=== PATIENT | female | born 1970 | race Caucasian/White ===

== ENCOUNTER → 2021-06-03 08:42 | Outpatient (CLI) | payer BC, SELFPAY ==
--- NOTE | ~2021-06-03 | CT_ITS ---
EXAMINATION: CT abdomen pelvis w con DATE: 06/03/2021 09:16 INDICATION: Generalized abdominal pain. TECHNIQUE: Computed tomography (CT) of the abdomen and pelvis was performed with 100 mL Omnipaque 350 intravenous contrast. Automated exposure control and iterative reconstruction technique were employe d. The dose-length product was 965.60 mGy-cm. COMPARISON: CT abdomen and pelvis 10/28/2007 FINDINGS: The visualized portions of the lung bases demonstrate mild atelectasis. No pleural effusion . The heart size is normal. No pericardial effusion. There are changes of gastric bypass procedure. T here is a 5 mm cyst in the liver. There are changes of cholecystectomy. The spleen and pancreas are n ormal. The adrenal glands and kidneys are normal. There is an intrauterine device in expected positio n. There are fibroids in uterus measuring up to 3.5 cm. There are no dilated loops of bowel. The appe ndix is not visualized. There are no pathologically enlarged lymph nodes. There is no free intraperit herrera fluid. There is mild thoracolumbar spondylosis. IMPRESSION: 1. Uterine fibroids. Reviewed, dictated and finalized at location A. IMPRESSION: 1. Uterine fibroids.
== END ==
PROVIDERS: PCP Nurse Practitioner Family
DX: R10.9 Unspecified abdominal pain (principal); D25.9 Leiomyoma of uterus, unspecified
CPT/HCPCS: 74177; Q9967

== ENCOUNTER 2022-12-24 17:25 | Emergency (ER) | payer BC, SELFPAY ==
[2022-12-24 17:28] VITALS: BP 142/90; PULSE 102; RESP 18; TEMP 37.3; O2SAT 100
--- NOTE | 2022-12-24 17:57 | ED.EYEPROB ---
HPI - Eye Problem General Chief complaint: Eye Problems Stated complaint: COVID positive - feels a pulling in her R eye Time Seen by Provider: 12/24/22 17:34 Source: patient Mode of arrival: ambulatory Limitations: no limitations History of Present Illness HPI Narrative: This is a 52-year-old female who is COVID-positive and presents the ED for chief complaint of right eye pulling. She is concerned for stroke. Denies facial drooping or speech difficulties. Denies any other neurologic symptoms. She states that the eye pulling just feels like there is something pulling behind the eyelid. States she spoke to her family member's home health nurse who recommended that she come to the ER. Denies any vision changes, pain with eye movements. Having viral URI symptoms and otherwise asymptomatic. Related Data Allergies Allergy/AdvReac Type Severity Reaction Status Date / Time sertraline Allergy Intermediate RASH Verified 12/24/22 17:26 Penicillins Allergy Mild HIVES Verified 12/24/22 17:26 phentermine AdvReac Unknown BECAME Verified 12/24/22 17:26 VERY JITTERY Review of Systems Review of Systems: CONSTITUTIONAL: Denies fever, chills, or sweats. EYES: Denies visual changes, redness, or discharge. ENT: Denies rhinorrhea, congestion, sore throat, or otalgia. CARDIOVASCULAR: Denies chest pain, palpitations, or edema. RESPIRATORY: Denies cough or dyspnea. GASTROINTESTINAL: Denies abdominal pain, nausea, vomiting, or diarrhea. GENITOURINARY: Denies dysuria or hematuria. SKIN: Denies rash or itching. MUSCULOSKELETAL: Denies back pain, joint pain, or myalgia. NEUROLOGIC: Denies headache, numbness, dizziness, or weakness. PSYCHIATRIC: Denies anxiety or depression. Course Course Emergency Course: GENERAL: Well-appearing, well-nourished, and in no acute distress. HEAD: Normocephalic, atraumatic. EYES: PERRLA and EOMI. visual lee intact. Visual acuity 20/20 bilaterally. ENT: Nares clear, no rhinorrhea or epistaxis. Mucous membranes moist. Oropharynx without tonsillar hypertrophy exudate or other lesions. NECK: Supple. No adenopathy or masses. CHEST: No respiratory distress. Clear to auscultation. No wheezes rales or rhonchi HEART: Regular rate and rhythm. No murmur heard. Normal peripheral pulses. ABDOMEN: Soft, nontender, nondistended, normal active bowel sounds. EXTREMITIES: Normal range of motion. No edema. SKIN: Warm, dry, no rash. NEURO: Alert and oriented x3. No focal deficits. Currently nerves II through XII intact. PSYCH: Normal mood and affect. Vital Signs Vital signs: Vital Signs Temperature 99.1 F 12/24/22 17:28 Pulse Rate 102 H 12/24/22 17:28 Respiratory Rate 18 12/24/22 17:28 Blood Pressure 142/90 H 12/24/22 17:28 Pulse Oximetry 100 12/24/22 17:28 Oxygen Delivery Room Air 12/24/22 17:28 Temperature 99.1 F 12/24/22 17:28 Pulse Rate 102 H 12/24/22 17:28 Respiratory Rate 18 12/24/22 17:28 Blood Pressure 142/90 H 12/24/22 17:28 Pulse Oximetry 100 12/24/22 17:28 Oxygen Delivery Room Air 12/24/22 17:28 MDM - Eye Problem MDM Narrative Medical decision making narrative: This is a 52-year-old female who presents the ED with who is COVID-positive and has concerns for stroke. She states she has pulling behind the right eyelid. Denies any neurologic symptoms. Vitals are stable. Exam is grossly benign. Neurologic status fully intact. Encouraged her that she does not have any stroke signs. We discussed that she should follow-up with her eye doctor in case this right eye pulling continues. Supportive measures for COVID discussed. Patient is understanding and agreeable with the plan for discharge and follow-up Discharge Plan Discharge Clinical Impression: Eye discomfort Patient Disposition: Home, Self-Care Condition: Stable Instructions: Antibiotic Form Additional Instructions: Your neurologic exam is fully normal today. Rest assured that there
== END 2022-12-24 18:08 | disposition home or self-care (01) ==
PROVIDERS: Emergency Provider Physician Assistant; PCP Nurse Practitioner Family
DX: U07.1 COVID-19 (principal); H57.89 Other specified disorders of eye and adnexa
CPT/HCPCS: 99282

== ENCOUNTER 2023-06-10 13:44 | Outpatient (CLI) | payer BC, SELFPAY ==
--- NOTE | 2023-06-10 13:58 | ECG_ITS ---
Measurements Intervals [place] Rate: 72 P: -24 CO: 141 QRS: 9 QRSD: 98 T: 3 QT: 364 QTc: 399 Interpretive Statements SINUS RHYTHM LOW QRS VOLTAGE IN PRECORDIAL LEADS [QRS DEFLECTION < 1.0 mV IN CHEST LEADS] PATTERN CONSISTENT WITH PULMONARY DISEASE BORDERLINE ECG NO PREVIOUS ECG AVAILABLE FOR COMPARISON Electronically Signed On 06-10-2023 18:35:59 CDT by Edil Khan M.D.
[2023-06-10 14:30] LABS: Alanine Aminotransferase 16 U/L (6-35); Albumin Level 4.3 g/dL (3.5-5.1); Alkaline Phosphatase 56 U/L (38-126); Anion Gap 5 mmol/L (8-16); Aspartate Amino Transferase 21 U/L (14-36); Bilirubin,Total 0.4 mg/dL (0.2-1.3); Blood Urea Nitrogen 11 mg/dL (7-17); Calcium 8.9 mg/dL (8.4-10.2); Carbon Dioxide 32 mmol/L (22-30); Chloride 100 mmol/L (98-107); Estimated Glomerular Filt Rate > 60; Glucose 86 mg/dL (65-110); Potassium 4.1 mmol/L (3.4-5.0); Sodium 137 mmol/L (137-145)
== END 2023-06-10 13:45 | disposition home or self-care (01) ==
LOC: ANHSURGERY 13:49
PROVIDERS: PCP Nurse Practitioner Family; Visit Provider Obstetrics & Gynecology
DX: Z01.818 Encounter for other preprocedural examination (principal); N92.0 Excessive and frequent menstruation with regular cycle; I10 Essential (primary) hypertension; E11.9 Type 2 diabetes mellitus without complications
CPT/HCPCS: 36415; 80053; 86850; 86900; 86901; 93005

== ENCOUNTER 2023-06-17 01:00 | Day surgery (SDC) | payer BC, SELFPAY ==
[2023-06-02 13:10] VITALS: BMI 37.2
--- NOTE | 2023-06-02 13:16 | PC.NURSE ---
Report to the Outpatient Waiting Room, entrance under the green pavilion located off [facility], at time 8:00 on date 06/17/23. Planned Procedure Time: 10:00. Time changes happen often and if your time is changed the preop area will call you the afternoon before. - You and your visitor will be asked to self-screen and do not enter if you have any COVID symptoms. - A mask is optional within the hospital at this time. Patients may have clear liquids (water, carbonated beverages, clear teas, apple juice) until 3 hours prior to surgery (7:00) with a maximum of 20 ounces. - No food from midnight until time of surgery Take the following medications with a SIP of water the morning of surgery: BUSPIRONE, DULOXETINE, LEVOTHYROXINE, LYRICA DO NOT STOP ANY OF YOUR OTHER PRESCRIPTION MEDICATIONS PRIOR TO SURGERY ?EXCEPT THE FOLLOWING Medications to discontinue per physician: N/A Date to take last dose: N/A Please no make-up, nail danish, hairspray, perfume, deodorant, or body powder the day of surgery. No jewelry (including any body piercings) or valuables the day of surgery, leave them at home. Please take a shower or bath the night before, or the morning of, surgery with an antibacterial soap. Wear comfortable, loose fitting clothing. - Jewelry must be removed prior to entering the operating room. Rings and piercings that are not removed may be cut off. - The hospital will not accept responsibility for valuables. - Please leave all valuables, including medications, at home the day of surgery. If you are going home after surgery, a licensed [employer] hazmat company driver must drive you home. - NO public transportation without another adult if you receive anesthesia. - We recommend that an adult stay with you for 24 hours following discharge. - We also recommend that you do not drive, make important decision, drink alcoholic beverages, or take any drugs that were not prescribed by your health care provider for at least 24 hours after your discharge time. Follow any additional instructions given to you from your surgeon. If you or anyone in your household have experienced Covid symptoms in the past week, please notify your surgeon or the nurse liaison at the phone number below for possible testing. Telephone instructions given to PT - SULTANA EVERETT and asked if any additional questions and then verbalized understanding. Patient advised to call surgeon office or pre surgery nurse liaison [phone] if any additional questions.
[2023-06-17] VITALS (11 sets, daily range): BP systolic 109–145; BP diastolic 54–87; PULSE 79–103; RESP 14–18; TEMP 36.4–36.9; O2SAT 97–100
[2023-06-17] MEDS: LACTATED RINGERS 1,000 ML 30 ML IV CONT ×2 (08:40→11:24)
[2023-06-17] MEDS: ACETAMINOPHEN 500 MG TABLET 1000 MG PO (08:41)
[2023-06-17] MEDS: SCOPOLAMINE 1.5 MG PATCH TRANSDERM (08:43)
[2023-06-17] MEDS: KETOROLAC 15 MG/ML VIAL (*BKC) IV PUSH (08:43)
--- NOTE | 2023-06-17 08:57 | P.PNAN_ITS ---
Anes - Initial Pre Proc Eval Procedure: Operation Date: 06/17/23 10:00 Proposed Procedures p Robotic Assisted Hysterectomy with Bilateral Salpingo Oophorectomy - Jean Pierre Donald MD Date/Time: 06/17/23 08:57 Surgeon: Jean Pierre Donald MD Pre Op Diagnosis: menorrhagia Patient Data Age: 53 Gender: F Height: 1.6 m Weight: 95.3 kg Last Vital Signs Temp 98.3 F 06/17/23 08:47 Pulse 79 06/17/23 08:47 Resp 16 06/17/23 08:47 BP 110/85 06/17/23 08:47 Pulse Ox 100 06/17/23 08:47 O2 Del Method Room Air 06/17/23 08:47 Allergies Allergy/AdvReac Type Severity Reaction Status Date / Time sertraline Allergy Intermediate RASH Verified 06/17/23 07:58 Penicillins Allergy Mild HIVES Verified 06/17/23 07:58 phentermine AdvReac Unknown BECAME Verified 06/17/23 07:58 VERY JITTERY Home Medications Medication Instructions Recorded Confirmed Type buspirone 5 mg tablet 10 mg PO TID 06/02/23 06/17/23 History duloxetine 30 mg capsule,delayed 30 mg PO DAILY 06/02/23 06/17/23 History release duloxetine 60 mg capsule,delayed 60 mg PO DAILY 06/02/23 06/17/23 History release estradiol 2 mg tablet 2 mg PO DAILY 06/02/23 06/17/23 History levocetirizine 5 mg tablet (Xyzal) 5 mg PO HS 06/02/23 06/17/23 History levothyroxine 50 mcg tablet 50 mcg PO DAILY 06/02/23 06/17/23 History (Synthroid) lisinopril 20 1 tablet PO DAILY 06/02/23 06/17/23 History mg-hydrochlorothiazide 12.5 mg tablet metformin 500 mg tablet,extended 500 mg PO HS 06/02/23 06/17/23 History release 24 hr pregabalin 100 mg capsule 100 mg PO BID 06/02/23 06/17/23 History progesterone micronized 200 mg 200 mg PO DAILY 06/02/23 06/17/23 History capsule ropinirole 1 mg tablet 1 mg PO HS 06/02/23 06/17/23 History Patient hx anesthesia problems: post op nausea/vomiting Family hx anesthesia problems: none Results Review: All pre-operative results and documents have been reviewed as part of the pre- operative evaluation. [facility] Social History Social History Smoking status: Never smoker Alcohol intake: never Substance use: never Substance use type: does not use Living arrangements: alone Spiritual care concerns: No Anes - Eval Final PreProcedure Day of Procedure 06/17/23 08:57 Patient weight: obese Heart: regular rate and rhythm Lungs: clear to auscultation Airway: Mallampati scale class II Neurological: alert and oriented Last oral intake: >/= 8 hours ASA classification: III Emergent: no Anesthetic plan: proceed Anesthesia type and monitoring: general ETT and standard monitoring Results Review: All pre-operative results and documents have been reviewed as part of the pre- operative evaluation. Informed Consent: The patient's anesthetic plan and its attendant risks and benefits were discussed with the patient/family/POA. Questions were solicited and answers provided to the satisfaction of the patient/family/POA.
--- NOTE | 2023-06-17 09:10 | WPDHPUPDATE1 ---
History and Physical Update Update Date/Time: 06/17/23 09:10 History and Physical has been reviewed, including an updated exam of the patient. There are NO changes in the patient's condition. Risks, benefits, and alternatives have been discussed and questions answered. Patient agrees to proceed with procedure.
[2023-06-17] MEDS: ceFAZolin 2 GM/D5W 50 ML 2 GM/50 ML BAG IVPB (09:24)
--- NOTE | 2023-06-17 11:33 | W.PM.PROC2 ---
Procedure Note - Detailed Date of Procedure 06/17/23 Pre-op Diagnosis menorrhagia Post-op Diagnosis Same Procedure Performed Robot assisted Total hysterectomy with bilateral salpingectomy. Surgeon Jean Pierre Donald MD Anesthesia General Indications heavy vaginal bleeding, pelvic pain Findings enlarged fibroid uterus uterus, normal appearing fallopian tubes and ovaries. Description of Procedure This patient was taken to the operating room. She was prepped and draped in the dorsal lithotomy position after induction of general anesthesia. The uterine manipulator and Robbie cup were placed. This was done with a speculum and tenaculum. The speculum was placed. The cervix was grasped with a tenaculum. The stay sutures were placed at 3 and 9:00 a.m.. The stay sutures of 0 Vicryl were tied to the appropriately Size scope after it was slipped around the cervix.. The tip of the EMERITA manipulator was placed in the intrauterine cavity. The cup was slid into place around the cervix and into the fornices. It was locked into place. The sutures were then wrapped around the handle and tied under tension. A 8 mm skin incision was made in the left upper quadrant the abdomen. a 5 mm Visiport trocar was inserted into abdominal cavity and pneumoperitoneum was achieved. A 8 mm supraumbilical incision was made and a 8 mm trocar was inserted into the intrauterine cavity under direct visualization of the scope. an 8 mm incision was made in the right upper quadrant of the abdomen and an 8 mm robotic trocar was placed the inter uterine cavity under direct visualization the scope. An 11 mm trocar was inserted in the right upper quadrant of the abdomen rectal is a cystoscope after an incision was made there as well. The robot was docked. Electronic Orientation of the robot was performed. Bilateral ureteral lysis was performed. This was done from the pelvic brim down to the uterine artery. This was done with careful dissection using sharp and blunt dissection.Bilateral salpingo-oophorectomy was performed. The bilateral infundibulopelvic ligaments were cauterized thoroughly and transected after visualization of the ureter passing over the pelvic brim. In stepwise fashion around the ovary the mesosalpinx was cauterized transected. The Fallopian tube tissue/ mesosalpinx was cauterized transected a stepwise fashion medially to the cornua of the uterus. the tube was transected at the cornua and cauterized thoroughly. The bilateral tubes and ovaries were taken out through the large air lock port. Then In a stepwise fashion along the lateral aspects of the uterus the round ligament and broad ligaments were cauterized transected down to the level of the uterine arteries. A bladder flap was created in the bladder was moved distally to the end of the cervix and over the Robbie cup. The bilateral uterine arteries were cauterized and transected. Colpotomy was then performed. In a circumferential fashion the vagina was transected using unipolar cautery. The incision was made down on the Robbie cup. The uterus and cervix were taken out through the vagina. A pneumo occluder was placed in the vagina. The vaginal cuff was closed with a 0 V lock suture in a running fashion. The pelvis was irrigated with copious amounts antibiotic irrigation. The ureters were again examined and found to be intact and flowing freely under the uterine arteries into the bladder. The bladder was intact. It was examined directly. The vagina was irrigated with Betadine solution after removal of the Pneumo occluder. the trocars were removed after the robot was undocked. The skin was closed with subacute or Dermabond. The patient was taken to recovery room. She was stable condition. Sponge lap and needle counts were correct x2. Estimated Blood Loss -25.0 Urine Output -200.0 Drains Yes Packing No Pathology Yes Complications No immediate complications Condition Stable Disposition Floor
[2023-06-17 11:36] LABS: Glucose Point of Care 132 mg/dl (65-105)
[2023-06-17] MEDS: fentaNYL CITRATE INJ (*CRX) 100 MCG/2 ML VIAL 25 MCG IV PUSH ×4 (11:47→12:30)
[2023-06-17] MEDS: DEXTROSE 5%/0.45% SOD CHL 1,000 ML 125 ML IV CONT (13:35)
[2023-06-17] MEDS: busPIRone HCL 5 MG TABLET 10 MG PO ×2 (13:35→16:20)
--- NOTE | 2023-06-17 13:39 | ADMGEN ---
1255-This patient, Brielle Walker, was admitted to OB 2nd Floor Room 289-00. Patient/family oriented to hospital policies and general routines including ID bracelet, bed and alarms, visiting hours, pain management, procedures, bathroom and other care routines, personal items, smoking policy, room service/diet, and visiting hours. Information on how to activate the Rapid Response Team has been discussed. Patient/Family are encouraged to report perceived risks to care and to ask questions if they do not understand what they are told or what they should do.
--- NOTE | 2023-06-17 14:11 | PC.NURSE ---
Per patient, she does not take Ibuprofen due to having a gastric bypass. This medication was discontinued.
[2023-06-17] MEDS: KETOROLAC 30 MG/ML VIAL (*BKC) IV PUSH (14:38)
[2023-06-17] MEDS: PREGABALIN (*CRX) 50 MG CAPSULE 100 MG PO (16:20)
[2023-06-17] MEDS: HYDROcodone/acetaminophen (*CRX) 10-325 MG TABLET 1 TAB PO (16:39)
[2023-06-17] MEDS: metFORMIN HCL XR 500 MG TAB.SR.24H PO (21:37)
[2023-06-17] MEDS: HYDROcodone/acetaminophen (*CRX) 5-325 MG TABLET 1 TAB PO (21:37)
[2023-06-17] MEDS: rOPINIRole HCL 1 MG TABLET PO (21:37)
[2023-06-18 00:30] VITALS: BP 109/74; PULSE 83; RESP 14; TEMP 37; O2SAT 98
[2023-06-18 05:00] VITALS: BP 104/63; PULSE 78; RESP 14; TEMP 37; O2SAT 96
[2023-06-18 07:55] VITALS: BP 126/76; PULSE 88; RESP 18; TEMP 36.4; O2SAT 96
--- NOTE | 2023-06-18 08:00 | PM.GYNPNOP ---
DIRECTOR OF LAND ACQUISITION - A/P Postoperative Procedures: Procedures Operation Date: 06/17/23 10:00 Actual Procedure Side Surgeon p Robotic Assisted Hysterectomy with Bilateral Salpingo Oophorectomy Jean Pierre Donald MD Postoperative day: 1 Postoperative status: doing well Postoperative plan: see orders Time Spent With Patient Time: Total time spent is greater than 50% in coordination of care (as documented) at patient's floor/unit and/or counseling patient: Time with patient: less than 15 minutes DIRECTOR OF LAND ACQUISITION- PN:Subj Post-Op Subjective Date/time seen: 06/18/23 08:00 Subjective: patient reports feeling better, patient has no complaints and pain is well controlled Exam Const: General: healthy appearing, comfortable and no acute distress Resp: Auscultation: clear to auscultation bilaterally, no rales, no rhonchi and no wheezes Cardio: Rate: regular rate Heart sounds: no click, no murmurs and no rubs GI: Inspection: non-distended Auscultation: normal bowel sounds Extrem: General: normal to inspection, no pedal edema and no calf tenderness DIRECTOR OF LAND ACQUISITION - PN: Obj Data Vital Signs Vital Signs: Vital Signs - 24 hr 06/17/23 08:47 06/17/23 11:24 06/17/23 11:35 Temperature 98.3 F 97.6 F Pulse Rate 79 88 94 Respiratory Rate 16 18 18 Blood Pressure 110/85 113/54 L 109/59 L Pulse Oximetry 100 100 100 Oxygen Delivery Room Air Simple Face Mask Simple Face Mask Oxygen Flow Rate 8 8 06/17/23 11:45 06/17/23 12:00 06/17/23 12:15 Temperature Pulse Rate 95 95 96 Respiratory Rate 18 18 18 Blood Pressure 111/60 112/69 118/69 Pulse Oximetry 100 100 100 Oxygen Delivery Nasal Cannula Nasal Cannula Nasal Cannula Oxygen Flow Rate 2 2 2 06/17/23 12:30 06/17/23 12:40 06/17/23 13:00 Temperature 97.6 F Pulse Rate 94 94 103 H Respiratory Rate 16 14 16 Blood Pressure 110/66 113/71 145/87 H Pulse Oximetry 100 100 100 Oxygen Delivery Nasal Cannula Nasal Cannula Oxygen Flow Rate 2 2 06/17/23 16:31 06/17/23 19:25 06/18/23 00:30 Temperature 98.2 F 98.4 F 98.6 F Pulse Rate 98 96 83 Respiratory Rate 18 16 14 Blood Pressure 123/75 127/71 109/74 Pulse Oximetry 99 97 98 Oxygen Delivery Oxygen Flow Rate 06/18/23 05:00 Temperature 98.6 F Pulse Rate 78 Respiratory Rate 14 Blood Pressure 104/63 Pulse Oximetry 96 Oxygen Delivery Oxygen Flow Rate Intake/Output Intake/Output: Intake & Output 06/15/23 06/16/23 06/17/23 06/18/23 23:59 23:59 23:59 23:59 Intake Total 2250 200 Output Total 1460 1100 Balance 790 -900 Meds/Results Medications: Active Medications Generic Name Dose Route Start Last Admin Trade Name Freq PRN Reason Stop Dose Admin Hydrocodone Bitart/Acetaminophen 1 tab 06/17/23 12:45 06/17/23 21:37 Hydrocodone/Acetaminophen (*Crx) 5-325 Mg Tablet PO 1 tab Q3H PRN Administration Pain Rated 5 or Less Hydrocodone Bitart/Acetaminophen 1 tab 06/17/23 12:45 06/17/23 16:39 Hydrocodone/Acetaminophen (*Crx) 10-325 Mg Tablet PO 1 tab Q3H PRN Administration Pain Rated 6 or Greater Buspirone HCl 10 mg 06/17/23 13:00 06/17/23 16:20 Buspirone Hcl 5 Mg Tablet PO 10 mg TID TORSTEN Administration Duloxetine HCl 30 mg 06/18/23 09:00 Duloxetine Hcl 30 Mg Capsule. PO DAILY TORSTEN Duloxetine HCl 60 mg 06/18/23 09:00 Duloxetine Hcl 60 Mg Capsule.Dr PO DAILY TORSTEN Estradiol 2 mg 06/18/23 09:00 Estradiol 1 Mg Tablet PO QAM [facility] Hydrochlorothiazide 12.5 mg 06/18/23 09:00 Hydrochlorothiazide 12.5 Mg Capsule PO QAM [facility] Dextrose/Sodium Chloride 1,000 mls @ 125 mls/hr 06/17/23 12:45 06/18/23 04:19 Dextrose 5% Sodium Chloride 0.45% IV CONT Not Given .Q8H TORSTEN Ketorolac Tromethamine 30 mg 06/17/23 12:45 06/17/23 14:38 Ketorolac 30 Mg/Ml Vial (*Bkc) IV PUSH 06/22/23 12:44 30 mg Q6H PRN Administration Pain Rated 4-6 Levothyroxine Sodium 50 mcg 06/18/23 06:30 Levothyroxine Sodium 50 Mcg Tablet PO DAILY@0630
[2023-06-18] MEDS: busPIRone HCL 5 MG TABLET 10 MG PO (09:06)
[2023-06-18] MEDS: LEVOTHYROXINE SODIUM 50 MCG TABLET PO (09:06)
[2023-06-18] MEDS: estradioL 1 MG TABLET 2 MG PO (09:07)
[2023-06-18] MEDS: DULoxetine HCL 60 MG CAPSULE.DR PO (09:07)
[2023-06-18] MEDS: hydroCHLOROthiazide 12.5 MG CAPSULE PO (09:08)
[2023-06-18] MEDS: lisinopriL 20 MG TABLET PO (09:08)
[2023-06-18] MEDS: PREGABALIN (*CRX) 50 MG CAPSULE 100 MG PO (09:08)
[2023-06-18] MEDS: HYDROcodone/acetaminophen (*CRX) 5-325 MG TABLET 1 TAB PO (09:09)
[2023-06-18] MEDS: DULoxetine HCL 30 MG CAPSULE.DR PO (09:09)
--- NOTE | 2023-06-18 09:13 | WPDANESPN ---
Anes - Prog Note Post-Op Date/Time: 06/18/23 09:13 Cardiovascular status: normal Respiratory status: normal Airway patency: baseline Mental status: baseline Post-Op hydration status: normal Vital Signs: Last Vital Signs Temp 97.6 F 06/18/23 07:55 Pulse 88 06/18/23 07:55 Resp 18 06/18/23 07:55 BP 126/76 06/18/23 07:55 Pulse Ox 96 06/18/23 07:55 O2 Del Method Nasal Cannula 06/17/23 12:40 O2 Flow Rate 2 06/17/23 12:40 Pain Score (VAS): 4 I/O: Intake & Output 06/17/23 06/18/23 06/18/23 23:59 07:59 15:59 Intake Total 1600 200 Output Total 1400 1425 Balance 200 -1225 06/17/23 11:34 POC Capillary Glucose 132 H Post-procedural complaints: none Patient Feedback: Patient satisfied with anesthetic care.
== END 2023-06-18 11:18 | disposition home or self-care (01) ==
LOC: ANHSURGERY 07:47 → ANHOB2 12:46
PROVIDERS: PCP Nurse Practitioner Family; Visit Provider Obstetrics & Gynecology
PROC: (CPT 58573; principal; 2023-06-17 10:00)
DX: N92.0 Excessive and frequent menstruation with regular cycle (principal); D25.0 Submucous leiomyoma of uterus; D25.1 Intramural leiomyoma of uterus; D25.2 Subserosal leiomyoma of uterus; N83.202 Unspecified ovarian cyst, left side; R10.2 Pelvic and perineal pain; Z79.84 Long term (current) use of oral hypoglycemic drugs; E66.9 Obesity, unspecified; Z68.37 Body mass index [BMI] 37.0-37.9, adult
CPT/HCPCS: 58573; S2900; 36415; 80053; 82948; 86850; 86900; 86901; 88307; 93005; 99199; A9270; J0690; J1100; J1170; J1885; J2250; J2405; J2704; J3010; J7030; J7120

== ENCOUNTER 2023-07-08 08:27 | Day surgery (SDC) | payer BC, SELFPAY ==
[2023-07-08] VITALS (25 sets, daily range): BP systolic 119–143; BP diastolic 66–91; PULSE 83–102; RESP 12–19; TEMP 36.4–36.7; O2SAT 96–100
--- NOTE | ~2023-07-08 | CT_ITS ---
EXAMINATION: CT abdomen pelvis w con DATE: 07/08/2023 10:46 INDICATION: Heavy vaginal bleeding. Recent hysterectomy. TECHNIQUE: Computed tomography (CT) of the abdomen and pelvis was performed with 100 mL Omnipaque 350 intravenous contrast. Automated exposure control and iterative reconstruction technique were employe d. The dose-length product was 1185.24 mGy-cm. COMPARISON: CT abdomen and pelvis 06/03/2021 FINDINGS: The visualized portions of the lung bases demonstrate mild atelectasis. No pleural effusion . The heart size is normal. There is a small pericardial effusion. There is a 5 mm cyst in the liver. There are changes of cholecystectomy. There are changes of gastric bypass procedure. There is a smal l sliding hiatal hernia. The spleen, pancreas, adrenal glands, and kidneys are normal. There is thick ening of the vaginal cuff with surrounding fat stranding. The appendix is not visualized. There are n o dilated loops of bowel. There are no pathologically enlarged lymph nodes. There is no free intraper itoneal fluid. There is mild thoracic and lumbar spondylosis. IMPRESSION: 1. Thickening of the vaginal cuff with surrounding fat stranding, consistent with surgical change and small hematoma. 2. Small pericardial effusion. Reviewed, dictated and finalized at location A. [employer] IMPRESSION: 1. Thickening of the vaginal cuff with surrounding fat stranding, consistent wi th surgical change and small hematoma. 2. Small pericardial effusion.
--- NOTE | 2023-07-08 09:04 | PC.NURSE ---
ERP placed vaginal packing
[2023-07-08] MEDS: SODIUM CHLORIDE 0.9% IV 1,000 ML 999 ML IV CONT (09:18)
[2023-07-08 09:32] LABS: Basophils Percent Auto 0.4 % (0.2-1.2); Eosinophils Absolute Auto 0.1 K/mm3 (0-0.3); Eosinophils Percent Auto 1.4 % (0-4.4); Hematocrit 37.8 % (37.0-47.0); Hemoglobin 11.8 g/dL (12.0-15.0); Immature Granulocyte Absolute 0.05 K/mm3 (0.00-0.031); Immature Granulocyte Percent A 0.6 % (0-0.5); Lymphocytes Absolute Auto 1.84 K/mm3 (0.9-3.2); Lymphocytes Percent Auto 23.8 % (18.3-44.2); Mean Corpuscular HGB Conc 31.2 g/dl (32-36); Mean Corpuscular Hemoglobin 27.5 pg (26-34); Mean Corpuscular Volume 88.1 fl (80-100); Mean Platelet Volume 11.1 fl (7.4-10.4); Monocytes Absolute Auto 0.3 K/mm3 (0.1-0.6); Monocytes Percent Auto 3.8 % (2.6-8.5); Neutrophils Absolute Auto 5.4 K/mm3 (1.3-6.7); Platelet Count Result 313 k/mm3 (150-375); Red Blood Count 4.29 M/mm3 (4.2-5.4); Red Cell Distribution Width 13.8 % (11.5-14.5); White Blood Count 7.7 K/mm3 (4.5-10.0)
--- NOTE | 2023-07-08 09:42 | ED.GENADULT ---
HPI - General Adult General Chief complaint: Vaginal Bleeding Stated complaint: hemorrhage Time Seen by Provider: 07/08/23 08:34 History of Present Illness HPI narrative: Patient is a 53-year-old female who presents ER with vaginal bleeding. She had a hysterectomy on 06/17/2023. She underwent speculum exam yesterday due to concern for a vaginal infection. She woke up this morning use restroom and came back to her bed. She then felt her pants becoming warm. She did notice that she was just constantly bleeding bright red blood. She came in by ambulance. Patient is on no anti-platelet or blood thinning medications. Denies any additional trauma to the vaginal area. Related Data Home Medications Medication Instructions Recorded Confirmed buspirone 5 mg tablet 10 mg PO TID 06/02/23 06/17/23 duloxetine 30 mg capsule,delayed 30 mg PO DAILY 06/02/23 06/17/23 release duloxetine 60 mg capsule,delayed 60 mg PO DAILY 06/02/23 06/17/23 release estradiol 2 mg tablet 2 mg PO DAILY 06/02/23 06/17/23 levocetirizine 5 mg tablet (Xyzal) 5 mg PO HS 06/02/23 06/17/23 levothyroxine 50 mcg tablet 50 mcg PO DAILY 06/02/23 06/17/23 (Synthroid) lisinopril 20 1 tablet PO DAILY 06/02/23 06/17/23 mg-hydrochlorothiazide 12.5 mg tablet metformin 500 mg tablet,extended 500 mg PO HS 06/02/23 06/17/23 release 24 hr pregabalin 100 mg capsule 100 mg PO BID 06/02/23 06/17/23 progesterone micronized 200 mg 200 mg PO DAILY 06/02/23 06/17/23 capsule ropinirole 1 mg tablet 1 mg PO HS 06/02/23 06/17/23 Allergies Allergy/AdvReac Type Severity Reaction Status Date / Time sertraline Allergy Intermediate RASH Verified 06/17/23 07:58 Penicillins Allergy Mild HIVES Verified 06/17/23 07:58 phentermine AdvReac Unknown BECAME Verified 06/17/23 07:58 VERY JITTERY Review of Systems Review of Systems: All systems reviewed & are unremarkable except as noted in HPI and below Constitutional: Constitutional: Reports no additional constitutional complaints ENT: Reports system reviewed and no additional complaints, except as documented Cardiovascular: Cardiovascular: Reports no additional cardiovascular complaints Respiratory: Respiratory: Reports no additional respiratory complaints Gastrointestinal: Gastrointestinal: Reports no additional gastrointestinal complaints Genitourinary: Genitourinary: Reports abnormal vaginal bleeding, Denies dysuria, Denies pelvic pain and Denies flank pain PMFSH Past Medical History Medical History (Updated 07/08/23 @ 13:04 by Elijah Nina MD) Diabetes Hypothyroidism Surgical History Surgical History (Updated 07/08/23 @ 13:04 by Elijah Nina MD) History of hysterectomy Social History Social History Smoking status: Never smoker Alcohol intake: never Substance use: never Substance use type: does not use Living arrangements: alone Spiritual care concerns: No Exam Narrative: GENERAL: Well-appearing, obese, and in no acute distress. HEAD: Normocephalic, atraumatic. ENT: Mucous membranes moist. CHEST: Clear to auscultation. No respiratory distress. HEART: Regular rate and rhythm. Normal peripheral pulses. ABDOMEN: Soft, nontender, nondistended, normal active bowel sounds. : Normal external genitalia. Large clot the size of a palm physically extracted from the vagina. Moderate amount of blood soaked up with 2 4x4s. Unable to fully visualize the site of bleeding or vaginal cough but after the blood was sewed up there is no additional bleeding. EXTREMITIES: Normal range of motion. No edema. SKIN: Warm, dry, no rash. NEURO: Alert and oriented x3. PSYCH: Normal mood and affect. Course Course Emergency Course: Patient resting comfortably. Discussed case with Dr. Donald. He has been to the patient's bedside will take her to the OR for evaluation. Patient comfortable with this plan. She has been NPO in the ER. Vital Signs Vital signs: Vital Signs
[2023-07-08 09:45] LABS: Alanine Aminotransferase 19 U/L (6-35); Albumin Level 4.1 g/dL (3.5-5.1); Alkaline Phosphatase 68 U/L (38-126); Anion Gap 11 mmol/L (8-16); Aspartate Amino Transferase 23 U/L (14-36); Bilirubin,Total 0.4 mg/dL (0.2-1.3); Blood Urea Nitrogen 11 mg/dL (7-17); Calcium 8.7 mg/dL (8.4-10.2); Carbon Dioxide 28 mmol/L (22-30); Chloride 103 mmol/L (98-107); Estimated CRCL calculation 123 ml/min; Estimated Glomerular Filt Rate > 60; Glucose 110 mg/dL (65-110); Sodium 142 mmol/L (137-145)
[2023-07-08 09:46] LABS: Prothrombin Time 13.4 Seconds (11.1-14.7)
[2023-07-08 09:47] LABS: Partial Thromboplastin Time 27.1 SECONDS (22.3-36.8)
[2023-07-08 09:54] LABS: Anisocytosis 1+ (NORMAL); Ovalocytes 1+ (NORMAL); Platelet Estimate Adequate (Adequate); Schistocytes None Seen (NORMAL)
--- NOTE | 2023-07-08 13:35 | PC.NURSE ---
Efrain with OB called for report on pt. States the nurse Delphine will be arriving at 1400 and pt will be going to room 287.
[2023-07-08] MEDS: ACETAMINOPHEN 500 MG TABLET 1000 MG PO (15:22)
[2023-07-08] MEDS: DEXTROSE 5%/LACTATED RINGERS 1,000 ML 100 ML IV CONT (16:13)
[2023-07-08] MEDS: DULoxetine HCL 30 MG CAPSULE.DR PO (16:14)
[2023-07-08] MEDS: DULoxetine HCL 60 MG CAPSULE.DR PO (16:14)
[2023-07-08] MEDS: busPIRone HCL 5 MG TABLET PO ×2 (16:15→20:50)
[2023-07-08] MEDS: metFORMIN HCL XR 500 MG TAB.SR.24H PO (16:15)
[2023-07-08] MEDS: PREGABALIN (*CRX) 50 MG CAPSULE 100 MG PO (16:16)
[2023-07-08] MEDS: LEVOTHYROXINE SODIUM 50 MCG TABLET PO (16:16)
[2023-07-08] MEDS: rOPINIRole HCL 1 MG TABLET PO (20:50)
--- NOTE | 2023-07-08 23:00 | PC.NURSE ---
I went in to check on the patient, she was sleeping but was easily awaken when I walked into the room. Pt denies pain at this time, she states bleeding is minimal. Discussed that she can have clear liquids till 0400 then she will be NPO till the surgery which is scheduled for 07/09 at 1330. Pt verbalized understanding and will call out if she needs anything.
[2023-07-09] VITALS (8 sets, daily range): BP systolic 115–133; BP diastolic 64–84; PULSE 71–92; RESP 14–18; TEMP 36.3–36.9; O2SAT 95–100
--- NOTE | 2023-07-09 02:30 | PC.NURSE ---
Pt called out because IV fluids were beeping, IV fluids changed, jello given and water refilled. Pt denies pain at this time
[2023-07-09] MEDS: DEXTROSE 5%/LACTATED RINGERS 1,000 ML 100 ML IV CONT (02:35)
--- NOTE | 2023-07-09 03:58 | PC.NURSE ---
water pitcher taken away from pt. per Dr. Donald, pt to be NPO till surgery today. Pt denies pain at this time.
--- NOTE | 2023-07-09 08:23 | PM.IMHP ---
H&P: HPI History of Present Illness Date/Time: 07/09/23 08:23 Chief Complaint: vaginal bleeding Narrative: 53-year-old female who is 1 week postop from a laparoscopic hysterectomy/robotic hysterectomy. She had an episode of large dark red vaginal bleeding. She was seen in the emergency department and evaluated CT scan showed hematoma in the pelvis. She denies any nausea, vomiting, fever, chills. She denies any chest pain shortness of breath. she denies pelvic pain or GI symptoms. Review of Systems Review of Systems: All systems reviewed & are unremarkable except as noted in HPI and below Constitutional: Constitutional: Denies chills, Denies fatigue, Denies fever(s) and Denies weakness Eyes: Eyes: Denies blurry vision, Denies change in vision, Denies loss of peripheral vision, Denies loss of vision, Denies other visual disturbances and Denies eye pain ENT: Denies vertigo, Denies dizziness, Denies hearing loss, Denies mouth pain, Denies nasal obstruction, Denies neck mass and Denies neck pain Cardiovascular: Cardiovascular: Denies chest pain, Denies diaphoresis, Denies syncope, Denies leg edema and Denies dyspnea Respiratory: Respiratory: Denies chest congestion, Denies cough, Denies hemoptysis, Denies dyspnea and Denies wheezing Gastrointestinal: Gastrointestinal: Denies abdominal pain, Denies constipation, Denies diarrhea, Denies nausea and Denies vomiting Genitourinary: Genitourinary: Denies hematuria, Denies change in libido, Denies nocturia, Denies genital lesions, Denies flank pain and Denies urinary urgency Musculoskeletal: Musculoskeletal: Denies abnormal gait, Denies back pain, Denies myalgias, Denies arthralgias, Denies joint swelling, Denies muscle weakness and Denies neck pain Integumentary/Breasts: Skin/Breast: Denies swelling, Denies breast pain, Denies breast mass, Denies dry skin, Denies nipple discharge, Denies unusual bruising and Denies jaundice Neurologic: Denies Neuro-related abnormal movements, Denies Abnormal speech present, Denies abnormal gait, Denies behavioral changes, Denies confusion, Denies vertigo, Denies dizziness, Denies syncope, Denies loss of vision, Denies memory loss, Denies convulsions and Denies weakness Psychiatric: Psychiatric: Denies abnormal sleep pattern, Denies behavioral changes, Denies change in libido, Denies confusion, Denies depression, Denies anhedonia and Denies memory loss Endocrine: Endocrine: Reports no additional endocrine complaints, Denies change in libido and Denies fatigue Hematologic/Lymphatic: Hematologic/Lymphatic: Reports no additional hematologic/lymphatic complaints Allergic/Immunologic: Allergic/Immunologic: Reports no additional allergic/immunologic complaints and Denies wheezing PMFSH Past Medical History Medical History (Updated 07/08/23 @ 13:04 by Elijah Nina MD) Diabetes Hypothyroidism Surgical History Surgical History (Updated 07/08/23 @ 13:04 by Elijah Nina MD) History of hysterectomy Social History Social History Smoking status: Never smoker Alcohol intake: never Substance use: never Substance use type: does not use Lack of Transportation: No Lack of Food: Never True Current Housing: I Have Housing Concerned About Future Housing: No Difficulty Paying Gas/Electric Bills: No Difficulty Paying for Meds: No Currently Unemployed: No Education: Associate Degree Difficulty w/ Childcare or Family Care: No Living arrangements: alone Spiritual care concerns: No Meds Home Medications and Allergies Home Medications Medication Instructions Recorded Confirmed Type buspirone 5 mg tablet 10 mg PO TID 06/02/23 06/17/23 History duloxetine 30 mg capsule,delayed 30 mg PO DAILY 06/02/23 06/17/23 History release duloxetine 60 mg capsule,delayed 60 mg PO DAILY 06/02/23 06/17/23 History release estradiol 2 mg tablet 2 mg PO DAILY 06/02/23 06/17/23 History levocetirizine 5 mg tablet (Xyzal) 5 mg
--- NOTE | 2023-07-09 08:26 | WPDHPUPDATE1 ---
History and Physical Update Update Date/Time: 07/09/23 08:26 History and Physical has been reviewed, including an updated exam of the patient. There are NO changes in the patient's condition. Risks, benefits, and alternatives have been discussed and questions answered. Patient agrees to proceed with procedure.
[2023-07-09] MEDS: DULoxetine HCL 30 MG CAPSULE.DR PO (09:30)
[2023-07-09] MEDS: LEVOTHYROXINE SODIUM 50 MCG TABLET PO (09:30)
[2023-07-09] MEDS: busPIRone HCL 5 MG TABLET PO (09:30)
[2023-07-09] MEDS: DULoxetine HCL 60 MG CAPSULE.DR PO (09:30)
[2023-07-09] MEDS: PREGABALIN (*CRX) 50 MG CAPSULE 100 MG PO (09:30)
[2023-07-09] MEDS: LACTATED RINGERS 1,000 ML 30 ML IV CONT ×2 (09:41→14:47)
[2023-07-09] MEDS: ACETAMINOPHEN 500 MG TABLET 1000 MG PO (10:05)
--- NOTE | 2023-07-09 12:08 | PC.NURSE ---
Left unit via OR stretcher accompanied by OR staff. A&Ox3. VS WNL
--- NOTE | 2023-07-09 12:34 | WPDANESEPPF ---
Anes - Initial Pre Proc Eval Procedure: Operation Date: 07/09/23 13:30 Proposed Procedures p Diagnostic Laparoscopy - Jean Pierre Donald MD Date/Time: 07/09/23 12:34 Surgeon: Jean Pierre Donald MD Pre Op Diagnosis: hemorrhage Patient Data Age: 53 Gender: F Height: 1.63 m Weight: 96.7 kg Last Vital Signs Temp 36.7 C 07/09/23 07:45 Pulse 77 07/09/23 07:45 Resp 18 07/09/23 07:45 BP 120/68 07/09/23 07:45 Pulse Ox 100 07/09/23 07:45 Allergies Allergy/AdvReac Type Severity Reaction Status Date / Time sertraline Allergy Intermediate RASH Verified 06/17/23 07:58 Penicillins Allergy Mild HIVES Verified 06/17/23 07:58 phentermine AdvReac Unknown BECAME Verified 06/17/23 07:58 VERY JITTERY Home Medications Medication Instructions Recorded Confirmed Type buspirone 5 mg tablet 10 mg PO TID 06/02/23 06/17/23 History duloxetine 30 mg capsule,delayed 30 mg PO DAILY 06/02/23 06/17/23 History release duloxetine 60 mg capsule,delayed 60 mg PO DAILY 06/02/23 06/17/23 History release estradiol 2 mg tablet 2 mg PO DAILY 06/02/23 06/17/23 History levocetirizine 5 mg tablet (Xyzal) 5 mg PO HS 06/02/23 06/17/23 History levothyroxine 50 mcg tablet 50 mcg PO DAILY 06/02/23 06/17/23 History (Synthroid) lisinopril 20 1 tablet PO DAILY 06/02/23 06/17/23 History mg-hydrochlorothiazide 12.5 mg tablet metformin 500 mg tablet,extended 500 mg PO HS 06/02/23 06/17/23 History release 24 hr pregabalin 100 mg capsule 100 mg PO BID 06/02/23 06/17/23 History progesterone micronized 200 mg 200 mg PO DAILY 06/02/23 06/17/23 History capsule ropinirole 1 mg tablet 1 mg PO HS 06/02/23 06/17/23 History oxycodone-acetaminophen 5 mg-325 1 tablet PO Q4H PRN pain #25 tabs 06/18/23 Rx mg tablet Patient hx anesthesia problems: none Family hx anesthesia problems: none Results Review: All pre-operative results and documents have been reviewed as part of the pre-operative evaluation. PMFSH Past Medical History Medical History Diabetes Hypothyroidism Surgical History Surgical History History of hysterectomy Social History Social History Smoking status: Never smoker Alcohol intake: never Substance use: never Substance use type: does not use Lack of Transportation: No Lack of Food: Never True Current Housing: I Have Housing Concerned About Future Housing: No Difficulty Paying Gas/Electric Bills: No Difficulty Paying for Meds: No Currently Unemployed: No Education: Associate Degree Difficulty w/ Childcare or Family Care: No Living arrangements: alone Spiritual care concerns: No Anes - Eval Final PreProcedure Day of Procedure 07/09/23 12:34 Patient weight: obese Heart: regular rate and rhythm Lungs: clear to auscultation Airway: Mallampati scale class II Neurological: alert and oriented Last oral intake: >/= 8 hours ASA classification: III Emergent: no Anesthetic plan: proceed Anesthesia type and monitoring: general ETT and standard monitoring Results Review: All pre-operative results and documents have been reviewed as part of the pre-operative evaluation. Informed Consent: The patient's anesthetic plan and its attendant risks and benefits were discussed with the patient/family/POA. Questions were solicited and answers provided to the satisfaction of the patient/family/POA.
--- NOTE | 2023-07-09 14:43 | W.PM.PROC2 ---
Procedure Note - Detailed Date of Procedure 07/09/23 Pre-op Diagnosis Postoperative bleeding, pelvic hematoma Post-op Diagnosis Same Procedure Performed Diagnostic laparoscopy, adhesiolysis, lysis of adhesions, revision of vaginal incision Surgeon Jean Pierre Donald MD Anesthesia General Indications postoperative bleeding, pelvic hematoma Findings adhesions between the pericolic fat and the vaginal cuff, very small hematoma at the vaginal cuff, Description of Procedure The patient was taken to the operating room. She was prepped and draped in the dorsal lithotomy position after induction general anesthesia. A 5 mm incision was made with a scalpel on the abdominal skin in the left upper quadrant of the abdomen. A 5 mm trocar was inserted into the intra-abdominal cavity under direct visualization the scope. In the same fashion a 5 mm left lower quadrant trocar was inserted and a 5 mm infraumbilical trocar was inserted. 15 minutes of adhesiolysis was performed between the pericolic fat and the vaginal cuff pre. The pelvis was irrigated. The pneumoperitoneum was reduced. The trocars were removed. Skin was closed with subcuticular 4 micro. The patient's incisions were covered with Dermabond. Vaginally the vaginal cuff was bolstered with 2 interrupted sutures at the right margin of the vaginal incision. 0 Vicryl She was taken recovery room in stable condition. Sponge lap and needle counts were correct x2. Estimated Blood Loss 0 Pathology None sent Complications No immediate complications Condition Stable Disposition Same day
[2023-07-09 14:44] LABS: Glucose Point of Care 99 mg/dl (65-105)
== END 2023-07-09 18:05 | disposition home or self-care (01) ==
LOC: ANHED 13:14 → ANHSURGERY 13:16 → ANHOB2 15:07
PROVIDERS: Emergency Provider Emergency Medicine; PCP Nurse Practitioner Family; Visit Provider Obstetrics & Gynecology
PROC: (CPT 49320; principal; 2023-07-09 13:30)
DX: N99.820 Postprocedural hemorrhage of a genitourinary system organ or structure following a genitourinary system procedure (principal); I31.39 Other pericardial effusion (noninflammatory); Y83.8 Other surgical procedures as the cause of abnormal reaction of the patient, or of later complication, without mention of misadventure at the time of the procedure; N93.9 Abnormal uterine and vaginal bleeding, unspecified; E11.9 Type 2 diabetes mellitus without complications; E03.9 Hypothyroidism, unspecified; E66.9 Obesity, unspecified; Z68.36 Body mass index [BMI] 36.0-36.9, adult; Z79.84 Long term (current) use of oral hypoglycemic drugs; Z79.891 Long term (current) use of opiate analgesic
CPT/HCPCS: 58660; 58999; 36415; 74177; 80053; 82948; 85025; 85610; 85730; 86850; 86900; 86901; 96360; 96361; 99199; 99285; A9270; J2250; J3010; J7030; J7120; J7121; Q9967

== ENCOUNTER 2023-09-22 11:35 | Outpatient (CLI) | payer BC, SELFPAY ==
[2023-09-22 11:58] LABS: Basophils Absolute Auto 0.1 K/mm3 (0.0-0.1); Basophils Percent Auto 0.8 % (0.2-1.2); Eosinophils Absolute Auto 0.2 K/mm3 (0-0.3); Eosinophils Percent Auto 2.3 % (0-4.4); Hematocrit 36.1 % (37.0-47.0); Hemoglobin 11.1 g/dL (12.0-15.0); Immature Granulocyte Absolute 0.02 K/mm3 (0.00-0.031); Immature Granulocyte Percent A 0.3 % (0-0.5); Lymphocytes Absolute Auto 2.64 K/mm3 (0.9-3.2); Lymphocytes Percent Auto 35.1 % (18.3-44.2); Mean Corpuscular HGB Conc 30.7 g/dl (32-36); Mean Corpuscular Hemoglobin 25.5 pg (26-34); Mean Corpuscular Volume 82.8 fl (80-100); Mean Platelet Volume 11.5 fl (7.4-10.4); Monocytes Absolute Auto 0.4 K/mm3 (0.1-0.6); Monocytes Percent Auto 4.6 % (2.6-8.5); Neutrophils Absolute Auto 4.3 K/mm3 (1.3-6.7); Neutrophils Percent Auto 56.9 % (45.5-73.1); Platelet Count Result 302 k/mm3 (150-375); Red Blood Count 4.36 M/mm3 (4.2-5.4); Red Cell Distribution Width 14.8 % (11.5-14.5); White Blood Count 7.5 K/mm3 (4.5-10.0)
[2023-09-22 12:06] LABS: Anisocytosis 1+ (NORMAL); Platelet Estimate Adequate (Adequate); Schistocytes None Seen (NORMAL)
[2023-09-22 16:51] LABS: Alanine Aminotransferase 25 U/L (6-35); Albumin Level 4.2 g/dL (3.5-5.1); Alkaline Phosphatase 73 U/L (38-126); Anion Gap 9 mmol/L (8-16); Aspartate Amino Transferase 34 U/L (14-36); Bilirubin,Total 0.5 mg/dL (0.2-1.3); Blood Urea Nitrogen 13 mg/dL (7-17); Calcium 9.6 mg/dL (8.4-10.2); Carbon Dioxide 25 mmol/L (22-30); Chloride 103 mmol/L (98-107); Estimated Glomerular Filt Rate > 60; Glucose 86 mg/dL (65-110); Lactate Dehydrogenase 209 U/L (120-246); Potassium 3.8 mmol/L (3.4-5.0); Sodium 137 mmol/L (137-145)
[2023-09-22 16:52] LABS: Iron 64 ug/dL (37-170)
[2023-09-22 17:28] LABS: Ferritin 6.03 ng/mL (11.1-264)
[2023-09-22 17:56] LABS: Folic Acid 19.6 ng/mL (2.76->20)
[2023-09-22 18:08] LABS: Percent Iron Saturation 12 % (20-50)
[2023-09-25 11:29] LABS: Methylmalonic Acid 88 nmol/L (87-318)
[2023-09-28 11:07] LABS: Soluble Transferrin Receptor 1.82 mg/L (0.76-1.76)
== END 2023-09-22 11:36 | disposition home or self-care (01) ==
LOC: ANHLAB 11:39
PROVIDERS: Nurse Practitioner Family; PCP Nurse Practitioner Adult Health; Visit Provider Internal Medicine Hematology & Oncology
DX: D50.8 Other iron deficiency anemias (principal)
CPT/HCPCS: 36415; 80053; 82607; 82728; 82746; 83540; 83550; 83615; 83921; 84238; 85025

== ENCOUNTER 2023-12-07 14:42 | Outpatient (CLI) | payer BC, SELFPAY ==
[2023-12-07 20:26] LABS: Alanine Aminotransferase 24 U/L (6-35); Albumin Level 4.6 g/dL (3.5-5.1); Alkaline Phosphatase 74 U/L (38-126); Anion Gap 6 mmol/L (4-12); Aspartate Amino Transferase 47 U/L (14-36); Bilirubin,Total 0.6 mg/dL (0.2-1.3); Blood Urea Nitrogen 12 mg/dL (7-17); Calcium 9.6 mg/dL (8.4-10.2); Carbon Dioxide 28 mmol/L (22-30); Chloride 100 mmol/L (98-107); Estimated Glomerular Filt Rate > 60; Glucose 99 mg/dL (65-110); Potassium 3.7 mmol/L (3.4-5.0); Sodium 134 mmol/L (137-145)
[2023-12-07 20:31] LABS: Appearance Urine Clear (Clear); Bilirubin Urine Negative (Negative); Blood Urine Negative (Negative); Color Urine Yellow (Yellow); Glucose Urine UA Negative (Negative); Ketones Urine 1+ mg/dL (Negative); Leukocyte Esterase Ur Negative LEU/UL (Negative); Nitrate Urine Negative (Negative); Protein Urine Negative (Negative); Specific Grav Ur 1.019 (1.001-1.035); Urobilinogen Urine 0.2 mg/dL (<2.0); pH Urine 5.5 (5.0-9.0)
[2023-12-07 20:41] LABS: Add Urine Microscopic? NO
[2023-12-07 20:56] LABS: Thyroid Stimulating Hormone 0.515 uIU/mL (0.465-4.680)
== END 2023-12-07 14:43 | disposition home or self-care (01) ==
LOC: ANHBWCLAB 14:44
PROVIDERS: PCP Nurse Practitioner Adult Health; Visit Provider Nurse Practitioner Adult Health
DX: E07.9 Disorder of thyroid, unspecified (principal); R39.9 Unspecified symptoms and signs involving the genitourinary system; I10 Essential (primary) hypertension
CPT/HCPCS: 36415; 80053; 81003; 83036; 84443; 87086

== ENCOUNTER 2024-03-05 16:00 | Emergency (ER) | payer BC, SELFPAY ==
[2024-03-05] VITALS (9 sets, daily range): BP systolic 108–116; BP diastolic 68–75; PULSE 72–84; RESP 16–20; TEMP 36.3; O2SAT 95–98
--- NOTE | ~2024-03-05 | CT_ITS ---
CT of the Abdomen and Pelvis: Indication: Abdominal pain Technique: 2.5 mm axial scans were obtained through the abdomen and pelvis following intravenous adm inistration of 100 cc of Omnipaque 350. Dose reduction technique was used on this scan by utilizing a utomated exposure control and iterative reconstruction technique. The dose-length product (DLP) was 1 262.94 mGy-cm. COMPARISON: 07/08/2023 Findings: Scans through the lung bases are unremarkable. The liver, spleen, pancreas, adrenals and kidneys are within normal limits. Cholecystectomy clips are present. No evidence of aortic aneurysm. No lymphadenopathy. Evidence of prior bariatric surgery. No bowel obstruction or bowel wall thickening. Images through the pelvis were performed. Urinary bladder unremarkable. No pelvic mass seen. No ascit es. Impression: No acute abnormality. Postoperative changes, as above. Reviewed, dictated and finalized at [facility]. Impression: No acute abnormality. Postoperative changes, as above.
[2024-03-05 16:42] LABS: Basophils Percent Auto 0.4 % (0.2-1.2); Eosinophils Absolute Auto 0.1 K/mm3 (0-0.3); Eosinophils Percent Auto 1.5 % (0-4.4); Hematocrit 35.2 % (37.0-47.0); Hemoglobin 11.6 g/dL (12.0-15.0); Immature Granulocyte Absolute 0.03 K/mm3 (0.00-0.031); Immature Granulocyte Percent A 0.4 % (0-0.5); Lymphocytes Absolute Auto 2.36 K/mm3 (0.9-3.2); Lymphocytes Percent Auto 29.1 % (18.3-44.2); Mean Corpuscular Hemoglobin 29.9 pg (26-34); Mean Corpuscular Volume 90.7 fl (80-100); Monocytes Absolute Auto 0.6 K/mm3 (0.1-0.6); Monocytes Percent Auto 6.9 % (2.6-8.5); Neutrophils Percent Auto 61.7 % (45.5-73.1); Platelet Count Result 252 k/mm3 (150-375); Red Blood Count 3.88 M/mm3 (4.2-5.4); Red Cell Distribution Width 13.5 % (11.5-14.5); White Blood Count 8.1 K/mm3 (4.5-10.0)
[2024-03-05 16:43] LABS: Appearance Urine Clear (Clear); Bilirubin Urine Negative (Negative); Blood Urine Negative (Negative); Color Urine Yellow (Yellow); Glucose Urine UA Negative (Negative); Ketones Urine Negative (Negative); Leukocyte Esterase Ur Negative LEU/UL (Negative); Nitrate Urine Negative (Negative); Protein Urine Negative (Negative); Specific Grav Ur 1.013 (1.001-1.035); Urobilinogen Urine 0.2 mg/dL (<2.0)
[2024-03-05 16:52] LABS: Alanine Aminotransferase 21 U/L (6-35); Alkaline Phosphatase 54 U/L (38-126); Anion Gap 8 mmol/L (4-12); Aspartate Amino Transferase 24 U/L (14-36); Bilirubin,Total 0.3 mg/dL (0.2-1.3); Blood Urea Nitrogen 11 mg/dL (7-17); Calcium 9.1 mg/dL (8.4-10.2); Carbon Dioxide 29 mmol/L (22-30); Chloride 99 mmol/L (98-107); Estimated CRCL calculation 117 ml/min; Estimated Glomerular Filt Rate > 60; Glucose 84 mg/dL (65-110); Lipase 104 U/L (23-300); Potassium 3.6 mmol/L (3.4-5.0); Sodium 136 mmol/L (137-145)
[2024-03-05 17:01] LABS: Add Urine Microscopic? NO
--- NOTE | 2024-03-05 17:30 | ED.ABDPAIN ---
HPI - Abdominal Pain General Chief Complaint: Abdominal Pain Stated Complaint: abd pain Time Seen by Provider: 03/05/24 16:39 History of Present Illness HPI narrative: 53-year-old female presents to the emergency department for left lower quadrant abdominal pain for 5-6 months. Patient states the pain is intermittent and she describes it as a dull ache. She denies aggravating or alleviating factors. She does state that Tylenol does provide some improvement. She states the pain is in her left groin region and wraps around to her posterior hip at times. She is concerned she may be a kidney stone. She denies dysuria or hematuria. Denies prior history of kidney stones. Denies fever and vomiting. Reports chronic diarrhea secondary to prior gastric surgeries. Reports history of cholecystectomy, gastric bypass and gastric sleeve, total hysterectomy. Related Data Home Medications Medication Instructions Recorded Confirmed duloxetine 30 mg capsule,delayed 30 mg PO DAILY 06/02/23 12/31/23 release duloxetine 60 mg capsule,delayed 60 mg PO DAILY 06/02/23 12/31/23 release estradiol 2 mg tablet 2 mg PO DAILY 06/02/23 12/31/23 lisinopril 20 1 tablet PO DAILY 06/02/23 12/31/23 mg-hydrochlorothiazide 12.5 mg tablet levocetirizine 5 mg tablet (Xyzal) 5 mg PO DAILY 09/07/23 12/31/23 levothyroxine 50 mcg tablet 50 mcg PO DAILY 09/07/23 12/31/23 (Synthroid) Allergies Allergy/AdvReac Type Severity Reaction Status Date / Time sertraline Allergy Intermediate RASH Verified 03/05/24 16:01 Penicillins Allergy Mild HIVES Verified 03/05/24 16:01 phentermine AdvReac Unknown BECAME Verified 03/05/24 16:01 VERY JITTERY Review of Systems Review of Systems: CONSTITUTIONAL: Denies fever, chills, or sweats. EYES: Denies visual changes, redness, or discharge. ENT: Denies rhinorrhea, congestion, sore throat, or otalgia. CARDIOVASCULAR: Denies chest pain, palpitations, or edema. RESPIRATORY: Denies cough or dyspnea. GASTROINTESTINAL: see HPI GENITOURINARY: Denies dysuria or hematuria. SKIN: Denies rash or itching. MUSCULOSKELETAL: Denies back pain, joint pain, or myalgia. NEUROLOGIC: Denies headache, numbness, or weakness. PSYCHIATRIC: Denies anxiety or depression. [facility] Past Medical History Medical History Allergies Anemia, unspecified Anxiety Asthma Diabetes Disorder of thyroid HTN (hypertension) Hypothyroidism Surgical History Surgical History History of hysterectomy Family History Family History Mother Depression Asthma Diabetes mellitus Hypertension Disorder of thyroid Sibling Asthma Grandparent Depression Disorder of thyroid Grandparent Depression Cerebrovascular accident Social History Social History Smoking status: Never smoker Alcohol intake: never Substance use: never Substance use type: does not use Lack of Transportation: No Lack of Food: Never True Current Housing: I Have Housing Concerned About Future Housing: No Difficulty Paying Gas/Electric Bills: No Difficulty Paying for Meds: No Currently Unemployed: No Education: Associate Degree Difficulty w/ Childcare or Family Care: No Living arrangements: alone Spiritual care concerns: No Exam Narrative: GENERAL: Well-appearing, well-nourished, and in no acute distress. Resting comfortably in exam bed. Pleasant and conversational. HEAD: Normocephalic, atraumatic. EYES: PERRLA and EOMI. ENT: Nares clear, no rhinorrhea or epistaxis. Mucous membranes moist. NECK: Supple. CHEST: Clear to auscultation. No respiratory distress. HEART: Regular rate and rhythm. No murmur heard. Normal peripheral pulses. ABDOMEN: normoactive bowel sounds. Abdomen soft with minimal ten
[2024-03-05 18:00] LABS: Lactic Acid Reflex 1.2 mmol/L (0.7-2.0)
== END 2024-03-05 19:29 | disposition home or self-care (01) ==
PROVIDERS: Family Medicine; Emergency Provider Physician Assistant; PCP Nurse Practitioner Adult Health
DX: R10.32 Left lower quadrant pain (principal); E11.9 Type 2 diabetes mellitus without complications; I10 Essential (primary) hypertension; E03.9 Hypothyroidism, unspecified
CPT/HCPCS: 36415; 74177; 80053; 81003; 83605; 83690; 85025; 99284; Q9967

== ENCOUNTER 2024-04-14 12:37 | Outpatient (CLI) | payer BC, SELFPAY ==
[2024-04-14 13:01] LABS: Basophils Percent Auto 0.5 % (0.2-1.2); Eosinophils Absolute Auto 0.1 K/mm3 (0-0.3); Eosinophils Percent Auto 1.3 % (0-4.4); Hemoglobin 11.6 g/dL (12.0-15.0); Immature Granulocyte Absolute 0.02 K/mm3 (0.00-0.031); Immature Granulocyte Percent A 0.3 % (0-0.5); Lymphocytes Absolute Auto 2.48 K/mm3 (0.9-3.2); Lymphocytes Percent Auto 32.1 % (18.3-44.2); Mean Corpuscular HGB Conc 32.2 g/dl (32-36); Mean Corpuscular Hemoglobin 29.4 pg (26-34); Mean Corpuscular Volume 91.4 fl (80-100); Mean Platelet Volume 11.3 fl (7.4-10.4); Monocytes Absolute Auto 0.6 K/mm3 (0.1-0.6); Monocytes Percent Auto 7.9 % (2.6-8.5); Neutrophils Absolute Auto 4.5 K/mm3 (1.3-6.7); Neutrophils Percent Auto 57.9 % (45.5-73.1); Platelet Count Result 239 k/mm3 (150-375); Red Blood Count 3.94 M/mm3 (4.2-5.4); Red Cell Distribution Width 12.5 % (11.5-14.5); White Blood Count 7.7 K/mm3 (4.5-10.0)
[2024-04-14 16:32] LABS: Iron 69 ug/dL (37-170)
[2024-04-14 16:34] LABS: Anion Gap 7 mmol/L (4-12); Blood Urea Nitrogen 13 mg/dL (7-17); Calcium 8.9 mg/dL (8.4-10.2); Carbon Dioxide 28 mmol/L (22-30); Chloride 100 mmol/L (98-107); Estimated Glomerular Filt Rate > 60; Glucose 70 mg/dL (65-110); Sodium 135 mmol/L (137-145)
[2024-04-14 16:43] LABS: Percent Iron Saturation 20 % (20-50)
[2024-04-14 17:39] LABS: Folic Acid 11.8 ng/mL (2.76->20)
== END 2024-04-14 12:38 | disposition home or self-care (01) ==
LOC: ANHLAB 12:40
PROVIDERS: Nurse Practitioner Family; PCP Nurse Practitioner Adult Health; Visit Provider Internal Medicine Hematology & Oncology
DX: D50.8 Other iron deficiency anemias (principal)
CPT/HCPCS: 36415; 80048; 82607; 82728; 82746; 83540; 83550; 85025

== ENCOUNTER 2024-08-25 12:48 | Outpatient (CLI) | payer BC, SELFPAY ==
[2024-08-25 13:01] LABS: Basophils Percent Auto 0.4 % (0.2-1.2); Eosinophils Absolute Auto 0.1 K/mm3 (0-0.3); Eosinophils Percent Auto 1.3 % (0-4.4); Hematocrit 39.1 % (37.0-47.0); Immature Granulocyte Absolute 0.02 K/mm3 (0.00-0.031); Immature Granulocyte Percent A 0.3 % (0-0.5); Lymphocytes Absolute Auto 2.58 K/mm3 (0.9-3.2); Lymphocytes Percent Auto 33.9 % (18.3-44.2); Mean Corpuscular HGB Conc 33.2 g/dl (32-36); Mean Corpuscular Hemoglobin 29.4 pg (26-34); Mean Corpuscular Volume 88.5 fl (80-100); Mean Platelet Volume 10.8 fl (7.4-10.4); Monocytes Absolute Auto 0.5 K/mm3 (0.1-0.6); Monocytes Percent Auto 6.8 % (2.6-8.5); Neutrophils Absolute Auto 4.4 K/mm3 (1.3-6.7); Neutrophils Percent Auto 57.3 % (45.5-73.1); Platelet Count Result 261 k/mm3 (150-375); Red Blood Count 4.42 M/mm3 (4.2-5.4); Red Cell Distribution Width 12.5 % (11.5-14.5); White Blood Count 7.6 K/mm3 (4.5-10.0)
[2024-08-25 16:20] LABS: Iron 82 ug/dL (37-170)
[2024-08-25 16:23] LABS: Anion Gap 4 mmol/L (4-12); Blood Urea Nitrogen 9 mg/dL (7-17); Calcium 9.2 mg/dL (8.4-10.2); Carbon Dioxide 32 mmol/L (22-30); Chloride 101 mmol/L (98-107); Estimated Glomerular Filt Rate > 60; Glucose 78 mg/dL (65-110); Potassium 3.1 mmol/L (3.4-5.0); Sodium 137 mmol/L (137-145)
[2024-08-25 16:34] LABS: Percent Iron Saturation 23 % (20-50); TOTAL IRON BINDING CAPACITY 349 ug/dL (261-462)
== END 2024-08-25 12:49 | disposition home or self-care (01) ==
LOC: ANHLAB 12:50
PROVIDERS: PCP Nurse Practitioner Adult Health; Visit Provider Internal Medicine Hematology & Oncology
DX: D50.8 Other iron deficiency anemias (principal); E53.8 Deficiency of other specified B group vitamins
CPT/HCPCS: 36415; 80048; 82607; 82728; 83540; 83550; 85025

== ENCOUNTER 2024-09-30 13:54 | Outpatient (CLI) | payer BC, SELFPAY ==
--- NOTE | ~2024-09-30 | MM_ITS ---
EXAMINATION: MM screening selene BI w lydia HISTORY: Screening TECHNIQUE: Craniocaudal and mediolateral oblique 3-D tomosynthesis images were obtained and synthetic 2-D images were generated. CAD analysis was submitted and interpreted. COMPARISON: No prior mammogram is available for comparison at this institution. BREAST PARENCHYMAL COMPOSITION: Not dense: There are scattered areas of fibroglandular density. FINDINGS: There is no evidence of suspicious mass, calcification, or architectural distortion to sugg est malignancy in either breast. There has been no suspicious interval change. IMPRESSION: 1. No mammographic evidence of malignancy. 2. Recommend routine screening mammography in one year. BI-RADS Category 1: Negative Reviewed, dictated and finalized at location B. 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
--- NOTE | ~2024-09-30 | DEXA_ITS ---
Bone Density Report Name: SULTANA EVERETT Age: 54 Sex: Female Ethnicity: White Date of : 1970 Indication: hyperparathyroidism; asthma or emphysema; hysterectomy; Referring Provider: Nadia, Ami Amaral Study: Bone densitometry was performed. Exam Date: September 30, 2024 Accession number: [id number] Bone Density: Region BMD T-score Z-score Classification AP Spine(L1-L4) 1.120 0.7 1.7 Normal Femoral Neck (Left) 0.899 0.4 1.5 Normal Total Hip (Left) 1.007 0.5 1.2 Normal Femoral Neck (Right) 0.900 0.5 1.5 Normal Total Hip (Right) 0.989 0.4 1.0 Normal Femoral Neck Mean 0.899 0.5 1.5 Normal Total Hip Mean 0.998 0.5 1.1 Normal World Health Organization criteria for BMD impression classify patients as: Normal (T-score at or above -1.0), Osteopenia (T-score between -1.0 and -2.5), or Osteoporosis (T-score at or below -2.5). Clinical Information Provided by Patient: Has used the following medications: kaley Has the following medical conditions: Asthma or Emphysema, Hyperparathyroidism, Hysterectomy Patient maximum height was 64 Menopause Age: 53 No regular weight bearing exercise Does not regularly consume dairy products Drinks caffeinated beverages Onset of menses at age 13 Number of children 2 Impression: The patient has normal bone mass. Discussion: BONE DENSITY IS ABOVE THE MINIMUM DESIRABLE LEVEL AT ALL SKELETAL SITES TESTED. This patient?s bone mineral density is above the minimum desirable level (T-score -1.0 or better) at all sites measured. The patient should follow a healthful lifestyle (good nutrition with adequate calcium and vitamin D, and appropriate weight-bearing exercise). Follow-Up: Consider repeating this study in 5 years or sooner if there is some new clinical indication. Reported by: MING on 09/30/2024 2:46:00 PM. Reviewed, dictated and finalized at location A.
--- OUTSIDE RECORDS SUMMARY | 2024-09-30 13:57 | XMS_ITS | CONTINUITY OF CARE DOCUMENT ---
Author Name freda barba Address Unknown Organization [facility] Address [address] [place] [address] Phone [phone] Care Team Providers Care Presentation Manager Name Role Phone Henok VARNER, Olu Unavailable [phone] PORTIA ROSADO MD Unavailable INSURANCE PROVIDERS Payer name Policy type / Coverage type [place] red democrat ID [facility] [id number] Other [id number]
--- OUTSIDE RECORDS SUMMARY | 2024-09-30 13:57 | XMS_ITS | Clinical Summary ---
Author Organization [facility] Address [address] [place] [id number] Care Team Providers Care Direct Support Specialist Name Role Phone Martha Raygoza [facility] Primary Care Provider + Allergies Active Allergy Reactions Criticality Noted Date Comments Rabeprazole Other (see comment) Low 09/22/2020 jittery Penicillins Hives Medium 09/22/2020 Sertraline Rash Low 09/22/2020 Medications DULoxetine 60 MG capsule Take 1 capsule (60 mg total) by mouth daily. Active busPIRone 5 MG tablet Take 1 tablet (5 mg total) by mouth daily. Active omeprazole 40 MG capsule Take 40 mg by mouth daily. Active lisinopril-hydr oCHLOROthiazide (ZESTORETIC) 20-12.5 MG tablet Take 1 tablet by mouth daily. 30 tablet 10/24/2022 Active DULoxetine (CYMBALTA) 30 MG capsule Take 1 capsule (30 mg total) by mouth daily. Active metFORMIN ER (GLUCOPHAGE-XR) 500 MG 24 hr tablet Take 1 tablet (500 mg total) by mouth daily with breakfast. Active rOPINIRole (REQUIP) 1 MG tablet Take 1 tablet (1 mg total) by mouth nightly at bedtime. Active pregabalin (LYRICA) 75 MG capsule Take 1 capsule (75 mg total) by mouth 2 (two) times daily. Active vitamin B-12 (CYANOCOBALAMIN ) 1000 MCG tablet Take 1 tablet (1,000 mcg total) by mouth every 7 days. Active levothyroxine (SYNTHROID) 50 MCG tablet Take 1 tablet (50 mcg total) by mouth every morning. Active Social History Tobacco Use Types Packs/Day Years Used Date Smoking Tobacco: Never Smokeless Tobacco: Never Tobacco Cessation:Counseling Given: Not Answered Alcohol Use Standard Drinks/Week Comments Not Currently 0 (1 standard drink = 0.6 oz pur e alcohol) Comments No Sex and Gender Information Value Date Recorded Sex Assigned at Not on file Legal Sex Female 9:40 PM [employer] Gender Identity Not on file Sexual Orientation Not on file Last Filed Vital Signs Vital Sign Reading Time Taken Comments Blood Pressure 123/68 07/18/2023 6:15 PM [employer] Pulse 92 07/18/2023 5:02 PM [employer] Temperature 35.9 C (96.7 F) 07/18/2023 5:02 PM [employer] Respiratory Rate 18 07/18/2023 5:02 PM [employer] Oxygen Saturation 99% 07/18/2023 5:02 PM [employer] Inhaled Oxygen Concentration - - Weight 98.2 kg (216 lb 9.6 oz) 07/18/2023 5:02 P M [employer] Height 160 cm (5' 3 ) 07/18/2023 5:02 PM [employer] Body Mass Index 38.37 07/18/2023 5:02 PM [employer] Plan of Treatment Health Maintenance Due Date Last Done Comments Colorectal Cancer Screening Colonoscopy (10 Years) 1970 Annual Physical 1973 Hepatitis C 1988 Hepatitis B Vaccines (1 of 3 - 19+ 3-dose series) 1989 Cervical Cancer Screening Pap with HPV Testing (Age 30 to 64) Every 5 Years 2000 Mammogram Screening 2010 Zoster Vaccines (1 of 2) 2020 11/07/2021 COVID-19 Vaccine ( season) 2024 10/28/2021, 11/09/2020 Influenza Adult (#1) 2024 05/12/2023, 05/21/2021, 07/07/2020, Additional history exists Cervical Cancer Screening Pap Smear (Age 30 to 64) Every 3 Years 01/07/2026 01/07/2023, 03/12/2021 Cervical Cancer Screening with HPV 01/07/2026 DTaP, Tdap and Td Vaccines (4 - Td or Tdap) 10/26/2032 10/26/2022, 02/28/2016, 08/24/2005 Pneumococcal Vaccine: Pediatrics (0 to 5 Years) and At-Risk Patients (6 to 64 Years) Aged Out 10/26/2022 No longer eligible based on patient's age to complete this topic Meningococcal B Vaccine Aged Out No l onger eligible based on patient's age to complete this topic Meningococcal Vaccine Aged Out No shantal lc eligible based on patient's age to complete this topic RSV Immunizations Under 20 Months Aged Out No longer eligible based on patient's age to complete this topic Insurance Care Teams Direct Support Specialist Relationship Specialty Start Date End Date Martha Raygoza, [employer]- [address] [place] [phone] PCP - General NURSE PRACTITIONER 09/22/20
--- OUTSIDE RECORDS SUMMARY | 2024-09-30 13:57 | XMS_ITS | Data Portability ---
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 Explained about different options for this. Pt declined to see Psych/counsellor at this time. Pt will be seeing a counsellor through her work in few weeks. Meds as directed. Advised pt to talk with close friend/family member on a regular basis. Educated about alarming symptoms to monitor at home and call us back Or get checked in ED. Pt verbalized understanding it. F/u in 1-2 months. [email or web address] Not available 08/12/2023 12:46:29 09/10/2023 09/10/2023 This note is dictated and transcribed by [employer] Flu[employer] Direct Software. Weight Trainer variances may occur. Despite proofreading, typographical errors may occur. Occasional wrong-word or '[id number]' substitutions may have occurred due to the inherent limitations of voice recording. Read the chart carefully and recognize, using context, where substitutions have occurred. Not available 09/10/2023 14:51:46 Plan of Treatment Reminders Order Date Submit Date Provider Last Modified By Organization Details Last Modified Time Details Appointments None recorded. Lab None recorded. Referral endocrinolo gy referral - Dr. Olmstead leaving practice. DM, obese, hyperparath yroidism, hypothyroid ism, hx bariatric surgery 2022 023 [email or web address] [facility] End[facility] , [address], [facility], [place], [address], 3 11:02:50 Procedures None recorded. Surgeries None recorded. Imaging XR, lumbar spine 2022 023 [email or web address] Not available 3 11:09:38 XR, foot, 3 or more view - podiatry read 2023 024 [email or web address] [facility] ([facility]), [address] [place], [address], 4 08:14:28 US, foot 2023 024 [email or web address] [facility] ([facility]), [address] [place], [address], 4 08:14:52 Medication Orders Lyrica 100 mg capsule [email or web address] [facility], [address] [place] [address], [address], 3 12:36:25 metformin ER 500 mg tablet,exte nded release 24 hr 2022 023 [facility] [address], [address] [place] [address], [address], 3 12:01:14 Synthroid 50 mcg tablet 2022 023 [facility], [facility] [place], [address], 3 12:02:09 prazosin 1 mg capsule 2022 023 [facility], [facility] [place], [address], 3 12:38:37 buspirone 15 mg tablet 2022 023 [facility], [address] [place], [address], 3 12:38:39 duloxetine 60 mg capsule,del ayed release 2022 023 [facility], [address] [place], [address], 3 12:47:27 duloxetine 30 mg capsule,del ayed release 2022 023 [facility], [address] [place], [address], 3 12:47:29 Patient TargetsNo targets recorded. Patient Instructions Encounter Date Encounter Id Patient Instructions Last Modified By Organization Details Last Modified Time 05/26/2023 [id number] 3-4 mo fu dm, thyroid, lipid, weight, depression/anxiet y, RLS, leg pain [email or web address] Not available 05/28/2023 10:25:01 09/10/2023 [id number] plantar fasciiti s education Not available 09/10/2023 14:51:24 plantar fasciitis: exercises Not available 09/10/2023 14:51:24 Reason for Referral Endocrinology Referral for H yperparathyroidism Dr. Olmstead leaving practice. DM, obese, hyperparathyroidism, hypothyroidism, hx bariatric surgery Referring Physician: Martha Escobedo, Family Medicine, Encounter Date: 05/26/2023 Results Created Date Observation Date Name Description Value Unit Range Abnormal Flag Note LastModifiedBy Organization Detail LastModifiedTime 04/14/2004/14/2023 HEMOG LOBIN A1C HA1C 5.2 % 4.0-6. 0 Diabe renate Scree quinten Crite jeanie: <5.7% Consi stent with absen ce of diabe renate 5.7-6 .4% Consi stent with incre ased risk for diabe renate (pred iabet es) >OR=6 .5% Consi stent with diabe renate REFER ENCE: Diabe renate Care 2016, 39([facility] ppl.1 ):s13 -s22 Not Available [facility] ([facility]) [address] [facility] [place], [address], 04/14/2023 12:34:08 04/14/20 23 04/14/2023 COMPR EHENS TRISTIAN METAB OLIC PANEL sodium 139 mmol/ L 137-14 5 Not Available [facility] (Lab) [address] [place], [address], 04/14/2023 12:47:06 04/14/20 23 04/14/2023 COMPR EHENS TRISTIAN METAB OLIC PANEL potassium 3.0 mmol/ L 3.5-5. 1 low Not Available [facility] (Lab) [address] [place] [place], [address], 04/14/2023 12:47:06 04/14/20 23 04/14/2023 COMPR EHENS TRISTIAN METAB OLIC PANEL chloride 102 mmol/ L 98-107 Not Available [facility] (Lab) [address] [place], [address], 04/14/2023 12:47:06 04/14/20 23 04/14/2023 COMPR EHENS TRISTIAN METAB OLIC PANEL carbon dioxide 30 mmol/ L 22-30 Not Available [facility] (Lab) [address] [place], [address], 04/14/2023 12:47:06 04/14/20 23 04/14/2023 COMPR EHENS TRISTIAN METAB OLIC PANEL anion gap 10.0 mmol/ L 14-22 low Not Available [facility] (Lab) [address] [place], [address], 04/14/2023 12:47:06 04/14/20 23 04/14/2023 COMPR EHENS TRISTIAN METAB OLIC PANEL glucose 86 mg/dL 70-99 Not Available [facility] (Lab) [address] [place], [address], 04/14/2023 12:47:06 04/14/20 23 04/14/2023 COMPR EHENS TRISTIAN METAB OLIC PANEL BUN 8 mg/dL 8-19 Not Available [facility] (Lab) [address] [place], [address], 04/14/2023 12:47:06 04/14/20 23 04/14/2023 COMPR EHENS TRISTIAN METAB OLIC PANEL creatinine 0.46 mg/dL 0.66-1 .25 low Not Available [facility] (Lab) [address] [place], [address], 04/14/2023 12:47:06 04/14/20 23 04/14/2023 COMPR EHENS TRISTIAN METAB OLIC PANEL GFR >60 Refer ence Range : [place] GFR Healt hy Adult : >60 mL/mi n/1.7 3 m2 Chron ic Kidne y Disea se: 15-60 mL/mi n/1.7 3 m2 Kidne y Failu re: <15/m L/min /1.73 m2 www.n iddk. nih.g ov The MDRD study equat ion has not been valid ated in child amberly <18 years of age; pregn ant women ; the elder ly >85 years of age; or in some racia l or ethni c subgr oups, such as Carey nics. Outsi de the valid ated josefina eters , estim ated GFR is less accur ate, requi ring clini jose judgm ent on a case- by-ca se basis . Clini jose inter preta tion for other races and ages must be made by the clini carline. The MDRD study equat ion has not been valid ated for the evalu ation of serum creat inine relat ed to nutri leonela l statu s or medic ation usage . For perso ns <18 years of age, a pedia tric GFR calcu lator is avail able on the F websi te: https ://rafael w.mariella latham.o bradley/pr homeroess ional s/kdo qi/gf r_cal culat or Not Available [facility] (Lab) [address] [place], [address], 04/14/2023 12:47:06 04/14/20 23 04/14/2023 COMPR EHENS TRISTIAN METAB OLIC PANEL alkaline phosphatase 61 U/L 38-126 Not Available [facility] (Lab) [address] [place], [address], 04/14/2023 12:47:06 04/14/20 23 04/14/2023 COMPR EHENS TRISTIAN METAB OLIC PANEL alanine aminotransfe rase 19 U/L 0-35 Not Available [facility] (Lab) [address] [place], [address], 04/14/2023 12:47:06 04/14/20 23 04/14/2023 COMPR EHENS TRISTIAN METAB OLIC PANEL aspartate aminotransfe rase 25 U/L 15-37 Not Available [facility] (Lab) [address] [place], [address], 04/14/2023 12:47:06 04/14/20 23 04/14/2023 COMPR EHENS TRISTIAN METAB OLIC PANEL bilirubin, total 0.30 mg/dL 0.20-1 .30 Not Available [facility] (Lab) [address] [place], [address], 04/14/2023 12:47:06 04/14/20 23 04/14/2023 COMPR EHENS TRISTIAN METAB OLIC PANEL calcium 8.3 mg/dL 8.4-10 .2 low Not Available [facility] (Lab) [address] [place], [address], 04/14/2023 12:47:06 04/14/20 23 04/14/2023 COMPR EHENS TRISTIAN METAB OLIC PANEL total protein 6.5 g/dL 6.3-8. 2 Not Available [facility] (Lab) [address] [place], [address], 04/14/2023 12:47:06 04/14/20 23 04/14/2023 COMPR EHENS TRISTIAN METAB OLIC PANEL albumin 3.7 g/dL 3.4-5. 0 Not Available [facility] (Lab) [address] [place], [address], 04/14/2023 12:47:06 04/14/20 23 04/14/2023 COMPR EHENS TRISTIAN METAB OLIC PANEL globulin 2.8 g/dL 2.6-4. 2 Not Available [facility] (Lab) [address] [place], [address], 04/14/2023 12:47:06 04/14/20 23 04/14/2023 COMPR EHENS TRISTIAN METAB OLIC PANEL A/G ratio 1.3 ratio 1.0-2. 0 Not Available [facility] (Lab) [address] [place], [address], 04/14/2023 12:47:06 04/14/20 23 04/14/2023 LIPID PANEL cholesterol 182 mg/dL 140-19 9 NIH DONNELL NSUS RECOM MENDA TION FOR SESAR STERO L: ADULT CHILD LOW RISK: <200 <170 BORDE RLINE : <200- 239 ----- HIGH RISK: >240 >200 Not Available [facility] (Lab) [address] [place], [address], 04/14/2023 12:47:11 04/14/20 23 04/14/2023 LIPID PANEL triglyceride s 187 mg/dL 0-150 high NIH DONNELL NSUS REPOR T RECOM MENDA TION FOR TRIGL YCERI LETY: ADULT CHILD LOW RISK: <150 ----- BODER LINE: 150-1 99 ----- HIGH RISK: >200 ----- Not Available [facility] (Lab) [address] [place], [address], 04/14/2023 12:47:11 04/14/20 23 04/14/2023 LIPID PANEL HDL cholesterol 48 mg/dL 40- Not Available [facility] (Lab) [address] [place], [address], 04/14/2023 12:47:11 04/14/20 23 04/14/2023 LIPID PANEL LDL cholesterol, calculated 97 mg/dL 0-130 NIH DONNELL NSUS REPOR T RECOM MENDA TIONS FOR LDL: ADULT CHILD LOW RISK <130 <110 (OPTI MAL LDL) <100 ----- BORDE RLINE : 130-1 59 ----- HIGH RISK: >160 >130 A TRIGL YCERI DE RESUL T >400 INVAL IDATE S THE CALCU LATIO N FOR LDL FRACT IONAT ION - THE LDL RESUL T WILL NOT BE REPOR KANG. Not Available [facility] (Lab) [address] [place], [address], 04/14/2023 12:47:11 04/14/20 23 04/14/2023 T4 FREE free T4 1.07 NG/dL 0.78-2 .19 Not Available [facility] (Lab) [address] [place], [address], 04/14/2023 12:57:15 04/14/20 23 04/14/2023 TSH thyroid-stim ulating hormone 0.756 uIU/m L 0.465- 4.680 Not Available [facility] (Lab) [address] [place], [address], 04/14/2023 13:07:07 04/14/20 23 04/14/2023 T3 FREE free T3 3.6 pg/mL 2.77-5 .27 Not Available [facility] (Lab) [address] [place], [address], 04/14/2023 13:23:29 04/14/20 23 04/15/2023 INSUL IN insulin 15.9 uIU/m L 2.6-24 .9 Perfo rmed at: - [facility] [address] [facility], [place] [id number] Lab Direc tor: Maxime sequeira PhD, Phone : [phone] Not Available [facility] (Lab) [address] [place], [address], 04/15/2023 10:13:03 04/14/20 23 04/15/2023 VITAM IN B12 (CHRISTIANNE JOSUE ) vb12 454 pg/mL 239-93 1 Not Available [facility] (Lab) [address] [place], [address], 04/15/2023 20:48:06 04/14/20 23 04/15/2023 FOLAT E, SERUM /PLAS MA folate 6.63 NG/mL 2.76-2 0.0 Not Available [facility] (Lab) [address] [place], [address], 04/15/2023 20:48:07 09/10/19 24 09/10/2023 IRON/ TIBC PANEL total iron binding capacity 467 mcg/d L 265-47 5 Not Available [facility] (Lab) [address] [place], [address], 09/10/2023 23:15:28 09/10/19 24 09/10/2023 IRON/ TIBC PANEL % transferrin saturation 10 % 20-55 low Not Available [facility] (Lab) [address] [place], [address], 09/10/2023 23:15:28 09/10/19 24 09/10/2023 IRON/ TIBC PANEL unsaturated iron bind capacity 418 mcg/d L 126-38 2 high Not Available [facility] (Lab) [address] [place], [address], 09/10/2023 23:15:28 09/10/19 24 09/10/2023 IRON/ TIBC PANEL iron 49 mcg/d L 42-175 Not Available [facility] (Lab) [address] [place], [address], 09/10/2023 23:15:28 09/10/19 24 09/10/2023 TSH thyroid-stim ulating hormone 0.559 uIU/m L 0.465- 4.680 Not Available [facility] (Lab) [address] [place], [address], 09/10/2023 19:38:58 09/10/19 24 09/10/2023 SIMONA TIN ferritin 5 NG/mL 11.1-2 64 low Not Available [facility] (Lab) [address] [place], [address], 09/10/2023 19:39:18 09/10/19 24 09/10/2023 VITAM IN B12 (CHRISTIANNE JOSUE ) vb12 477 pg/mL 239-93 1 Not Available [facility] (Lab) [address] [place], [address], 09/10/2023 20:13:27 09/10/19 24 09/10/2023 FOLAT E, SERUM /PLAS MA folate 10.6 NG/mL 2.76-2 0.0 Not Available [facility] (Lab) [address] [place], [address], 09/10/2023 20:13:29 09/10/19 24 09/10/2023 LIPID PANEL cholesterol 155 mg/dL 140-19 9 NIH DONNELL NSUS RECOM MENDA TION FOR SESAR STERO L: ADULT CHILD LOW RISK: <200 <170 BORDE RLINE : <200- 239 ----- HIGH RISK: >240 >200 Not Available [facility] (Lab) [address] [place], [address], 09/10/2023 22:59:02 09/10/19 24 09/10/2023 LIPID PANEL triglyceride s 173 mg/dL 0-150 high NIH DONNELL NSUS REPOR T RECOM MENDA TION FOR TRIGL YCERI LETY: ADULT CHILD LOW RISK: <150 ----- BODER LINE: 150-1 99 ----- HIGH RISK: >200 ----- Not Available [facility] (Lab) [address] [place], [address], 09/10/2023 22:59:02 09/10/19 24 09/10/2023 LIPID PANEL HDL cholesterol 72 mg/dL 40- Not Available [facility] (Lab) [address] [place], [address], 09/10/2023 22:59:02 09/10/19 24 09/10/2023 LIPID PANEL LDL cholesterol, calculated 48 mg/dL 0-130 NIH DONNELL NSUS REPOR T RECOM MENDA TIONS FOR LDL: ADULT CHILD LOW RISK <130 <110 (OPTI MAL LDL) <100 ----- BORDE RLINE : 130-1 59 ----- HIGH RISK: >160 >130 A TRIGL YCERI DE RESUL T >400 INVAL IDATE S THE CALCU LATIO N FOR LDL FRACT IONAT ION - THE LDL RESUL T WILL NOT BE REPOR KANG. Not Available [facility] (Lab) [address] [place], [address], 09/10/2023 22:59:02 09/10/19 24 09/10/2023 COMPR EHENS TRISTIAN METAB OLIC PANEL sodium 135 mmol/ L 137-14 5 low Not Available [facility] (Lab) [address] [place], [address], 09/10/2023 22:59:14 09/10/19 24 09/10/2023 COMPR EHENS TRISTIAN METAB OLIC PANEL potassium 4.0 mmol/ L 3.5-5. 1 Not Available [facility] (Lab) [address] [place], [address], 09/10/2023 22:59:14 09/10/19 24 09/10/2023 COMPR EHENS TRISTIAN METAB OLIC PANEL chloride 98 mmol/ L 98-107 Not Available [facility] (Lab) [address] [place], [address], 09/10/2023 22:59:14 09/10/19 24 09/10/2023 COMPR EHENS TRISTIAN METAB OLIC PANEL carbon dioxide 27 mmol/ L 22-30 Not Available [facility] (Lab) [address] [place], [address], 09/10/2023 22:59:14 09/10/19 24 09/10/2023 COMPR EHENS TRISTIAN METAB OLIC PANEL anion gap 14.0 mmol/ L 14-22 Not Available [facility] (Lab) [address] [place], [address], 09/10/2023 22:59:14 09/10/19 24 09/10/2023 COMPR EHENS TRISTIAN METAB OLIC PANEL glucose 110 mg/dL 70-99 high Not Available [facility] (Lab) [address] [place], [address], 09/10/2023 22:59:14 09/10/19 24 09/10/2023 COMPR EHENS TRISTIAN METAB OLIC PANEL BUN 14 mg/dL 8-19 Not Available [facility] (Lab) [address] [place], [address], 09/10/2023 22:59:14 09/10/19 24 09/10/2023 COMPR EHENS TRISTIAN METAB OLIC PANEL creatinine 0.52 mg/dL 0.66-1 .25 low Not Available [facility] (Lab) [address] [place], [address], 09/10/2023 22:59:14 09/10/19 24 09/10/2023 COMPR EHENS TRISTIAN METAB OLIC PANEL GFR >60 Refer ence Range : [place] GFR Healt hy Adult : >60 mL/mi n/1.7 3 m2 Chron ic Kidne y Disea se: 15-60 mL/mi n/1.7 3 m2 Kidne y Failu re: <15/m L/min /1.73 m2 www.n iddk. nih.g ov The MDRD study equat ion has not been valid ated in child amberly <18 years of age; pregn ant women ; the elder ly >85 years of age; or in some racia l or ethni c subgr oups, such as Hispa nics. Outsi de the valid ated josefina eters , estim ated GFR is less accur ate, requi ring clini jose judgm ent on a case- by-ca se basis . Clini jose inter preta tion for other races and ages must be made by the clini carline. The MDRD study equat ion has not been valid ated for the evalu ation of serum creat inine relat ed to nutri leonela l statu s or medic ation usage . For perso ns <18 years of age, a pedia tric GFR calcu lator is avail able on the [facility] websi te: https ://rafael chavarria.mariella latham.o rg/pr ofess ional s/kdo qi/gf r_cal culat or Not Available [facility] (Lab) [address] [place], [address], 09/10/2023 22:59:14 09/10/19 24 09/10/2023 COMPR EHENS TRISTIAN METAB OLIC PANEL alkaline phosphatase 68 U/L 38-126 Not Available [facility] (Lab) [address] [place], [address], 09/10/2023 22:59:14 09/10/19 24 09/10/2023 COMPR EHENS TRISTIAN METAB OLIC PANEL alanine aminotransfe rase 13 U/L 0-35 Not Available [facility] (Lab) [address] [place], [address], 09/10/2023 22:59:14 09/10/19 24 09/10/2023 COMPR EHENS TRISTIAN METAB OLIC PANEL aspartate aminotransfe rase 21 U/L 15-37 Not Available [facility] (Lab) [address] [place], [address], 09/10/2023 22:59:14 09/10/19 24 09/10/2023 COMPR EHENS TRISTIAN METAB OLIC PANEL bilirubin, total 0.10 mg/dL 0.20-1 .30 low Not Available [facility] (Lab) [address] [place], [address], 09/10/2023 22:59:14 09/10/19 24 09/10/2023 COMPR EHENS TRISTIAN METAB OLIC PANEL calcium 9.4 mg/dL 8.4-10 .2 Not Available [facility] (Lab) [address] [place], [address], 09/10/2023 22:59:14 09/10/19 24 09/10/2023 COMPR EHENS TRISTIAN METAB OLIC PANEL total protein 6.7 g/dL 6.3-8. 2 Not Available [facility] (Lab) [address] [place], [address], 09/10/2023 22:59:14 09/10/19 24 09/10/2023 COMPR EHENS TRISTIAN METAB OLIC PANEL albumin 3.9 g/dL 3.4-5. 0 Not Available [facility] (Lab) [address] [place], [address], 09/10/2023 22:59:14 09/10/19 24 09/10/2023 COMPR EHENS TRISTIAN METAB OLIC PANEL globulin 2.8 g/dL 2.6-4. 2 Not Available [facility] (Lab) [address] [place], [address], 09/10/2023 22:59:14 09/10/19 24 09/10/2023 COMPR EHENS TRISTIAN METAB OLIC PANEL A/G ratio 1.4 ratio 1.0-2. 0 Not Available [facility] (Lab) [address] [place], [address], 09/10/2023 22:59:14 09/10/19 24 09/10/2023 MAGNE SIUM magnesium 1.8 mg/dL 1.6-2. 3 Not Available [facility] (Lab) [address] [place], [address], 09/10/2023 22:59:17 06/09/20 XR, lumbo sacra l spine , 4 or more view [facility] [address] [facility] [place] [address] Patien t Name: BRIELLE CHILD Access ion #: [id number] Sex: F : 1969 5 Dictat ed By: Bernardo Wilkes Attend ing Physic cuba: GATO ESCOBEDO Orderi Physic cuba: GATO ESCOBEDO Exam Date: 2022 12:58 PM Exam Name: XR L SPINE 4V+ Admitt ing Diagno sis(es ): INDICA TION: Trauma . TECHNI QUE: 5 views of the lumbar spine were obtain ed. COMPAR MARIANELA: None. FINDIN GS: . There are no fractu res or sublux ations . Verteb ral body height s and disc spaces are well mainta ined. Parave rtebra l soft tissue s are unrema rkable . IMPRES MEGHAN: 1. Of the visual ized spine, there is no eviden ce for fractu re or sublux ation. Electr onical ly Signed by: Bernardo Wilkes at 2022 15:15: 04 PM Page [email or web address] [facility] (Imaging) [address] [place], [address], 08/12/2023 12:41:45 06/29/20 23 06/29/2023 MAMMO , scree quinten, digit al, bilat eral No observ ation record ed. [email or web address] [facility] [address] [place], [address], 08/12/2023 12:41:45 07/08/20 23 07/08/2023 CT, abdom en + pelvi s, w/ contr ast No observ ation record ed. [email or web address] [facility] [address], [place], [address], 08/12/2023 12:41:45 09/10/19 24 05/19/2023 XR, ankle , 3 or more view No observ ation record ed. [email or web address] Not Available 2023 14:56:49 Result Notes None recorded. Problems Name Problem SNOMED Code Status Onset Date Resolution Date Notes Provider Name and Address Organization Details Recorded Time Chronic neck pain 3542879350172 Active 2021 Not Available [facility] 3 18:26:27 Constipati on 10528496 Active Not Available [facility] 3 18:26:27 Pain of left shoulder joint 3184036448508 9109 Active 2021 Not Available [facility] 3 18:26:27 Pain in throat 160901417 Active Not Available [facility] 3 18:26:27 Ferritin level below reference range 273496558 Active 2016 Not Available [facility] 3 18:26:27 Orbital cellulitis 489339822 Active 2018 Not Available [facility] 3 18:26:27 Asthma 933297889 Active Not Available [facility] 3 18:26:27 Abdominal pain 86187619 Active Not Available [facility] 3 18:26:27 Mixed anxiety and depressive disorder 508198528 Active 2020 Not Available [facility] 3 18:26:27 Mucopurule nt conjunctiv itis 080263421 Active 2018 Not Available [facility] 3 18:26:27 Weight decreased 322201271 Active Not Available [facility] 3 18:26:27 Perimenopa usal disorder 253285755 Active 2021 Not Available [facility] 3 18:26:27 Tenderness of head and neck region 996807353 Active Not Available [facility] 3 18:26:27 Lesion of brain 912718756 Active Not Available [facility] 3 18:26:27 Lymphadeno ruma 06304289 Active 2018 Not Available [facility] 3 18:26:27 Bronchitis 50270687 Active 2021 Not Available [facility] 3 18:26:27 Vitamin D deficiency 93071159 Active Not Available [facility] 3 18:26:27 Abscess of thigh 9574764 Active Not Available [facility] 3 18:26:27 Depressive disorder 79767457 Active Not Available [facility] 3 18:26:27 Primary hyperparat hyroidism 85069884 Active 2020 Not Available [facility] 3 18:26:27 Seasonal allergic rhinitis 488738231 Active 2017 Not Available [facility] 3 18:26:27 Sinusitis 38453577 Active Not Available [facility] 3 18:26:27 Hypertensi ve disorder 49860709 Active Not Available [facility] 3 18:26:27 Fever 634808658 Active Not Available [facility] 3 18:26:27 Cervical spondylosi s 393265649 Active 2021 Not Available [facility] 3 18:26:27 Herpes simplex type 2 infection 839278837 Active 2021 Not Available [facility] 3 18:26:27 Hypothyroi dism 58504179 Active 2021 Not Available [facility] 3 18:26:27 Acute viral disease 879555350 Active Not Available [facility] 3 18:26:27 Obese 208187514 Active 2016 Not Available [facility] 3 18:26:27 Obesity 037972632 Active Not Available [facility] 3 18:26:27 Nausea 283183074 Active Not Available [facility] 3 18:26:27 Cough 69374986 Active Not Available [facility] 3 18:26:27 Essential hypertensi on 60039555 Active Not Available [facility] 3 18:26:27 History of bariatric surgical procedure 841787319 Active 2016 Not Available [facility] 3 18:26:27 Hyperparat hyroidism 48727933 Active 2021 Not Available [facility] 3 18:26:28 Rhinitis 94572708 Active Not Available [facility] 3 18:26:28 Cholelithi asis without obstructio n 65603075 Active Not Available [facility] 3 18:26:28 Candidiasi s of vagina 04913803 Active Not Available [facility] 3 18:26:28 Hyperglyce lizeth 46083313 Active Not Available [facility] 3 18:26:28 Neck pain 15735141 Active 2021 Not Available [facility] 3 18:26:28 COVID-19 465336539 Active 2021 Not Available [facility] 3 18:26:28 Fatigue 44897440 Active Not Available [facility] 3 18:26:28 Conjunctiv itis 7086332 Active 2018 Not Available [facility] 3 18:26:28 Restless legs 00683008 Active 2022 Not Available [facility] 3 18:26:27 Prediabete s 444096233 Active 2022 Not Available [facility] 3 18:26:28 Vitamin B12 deficiency (non anemic) 68681716 Active 2022 Not Available [facility] 3 18:26:28 Vaginal vault infection 655615514 Active 2022 Not Available [facility] 3 18:26:27 Well controlled type 2 diabetes mellitus 697480646 Active 2022 Not Available [facility] 3 18:26:27 Pain in bilateral legs [id number] 9108 Active 2022 Not Available [facility] 3 18:26:27 Posttrauma tic stress disorder 36083070 Active 2022 Gary Larsen MD [address] [place] [address], [facility] [address], [place], [address] , [facility] 3 12:34:38 Anxiety disorder 220190297 Active 2022 Gary Larsen MD [address], [place] [address], [place], [address] , [facility] 3 12:35:52 History of total hysterecto my 383984693 Active 2022 Gary Larsen MD [address], [place], [place], [address] , [facility] 3 12:47:57 Anemia 830651629 Active 2023 Tanya matta, [facility] 4 14:33:25 Arthritis 5844941 Active 2023 Tanya matta, [facility] 4 14:33:35 Disorder of parathyroi d gland 94298417 Active 2023 Tanya matta, [facility] 4 14:34:42 Disorder of thyroid gland 63253541 Active 2023 Tanya matta, [facility] 4 14:35:02 Sleep disorder 72905612 Active 2023 Tanya matta, [facility] 4 14:35:12 Bunion 114138480 Active 2023 Baljit Michaels DPM [address], [address], [place], [address] , [facility] 4 14:48:42 Bilateral plantar fasciitis [id number] 9108 Active 2023 Baljit Michaels DPM [address], [address], [place], [address] , [facility] 4 14:48:48 Pain in both feet [id number] 9102 Active 2023 Baljit Michaels DPM [address], [place], [place], [address] , [facility] 4 14:49:42 Bunion 185664312 Active 2023 Baljit Michaels DPM [address], [address], [place], [address] , [facility] 4 14:49:58 Pain in right foot 3631176033735 07 Active 2023 Baljit Michaels DPM [address], [address], [place], [address] , [facility] 4 16:27:22 Problem Notes None recorded. Procedures Surgical History Date Name Laterality Status Provider Name and Address Organization Details Recorded Time 09/10/19 24 Plantar Fascia Injection Right Foot completed Baljit Michaels DPM [address], [address], [place], [address], [employer] [facility] 09/10/2023 14:52:31 06/29/20 23 Most Recent Mammogram completed Martha Escobedo NP [address], [address], [place], [address], [employer] [facility] 06/30/2023 18:37:23 01/06/20 23 Date of Last Pap Smear completed Gary Larsen MD [address], [address], [place], [address], [employer] [facility] 08/12/2023 12:41:08 08/24/19 23 Hysterectomy completed Martha Escobedo NP [address], [address], [place], [address], [facility] [facility] 07/09/2023 07:46:11 04/11/20 22 Date of Last Mammogram completed Gary Larsen MD [address], [address], [place], [address], [facility] [employer] [facility] 08/12/2023 12:41:08 08/15/20 21 Most Recent Bone Density completed Not Available [facility] 10/22/2022 02:39:58 10/30/19 21 Gastric bypass for obesity completed Not Available [facility] 10/22/2022 02:40:06 10/11/19 19 Endoscopy completed Not Available [facility] 10/22/2022 02:40:06 04/08/20 18 Date of Last Colonoscopy completed Not Available [facility] 10/22/2022 02:39:58 01/09/20 15 Colonoscopy completed Not Available [facility] 10/22/2022 02:40:06 08/31/19 15 laparoscopic sleeve gastrectomy completed Not Available [facility] 10/22/2022 02:40:06 06/28/20 13 Cholecystectomy completed Not Available [facility] 10/22/2022 02:40:06 Hernia Repair completed Not Available [facility] 10/22/2022 02:40:06 Orthopedic surgery ss completed Not Available [facility] 10/22/2022 02:40:06 [employer] Procedure completed Not Available [facility] 10/22/2022 02:40:06 [employer] Procedure completed Not Available [facility] 10/22/2022 02:40:06 procedure on gallbladder completed Not Available [facility] 10/22/2022 02:40:06 Imaging Results Imaging Date Name Status LastModified by Organiz ation Details LastModified Time 06/09/2023 XR, lumbosacral spine, 4 or more view completed [facility] (Imaging) [address] [place], [address], 08/12/2023 12:41:45 06/29/2023 MAMMO, screening, digital, bilateral completed [id number] [facility] [address] [place], [address], 08/12/2023 12:41:45 07/08/2023 CT, abdomen + pelvis, w/ contrast completed [email or web address] [place] [address], [address], 08/12/2023 12:41:45 05/19/2023 XR, ankle, 3 or more view completed Information not available 09/10/2023 14:56:49 Procedure Notes None recorded. Medical Equipment None Reported. Allergies Allergen ID Allergen Name Allergen Category Reaction Reaction Severity Criticality Documentation Date Start Date Code Code System Note Provider Name and Address Organization Details Recorded Time 49 Zoloft medicatio n rash Not available Not available 10/22/2022 46411 RxNorm Not Available [facility] 3 03:06:00 4987 Product containin g penicilli n and antibioti c (product) medicatio n hives Not available Not available 10/22/2022 65823 05 SNOMED Not Available [facility] 3 03:06:00 4988 clarithro mycin medicatio n rash Not available Not available 10/22/2022 93007 RxNorm Z-Pac k Not Available [facility] 3 03:06:00 4989 Adipex-P medicatio n other Not available Not available 10/22/20222020 332 RxNorm tremo rs, anxie ty, nervo usnes s Not Available [facility] 3 03:06:01 Medications Name Sig Start Date Stop Date Status Note LastModified by Organization Details LastModified Time celecoxib 200 mg capsule TAKE 1 CAPSULE BY MOUTH TWICE DAILY 11/13 completed Not Available Not Available Not Available cyclobenza cherri 10 mg tablet Take 1 tablet every 12 hours by oral route as needed for 15 days. active Not Available Not Available No t Available furosemide 40 mg tablet TAKE ONE TABLET BY MOUTH EVERY DAY 11/23 completed Not Available Not Available Not Available buspirone 5 mg tablet TAKE 1 TABLET BY MOUTH DAILY 11/13 completed Not Available Not Available Not Available nystatin 100,000 unit/mL oral suspension Take 5 mL 4 times a day by oral route for 5 days. active Not Available Not Available No t Available BD Luer-Philip Syringe 3 mL 25 x 1 08/25 completed Not Available Not Available Not Available prednisone 10 mg tablet 05/26 completed Not Available Not Available Not Available venlafaxin e ER 75 mg capsule,ex tended release 24 hr active Not Available Not Available Not Available doxycyclin e hyclate 100 mg capsule Take 1 capsule twice a day by oral route for 10 days. active Not Available Not Available No t Available ropinirole 1 mg tablet TAKE 1 TABLET BY MOUTH ONCE DAILY AT BEDTIME active Not Available Not Available No t Available clindamyci n HCl 300 mg capsule TAKE 1 CAPSULE BY MOUTH THREE TIMES DAILY FOR 10 DAYS 04/22 completed Not Available Not Available Not Available citalopram 40 mg tablet TAKE ONE TABLET BY MOUTH EVERY DAY active Not Available Not Available No t Available polyethyle ne glycol 3350 17 gram oral powder packet MIX 17 GRAMS IN ANY 4 TO 8 OUNCES OF BEVERAGE AND DRINK DAILY 05/21 completed Not Available Not Available Not Available Stool Softener 100 mg capsule TAKE 1 CAPSULE BY MOUTH TWICE DAILY 05/21 completed Not Available Not Available Not Available clarithrom ycin 250 mg tablet Take 1 tablet every 12 hours by oral route with meals for 10 days. 03/12 completed Not Available Not Available Not Available lisinopril 20 mg-hydroch lorothiazi de 12.5 mg tablet TAKE 1 TABLET BY MOUTH ONCE DAILY active Not Available Not Available No t Available azithromyc in 250 mg tablet TAKE 2 TABLETS BY MOUTH ON DAY 1 AND THEN TAKE 1 TABLET BY MOUTH ONCE A DAY ON DAY 2 THROUGH DAY 5 11/13 completed Not Available Not Available Not Available CombiPatch 0.05 mg-0.14 mg/24 hr transderma l APLLY 1 PATCH TRANSDERM ALLY TWICE WEEKLY DIRECTED FOR 30 DAYS 09/10 completed Not Available Not Available Not Available ibuprofen 800 mg tablet active Not Available Not Available Not Available fluconazol e 150 mg tablet TAKE 1 TABLET BY MOUTH NOW, THEN REPEAT IN 72 HOURS IF SYMPTOMS PERSIST. active Not Available Not Available No t Available benzonatat e 200 mg capsule TAKE 1 CAPSULE BY MOUTH EVERY 8 HOURS NEEDED FOR 5 DAYS 04/22 completed Not Available Not Available Not Available valacyclov ir 1 gram tablet TAKE 1 TABLET BY MOUTH 4 TIMES DAILY FOR 7 DAYS 11/27 completed Not Available Not Available Not Available clarithrom ycin 500 mg tablet active Not Available Not Available No t Available hydrocodon e 5 mg-acetami nophen 325 mg tablet TAKE 1 TABLET BY MOUTH EVERY 4 TO 6 HOURS NEEDED 09/10 completed Not Available Not Available Not Available prazosin 1 mg capsule TAKE 1 CAPSULE BY MOUTH TWICE DAILY DIRECTED active Not Available Not Available No t Available metronidaz ole 0.75 % (37.5 mg/5 gram) vaginal gel INSERT 1 APPLICATO RFUL VAGINALLY ONCE DAILY active Not Available Not Available No t Available prednisone 20 mg tablet TAKE 1 TABLET BY MOUTH TWICE DAILY FOR 2 DAYS THEN 1 ONCE DAILY FOR 2 DAYS THEN 1 2 (ONE HALF) ONCE DAILY FOR 2 DAYS 11/13 completed Not Available Not Available Not Available dexamethas one 6 mg tablet Take 1 tablet every day by oral route after meals for 7 days. active Not Available Not Available No t Available permethrin 5 % topical cream 05/26 completed Not Available Not Available Not Available clindamyci n HCl 150 mg capsule 05/26 completed Not Available Not Available Not Available metronidaz ole 500 mg tablet TAKE 1 TABLET BY MOUTH EVERY 12 HOURS WITH MEALS FOR 7 DAYS active Not Available Not Available No t Available phentermin e 37.5 mg tablet TK 1 T PO QD FOR 5 DAYS THEN 2 DAYS OFF DIRECTED active Not Available Not Available No t Available ciprofloxa mary kate 500 mg tablet TAKE 1 TABLET BY MOUTH EVERY 12 HOURS 08/12 completed Not Available Not Available Not Available sulfametho xazole 800 mg-trimeth oprim 160 mg tablet TK 1 T PO Q 12 H X 5 DAYS 11/13 completed Not Available Not Available Not Available omeprazole 40 mg capsule,de layed release TAKE 1 CAPSULE BY MOUTH ONCE DAILY 05/21 completed Not Available Not Available Not Available doxycyclin e monohydrat e 100 mg tablet Take 1 tablet twice a day by oral route. active Not Available Not Available No t Available tramadol 50 mg tablet active Not Available Not Available Not Available acetaminop hen 500 mg tablet Take 2 tablets every 12 hours by oral route. 06/02 completed Not Available Not Available Not Available triamcinol one acetonide 0.1 % topical cream APPLY A THIN LAYER TO THE AFFECTED AREA(S) BY TOPICAL ROUTE 2 TIMES PER DAY active Not Available Not Available No t Available acyclovir 800 mg tablet TAKE ONE TABLET BY MOUTH 4 TIMES DAILY FOR 7 DAYS THEN TAKE 1 TABLET TWICE DAILY FOR 7 DAYS. 05/21 completed Not Available Not Available Not Available nystatin-t riamcinolo ne 100,000 unit/gram- 0.1 % topical ointment APPLY TO THE AFFECTED AREAS TOPICALLY TWO TIMES DAILY FOR 5 DAYS active Not Available Not Available No t Available venlafaxin e 100 mg tablet Take 1 tablet every day by oral route for 30 days. active Not Available Not Available No t Available oxycodone- acetaminop hen 5 mg-325 mg tablet TAKE 1 TABLET BY MOUTH EVERY 4 HOURS NEEDED FOR PAIN 09/10 completed Not Available Not Available Not Available Tessalon Perles 100 mg capsule Take 1 capsule every 4-6 hours by oral route as directed for 15 days. 11/23 completed Not Available Not Available Not Available prednisolo ne acetate 1 % eye drops,susp ension INSTILL 1 DROP INTO EACH EYE 4 TIMES DAILY 11/13 completed Not Available Not Available Not Available oxycodone- acetaminop hen 10 mg-325 mg tablet 06/02 completed Not Available Not Available Not Available Synthroid 25 mcg tablet Take 1 tablet every day by oral route in the morning for 90 days. 05/15 completed Not Available Not Available Not Available OneTouch Ultra Test strips Take 1 strip twice a day by miscell. route before meals for 90 days. active Not Available Not Available No t Available Kenalog 10 mg/mL suspension for injection In office injection administe red by the provider 11/27 completed [facility][NOTE 3]: [id number] Not Available Not Available Not Available meclizine 25 mg tablet Take 1 tablet 3 times a day by oral route as needed for 10 days. 11/25 completed Not Available Not Available Not Available sulfacetam yaniv sodium 10 % eye drops INSTILL 1 DROP INTO AFFECTED EYE(S) BY OPHTHALMI C ROUTE EVERY 2-3 HOURS DURING THE DAY AND LESS FREQUENTL Y AT NIGHT 11/13 completed Not Available Not Available Not Available levothyrox ine 50 mcg tablet Take 1 tablet by mouth once daily active Not Available Not Available No t Available cephalexin 500 mg capsule TAKE 1 CAPSULE BY MOUTH 4 TIMES DAILY FOR 10 DAYS 04/22 completed Not Available Not Available Not Available pantoprazo le 40 mg tablet,del ayed release TAKE 1 TABLET BY MOUTH ONCE DAILY IN THE MORNING 05/21 completed Not Available Not Available Not Available cyanocobal patel (vit B-12) 1,000 mcg/mL injection solution INJECT 1 ML SUBCUTANE OUSLY ONCE A WEEK active Not Available Not Available No t Available oseltamivi r 75 mg capsule TAKE 1 CAPSULE BY MOUTH EVERY 12 HOURS 11/27 completed Not Available Not Available Not Available neomycin-p olymyxin-d exameth 3.5 mg/mL-10,0 00 unit/mL-0. 1% eye drops INSTILL ONE DROP INTO BOTH EYES FOUR TIMES DAILY AFTER WARM COMPRESS 11/13 completed Not Available Not Available Not Available buspirone 10 mg tablet TAKE 1 TABLET BY MOUTH THREE TIMES DAILY 09/10 completed Not Available Not Available Not Available lisinopril 10 mg tablet TAKE ONE TABLET BY MOUTH ONCE DAILY 03/06 completed Not Available Not Available Not Available fluorometh olone 0.1 % eye drops,susp ension 06/02 completed Not Available Not Available Not Available progestero ne micronized 200 mg capsule TAKE 1 CAPSULE BY MOUTH ONCE DAILY FOR 12 DAYS active Not Available Not Available No t Available hydrochlor othiazide 12.5 mg capsule TAKE ONE CAPSULE BY MOUTH ONCE DAILY active Not Available Not Available No t Available Prevalite 4 gram powder for susp in a packet DISSOLVE TWO PACKETS INTO BEVERAGE AND DRINK TWICE DAILY 11/13 completed Not Available Not Available Not Available gabapentin 300 mg capsule TAKE 1 CAPSULE BY MOUTH TWICE DAILY FOR 2 WEEKS 11/13 completed Not Available Not Available Not Available estradiol 2 mg tablet TAKE 1 TABLET BY MOUTH ONCE DAILY WITH MEALS active Not Available Not Available No t Available montelukas t 10 mg tablet TAKE 1 TABLET BY MOUTH AT BEDTIME 11/13 completed Not Available Not Available Not Available hydrocodon e 5 mg-acetami nophen 500 mg tablet 05/26 completed Not Available Not Available Not Available diclofenac sodium 50 mg tablet,del ayed release Take 1 tablet every 12 hours by oral route as needed for 15 days. active Take with food. Not Available Not Available Not Available zolpidem 5 mg tablet 05/26 completed Not Available Not Available Not Available polyethyle ne glycol 3350 17 gram/dose oral powder 11/13 completed Not Available Not Available Not Available estradiol 0.01% (0.1 mg/gram) vaginal cream INSERT 1 GRAM VAGINALLY AT BEDTIME FOR 14 DAYS, AFTER 2 WEEKS INSERT 1 GRAM AT BEDTIME 2-3 TIMES PER WEEK MAINTENAN CE DOSE active Not Available Not Available No t Available levofloxac in 750 mg tablet Take 1 tablet every day by oral route after meals for 7 days. active Not Available Not Available No t Available methylpred nisolone 4 mg tablets in a dose pack TAKE BY MOUTH DIRECTED ON LABEL 04/22 completed Not Available Not Available Not Available albuterol sulfate HFA 90 mcg/actuat ion aerosol inhaler INHALE 1 TO 2 PUFFS BY MOUTH EVERY 4 TO 6 HOURS NEEDED FOR WHEEZING active Not Available Not Available No t Available Vitamin D2 1,250 mcg (50,000 unit) capsule TAKE 1 CAPSULE ONCE WEEKLY 05/21 completed Not Available Not Available Not Available ondansetro n 4 mg disintegra ting tablet DISSOLVE 1 TABLET IN MOUTH THREE TIMES DAILY NEEDED FOR NAUSEA 09/10 completed Not Available Not Available Not Available fluticason e propionate 50 mcg/actuat ion nasal spray,susp ension active Not Available Not Available Not Available metformin ER 500 mg tablet,ext ended release 24 hr TAKE 1 TABLET BY MOUTH ONCE DAILY WITH SUPPER active Not Available Not Available No t Available colestipol 1 gram tablet TAKE 2 TABLETS BY MOUTH TWICE DAILY active Not Available Not Available No t Available doxycyclin e hyclate 100 mg tablet TAKE 1 TABLET BY MOUTH TWICE DAILY FOR 10 DAYS (STOP CLINDAMYC IN DUE TO STOMACH UPSET) 04/22 completed Not Available Not Available Not Available naproxen 500 mg tablet 05/26 completed Not Available Not Available Not Available Bactroban Nasal 2 % ointment 1/2 tube in each nostril bid for 5 days 01/26 completed Not Available Not Available Not Available buspirone 15 mg tablet TAKE 1 TABLET BY MOUTH EVERY 8 HOURS DIRECTED active Not Available Not Available No t Available tobramycin 0.3 %-dexameth asone 0.1 % eye drops,susp ension 06/02 completed Not Available Not Available Not Available oxycodone 5 mg tablet TAKE 1 TABLET BY MOUTH EVERY 4 HOURS NEEDED FOR PAIN 11/13 completed Not Available Not Available Not Available neomycin 3.5 mg/g-polym yxin B 10,000 unit/g-dex ameth 0.1 % eye oint APPLY OINTMENT TO BOTH EYES AT BEDTIME active Not Available Not Available No t Available enoxaparin 40 mg/0.4 mL subcutaneo us syringe 11/13 completed Not Available Not Available Not Available Restasis 0.05 % eye drops in a dropperett e INSTILL 1 DROP INTO EACH EYE TWICE DAILY 09/20 completed Not Available Not Available Not Available cholestyra mine (with sugar) 4 gram powder for susp in a packet 05/21 completed Not Available Not Available Not Available duloxetine 30 mg capsule,de layed release active Not Available Not Available Not Available duloxetine 60 mg capsule,de layed release TAKE 1 CAPSULE BY MOUTH ONCE DAILY TOTAL DAILY DOSE IS 90MG PER DAY active Not Available Not Available No t Available pregabalin 75 mg capsule 09/10 completed Not Available Not Available Not Available pregabalin 100 mg capsule TAKE 1 CAPSULE BY MOUTH TWICE DAILY BEFORE MEALS active Not Available Not Available No t Available pregabalin 150 mg capsule TAKE 1 CAPSULE BY MOUTH TWICE DAILY active Not Available Not Available No t Available chlorhexid ine gluconate 0.12 % mouthwash Place 10 mL every 8 hours by mucous membrane route as directed for 7 days. active Swish and spit. Not Available Not Available Not Available progestero ne active Not Available Not Available Not Available calcium citrate 1000mg daily 2014 active Not Available Not Available Not Avai lable Jose-Citrat e 09/11 completed Not Available Not Available Not Available Xyzal 2020 active Not Available Not Available Not Avai lable Pristiq 50 mg tablet,ext ended release Take 1 tablet every day by oral route for 30 days. 08/29 completed Not Available Not Available Not Available Pristiq 100 mg tablet,ext ended release TAKE ONE TABLET BY MOUTH ONCE DAILY. 09/16 completed Not Available Not Available Not Available biotin 2,500 mcg capsule Take 2 capsules every day by oral route. 05/21 completed Not Available Not Available Not Available venlafaxin e ER 75 mg tablet,ext ended release 24 hr Take 1 tablet every day by oral route. active Not Available Not Available No t Available Zyrtec 10 mg capsule Take by oral route. 11/13 completed Not Available Not Available Not Available Dulera 200 mcg-5 mcg/actuat ion HFA aerosol inhaler Inhale 2 puffs twice a day by inhalatio n route. active Not Available Not Available No t Available Suprep Bowel Prep Kit 17.5 gram-3.13 gram-1.6 gram oral solution 08/26 completed Not Available Not Available Not Available ropivacain e (PF) 5 mg/mL (0.5 %) injection solution Take 1 mg by injection route. 11/27 completed Not Available Not Available Not Available lidocaine 5 % topical ointment APPLY OINTMENT EXTERNALL Y TO THE AFFECTED AREA(S) 1 4 TIMES DAILY NEEDED. active Not Available Not Available No t Available Fluzone 0923-9363 45 mcg (15 mcg x 3)/0.5 mL intramuscu lar suspension TO BE ADMINISTE RED BY PHARMACIS T FOR IMMUNIZAT ION active Not Available Not Available No t Available OneTouch Ultra2 Meter USE DIRECTED active Not Available Not Available No t Available OneTouch Delica Plus Lancet 33 gauge INJECT ONE LANCET TO CHECK GLUCOSE TWICE DAILY active Not Available Not Available No t Available Fluzone Quad 4086-9266 (PF) 60 mcg (15 mcg x 4)/0.5 mL IM syringe PHARMACIS T ADMINISTE RED IMMUNIZAT ION ADMINISTE RED AT TIME OF DISPENSIN G active Not Available Not Available No t Available Flowflex COVID-19 Antigen Home Test kit active Not Available Not Available Not Available Paxlovid 300 mg (150 mg x 2)-100 mg tablets in a dose pack TAKE 3 TABLETS TOGETHER (TWO 150 MG NIRMATREL VIR TABLETS AND ONE 100 MG RITONAVIR TABLET) BY MOUTH TWICE DAILY FOR 5 DAYS. 04/22 completed Not Available Not Available Not Available Vitals Date Recorded Body height Body mass index (BMI) Body weight Provider Name and Address Organization Details Last Updated DateTime 04/22/2023 160.02 cm 37.8 kg/m2 00798.61 g Marbella Howard [place] [email or web address] 04/22/2023 11:53:44 Date Recorded Body height Body mass index (BMI) Body weight Body temperature Heart rate Respiratory rate Oxygen saturation Oxygen saturation in Arterial blood by Pulse oximetry Pain severity - 0-10 verbal numeric rating [Score] - Reported Systolic blood pressure Diastolic blood pressure Provider Name and Address Organization Details Last Updated DateTime 3 160.02 cm 37.2 kg/m2 72910.1 g 96.3 [degF] 80 /min 16 /min 97 % 97 % 0 130 mm[Hg] 90 mm[Hg] Martha Thakkar RN [facility] 08:57:08 Date Recorded Body height Body mass index (BMI) Body weight Body temperature Heart rate Respiratory rate Oxygen saturation Oxygen saturation in Arterial blood by Pulse oximetry Systolic blood pressure Diastolic blood pressure Provider Name and Address Organization Details Last Updated DateTime 3 160.02 cm 36.9 kg/m2 05006.9 1 g 97.5 [degF] 78 /min 20 /min 98 % 98 % 126 mm[Hg] 86 mm[Hg] Rusty Combs [facility] [email or web address] [facility] 3 12:26:47 Date Recorded Body height Body mass index (BMI) Body weight Provider Name and Address Organization Details Last Updated DateTime 09/10/2023 160.02 cm 38.1 kg/m2 75869.36 g Tanya Pavon [facility] [email or web address] [facility] 09/10/2023 14:28:28 Date Recorded Heart rate Respiratory rate Oxygen saturation Oxygen saturation in Arterial blood by Pulse oximetry Systolic blood pressure Diastolic blood pressure Provider Name and Address Organization Details Last Updated DateTime 4 86 /min 14 /min 99 % 99 % 118 mm[Hg] 68 mm[Hg] Ani Amaya [facility] [email or web address] [facility] 4 14:30:19 Date Recorded Body height Body mass index (BMI) Body weight Heart rate Respiratory rate Oxygen saturation Oxygen saturation in Arterial blood by Pulse oximetry Systolic blood pressure Diastolic blood pressure Provider Name and Address Organization Details Last Updated DateTime 4 160.02 cm 38.1 kg/m2 23459.3 6 g 99 /min 14 /min 99 % 99 % 117 mm[Hg] 76 mm[Hg] Ani Amaya [facility] [email or web address] [facility] 4 15:02:53 Social History Question Answer Notes LastModified by Organization Details LastModified Time Tobacco Smoking Status Never [email or web address]com [facility] 04/22/2023 11:34:55 Do You Have An Advance Directive? No MIGRATION.[id number] [id number] Information not available 10/22/2022 What Is Your Level Of Alcohol Consumption? None MIGRATION.0301 [id number] Information not available 10/22/2022 Do You Wear A Helmet When Biking? No [email or web address] Information not available 04/22/2023 Is Blood Transfusion Acceptable In An Emergency? Yes [email or web address] Information not available 04/22/2023 What Is Your Level Of Caffeine Consumption? Moderate Coffee Tea Information not available 05/26/2023 How Much Tobacco Do You Chew? None MIGRATION.0301 [id number] Information not available 10/22/2022 What Is Your Code Status? Full Code [email or web address] Information not available 04/22/2023 In The 14 Days Before Symptom Onset, Have You Had Close Contact With A Laboratory-confi rmed COVID-19 While That Case Was Ill? No [email or web address] Information not available 04/22/2023 In The 14 Days Before Symptom Onset, Have You Had Close Contact With A Person Who Is Under Investigation For COVID-19 While That Person Was Ill? No [email or web address] Information not available 04/22/2023 Are You Currently Employed? Yes Information not available 05/26/2023 What Type Of Diet Are You Following? 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 4 [email or web address] Information not available 04/22/2023 On Those Days That You Engage In Moderate To Strenuous Exercise, How Many Minutes, On Average, Do You Exercise? 30 [email or web address] Information not available 04/22/2023 Have There Been Any Changes To Your Family Or Social Situation? No [email or web address] Information not available 04/22/2023 Are There Any Guns Present In Your Home? No [email or web address] Information not available 04/22/2023 Do You Use Insect Repellent Routinely? No [email or web address] Information not available 04/22/2023 Where Do You Live? SingleLevelHouse [email or web address] Information not available 04/22/2023 Do You Have A Medical Power Of Meteorology Teacher? No [email or web address] Information not available 04/22/2023 What Was The Date Of Your Most Recent Tobacco Screening? 09/10/2022 [email or web address] Information not available 04/22/2023 How Many Children Do You Have? 0 [email or web address] Information not available 04/22/2023 Do You Have Any Pets? Yes [email or web address] Information not available 04/22/2023 What Is Your Relationship Status? MIGRATION.0301 [id number] Information not available 10/22/2022 Do You Use Your Seat Belt Or Car Seat Routinely? Yes [email or web address] Information not available 04/22/2023 Do You Have Smoke And Carbon Monoxide Detectors In Your Home? Yes Information not available 04/22/2023 Are You Passively Exposed To Smoke? No [email or web address] Information not available 04/22/2023 Do You Or Have You Ever Used Smokeless Tobacco? Never Used Smokeless Tobacco MIGRATION.0301 [id number] Information not available 10/22/2022 Are There Any Smokers In Your House? No [email or web address] Information not available 04/22/2023 How Much Tobacco Do You Smoke? No MIGRATION.0301 [id number] Information not available 10/22/2022 Do You Participate In Social Media? No Information not available 04/22/2023 What Types Of Sporting Activities Do You Participate In? Walking [email or web address] Information not available 04/22/2023 Do You Feel Stressed (tense, Restless, Nervous, Or Anxious, Or Unable To Sleep At Night)? [id number] Information not available 05/26/2023 Do You Use Any Illicit Or Recreational Drugs? No [email or web address] Information not available 04/22/2023 Do You Use Sunscreen Routinely? No [email or web address] Information not available 04/22/2023 Has Tobacco Cessation Counseling Been Provided? No [email or web address] Information not available 04/22/2023 Have You Recently Traveled Abroad? No [email or web address] Information not available 04/22/2023 Are You Currently In School? No [email or web address] Information not available 04/22/2023 Do You Have Any Dietary Restrictions? No [email or web address] Information not available 04/22/2023 Do You Or Have You Ever Used Any Other Forms Of Tobacco Or Nicotine? No [email or web address] Information not available 04/22/2023 Sex: Female Functional Status Question Answer Note LastModified by Organization D etails LastModified Time What is your exercise level? Moderate Information not available 11/27/2022 Mental Status None recorded. Family History Relationship Description Onset Age of this Age Resolved Age Notes LastModified by Organization Details LastModified Time Mother Diabetes mellitus MIGRATION.969 [id number] Not available 10/22/2022 02:40:10 Mother Depressive disorder MIGRATION.754 [id number] Not available 10/22/2022 02:40:10 Mother Asthma MIGRATION.970 [id number] Not available 10/22/2022 02:40:10 Mother Hypertensive disorder MIGRATION.161 [id number] Not available 10/22/2022 02:40:10 Mother Blood pressure finding [email or web address] Not available 04/22 11:34:54 Mother Anemia [email or web address] Not available 04/22/2023 11:34:54 Mother Arthritis Not available 09/10/2023 14:35:34 Unspecified Relation Complication of anesthesia [email or web address] Not available 03/26 11:34:54 Father Hyperlipidem ia [email or web address] Not available 04/22 11:34:54 Father Cerebrovascu lar accident [email or web address] Not available 11:34:54 Father Hypertensive disorder MIGRATION.197 [id number] Not available 10/22/2022 02:40:11 Maternal Grandfather Heart disease MIGRATION.202 [id number] Not available 10/22/2022 02:40:11 Maternal Grandmother Hypertensive disorder MIGRATION.611 [id number] Not available 10/22/2022 02:40:11 Maternal Grandmother Depressive disorder MIGRATION.746 [id number] Not available 10/22/2022 02:40:11 Maternal Grandmother Diabetes mellitus MIGRATION.680 [id number] Not available 10/22/2022 02:40:11 Medical History Condition Response BLINDNESS N RHEUMATIC FEVER N KIDNEY STONES N BLADDER PROBLEMS N MRSA N OTHER # 1 N POLIO N LUNG DISEASE/DISORDER Y HISTORY OF DRUG ABUSE N COPD N RADIATION / CHEMOTHERAPY N Other # 2 N BLOOD DISEASES N SURGERY N EAR OR HEARING PROBLEMS N MUMPS N SHINGLES Y FEMALE PROBLEMS / INFECTIONS Y DEPRESSION (INCLUDING POST ) Y BOWEL PROBLEMS N STROKE/TIA N THYROID DISEASE Y ULCERS N BENIGN PROSTATIC HYPERPLASIA N MEASLES N CERVICALGIA N HYPOTENSION N TB SKIN TEST N MYOCARDIAL INFARCTION N OBESITY Y PARAPELGIA N GERD/NAUSEA N ANEURYSM N URINARY/BLADDER/KIDNEY PROBLEMS N CORONARY ARTERY DISEASE (CAD) N MENIERE'S DISEASE N ADDICTION CONCERNS N ENDOMETRIOSIS N USE OF BLOOD THINNERS N SKIN PROBLEMS N EMPHYSEMA N GASTROINTESTINAL DISORDER N MUSCLE,JOINT OR BONE PROBLEMS N GASTROINTESTINAL BLEEDING N BLOOD CLOTS N ASTHMA Y CATARACTS N ERECTILE DYSFUNCTION N GI PROBLEMS N CHF N Low Testosterone N NEUROPATHY N INFERTILITY N AIDS/HIV N FRACTURES N CHEMOTHERAPY / RADIATION N VISION/EYE PROBLEMS N LIVER DISEASE N MALE HYPOGONADISM N HYPERTENSION Y TOURETTE'S N ANXIETY DISORDER N BLOOD TRANSFUSION N ANEMIA/BLOOD DISORDER Y CHRONIC EAR INFECTIONS N BRONCHITIS Y TUBERCULOSIS N GLAUCOMA N FOOT PROBLEM N DIVERTICULITIS N SLEEP APNEA N CHICKENPOX N ALLERGIES/HAYFEVER Y INFECTIOUS DISEASE N PROSTATE N HEART ARRHYTHMIA N INSOMNIA N HIGH CHOLESTEROL / HYPERLIPIDEMIA N EYE PROBLEMS N HYPERTHYROIDISM N EATING DISORDER N EDEMA N CHRONIC PAIN SYNDROME N CAROTID BLOCKAGE N CONSTIPATION N BACK / NECK PROBLEMS N HAVE YOU BEEN HOSPITALIZED OR SEEN IN [facility] IN THE PAST YEAR ? N ATHEROSCLEROSIS N BREAST PROBLEMS N DIALYSIS N ECZEMA N FIBROMYALGIA N OSTEOPOROSIS N ARTHRITIS Y NO SIGNIFICANT PAST MEDICAL HISTORY N APPENDICITIS N DIABETES, TYPE N BAD TEETH N HEARTBURN / REFLUX N ADD/ADHD N AUTISM SPECTRUM DISORDER (ASD) N HEPATITIS / LIVER DISEASE N PULMONARY DISEASE N GOUT N SLEEP DISORDER Y ALZHEIMER'S DISEASE N PAIN N DEMENTIA N HERPES Y SEIZURES/EPILEPSY N HEADACHES/MIGRAINES N VASCULAR DISEASE N PACEMAKER N DIZZINESS N HEART DISEASE/HEART PROBLEMS N KIDNEY DISEASE N SCARLET FEVER N MULTIPLE SCLEROSIS N DEVELOPMENTAL OR BEHAVIORAL DISORDERS N MENTAL DISORDER/ILLNESS N CANCER: SPECIFY N CARDIAC ARRHYTHMIA N PNEUMONIA N ATRIAL FIBRILLATION N Gall Stones N PULMONARY EMBOLISM N AUTOIMMUNE DISEASE N Gynecological History Statement/Question Response Abnormal Pap N Date of Last Mammogram 04/11/2022 Date of LMP 04/17/2023 STIs/STDs N HPV Vaccine N Age at Menarche 13 Most Recent Mammogram 06/29/2023 If Post Menopausal, Age at Menopause 52 Date of Last Mammogram 03/28/2022 Date of Last Colonoscopy 04/08/2018 Frequency of Cycle (Q days) Most Recent Bone Density 08/15/2021 Sexually Active? Y Menses Monthly N Date of Last Pap Smear 01/05/2023 Y Obstetrics History GPAL:G 2 P 0 0 0 0 Immunizations Vaccine Type Date Status Note Provider Nam e and Address Organization Details Recorded Time Tdap 3 completed Not Available [facility] 07/20/2023 18:26:28 Pneumococcal conjugate PCV20, polysaccharide [id number] conjugate, adjuvant, PF 3 completed Not Available [facility] 07/20/2023 18:26:28 influenza nasal, unspecified formulation 3 completed Not Available [facility] 07/20/2023 18:26:28 COVID-19, mRNA, LNP-S, PF, 100 mcg/0.5mL dose or 50 mcg/0.25mL dose 2 completed Not Available [facility] 07/20/2023 18:26:28 zoster, unspecified formulation 2 completed Not Available [facility] 07/20/2023 18:26:28 COVID-19 Non-[place] Vaccine, Product Unknown 1 completed Not Available [facility] 07/20/2023 18:26:28 SARS-COV-2 (COVID-19) vaccine, UNSPECIFIED 1 completed Not Available [facility] 07/20/2023 18:26:28 Influenza, split virus, quadrivalent, preservative 0 completed Not Available [facility] 07/20/2023 18:26:28 Influenza, split virus, trivalent, preservative 6 completed Not Available [facility] 07/20/2023 18:26:28 Influenza, split virus, trivalent, preservative 5 completed Not Available [facility] 07/20/2023 18:26:28 Influenza, high-dose, trivalent, PF 4 completed Not Available [facility] 07/20/2023 18:26:28 Influenza, split virus, trivalent, preservative 3 completed Not Available [facility] 07/20/2023 18:26:28 DTaP 6 completed Not Available [facility] 07/20/2023 18:26:28 Tdap 6 completed Not Available [facility] 07/20/2023 18:26:28 Influenza, split virus, quadrivalent, PF 1 completed Not Available [facility] 07/20/2023 18:26:28 Past Encounters Encounter ID Performer Location Encounter Start Date Encounter Closed Date Diagnosis/Indication Diagnosis SNOMED-CT Code Diagnosis ICD10 Code Diagnosis Note [id number] [facility] [place] [address] [place] [address] 1 11/13/2020 00:00:00 11/13/2020 15:24:24 [id number] [facility] [address] [place] [address] 1 04/18/2021 00:00:00 04/18/2021 08:26:19 [id number] [facility] [address] [place] [address] 05/21/2021 00:00:00 05/21/2021 11:56:19 [id number] [facility] [place] [address] [place] [address] 05/29/2021 00:00:00 05/29/2021 12:39:18 [id number] [facility] [place] [address] [place] [address] 08/13/2021 00:00:00 08/13/2021 12:58:48 [id number] [facility] [place] [address] [place] [address] 09/19/2021 00:00:00 09/19/2021 16:22:01 [id number] [facility] [place] [address] [place] [address] 09/20/2021 00:00:00 09/20/2021 10:55:48 [id number] [facility] [place] [address] [place] [address] 09/27/2021 00:00:00 09/27/2021 11:08:58 [id number] [facility] [place] [address] [place] [address] 10/14/2021 00:00:00 10/14/2021 15:44:10 [id number] [facility] [place] [address] [place] [address] 11/04/2021 00:00:00 11/04/2021 10:47:23 [id number] [facility] [place] [address] [place] [address] 11/12/2021 00:00:00 11/12/2021 10:22:41 [id number] [facility] [place] [address] [place] [address] 01/28/2022 00:00:00 01/28/2022 10:01:21 [id number] [facility] [place] [address] [place] [address] 02/04/2022 00:00:00 02/04/2022 11:41:25 [id number] [facility] [place] [address] [place] [address] 05/15/2022 00:00:00 05/15/2022 12:49:20 [id number] [facility] [place] [address] [place] [address], [place] [address] 07/24/2022 00:00:00 07/24/2022 11:57:32 [id number] [facility] [place] [address] [place] [address] 09/10/2022 00:00:00 09/10/2022 14:30:37 [id number] [facility] [place] [address] [place] [address] 09/11/2022 00:00:00 09/11/2022 12:14:06 [id number] Martha Escobedo NP [facility]_[address] [address] 11/27/2022 13:55:35 11/27/2022 14:33:31 Restless legs 86587377 G25.81 Lyrica 75 mg bidRopinir ole at night. Hypothyroidism 66471153 E03.9 Synthroid [id number] Gary Larsen MD [facility]_[address] [address] 12/29/2022 11:50:08 12/29/2022 13:55:41 COVID-19 [id number] U07.1 Asthma 809456309 J45.90 9 Cough 79884357 R05.9 Fatigue 10047978 R53.83 [id number] Ailyn Olmstead MD [facility] [place] [address] [place] [address] 04/22/2023 11:31:48 04/22/2023 12:29:38 Prediabetes 279554166 R73.03 a1c of 5.2% in ideal range- encouraged proper macronutri ent intake as patient is eating low protein intake. Continue on metformin with largest meal and she can take a protein shake if she is not able to get her 110-120 grams of protein in through meals. Recommende d she incorporat e natural insulin food science professor s such as pears, apples, cinnamon, yandy and sweet potatoes to help mobilize her endogenous insulin. Recommende d up to 150 minutes of moderate level activity/e xercise weekly. Hypothyroidism 68950208 E03.9 FT4 /TSH in range- continue on synthroid 50 mcg daily. She was reminded to take her synthroid on empty stomach with glass of water and wait one hour to eat or have her coffee in morning and up to 4 hours if ever taking any heartburn or reflux medication s to help optimize absorption . Discussed paleo like diet with restrictio n of GMOs to help with energy and to optimize absorption of vitamins and minerals and reduce inflammati on. Restless legs 05665828 G 25.81 WIll uptitrate lyrica to 100 mg twice daily- she is on ropinerole but due to increased sleepiness she will only take this at bedtime and is quite effective. Spent up to 25 minutes preparing to see the patient (eg, review of tests), obtaining and/or reviewing separately obtained history, performing a medically appropriat e examinatio n and evaluation , counseling and educating the patient, ordering medication s, tests, along with documentin g clinical informatio n in the electronic health record, independen tly interpreti ng results and communicat ing results to the patient. Patient can be followed by PCP - she/he is aware of my resignatio n and last day of June 05. If needed his/her PCP can refer patient to another endocrinol ogist in the area. All questions /concerns answered and refills necessary at visit today. [id number] Martha Escobedo NP [facility] [address] [address] 05/26/2023 08:41:44 05/26/2023 18:01:40 Hyperparathyroidism 00278493 E21.[address] Olmstead leaving [place]. Vitamin B1 2 deficiency (non anemic) 28153992 E53.8 on supplement . History of bariatric surgical procedure 823531575 Z98.84 B12 injection weekly per endo. Essential hypertension 36807908 I10 Stable.Lis inopril 20 mg-hctz 12.5 mg po daily. Obese 683890976 E66.9 Diet and exercise encouraged . Hypothyroidism 44737046 E03.9 Synthroid 50 mcg po daily.Endo referralLa b 03/2023 ok. 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 [id number] Gary Larsen MD [facility] [address] [address] 08/12/2023 12:21:42 08/12/2023 12:54:21 Posttraumatic stress disorder 83184164 F43.10 Depressive disorder 3548 9007 F32.A Anxiety disorder 7740004 06 F41.9 Obesity 390537376 E66.9 History of total hysterectomy 727165928 Z90.710 06/15 Hypothyroidism 66472293 E03.9 [id number] Baljit Michaels DPM [facility] [address], [address] [place] [address] 09/10/2023 14:23:42 09/10/2023 15:25:26 Pain in both feet 5833303862 3089849 M79.671 M79.672 obtain bilateral foot x-rays secondary to painfollow -up x-rays Bunion 065399592 M21.61 1 M21.612 educated on conditiont reatment options briefly reviewedOb tain standing x-rays to review treatment options surgically follow-up to review x-rays Bilateral plantar fasciitis 5416880553 2241152 M72.2 right heel injection 09-10-23pos sible left injection to heel, at next visitcont supportive shoe gearStretc warner and icing instructio ns reviewedFo llow-up in 1 month [id number] Baljit Michaels DPM [facility] [place] [address] [facility], [address] [place] [address] 10/08/2023 14:56:52 10/12/2023 09:51:59 Bilateral plantar fasciitis 6879403770 2972412 M72.2 right heel injection 09-10-23rx pt therapypos sible left injection to heel, at next visitcont supportive shoe gearStretc warner and icing instructio ns reviewedFo llow-up in 1 month Pain in both feet 633842 0868 1556207 M79.671 M79.672 obtain bilateral foot x-rays secondary to painfollow -up x-rays Pain in right foot 43239 64550 88026 M79.671 Health Concerns Section Related Observation LastModified by Organization Detai ls LastModified Time None Recorded Concern Status LastModified by Organization Details LastModified Time None Recorded Advance Directives Directive N: Payers Encounter Date Sequence Insurance Name Policy Number Policy Mcpherson Covered Member ID Mcpherson Member ID Guarantor Name 04/22/2023 1 [place] [id number] R Brielle A Aaron [id number] 05 Brielle A Aaron 05/26/2023 1 [place] [id number] R Brielle A Aaron [id number] 05 Brielle A [place] 08/12/2023 1 [place] [id number] R Brielle A Aaron [id number] 05 Brielle A Aaron 09/10/2023 1 [place] [id number] R Brielle A Aaron [id number] 05 Brielle A Aaron 10/08/2023 1 [place] [id number] R Brielle A [place] [id number] 05 Brielle A Aaron Notes Date Note Type Note Provider Name and Address Organization Details Recorded Time 04/22/2023 text/html 52 yo female com es in for follow up in management of prediabetes, hypothyroidism and B12 def. last seen in August at that time we trialed patient on metformin and continued synthroid 50 mcg daily. we trialed B12 injections. She has gained 6 pounds since her last visit. She has had a few episodes where she felt really shakey and sweaty. She had to have a candy bar to correct one of her episodes and cranberry juice for another episode. She did not skip any meals and did not eat anything unusual and did not wait too long to have a meal or snack. She takes the metformin in the morning She takes synthroid first thing (7 am with water) and has the metformin with breakfast. She has noticed more restless leg syndrome-she is taking lyrica twice a day and this seems to help- takes lyrica in morning and around 2-3 pm. She doesn't take ropinerole until 930 -10 pm and it does work as she gets worse close to the end of the day. labs from 04/15:B12 454 pg/mLfolate 6.63 ng/mLinsulin 15.9 uIU/mlTSH of 0.756 uIU/mlFT4 of 1.07 ng/dLFT3 of 3.7 pg/mL182/187/48/97gl ucose 86 mg/dLCr normalLFT aoixbza3t of 5.2% Ailyn Olmstead MD [address] [facility] [facility] [address], [place], [address], [facility] [employer] 04/22/2023 12:31:21 05/26/2023 text/html Here for discuss ion about meds. Has been very active and walking 10,000 Steps daily. Right heel spur painful. Will take care of after the hysterectomy. RLS getting worse. Used to be at night only, but now during the day. Dr. Olmstead increased the lyrica to 100 mg for RLS. Will have hysterectomy on 06/17/23. Hormones have gone through menopause, but likely from the fibroids. Still having 3 day period with IUD. Took IUD out bc it was due, and started bleeding all over again. Now on progesterone. Will have Procedure done at [place]. Dr. Donald ADVERTISING COPYWRITER. Martah Escobedo NP [address] [facility], [address], [place], [address], [employer] 05/28/2023 10:25:38 08/12/2023 text/html ACV: C/o PTSD and anxiety is not controlled for last 2 months. Pt had hysterectomy in 06/15 and she has some issues after the procedure. So she went to see her Gyne and after few weeks, she started bleeding again. So pt was taken by ambulance to ED and she was admitted for another revision surgery. Pt is still f/u with Gyne at [place] for this Pt is on Cymbalta and Buspirone for her depression and anxiety. Denies any mood swings/SI/HI. Gary Larsen MD [address], [place], [address], [employer] 08/12/2023 12:49:13 09/10/2023 text/html . Patient is a 53-year-old female who presents the office with multiple complaints to both feet. Patient states she has bilateral foot pain worse to the right heel. Patient states she had previous x-rays on the left ankle which showed Achilles heel spur. Patient states the pain is at the bottom of both heels and not at the area of the Achilles tendon. Patient states with standing walking she has more pain. Patient states she did obtain good shoe gear and has new balance style shoes which I did recommend her continuing to utilize. Patient denies any other pedal complaints and states when she is at rest does feel better. Patient states she also has bilateral bunion deformities which at times causes her mild pain. Patient denies any open wounds or infection to the medial aspect of the metatarsophalangeal joint. Patient denies any treatment for this condition. Baljit Michaels DPM [address], [place], [address], [employer] 09/10/2023 15:02:09 10/08/2023 text/html Patient is a 53-year-old female, who returns to the office for a follow up on bilateral plantar fasciitis. Patient states that she underwent a injection on the right foot at last visit which she states did not significantly help. Patient continues to have pain when weight-bearing. Patient denies any signs of infection post injection. Patient denies any other complaints. Baljit Michaels DPM [address] [facility] [facility] [address], [place], [address], [facility] 10/12/2023 08:28:10 OBGyn Episode No OBEpisode recorded.
--- OUTSIDE RECORDS SUMMARY | 2024-09-30 13:58 | XMS_ITS | Referral Summary ---
Author Organization [facility] Address [address] [place] [address] Care Team Providers Care Portal Administrator Name Role Phone Martha Raygoza SPEECH AND HEARING DIRECTOR Primary Care Provider + Ryley Torres DO Unavailable [phone] Allergies Active Allergy Reactions Criticality Noted Date Comments Clarithromycin Rash Medium 10/25/2019 Penicillins Hives Medium 10/25/2019 Sertraline Rash Medium 10/25/2019 Medications venlafaxine XR (EFFEXOR-XR) 75 mg 24 hr capsule venlafaxine ER 75 mg capsule,extended release 24 hr Active cetirizine (ZyrTEC) 10 mg capsule Zyrtec 10 mg capsule Take by oral route. Active cyanocobalamin (Vitamin B-12) 1,000 mcg/mL injection [address] (CYMBALTA) 60 mg capsule Take 60 mg by mouth daily 0 Active lisinopril-hydr oCHLOROthiazide (ZESTORETIC) 20-12.5 mg per tablet lisinopril 20 mg-hydrochloroth iazide 12.5 mg tablet TAKE 1 TABLET BY MOUTH EVERY DAY Active omeprazole (PriLOSEC) 40 mg capsule 0 Active omeprazole (PriLOSEC) 40 mg capsule omeprazole 40 mg capsule,delayed release Active Active Problems Problem Noted Date Diagnosed Date Iron deficiency anemia due to chronic blood loss 10/19/2019 Immunizations Name Administration Dates Next Due DTaP 08/24/2005 Influenza, Quadrivalent, Spl it, Preservative Free, Intramuscular 05/29/2019 Influenza, Trivalent, High D ose, Split, Preservative Free, Intramuscular 05/25/2014 Influenza, Trivalent, IM (MDV) 06/04/2016,2014,2013 Tdap 02/28/2016 Social History Tobacco Use Types Packs/Day Years Used Date Smoking Tobacco: Never Alcohol Use Standard Drinks/Week Comments Never 0 (1 standard drink = 0.6 oz pur e alcohol) AUDIT-C Answer Date Recorded Q1: How often do you have a drink containing alc ohol? 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 Not on file Not on file No t on file Last Filed Vital Signs Vital Sign Reading Time Taken Comments Blood Pressure 121/81 11/02/2019 1:51 PM CDT Pulse 98 11/02/2019 1:51 PM CDT Temperature 36.9 C (98.4 F) 10/25/2019 2:14 PM RAIL SPECIALIST Respiratory Rate 16 10/25/2019 2:14 PM RAIL SPECIALIST Oxygen Saturation 98% 11/02/2019 1:51 PM CDT Inhaled Oxygen Concentration - - Weight 98.1 kg (216 lb 3.2 oz) 11/09/2019 1:29 P M CDT Height 162 cm (5' 3.78 ) 10/25/2019 2:14 PM RAIL SPECIALIST Body Mass Index 37.37 10/25/2019 2:14 PM RAIL SPECIALIST Plan of Treatment Not on file Insurance [facility] Care Teams Portal Administrator Relationship Specialty Start Date End Date Martha Raygoza NP [address] [facility] [place] [address] PCP - General Nurse Practitioner 09/27/19 Ryley Torres DO [address] [facility] [place] [address] Medical Oncologist/Hematologis t Hematology and Oncology 11/23/19
--- OUTSIDE RECORDS SUMMARY | 2024-09-30 13:58 | XMS_ITS | Continuity of Care Document ---
Author Organization [id number] Address [address] [facility] [address] [place] [address] Phone Care Team Providers Care Reception Interviewer Name Role Phone Blaine Hillman MD Unavailable Unavailable Procedures Procedure Date POSTOP FOLLOW UP VISIT RELATED TO ORIGIN AL PX POSTOP FOLLOW UP VISIT RELATED TO ORIGIN AL PX POSTOP FOLLOW UP VISIT RELATED TO ORIGIN AL PX POSTOP FOLLOW UP VISIT RELATED TO ORIGIN AL PX EXCISE SKIN ABD INFRAUMBILICAL PANNICULE CTOMY OFFICE/OUTPT EM EST PROB FOCUS/STRFWD 10 MINS OFFICE/OUTPT EM EST EXP PROB FOCUS/LOW 1 5 MINS OFFICE/OUTPT EM EST EXP PROB FOCUS/LOW 1 5 MINS OFFICE/OUTPT EM EST EXP PROB FOCUS/LOW 1 5 MINS POSTOP FOLLOW UP VISIT RELATED TO ORIGIN AL PX POSTOP FOLLOW UP VISIT RELATED TO ORIGIN AL PX POSTOP FOLLOW UP VISIT RELATED TO ORIGIN AL PX LAPAROSCOPY RPR INCISIONAL HERNIA REDUCI BLE OFFICE/OUTPT EM EST EXP PROB FOCUS/LOW 1 5 MINS LAPAROSCOPY GASTRC RSTRICT PRC LONGTDNL GASTRECTMY OFFICE/OUTPT EM NEW DETAILED/LOW 30 MINS Advance Directives Directive Yes / No Effective Date File Name No Information Encounters Encounter Description Practice Location Reason(s) For Visit Diagnoses Date Provider Providers Copied on Encounter [id number],[facility], [address] [facility] [address], [place], [address], [place] tel:[phone] [facility]MS [employer] [facility] No Information Kady Valladares. [address], [facility] [address], [place], [place], [id number]. tel:[phone] [id number] - [employer],[facility], [address] [facility] [address], [place], [address], [place] tel:[phone] PMS [employer] [facility] No Information Kady Valladares. [address], [facility] [address], [place], [place], [id number]. tel:[phone] Referring Provider: Blaine Garcia, [address], [address] . tel:[phone] [id number] - [employer],[facility], [address] [place] [address], [place], [address], tel:[phone] PMS [employer] [facility] No Information Kady Valladares. [address], [facility] [address], [place], [place], [id number]. tel:[phone] Referring Provider: Racheal Cavanaugh, [address], [place], [address] . tel:[phone] [id number] - [employer],[facility], [address] [place] [address], [place], [address], [place] tel:[phone] PMS [employer] [facility] No Information Kady Valladares. [address], [facility] [address], [place], [id number]. tel:[phone] Referring Provider: Blaine Garcia, [address], [place], [address] . tel:[phone] [id number] - [employer],[facility], [address], [address], [place] tel:[phone] PMS [employer] [facility] No Information Kady Valladares. [address], [address], [id number]. tel:[phone] Referring Provider: Constant[address], [place], [address] . tel:[phone] [id number] - [employer],[facility], [address], [address], tel:[phone] PMS [employer] [facility] No Information Kady Valladares. [facility] [address], [address], [id number]. tel:[phone] Referring Provider: Blaine Garcia, [facility] [address], [address] . tel:[phone] OFFICE/OUTPT EM EST PROB FOCUS/STRFWD 10 MINS [id number] - [facility], [address], [address], tel:[phone] PMS [employer] New Self Bariatric No Information Kady Valladares. [address], [address], [id number]. tel:[phone] Referring Provider: [address], [place], [address] . tel:[phone] OFFICE/OUTPT EM EST EXP PROB FOCUS/LOW 15 MINS [id number] - [facility], [address], [address], tel:[phone] PMS My New Self Bariatric No Information Kady Valladares. [facility] [address], [address], [id number]. tel:[phone] Referring Provider: [address], [place], [address] . tel:[phone] OFFICE/OUTPT EM EST EXP PROB FOCUS/LOW 15 MINS [id number] - [employer], [address] [facility] [address] [facility], [place], [place], [facility], tel:[phone] PMS My New Self Bariatric No Information Adalid Ashli. [address], [address], [place], [place], [address] [place] [address], . tel:[phone] Referring Provider: Ashli Byrne, [address], [place], [address] . tel:[phone] OFFICE/OUTPT EM EST EXP PROB FOCUS/LOW 15 MINS [id number] - [employer],[facility], [address] [facility] [address], [place], [place], [facility], tel:[phone] PMS My New Self Bariatric No Information Adalid Cornelius. [address], [address], [place], [place], [address] [place] [address], . tel:[phone] Referring Provider: Ashli Byrne, [address], [place], [address] . tel:[phone] [id number] - [facility] [employer],[facility], [address] [place] [address], [place], [place], [facility], tel:[phone] PMS My New Self Bariatric No Information Adalid Cornelius. [address], [address], [place], [place], [address] [place] [address], . tel:[phone] Referring Provider: Ashli Byrne, [address], [place], [address] . tel:[phone] [id number] - [employer],[facility], [address] [address], [place], [place], [facility], tel:[phone] PMS My New Self Bariatric No Information Adalid Cornelius. [address], [address], [place], [place], [address] [place] [address], . tel:[phone] Referring Provider: Ashli Byrne, [address], [place], [address] . tel:[phone] [id number] - [facility] [employer] [facility] [employer],[facility], [address] [facility] [address], [place], [address], [place] tel:[phone] PMS [employer] Self [facility]ric No Information Herve Frias. [facility], [address] [facility] [address], [place], [place], [id number]. tel:[phone] Referring Provider: Rodriguez Livingston, [facility] [address] [facility] [address], [place], [address] . tel:[phone] [id number] - [employer],[facility], [address] [facility] [address], [place], [address], [place] tel:[phone] PMS [employer] New Self Bariatric No Information Herve Frias. [facility], [address] [facility] [address], [place], [place], [id number]. tel:[phone] Referring Provider: Rodriguez Livingston, [facility] [address] [facility] [address], [place], [address] . tel:[phone] OFFICE/OUTPT EM EST EXP PROB FOCUS/LOW 15 MINS [id number] - [employer],[facility], [address] [facility] [address], [place], [address], [place] tel:[phone] PMS [employer] New Self [facility]ric No Information Herve Frias. [facility], [address] [facility] [address], [place], [place], [id number]. tel:[phone] Referring Provider: Rodriguez Livingston, [facility] [address] [facility] [address], [place], [address] . tel:[phone] [id number] - [employer],[facility], [address] [facility] [address], [place], [address], [place] tel:[phone] PMS [employer] New Self [facility]ric No Information Herve Frias. [facility], [address], [place], [place], [id number]. tel:[phone] Referring Provider: Rodriguez Livingston, [facility] [address], [place], [address] . tel:[phone] OFFICE/OUTPT EM NEW DETAILED/LOW 30 MINS [id number] - [employer],[facility], [address], [place], [address], tel:[phone] PMS [employer] Self [facility]ric No Information Herve Frias. [facility], [address], [place], [place], [id number]. tel:[phone] Referring Provider: Rodriguez Livingston, [facility] [address], [place], [address] . tel:[phone] Family History Family Member Type Diagnosis Age At Onset No Information Payers Payer name Insurance type Covered constitution party ID Authordeidre messerleonor(s) [facility] [place] [id number] Social History Type Description Quantity Date Captured Comments Sex Female Smoking Status No Information Chief Complaint And Reason For Visit No Information Reason For Referral Reason For Referral No Information History Of Present Illness Encounter Date Complaint History Of Prese nt Illness No Information Functional Status Date Functional Assessmen t No Information Instructions Date Instruction Additional Infor mation No Information Assessments Type Assessment Date No Information Patient Care Teams Name Effective Dates (start - stop) Status Members No Information
--- OUTSIDE RECORDS SUMMARY | 2024-09-30 13:58 | XMS_ITS | Data Portability ---
Author Organization [facility] [place] Address [address] [place] [address] [place] [address] Care Team Providers Care Tool Smith Name Role Phone CALDERON ALEJO Primary Care Provider Assessment Encounter Date Assessment Date Assessment LastModified by Organization Details LastModified Time 07/27/2024 07/27/2024 Annual gynecological exam performed. Patient will come back in a year unless there are new symptoms. Not available 07/27/2024 09:49:00 Plan of Treatment Reminders Order Date Submit Date Provider Last Modified By Organization Details Last Modified Time Details Appointments None recorded. Lab urinalysis, dipstick 2023 024 [email or web address] [place], [address], [place], [address], 4 16:42:21 culture, urine 2023 024 [facility] (Lab), [address], [place], [address], 4 06:32:24 unlisted lab - women's health swab plus, ARTHUR 2023 024 [facility] (Lab), [address], [place], [address], 4 03:59:05 urinalysis, dipstick 2023 024 [email or web address] [place], [address], [place], [address], 4 15:43:55 culture, urine 2023 [facility] (Lab), [address] [place], [address], 4 03:59:05 unlisted lab - women's health swab, ARTHUR 2023 [facility] (Lab), [address] [facility], [place], [address], 4 20:50:50 Referral None recorded. Procedures None recorded. Surgeries None recorded. Imaging MAMMO, screening, digital, bilateral 2023 [facility], [address] [place] [address], [place], [address], 4 04:06:18 Medication Orders estradiol 0.01% (0.1 mg/gram) vaginal cream 2023 [facility], [facility] [place], [address], 4 15:25:00 Diflucan 150 mg tablet [address] [facility] [address] [facility], [facility] [place], [address], 4 09:58:13 fluconazole 150 mg tablet [address] [facility] [address] [facility], [address] [place], [address], 4 09:58:13 fluconazole 150 mg tablet 2023 [facility], [address] [place], [address], 4 10:19:06 estradiol 0.01% (0.1 mg/gram) vaginal cream 2023 024 [facility], [address] [place], [address], 10:18:00 estradiol 2 mg tablet 2023 [facility], [address] [place], [address], 10:17:59 Patient TargetsNo targets recorded. Patient InstructionsNo instructions recorded. Reason for Referral None Reported. Results Created Date Observation Date Name Description Value Unit Range Abnormal Flag Note LastModifiedBy Organization Detail LastModifiedTime 11/17/1911/17/2023 VAGIN ITIS/ VAGIN OSIS, DNA PROBE boyd sp. detection, direct probe Negati ve negati ve Not Available [facility] (Lab) [address] [place], [address], 11/18/2023 13:02:09 11/17/19 24 11/17/2023 VAGIN ITIS/ VAGIN OSIS, DNA PROBE gardnerella vag. detection, direct probe Positi ve negati ve abnormal Not Available [facility] (Lab) [address] [place], [address], 11/18/2023 13:02:09 11/17/19 24 11/17/2023 VAGIN ITIS/ VAGIN OSIS, DNA PROBE trichomonas vag. detection, direct probe Negati ve negati ve Not Available [facility] (Lab) [address] [place], [address], 11/18/2023 13:02:09 12/01/19 24 12/01/2023 VAGIN ITIS/ VAGIN OSIS, DNA PROBE boyd sp. detection, direct probe Positi ve negati ve abnormal Not Available [facility] (Lab) [address] [place], [address], 12/02/2023 12:21:22 12/01/19 24 12/01/2023 VAGIN ITIS/ VAGIN OSIS, DNA PROBE gardnerella vag. detection, direct probe Positi ve negati ve abnormal Not Available [facility] (Lab) [address] [facility], [place], [address], 12/02/2023 12:21:22 12/01/19 24 12/01/2023 VAGIN ITIS/ VAGIN OSIS, DNA PROBE trichomonas vag. detection, direct probe Negati ve negati ve Not Available [facility] (Lab) [address] [facility], [place], [address], 12/02/2023 12:21:22 12/17/19 24 12/17/2023 urina lysis , dipst ick Blood trace Not Available [place] [address], [place], [address], 12/17/2023 16:42:10 01/04/20 24 01/04/2024 VAGIN ITIS/ VAGIN OSIS, DNA PROBE boyd sp. detection, direct probe Positi ve negati ve abnormal Not Available [facility] (Lab) [address] [facility], [place], [address], 01/05/2024 10:58:42 01/04/20 24 01/04/2024 VAGIN ITIS/ VAGIN OSIS, DNA PROBE gardnerella vag. detection, direct probe Positi ve negati ve abnormal Not Available [facility] (Lab) [address] [facility], [place], [address], 01/05/2024 10:58:42 01/04/20 24 01/04/2024 VAGIN ITIS/ VAGIN OSIS, DNA PROBE trichomonas vag. detection, direct probe Negati ve negati ve Not Available [facility] (Lab) [address] [facility], [place], [address], 01/05/2024 10:58:42 01/12/20 24 01/12/2024 CULTU RE: URINE result report SEE RESULT S BELOW Test: Cultu re: Urine Speci men Sourc e: Urine - Clean Catch Speci men Type: Urine Speci men Date: 2023 1:18 PM Resul t Date: 2023 5:27 AM Resul t Statu s: Final resul t Abnor mal: No Resul giovannag Lab: [facility] [address] [facility] [address] Tel: CULTU RE ----- ----- ----- --- No growt h in 1 day (dete ction level of 10,00 0 colon ies / ml.) Not Available [facility] (Lab) [address] [place], [address], 01/14/2024 06:32:24 06/22/20 24 06/22/2024 WOMEN 'S HEALT H SWAB PLUS, ARTHUR bacterial vaginosis (bv), tma Negati ve negati ve Not Available [facility] (Lab) [address] [place], [address], 06/24/2024 03:59:05 06/22/20 24 06/22/2024 WOMEN 'S HEALT H SWAB PLUS, ARTHUR boyd species, tma Negati ve negati ve Not Available [facility] (Lab) [address] [place], [address], 06/24/2024 03:59:05 06/22/20 24 06/22/2024 WOMEN 'S HEALT H SWAB PLUS, ARTHUR boyd glabrata, tma Negati ve negati ve Not Available [facility] (Lab) [address] [place], [address], 06/24/2024 03:59:05 06/22/20 24 06/22/2024 WOMEN 'S HEALT H SWAB PLUS, ARTHUR trichomonas vaginalis, tma Negati ve negati ve Not Available [facility] (Lab) [address] [place], [address], 06/24/2024 03:59:05 06/22/20 24 06/22/2024 WOMEN 'S HEALT H SWAB PLUS, ARTHUR chlamydia trachomatis, PCR Negati ve negati ve Not Available [facility] (Lab) [address] [facility], [place], [address], 06/24/2024 03:59:05 06/22/20 24 06/22/2024 WOMEN 'S HEALT H SWAB PLUS, ARTHUR neisseria gonorrhoeae, PCR Negati ve negati ve Bacte rial vagin osis detec ts the follo wing bacte jeanie assoc iated with bacte rial vagin osis (BV): Lacto bacil isra (L. gasse ri, L. crisp atus and L. jense javon), Gardn erell a vagin piedad, and Atopo bium vagin ae. A singl e quali tativ e resul t is repor ap base on instr ument softw are to deter mine BV posit katlin or negat katlin statu s. The [facility] speci es group tests for C. albic ans, C. tropi calis , C. parap melvina is, C. dubli niens is. Testi ng is perfo rmed using the Trans cript ion Media ap Ampli ficat ion metho d. Tests for Neelima da glabr estuardo, Trich omona s vagin piedad, Chlam ydia trach omati s, and Neiss eria gonor rhoea e are also inclu ded in this panel . Not Available [facility] (Lab) [address] [facility], [place], [address], 06/24/2024 03:59:05 06/22/20 24 06/22/2024 CULTU RE: URINE result report SEE RESULT S BELOW Test: Cultu re: Urine Speci men Sourc e: Urine - Clean Catch Speci men Type: Urine Speci men Date: 06/22 1511 Resul t Date: 2023 0255 Resul t Statu s: Final resul t Abnor mal: No Resul ting Lab: [facility] [address] [facility] [address] Tel: CULTU RE ----- ----- ----- --- No growt h in 1 day (dete ction level of 10,00 0 colon ies / ml.) Not Available [facility] (Lab) [address], [place], [address], 06/24/2024 03:59:05 06/22/20 24 06/22/2024 urina lysis , dipst ick Leukocytes - Not Available [facility] [address], [place], [address], 06/22/2024 15:30:31 06/22/20 24 06/22/2024 urina lysis , dipst ick Nitrite - Not Available [place] [address], [place], [address], 06/22/2024 15:30:31 06/22/20 24 06/22/2024 urina lysis , dipst ick Urobilinogen - Not Available [facility] [address], [place], [address], 06/22/2024 15:30:31 06/22/20 24 06/22/2024 urina lysis , dipst ick Protein Trace Not Available [place] [address], [place], [address], 06/22/2024 15:30:31 06/22/20 24 06/22/2024 urina lysis , dipst ick pH 5 Not Available [place] [address], [place], [address], 06/22/2024 15:30:31 06/22/20 24 06/22/2024 urina lysis , dipst ick Blood trace Not Available [place] [address], [place], [address], 06/22/2024 15:30:31 06/22/20 24 06/22/2024 urina lysis , dipst ick Specific [place] 1.000 Not Available [facility] [address], [place], [address], 06/22/2024 15:30:31 06/22/20 24 06/22/2024 urina lysis , dipst ick Ketone - Not Available [place] [address], [place], [address], 06/22/2024 15:30:31 06/22/20 24 06/22/2024 urina lysis , dipst ick Bilirubin - Not Available [facility] [address], [place], [address], 06/22/2024 15:30:31 06/22/20 24 06/22/2024 urina lysis , dipst ick Glucose - Not Available [place] [address], [place], [address], 06/22/2024 15:30:31 06/22/20 24 06/22/2024 urina lysis , dipst ick Appearance clear Not Available [facility] [address], [place], [address], 06/22/2024 15:30:31 06/22/20 24 06/22/2024 urina lysis , dipst ick Color light yellow Not Available [place] [address], [place], [address], 06/22/2024 15:30:31 07/27/20 24 07/27/2024 WOMEN 'S HEALT H SWAB, ARTHUR bacterial vaginosis (bv), tma Negati ve negati ve This test detec ts ribos omal RNA from bacte jeanie assoc iated with bacte rial vagin osis (BV), inclu ding Lacto bacil isra (L. gasse ri, L. crisp atus and L. jense javon), Gardn erell a vagin piedad, and Atopo bium vagin ae by Trans cript ion-M ediat ed Ampli ficat ion (TMA) . A singl e quali tativ e resul t is repor ap based on instr ument softw are to deter mine BV posit katlin or negat katlin statu s. Not Available [facility] (Lab) [address] [place], [address], 07/28/2024 20:50:50 07/27/20 24 07/27/2024 WOMEN 'S HEALT H SWAB, ARTHUR boyd species, tma Negati ve negati ve Not Available [facility] (Lab) [address] [place], [address], 07/28/2024 20:50:50 07/27/20 24 07/27/2024 WOMEN 'S HEALT H SWAB, ARTHUR boyd glabrata, tma Negati ve negati ve Not Available [facility] (Lab) [address] [place], [address], 07/28/2024 20:50:50 07/27/20 24 07/27/2024 WOMEN 'S HEALT H SWAB, ARTHUR trichomonas vaginalis, tma Negati ve negati ve This assay tests for and diffe renti ates betwe en Neelima da glabr estuardo, the Neelima da speci es group (C. albic ans, C. tropi calis , C. parap melvina is, C. dubli niens is), and Trich omona s vagin piedad by Trans cript ion-M ediat ed Ampli ficat ion (TMA) . Not Available [facility] (Lab) [address] [place], [address], 07/28/2024 20:50:50 Result Notes None recorded. Problems Name Problem SNOMED Code Status Onset Date Resolution Date Notes Provider Name and Address Organization Details Recorded Time Screenin g for malignan t neoplasm of rectum Completed 201803/11/2021 Encounter for screening for malignant neoplasm of rectum;Pr actice ID: [id number] Judith David [facility] 10:27:21 Finding of abdomen [id number] Completed 201703/11/2021 Right lower quadrant abdominal swelling, mass and lump;Prac jennifer ID: 0001 Judith matta [facility] 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 10:27:25 Removal of intraute rine device Completed 201503/11/2021 Encounter for removal of intrauter ine contracep tive device;Pr actice ID: 0001 Judith David [facility] 10:27:17 Insertio n of intraute rine contrace ptive device Completed 201503/11/2021 Encounter for insertion of intrauter ine contracep tive device;Pr actice ID: 0001 Judith Frankie matta [facility] 10:27:12 Pregnanc y test negative [id number] Completed 201503/11/2021 Encounter for test, result negative; Practice ID: 0001 Judith David sigrid [facility] 10:27:15 Clinical finding Completed 201503/11/2021 Presence of (intraute rine) contracep tive device;Pr actice ID: 0001 Judith matta [facility] 10:27:03 Contrace ptive sheath status [id number] Completed 201503/11/2021 Encounter for routine checking of intrauter ine contracep dev;Pract ice ID: 0001 Judith David [facility] 10:27:05 Finding of menstrua l bleeding Completed 201503/11/2021 Excessive and frequent menstruat ion with regular cycle;Pra ctice ID: 0001 Judith matta [facility] 10:27:10 Screenin g for malignan t neoplasm of cervix Completed 201403/11/2021 Pap Smear;Pra ctice ID: 0001 Judith matta [facility] 10:27:18 Speciali zed medical examinat ion Completed 201403/11/2021 Routine gynecolog ical examinati on;Practi ce ID: 0001 Judith David [facility] 10:27:28 Adult health examinat ion Completed 201403/11/2021 Routine general medical examinati on at a health care facility; Practice ID: 0001 Judith matta [facility] 10:26:58 Feces contents abnormal [id number] Completed 201403/11/2021 Nonspecif ic abnormal findings in stool contents; Practice ID: 0001 Judith David [facility] 10:27:[address] Concept Completed 201703/11/2021 Encntr for general adult medical exam w/o abnormal findings; Recorded Elsewhere : No Locati on: [facility] So urce: EHR Chron ic: N Practic e ID: 0001 Bill able Time: 08:45:00 AM Judith David [facility] 10:27:23 Cyst of ovary Completed 201703/11/2021 Unspecifi ed ovarian cyst, unspecifi ed side;James rded Elsewhere : No Locati on: [facility] So urce: EHR Chron ic: N Practic e ID: 0001 Bill able Time: 11:45:00 AM Judith David [facility] 10:27:07 Menopaus e present [id number] Completed 201603/11/2021 Symptoms such as flushing, sleepless ness, headache, lack of concentra tion, associate d with natural (age-rela ap) menopause ;Recorded Elsewhere : No Locati on: [facility] So urce: EHR Chron ic: N Practic e ID: 0001 Bill able Time: 11:00:00 AM Judith Frankie matta [facility] 10:27:14 Problem Notes None recorded. Procedures Surgical History Date Name Laterality Status Provider Name and Address Organization Details Recorded Time 024 Date of Last Colonoscopy completed NONA GARCIA NP [address], [place], [address], [facility] 07/27/2024 10:10:54 023 ROBOTIC ASSISTED HYSTERECTOMY W/BILATERAL SALPINGO-OOPHORECT LANDRY (SURG) completed [facility] 09/22/2023 16:31:35 023 Date of Last Mammogram completed Tessy Ramirez [facility] 09/01/2023 09:49:04 023 completed Tanya [facility] 09/21/2023 16:41:44 023 Total Hysterectomy completed Tanya [facility] 09/21/2023 16:41:44 023 ROBOTIC ASSISTED HYSTERECTOMY W/BILATERAL SALPINGO-OOPHORECT LANDRY (SURG) completed Elise Marti [facility] 09/08/2023 17:53:24 023 Endometrial Biopsy completed Ami Zuniga CB- [address], [place], [address], [facility] 01/27/2023 18:19:23 023 IUD Removal completed Ami Zuniga CB- [address], [place], [address], [facility] 01/07/2023 11:51:44 023 Date of Last Pap Smear completed [facility] 01/27/2023 17:38:53 021 Most Recent Bone Density completed [facility] 01/07/2023 11:32:04 021 Bariatric Surgery completed Tanya [facility] 09/22/2023 16:33:23 021 hernia repair completed Tanyadavi Muse [facility] 09/22/2023 16:33:33 018 Colonoscopy completed [facility] 03/11/2021 10:34:20 015 laparoscopic sleeve gastrectomy completed [facility] 03/11/2021 10:32:34 015 manual reduction of internal abdominal hernia completed [facility] 03/11/2021 10:33:48 013 repair of umbilical hernia completed [facility] 03/11/2021 10:33:34 013 Cholecystectomy completed [facility] 03/11/2021 10:32:41 013 Colonoscopy completed Tanya Muse [facility] 09/22/2023 16:32:06 001 Tubal Ligation completed Tanyadavi Muse [facility] 09/21/2023 16:41:44 001 [facility]omy [facility]23 16:31:47 001 Carpal tunnel surgery completed [facility] 09/22/2023 16:32:54 01/01/2 000 Carpal tunnel surgery completed Tanya Muse [facility] 09/22/2023 16:32:17 Imaging Results None recorded. Procedure Notes None recorded. Medical Equipment None Reported. Allergies Allergen ID Allergen Name Allergen Category Reaction Reaction Severity Criticality Documentation Date Start Date Code Code System Note Provider Name and Address Organization Details Recorded Time 1044 Product containin g penicilli n and antibioti c (product) medicatio n Not available Not available Not available 02/09/2020 72724 05 SNOMED Ani matta, [facility] 0 12:46:07 1045 phentermi ne medicatio n Not available Not available Not available 02/09/2020 8152 [facility] 12:46:19 1046 sertralin e medicatio n Not available Not available Not available 02/09/2020 69838 RxNorm Ani matta, [facility] 0 12:46:25 Medications Name Sig Start Date Stop Date Status Note LastModified by Organization Details LastModified Time celecoxib 200 mg capsule TAKE 1 CAPSULE BY MOUTH TWICE DAILY 03/12 completed Not Available Not Available Not Available cyclobenz aprine 10 mg tablet 01/07 completed Not Available Not Available Not Available Mirena 21 mcg/24 hr (up to 8 years) 52 mg intrauter ine device 01/07 completed Prescrib ed Nicol e: Yes Loca tion: [facility] M odify By: yuridia granadosuntjustine DateTime : 02/08/20 10:30:00 AM Not Available Not Available Not Available buspirone 5 mg tablet TAKE 1 TABLET BY MOUTH DAILY 03/11 completed Not Available Not Available Not Available nystatin 100,000 unit/mL oral suspensio n TAKE 5 ML BY MOUTH 4 TIMES DAILY FOR 5 DAYS (SWISH AND SWALLOW) . 01/07 completed Not Available Not Available Not Available doxycycli ne hyclate 100 mg capsule TAKE 1 CAPSULE BY MOUTH TWICE DAILY FOR 10 DAYS 01/07 completed Not Available Not Available Not Available ropinirol e 1 mg tablet TAKE 1 TABLET BY MOUTH ONCE DAILY AT BEDTIME 06/22 completed Not Available Not Available Not Available clindamyc in HCl 300 mg capsule TAKE 1 CAPSULE BY MOUTH THREE TIMES DAILY FOR 10 DAYS 03/27 completed Not Available Not Available Not Available polyethyl angel glycol 3350 17 gram oral powder packet MIX 17 GRAMS IN ANY 4 TO 8 OUNCES OF BEVERAGE AND DRINK DAILY 03/12 completed Not Available Not Available Not Available lisinopri l 20 mg-hydroc hlorothia zide 12.5 mg tablet TAKE 1/2 TABLET BY MOUTH ONCE DAILY active Not Available Not Available No t Available azithromy mary kate 250 mg tablet 07/27 completed Not Available Not Available Not Available CombiPatc h 0.05 mg-0.14 mg/24 hr transderm al APLLY 1 PATCH TRANSDER ROSIE TWICE WEEKLY DIRECTED FOR 30 DAYS 09/01 completed Not Available Not Available Not Available citalopra m 10 mg/5 mL oral solution take 10 millilit er by oral route every day 12/27 completed Prescrib ed Elsewher e: Yes Loca tion: [facility] odify By: ligia saleh DateTime : 11/27/19 13 02:32:56 PM Not Available Not Available Not Available tizanidin e 4 mg tablet active Not Available Not Available Not Available fluconazo le 150 mg tablet Take 1 tablet by mouth now, then repeat on day 3 active Not Available Not Available No t Available benzonata te 200 mg capsule TAKE 1 CAPSULE BY MOUTH 2-3 TIMES DAILY NEEDED 01/07 completed Not Available Not Available Not Available valacyclo vir 1 gram tablet TAKE 1 TABLET BY MOUTH 4 TIMES DAILY FOR 7 DAYS active Not Available Not Available No t Available hydrocodo ne 5 mg-acetam inophen 325 mg tablet Take 1 tablet every 4-6 hours by oral route as needed. 09/01 completed Not Available Not Available Not Available prazosin 1 mg capsule TAKE 1 CAPSULE BY MOUTH TWICE DAILY 06/22 completed Not Available Not Available Not Available Effexor XR 37.5 mg capsule,e xtended release take 1 capsule by oral route every day with food 01/03 completed Prescrib ed Elsewher e: Yes Loca tion: [facility] odify By: ligia saleh DateTime : 12/28/19 14 09:30:00 AM Not Available Not Available Not Available metronida zole 0.75 % (37.5 mg/5 gram) vaginal gel Insert 1 applicat orful every day by vaginal route at bedtime for 5 days. 12/16 completed Not Available Not Available Not Available prednison e 20 mg tablet TAKE 2 TABLETS BY MOUTH ONCE DAILY IN THE MORNING WITH BREAKFAS T FOR 5 DAYS 07/27 completed Not Available Not Available Not Available dexametha sone 6 mg tablet TAKE 1/2 (ONE-KEITH F) TABLET BY MOUTH TWICE DAILY AFTER A MEAL FOR 7 DAYS 01/07 completed Not Available Not Available Not Available ropinirol e 3 mg tablet TAKE 1 TABLET BY MOUTH ONCE DAILY 2 HOURS BEFORE BED FOR 30 DAYS 06/22 completed Not Available Not Available Not Available metronida zole 500 mg tablet TAKE 1 TABLET BY MOUTH TWICE DAILY FOR 7 DAYS 06/22 completed Not Available Not Available Not Available ciproflox acin 500 mg tablet TAKE 1 TABLET BY MOUTH EVERY 12 HOURS 09/01 completed Not Available Not Available Not Available sulfameth oxazole 800 mg-trimet hoprim 160 mg tablet take 1 tablet by oral route every 12 hours 03/11 completed Not Available Not Available Not Available omeprazol e 40 mg capsule,d elayed release TAKE 1 CAPSULE BY MOUTH ONCE DAILY 10/23 completed Not Available Not Available Not Available doxycycli ne monohydra te 100 mg tablet 01/07 completed Not Available Not Available Not Available acyclovir 800 mg tablet TAKE ONE TABLET BY MOUTH 4 TIMES DAILY FOR 7 DAYS THEN TAKE 1 TABLET TWICE DAILY FOR 7 DAYS. 04/11 completed Not Available Not Available Not Available nystatin- triamcino lone 100,000 unit/gram -0.1 % topical ointment APPLY TO THE AFFECTED AREAS TOPICALL Y TWO TIMES DAILY FOR 5 DAYS 11/04 completed Not Available Not Available Not Available oxycodone -acetamin ophen 5 mg-325 mg tablet TAKE 1 TABLET BY MOUTH EVERY 4 HOURS NEEDED FOR PAIN 09/01 completed Not Available Not Available Not Available prednisol one acetate 1 % eye drops,barbara pension INSTILL 1 DROP INTO EACH EYE 4 TIMES DAILY 03/11 completed Not Available Not Available Not Available omeprazol e 10 mg capsule,d elayed release take 2 capsule by oral route every day before a meal 03/11 completed Prescrib ed Elsewher e: Yes Loca tion: [facility] odify By: [email or web address] Willis ncounter DateTime : 02/08/20 10:30:00 AM Not Available Not Available Not Available DOK 100 mg capsule TAKE 1 CAPSULE BY MOUTH TWICE DAILY 10/23 completed Not Available Not Available Not Available ropinirol e 0.25 mg tablet TAKE 1 TABLET BY MOUTH DAILY FOR 3-4 DAY, THEN INCREASE TO 2 TABLETS FOR 3-4 DAYS, THEN 3 TABLETS BY MOUTH 2 HOURS BEFORE BEDTIME (CONTINU E 1 MG TABLET 2 HOURS BEFORE BED) 11/04 completed Not Available Not Available Not Available OneTouch Ultra Test strips 01/07 completed Not Available Not Available Not Available sulfaceta mide sodium 10 % eye drops 03/12 completed Not Available Not Available Not Available dexametha sone 2 mg tablet TAKE 5 TABLETS BY MOUTH A ONE TIME DOSE 07/27 completed Not Available Not Available Not Available levothyro xine 50 mcg tablet TAKE 1 TABLET BY MOUTH ONCE DAILY active Not Available Not Available No t Available ropinirol e 2 mg tablet TAKE 1 TABLET BY MOUTH EVERY DAY AT BEDTIME 06/22 completed Not Available Not Available Not Available Lasix 20 mg tablet take 1 tablet by oral route every day 01/03 completed Prescrib ed Elsewher e: Yes Loca tion: [facility] odify By: ligia saleh DateTime : 11/27/19 02:32:56 PM Not Available Not Available Not Available cephalexi n 500 mg capsule TAKE 1 CAPSULE BY MOUTH 4 TIMES DAILY FOR 10 DAYS 01/07 completed Not Available Not Available Not Available pantopraz ole 40 mg tablet,de layed release TAKE 1 TABLET BY MOUTH ONCE DAILY IN THE MORNING 03/12 completed Not Available Not Available Not Available cyanocoba gene (vit B-12) 1,000 mcg/mL injection solution INJECT 1ML SUBCUTAN EOUSLY ONCE WEEKLY active Not Available Not Available No t Available oseltamiv ir 75 mg capsule TAKE 1 CAPSULE BY MOUTH EVERY 12 HOURS 01/07 completed Not Available Not Available Not Available ropinirol e 0.5 mg tablet TAKE ONE TABLET BY MOUTH WITH 2MG TABLET FOR 3-7 NIGHTS; IF BETTER CONTINUE IF SYMPTOMS PERSIST TAKE TWO TABLETS WITH 2MG ROPINIRO LE AT BEDTIME 01/03 completed Not Available Not Available Not Available buspirone 10 mg tablet 11/04 completed Not Available Not Available Not Available progester one micronize d 200 mg capsule TAKE 1 CAPSULE BY MOUTH ONCE DAILY FOR 12 DAYS 11/04 completed Not Available Not Available Not Available hydrochlo rothiazid e 12.5 mg capsule take 1 capsule by oral route every day 01/03 completed Prescrib ed Elsewher e: Yes Loca tion: [facility] odify By: ligia saleh DateTime : 11/27/19 02:32:56 PM Not Available Not Available Not Available pramipexo le 0.125 mg tablet TAKE ONE TABLET BY MOUTH 2-3 HOURS BEFORE SLEEP ONSET FOR 14 DAYS, THEN INCREASE TO TWO TABLETS BY MOUTH 2-3 HOURS BEFORE SLEEP ONSET 01/03 completed Not Available Not Available Not Available Prevalite 4 gram powder for susp in a packet DISSOLVE TWO PACKETS INTO BEVERAGE AND DRINK TWICE DAILY 03/12 completed Not Available Not Available Not Available gabapenti n 300 mg capsule TAKE 1 CAPSULE BY MOUTH TWICE DAILY FOR 2 WEEKS 03/12 completed Not Available Not Available Not Available Adipex-P 37.5 mg capsule take 1 capsule by oral route every day before breakfas t 12/27 completed Prescrib ed Elsewher e: Yes Loca tion: [facility] odify By: ligia saleh DateTime : 12/01/19 13 11:30:00 AM Not Available Not Available Not Available omeprazol e 20 mg capsule,d elayed release TAKE 1 CAPSULE BY MOUTH ONCE DAILY TAKE 30 MINUTES BEFORE YOUR LARGEST MEAL 06/22 completed Not Available Not Available Not Available estradiol 2 mg tablet Take 1 tablet every day by oral route with meals. 2023 active Not Available Not Available Not Avai lable monteluka st 10 mg tablet TAKE 1 TABLET BY MOUTH AT BEDTIME 03/12 completed Not Available Not Available Not Available diclofena c sodium 50 mg tablet,de layed release TAKE 1 TABLET BY MOUTH EVERY 12 HOURS NEEDED FOR 15 DAYS 10/23 completed Not Available Not Available Not Available estradiol 0.01% (0.1 mg/gram) vaginal cream Insert 1g vaginall y at bedtime for 2 weeks, after 2 weeks - insert 1 g vaginall y at bedtime 2-3 times per week as maintena nce dose active Not Available Not Available No t Available levofloxa mary kate 750 mg tablet TAKE 1 TABLET BY MOUTH ONCE DAILY AFTER A MEAL FOR 7 DAYS 10/22 completed Not Available Not Available Not Available methylpre dnisolone 4 mg tablets in a dose pack TAKE DIRECTED 01/07 completed Not Available Not Available Not Available albuterol sulfate HFA 90 mcg/actua tion aerosol inhaler INHALE 1 TO 2 PUFFS BY MOUTH EVERY 4 TO 6 HOURS NEEDED FOR WHEEZING active Not Available Not Available No t Available hydroxyzi ne HCl 10 mg tablet TAKE 1 TABLET BY MOUTH THREE TIMES DAILY NEEDED FOR ANXIETY active Not Available Not Available No t Available ondansetr on 4 mg disintegr ating tablet DISSOLVE 1 TABLET IN MOUTH EVERY 4 HOURS NEEDED active Not Available Not Available No t Available multivita min capsule take 1 capsule by oral route every day 10/23 completed Prescrib ed Elsewher e: Yes Loca tion: [facility] odify By: ligia saleh DateTime : 01/04/20 15 09:00:00 AM Not Available Not Available Not Available metformin ER 500 mg tablet,ex tended release 24 hr TAKE 1 TABLET BY MOUTH AT BEDTIME 06/22 completed Not Available Not Available Not Available lisinopri l 2.5 mg tablet take 1 tablet by oral route every day 11/19 completed Prescrib ed Elsewher e: Yes Loca tion: [facility] odify By: [email or web address] kim DateTime : 11/27/19 13 02:32:56 PM Not Available Not Available Not Available colestipo l 1 gram tablet TAKE 2 TABLETS BY MOUTH TWICE DAILY 06/22 completed Not Available Not Available Not Available doxycycli ne hyclate 100 mg tablet TAKE 1 TABLET BY MOUTH TWICE DAILY FOR 7 DAYS 01/03 completed Not Available Not Available Not Available buspirone 15 mg tablet TAKE 1 TABLET BY MOUTH THREE TIMES DAILY 06/22 completed Not Available Not Available Not Available oxycodone 5 mg tablet TAKE 1 TABLET BY MOUTH EVERY 4 HOURS NEEDED FOR PAIN 03/12 completed Not Available Not Available Not Available neomycin 3.5 mg/g-poly myxin B 10,000 unit/g-de xameth 0.1 % eye oint APPLY OINTMENT TO BOTH EYES AT BEDTIME 03/12 completed Not Available Not Available Not Available Vitamin B-12 50 mcg lozenges 10/23 completed Prescrib ed Elsewher e: Yes Loca tion: [facility] odify By: ligia saleh DateTime : 12/01/19 13 11:30:00 AM Not Available Not Available Not Available Restasis 0.05 % eye drops in a dropperet te INSTILL 1 DROP INTO EACH EYE TWICE DAILY 10/23 completed Not Available Not Available Not Available Singulair 4 mg oral granules in packet 11/19 completed Prescrib ed Elsewher e: Yes Loca tion: [facility] odify By: clyde kim DateTime : 01/04/20 15 09:00:00 AM Not Available Not Available Not Available nitrofura ntoin monohydra te/macroc rystals 100 mg capsule TAKE 1 CAPSULE BY MOUTH EVERY 12 HOURS FOR 7 DAYS 01/03 completed Not Available Not Available Not Available duloxetin e 30 mg capsule,d elayed release TAKE 1 CAPSULE BY MOUTH ONCE DAILY TAKE WITH 60MG TO EQUAL 90MG active Not Available Not Available No t Available duloxetin e 60 mg capsule,d elayed release TAKE 1 CAPSULE BY MOUTH ONCE DAILY TAKE ALONG WITH 30MG CAPSULE TO TOTAL 90MG active Not Available Not Available No t Available Cymbalta 20 mg capsule,d elayed release take 3 Capsule by oral route every day 03/12 completed Prescrib ed Elsewher e: Yes Loca tion: [facility] odify By: clyde kim DateTime : 11/20/19 17 11:00:00 AM Not Available Not Available Not Available pregabali n 75 mg capsule TAKE 1 CAPSULE BY MOUTH TWICE DAILY 09/01 completed Not Available Not Available Not Available pregabali n 100 mg capsule TAKE 1 CAPSULE BY MOUTH TWICE DAILY BEFORE MEALS 11/04 completed Not Available Not Available Not Available pregabali n 150 mg capsule TAKE 1 CAPSULE BY MOUTH TWICE DAILY 06/22 completed Not Available Not Available Not Available chlorhexi dine gluconate 0.12 % mouthwash 10/22 completed Not Available Not Available Not Available Vitamin D3 10 mcg (400 unit) capsule 07/06 completed Prescrib ed Elsewher e: Yes Loca tion: [facility] odify By: ligia saleh DateTime : 11/27/19 02:32:56 PM Not Available Not Available Not Available peg 3350-elec trolytes 236 gram-22.7 4 gram-6.74 gram-5.86 gram solution USE DIRECTED 06/22 completed Not Available Not Available Not Available Pristiq 50 mg tablet,ex tended release take 1 tablet by oral route every day 11/19 completed Prescrib ed Elsewher e: Yes Loca tion: [facility] odify By: clyde kim DateTime : 01/04/20 09:00:00 AM Not Available Not Available Not Available calcium 760 mg (as citrate)/ 3.5 gram oral granules 11/19 completed Prescrib ed Elsewher e: Yes Loca tion: [facility] odify By: clyde kim DateTime : 01/04/20 15 09:00:00 AM Not Available Not Available Not Available lidocaine 5 % topical ointment APPLY OINTMENT EXTERNAL LY TO THE AFFECTED AREA(S) 1 4 TIMES DAILY NEEDED. 01/07 completed Not Available Not Available Not Available OneTouch Ultra2 Meter USE DIRECTED 01/07 completed Not Available Not Available Not Available OneTouch Delica Plus Lancet 33 gauge INJECT ONE LANCET TO CHECK GLUCOSE TWICE DAILY 01/07 completed Not Available Not Available Not Available Fluzone Quad (PF) 60 mcg (15 mcg x 4)/0.5 mL IM syringe 03/12 completed Not Available Not Available Not Available Flowflex COVID-19 Antigen Home Test kit 07/27 completed Not Available Not Available Not Available Paxlovid 300 mg (150 mg x 2)-100 mg tablets in a dose pack 01/07 completed Not Available Not Available Not Available Vitals Date Recorded Body height Body mass index (BMI) Body weight Systolic blood pressure Diastolic blood pressure Provider Name and Address Organization Details Last Updated DateTime 12/17/2023 160.02 cm 36.5 kg/m2 59975.03 g 102 mm[Hg] 72 mm[Hg] Marsha Del Valleman [facility] 4 16:14:03 Date Recorded Body height Body mass index (BMI) Body weight Systolic blood pressure Diastolic blood pressure Provider Name and Address Organization Details Last Updated DateTime 01/04/2024 160.02 cm 37.2 kg/m2 10066.4 g 130 mm[Hg] 81 mm[Hg] Britt Landin [facility] 4 16:35:36 Date Recorded Body height Systolic blood pressure Diastolic blood pressure Provider Name and Address Organization Details Last Updated DateTime 06/22/2024 160.02 cm 100 mm[Hg] 68 mm[Hg] [facility] 06/22/2024 15:24:14 Date Recorded Body height Body mass index (BMI) Body weight Systolic blood pressure Diastolic blood pressure Provider Name and Address Organization Details Last Updated DateTime 07/27/2024 160.02 cm 31.4 kg/m2 06504.85 g 142 mm[Hg] 86 mm[Hg] [facility] 09:57:32 Social History Question Answer Notes LastModified by Organizat ion Details LastModified Time Tobacco Smoking Status Never Smoker [facility] 07/07/2023 15:05:08 Do You Have An Advance Directive? No Information n ot available 03/12/2021 What Is Your Level Of Alcohol Consumption? None Information not available 03/12/2021 How Many Years Have You Consumed Alcohol? 0 Information not available 01/07/2023 Are You Blind Or Do You Have Difficulty Seeing? No Information n ot available 03/11/2021 What Is Your Level Of Caffeine Consumption? Moderate Information not available 03/12/2021 How Much Tobacco Do You Chew? None Information not available 03/12/2021 In The 14 Days Before Symptom Onset, Have You Had Close Contact With A Laboratory-confirm ed COVID-19 While That Case Was Ill? No Information n ot available 03/12/2021 In The 14 Days Before Symptom Onset, Have You Had Close Contact With A Person Who Is Under Investigation For COVID-19 While That Person Was Ill? No Information not available 03/12/2021 Have You Been To An Area Known To Be High Risk For COVID-19? No Information not available 03/12/2021 Are You Currently Employed? Yes [email or web address] Information not available 01/04/2024 Are You Deaf Or Do You Have Serious Difficulty Hearing? No Information not available 03/11/2021 What Type Of Diet Are You Following? SPECIFIC Information n ot available 03/12/2021 What Is The Highest Grade Or Level Of School You Have Completed Or The Highest Degree You Have Received? [id number] Information not available 03/12/2021 What Is Your Occupation? [employer] Information not available 03/12/2021 Are There Any Guns Present In Your Home? No Information not available 01/07/2023 Do You Use Protection During Sex? No Information not available 03/12/2021 Do You Use Your Seat Belt Or Car Seat Routinely? Yes Information not available 03/11/2021 Do You Have Smoke And Carbon Monoxide Detectors In Your Home? Yes Information not available 03/11/2021 How Much Tobacco Do You Smoke? No Information not available 03/12/2021 Do You Feel Stressed (tense, Restless, Nervous, Or Anxious, Or Unable To Sleep At Night)? [id number] Information not available 03/12/2021 Do You Use Any Illicit Or Recreational Drugs? No Information not available 03/11/2021 Do You Use Sunscreen Routinely? Yes Information not available 03/11/2021 How Many Years Have You Smoked Tobacco? 0 Information not available 01/07/2023 Have You Used IV Drugs? No Information not available 03/12/2021 Sex: Unknown Functional Status Question Answer Note LastModified by Organizat ion Details LastModified Time Do you have difficulty walking or climbing stairs? No [email or web address] Information not available 07/07/2023 Are you able to walk? YESWOREST Information not available 03/11/2021 Are you able to care for yourself? Yes [email or web address] Information not available 07/07/2023 Do you have difficulty dressing or bathing? No [email or web address] Information not available 07/07/2023 What is your exercise level? Moderate Information not available 03/11/2021 Mental Status None recorded. Family History Relationship Description Onset Age of this Age Resolved Age Notes LastModified by Organization Details LastModified Time Mother Hypertensive disorder [email or web address] Not available 09/21 16:41:42 Mother Anemia [email or web address] Not available 09/21/2023 16:41:42 Mother Diabetes mellitus [email or web address] Not available 09/21 16:41:42 Maternal Grandmother Hypertensive disorder [email or web address] Not available 09/21 16:41:42 Maternal Grandmother Anemia [email or web address] Not available 16:41:42 Maternal Grandfather Hypertensive disorder Not available 09/21 16:41:42 Paternal Grandmother Hypertensive disorder [email or web address] Not available 09/21 16:41:42 Paternal Grandfather Hypertensive disorder [email or web address] Not available 09/21 16:41:42 Medical History Condition Response Allergies (Food, seasonal, environmental ) Y Other Y Drug/Latex Allergies/Reactions Y Breast Cancer N Blood Transfusion N Lung Disease N Dermatologic Disorders N Defects or Inherited Disease N Breast Problem N Gestational Diabetes N Hematologic disorders N Anesthesia Complications N History of STI N Deep Vein Thrombosis N Polycystic ovary syndrome N Anxiety Disorder Y Autoimmune disease N Arthritis N Polyps N Infertility N History of abnormal pap N Acid Reflux (GERD) N Cancer N Varicosities N Stroke N Neurologic/Epilepsy Y Endometriosis N High Cholesterol N Headaches N Fibromyalgia N Kidney Disease N Heart Problems N Thyroid Problems Y Kidney or Bladder Problems N GI Problems Y Eating Disorder N Anemia Y Art (IVF or FET) N Psychiatric Illness Y Ovarian Cancer N Diabetes Y Pulmonary (TB, Asthma) Y Hepatitis/Liver Disease N No Past Medical History N Eczema N Urinary Tract Infection N Abuse/Domestic Violence N Asthma Y Trauma/Violence N Depression/ depression Y Heart Disease N Pre-Eclampsia N Hypertension Y Osteoporosis N Thrombophilias N Gynecological History Statement/Question Response Date of Last Mammogram 06/29/2023 Date of LMP 06/17/2023 Y Was last menstrual period normal N STIs/STDs N HPV Vaccine N 06/29/2023 Current Control Method Hysterectom y Age at First Child 29 Are cycles usually normal N Date of Last Colonoscopy 08/24/2023 Most Recent Bone Density 08/15/2021 Sexually Active? Y Menses Monthly N Date of DEXA bone scan Age of first menstrual cycle 13 Date of Last Pap Smear 01/07/2023 Sexual Problems? N Desired Control Method Sterilizati on N Obstetrics History GPAL:G 2 P 0 0 0 2 Type Value Living 2 Total 2 Past Encounters Encounter ID Performer Location Encounter Start Date Encounter Closed Date Diagnosis/Indication Diagnosis SNOMED-CT Code Diagnosis ICD10 Code Diagnosis Note [id number] [facility] [address] [address] 02/09/2020 12:37:00 02/09/2020 13:33:17 Gynecologic examination 75789464 Z01.419 Suggested Calcium with Vitamin D 1200-1500m g daily. Patient advised to get an annual flu shot in the fall and she could obtain at [facility] or [facility] clinic. Also to obtain TDap vaccinatio n if you have not had one in the last 10 years. Recommend yearly mammograms . Encouraged monthly self breast exams. Encourage safe sexual practices, to use condoms and limit partners if not already in a monogamous relationsh ip. Engage in daily exercise of low impact aerobic exercise 45-60 minutes 4-5 times weekly. Avoid tobacco and illicit drugs as well as using moderation with alcohol intake less than 1-2 8 oz beverages daily. This lifestyle behavior pattern will lead to less health conditions and longer life span. If BMI greater than 25 weight watchers or dietary consult advised. All questions have been answered. Patient appears to understand informatio n, but if you have any questions please call or respond to this email. Mirena IUD placed 10/30/2015 [id number] Ami Zuniga , [facility] [address],[facility] [place] [address] 03/12/2021 09:39:20 03/12/2021 10:22:35 Gynecologic examination [id number] Z01.419 Suggested Calcium with Vitamin D 1200-1500m g daily. Patient advised to get an annual flu shot in the fall and she could obtain at [facility] or [facility] clinic. Also to obtain TDap vaccinatio n if you have not had one in the last 10 years. Recommend yearly mammograms . Encouraged monthly self breast exams. Encourage safe sexual practices, to use condoms and limit partners if not already in a monogamous relationsh ip. Engage in daily exercise of low impact aerobic exercise 45-60 minutes 4-5 times weekly. Avoid tobacco and illicit drugs as well as using moderation with alcohol intake less than 1-2 8 oz beverages daily. This lifestyle behavior pattern will lead to less health conditions and longer life span. If BMI greater than 25 weight watchers or dietary consult advised. All questions have been answered. Patient appears to understand informatio n, but if you have any questions please call or respond to this email. [facility] na I[facility] placed 10/30/2015 (Due to be removed or replaced 2021). Menopausal symptom 89372 002 N95.1 Having occassiona l hot flashes.no t disturbing quality of life.No menses on IUD.Wants to see where she falls on perimenopa use/menopa use spectrum. [id number] Ami uZniga [facility] [address],[facility] [place] [address] 04/11/2021 14:02:59 04/11/2021 14:45:43 Herpes zoster [id number] B02.9 Area of concerns Resembles shingles.W e agreed to treat as such & if no improvemen t she is to come in to discuss. Counseled on medication R/B's, Most common side effects, & use. All questions were answered to patient satisfacti on. Time spent in visit is a total of 15 mins with at least 50% of visit consisting of counseling and review of plan of care.Addit ional precaution sarah measures were taken to minimize potential exposure to the Covid-19 virus during this patient s visit, including available hand repacker upon arrive, temperatur e check and being asked a series of screening questions. All staff wore face coverings during this encounter, as well as provided additional cleaning and sanitizing of all surfaces, including countertop s, pens, chairs, door handles, light switches, etc, prior to and following the patient s visit. [id number] Ami Zuniga , [facility] [address] [address] 10/23/2021 16:27:11 10/23/2021 17:28:27 Gynecologic examination [id number] Z01.419 Z11.51 Suggested Calcium with Vitamin D 1200-1500m g daily. Patient advised to get an annual flu shot in the fall and she could obtain at [facility] or [facility] clinic. Also to obtain TDap vaccinatio n if you have not had one in the last 10 years. Recommend yearly mammograms . Encouraged monthly self breast exams. Encourage safe sexual practices, to use condoms and limit partners if not already in a monogamous relationsh ip. Engage in daily exercise of low impact aerobic exercise 45-60 minutes 4-5 times weekly. Avoid tobacco and illicit drugs as well as using moderation with alcohol intake less than 1-2 8 oz beverages daily. This lifestyle behavior pattern will lead to less health conditions and longer life span. If BMI greater than 25 weight watchers or dietary consult advised. All questions have been answered. Patient appears to understand informatio n, but if you have any questions please call or respond to this email. Pap/hpv q3-5yrs per asccp unless otherwise indicated. Genetic screen discussed. Mammo orderedCol on screen ordered by [facility]CPDeclinc e std screenMire na IUD placed 10/30/2015 (Due to be removed or replaced 2022). Menopausal symptom 76216 002 N95.1 Having occasional hot flashes.Summers s had a few light menses on IUD.Wants to see where she falls on perimenopa use/menopa use spectrum.I f numbers not significan tly higher we will leave her IUD in another year for total of 7yrs & reassess need in 2022. [id number] Ami Zuniga , [facility] [address] [address] 01/07/2023 10:58:39 01/07/2023 14:45:12 Gynecologic examination [id number] Z01.419 Z11.51 Suggested Calcium with Vitamin D 1200-1500m g daily. Patient advised to get an annual flu shot in the fall and she could obtain at [facility] or [facility] clinic. Also to obtain TDap vaccinatio n if you have not had one in the last 10 years. Recommend yearly mammograms . Encouraged monthly self breast exams. Encourage safe sexual practices, to use condoms and limit partners if not already in a monogamous relationsh ip. Engage in daily exercise of low impact aerobic exercise 45-60 minutes 4-5 times weekly. Avoid tobacco and illicit drugs as well as using moderation with alcohol intake less than 1-2 8 oz beverages daily. This lifestyle behavior pattern will lead to less health conditions and longer life span. If BMI greater than 25 weight watchers or dietary consult advised. All questions have been answered. Patient appears to understand informatio n, but if you have any questions please call or respond to this email. Pap/hpv-se nt STD Screen declined Genetic Screen discussed Colon Screen UTD PCP Dexa Screen PCP Routine Labs PCPMammo ordered Screening mammography 24 [id number] Z12.31 Abnormal u terine bleeding [id number] 9100 N93.9 Having some random AUB with IUD which we removed today.Her previous FSH/LH was in menopausal ranges.We will repeat labs & update US.Might need embx Menopausal symptom 11774 002 N95.1 We discussed Menopausal Hormone therapy (MHT) for women with intact uterus with the goals of reliving vaso-motor sx's using estrogen/p rogestin therapy (EPT) using lowest doses for shortest duration in women 40-59yo. Contraindi cations include: Hx of DVT or thrombolic events, High cholestero l, Hx of breast cancer, known CHD, active liver disease, unexplaine d vag bleeding, high risk endometria l cancer, TIA. Side effects can include but are not limited to: Irregular vag bleeding,, breast tenderness , nausea, weight changes, libido changes, nausea. Adverse Rxn: Elevated BP migraine w/ visual changes, breast cancer dx, ID/stroke, DVT/PE, Endometria l cancer. Please contact office with any new or worsening side effects or adverse reactions. Or if a medical emergency please go to nearest ED/[facility] for further evaluation . Will wait until work up for AUB is completed. If all is well we will pursue Combi-patc h.If not covered by insurance we will do oral Estradiol 1mg/Promet rium 100mg with a 3mos med check. Removal of intrauterine device [id number] Z30.432 It was explained that she may have bleeding or spotting after the removal of the device today as well. If cannot see the strings of this device we will need to get an US image to make that the device is still in place and not in an unobtainab le position. She expressed understand ing of all the above clair miller. [id number] Teresa [facility] [address],[place] [address] 01/08/2023 14:15:02 01/08/2023 16:33:21 Abnormal uterine bleeding [id number] 9100 D25.9 [id number] Ami Zuniga [facility] [address],[place] [address] 01/27/2023 17:28:26 01/28/2023 10:14:35 Abnormal uterine bleeding [id number] 9100 N93.9 EMBx completedP ost-proced ure instructio paul reviewedWi ll reach out with results and next steps in POC. [id number] Ami Zuniga [facility] [address],[place] [address] 03/27/2023 13:20:05 03/27/2023 14:46:45 Menopausal symptom [id number] N95.1 . Menopause vasomotor sx's & mood irritabili ty resolved.L OVES the combi-patc h and feels More like myself. Th e only side effect is the occassiona l monthly spotting which we previously evaluated and all testing benign precancers /cancers; but US did show some uterine fibroids.S he wishes to continue combi-patc h & complete MD consult to discuss fibroids. Time spent in visit is a total of mins with at least 50% of visit consisting of counseling and review of plan of care. Uterine leiomyoma [id number] D25.9 Requests MD consult to discuss.Lo ves her HRT but feels the fibroids present do cause some spotting at times.We recently completed US which does show fibroids & her EMBx was benign.FSH /LH post-menop ause levels.Wou ld like to discuss hysterecto my [id number] Sebastian Donald MD [place] [address],[place] [address] 04/15/2023 15:14:21 04/15/2023 16:15:27 Abnormal uterine bleeding [id number] 9100 D25.9 Menorrhagia 106633977 N9 2.0 This patient is a 52-year-ol d female presents for heavy vaginal bleeding. She has longstandi ng very heavy bleeding. Her menses are regular. However, they require double protection . Patient has accidents, getting blood on her bedding and clothing. Is affected work. She changes a pad or tampon every hour. She leaks blood around the pad and tampon. This bleeding has a profound impact on her quality of life and her activities of daily living. reviewed treatment options in detail. We reviewed medical options again and painstakin g detail. Talked about surgical options. Patient would like definitive surgical treatment. We made a decision to perform surgery. We spent 40 minutes face-to-fa ce. More than 50% was counseling . We agreed to perform a laparoscop ic or robotic assisted hysterecto my with bilateral salpingo-o ophorectom y. [id number] Sebastian Donald MD [place] [address],[place] [address] 06/10/2023 15:14:47 06/11/2023 21:09:44 Menorrhagia 207254059 N92.0 this patient is a 52-year-ol d female with menorrhagi a. We have agreed to perform total robotic hysterecto my bilateral salpingo-o ophorectom y. She understand s the risks, benefits, and alternativ es. She is completed the informed consent process and is ready to proceed. [id number] Tessy Ramirez [place] [address] [address] 06/19/2023 15:19:38 06/19/2023 15:20:29 [id number] Sebastian Donald MD [place] [address],[facility] [place] [address] 06/24/2023 14:00:39 06/24/2023 15:06:26 Menopausal symptom 80677270 N95.1 female Patient presents for postop follow-up. She is 1 week postop from a total laparoscop ic hysterecto my bilateral salpingect landry yoana. ovaries. She has no complaints . Her incisions are clean dry and intact. She is recovering normally. She will follow-up as needed. Postoperative care [id number] 9007 Z48.89 [id number] Sebastian Donald MD [place] [address],[facility] [place] [address] 07/07/2023 15:04:47 07/07/2023 18:36:45 Bacterial vaginosis [id number] N76.0 This patient is a 53-year-ol d female who is about 2-3 weeks postop from a laparoscop ic hysterecto my. She is some foul-smell ing vaginal discharge. She had an episode of bleeding. It was perhaps more than spotting. She also reports symptoms of urinary tract infection. She was examined. The vaginal cuff appears intact and no evidence of bleeding. We agreed to treat with vaginal metronidaz ole for the foul-smell ing vaginal discharge. She is also been having trouble with the hormone replacemen t therapy we started. Patient has been on a Combi patch and would like to return to the Combi patch. We agreed to that. Patient will also be treated for urinary tract infection. We spent over 40 minutes face-to-fa ce. More than 50% was counseling . We talked about 4 separate concerns. Acute urin sarah tract infection 045717200 N39.0 Abnormal v aginal bleeding 292254866 N93.9 Hormone re placement therapy 170178864 Z79.890 [id number] Sebastian Donald MD [place] [address] [address] 07/20/2023 16:54:07 07/21/2023 10:04:00 Postoperative care [id number] Z48.89 3-year-old female who presents for follow-up after reoperatio n. She was taken back to the operating room for a hematoma evacuation . Sutures were also placed in the vagina for for spent of the bleeding or the area in the vagina where the blood passed through. She is recovering normally now. She is going to require some extended recovery due to multiple surgeries and some difficulty with balance and pain after the 2nd operation. She will follow up as needed. She denies any nausea, vomiting, fever, chills. She had a recent fall that hurt some of her ribs. Possible fracture. [id number] Sebastian Donald MD [place] [address],[place] [address] 08/07/2023 15:26:46 08/07/2023 16:14:26 Yeast detected 052337836 R89.5 53-year-ol d female with vulvar irritation and vaginal discharge. She has some irritation and some inflammati on of the skin of the vulva. She has vaginal itching. She was examined. The vulva appears inflamed. The distal vagina appears normal. Swabs were taken. We agreed to treat with oral fluconazol e and steroid/an tifungal cream. Vulvovaginitis 45141944 N76.0 [id number] [facility] [address] [address] 09/01/2023 09:37:38 09/01/2023 10:31:19 Urinary symptoms 497710165 R39.9 Blood in urineIf <3 RBC's no further f/u at this timeIF > 3 RBC's f/u is required via urogynecol ogyNo sx's exacept pelvic fullness Counseled on Hematuria blood in urine Vaginitis 29112087 N76.0 Today suspect BV on examWe discussed oral BV treatment. Rx sent Counseled on medication R/B's, Most common side effects, & use. All questions were answered to patient satisfacti on. Time spent in visit is a total of 26 mins with at least 50% of visit consisting of counseling and review of plan of care. [id number] KILO Mendoza [place] [address],[place] [address] 09/21/2023 15:50:53 09/21/2023 17:33:19 Vaginal irritation 660062926 N89.8 vaginitis/ STI panel sentno abnormal d/c noted on exam todayUA normalatro phy notedvulva r care guidelines discussed - d/c use of scented body wash, water/fing ers to cleanse the vulvadiscu ssed option of vaginal estrogen - r/b/a reviewed - rx sentmed check in 3-4 months recommende d Time spent in visit is a total of 28 mins with at least 50% of visit consisting of counseling and review of plan of care. [id number] KILO Mendoza [place] [address],[place] [address] 11/05/2023 14:26:58 11/05/2023 15:44:17 Vaginitis 83058921 N76.0 vaginitis panel sentUA/cx sentdeclin ed STI screenrx sent for BV, r/b/a reviewedvu lvar care guidelines discussed Time spent in visit is a total of 20 mins with at least 50% of visit consisting of counseling and review of plan of care. [id number] KILO Mendoza [place] [address],[place] [address] 11/17/2023 17:15:17 11/18/2023 04:12:40 Vaginal odor 675195759 N89.8 vaginitis panel sentexam today wnldecline d STI screendisc ussed vulvar care guidelines encouraged to complete entire antibiotic course for recent (+) UTIdiscuss ed boric acid capsuleswi ll update pt with results when available Time spent in visit is a total of 20mins with at least 50% of visit consisting of counseling and review of plan of care. [id number] KILO Mendoza [place] [address],[place] [address] 12/01/2023 12:30:09 12/01/2023 14:38:24 Vaginal odor 088416218 N89.8 exam today wnlvaginit is panel sentvulvar care guidelines discussedc an use boric acid capsules twice per week if neededrepe at UA/cx sent per pt request Time spent in visit is a total of 22 mins with at least 50% of visit consisting of counseling and review of plan of care. [id number] KILO Mendoza [place] [address],[place] [address] 12/17/2023 15:54:20 12/18/2023 10:50:45 Urinary symptoms 158250000 R39.9 Vaginal odor 774590639 N 89.8 exam today wnlvaginit is panel sent per pt requesturi ne cx sentvulvar care guidelines discussedr ecommended to start using estradiol vaginal cream - rx sent, r/b/a reviewedve g based moisturize r routine discussedb oric acid capsules 3x per weekquesti ons answered Time spent in visit is a total of 25 mins with at least 50% of visit consisting of counseling and review of plan of care. Vulval irritation 204081 003 N90.89 [id number] Sebastian Donald MD [place] [address],[place] [address] 01/04/2024 16:00:56 01/05/2024 01:58:47 Vaginitis 73126156 N76.0 this patient is a 53-year-ol d female with vaginal irritation . she has had recurrent malodorous discharge in the past. This time it is persistent vulvar itching/ irritation . We agreed to treat. Swabs were taken. She was examined. The vulva and distal vagina appeared normal. Samples were obtained. [id number] Britt Landin [place] [address],[place] [address] 01/12/2024 13:58:46 01/12/2024 14:10:05 Urinary symptoms 383332862 R39.9 [id number] NONA GARCIA NP [place] [address],[place] [address] 06/22/2024 15:17:58 06/22/2024 15:46:47 Urinary symptoms 928873074 R39.9 Will send urine for culture d/t sx of pelvic pressure. Vaginitis 01993951 N76.0 Discussed empirical treatment with fluconazol e for suspected yeast infection based on reported symptoms and physical exam findings.D iscussed vulvar care guidelines in addition to laundry/sk in irritants to avoid.Test ing for BV/yeast sent. Venereal d isease screening 035907855 Z11.3 Pt requested STI testing for GC/CT/tric h.Discusse d the various types of STDs, related symptoms and the potential consequenc es (including effects on fertility) of STD infections . Reviewed ways to limit exposure and prevention techniques . [id number] NONA GARCIA, CB [place] [address],[place] [address] 07/27/2024 09:43:37 07/27/2024 11:00:57 Gynecologic examination 98431576 Z01.419 Annual gynecologi jose exam performed. Patient will come back in a year unless there are new symptoms. Suggest Calcium with Vitamin D if not eating in diet. Patient advised to get annual flu shot. Recommend yearly physicals and perform monthly breast exams. Genetic testing is available for patients with family history of cancer. Engage in safe sexual practices, use condoms. Encouraged to have daily exercise. Avoid tobacco and illicit drugs, moderation of alcohol. If BMI greater than 25 dietary consult advised. If you have any questions please call or email. mammogram- DUE; order given; pt to schedule colon cancer screening - UTD PCP DEXA scan- UTD PCP Pap smear- UTD (2022) laboratory evaluation - PCP STI testing - declined Screening mammography 24 102627 Z12.31 Menopausal symptom 13637 002 N95.1 Patient doing well on HRT with estradiol, reports minimal hot flashes. Wishes to continue. Risks/bene fits reviewed. Counseled on the following: Females >10yrs past menopause (& age 60yo+) are generally not good candidates for starting (1st use) systemic HT. Decisions to continue systemic HT > a decade past menopause (or past age 60yo) requires balancing R/B's; & individual ized needs. Non-hormon al options may be more appropriat e for females >10yrs past menopause. Atrophic vulva 480023121 N90.5 Patient elects to try the estradiol vaginal cream again to help with chronic irritation likely due atrophy. Counseled on the following: Vaginal Dryness: Bothersome symptoms of the vagina and vulva (outer lips of the vagina) increase during and after the menopause transition or may start several years after menopause. The decrease in estrogen with menopause is a major contributo r to vaginal dryness, itching, burning, discomfort , and pain during intercours e or other sexual activity. Vaginal atrophy is the medical term that describes these changes. The genitourin sarah syndrome of menopause includes bothersome vaginal atrophy often combined with urinary symptoms. Vaginal atrophy may significan tly affect your quality of life, sexual satisfacti on, and relationsh ip with your partner. Unlike hot flashes, which generally improve with time, vaginal symptoms typically worsen with time because of aging and a prolonged lack of estrogen. Vaginal estrogen therapy An effective and safe treatment, low-dose local estrogen is applied directly to the vagina to restore vaginal health and relieve vaginal dryness and discomfort with sexual activity. Improvemen ts usually occur within a few weeks, although complete relief may take several months. This even may be an option for women with a history of breast or uterine cancer but only after careful considerat ion of risks and benefits with a healthcare provider and oncologist . Governmen t-approved low-dose vaginal estrogen products are available by prescripti on as vaginal creams (used two or three nights/wee k), a vaginal estradiol tablet (used twice/week ), and an estradiol vaginal ring (changed every 3 months). All are highly effective. You may wish to try several different forms and choose the one you prefer. Standard doses of estrogen therapy provided to treat hot flashes also treat vaginal dryness, although some women still benefit from additional low-dose vaginal estrogen treatment. If only vaginal symptoms are present, low doses of estrogen applied to the vagina are recommende d. Resources: https://rafael w.menopaus e.org/docs /default-s ource/for- women/mn-v aginal-dry ness.pdf Vaginal discharge 613545 006 N89.8 Discussed empirical treatment with fluconazol e for suspected yeast infection based on reported symptoms and physical exam findings.D iscussed vulvar care guidelines in addition to laundry/sk in irritants to avoid.Vagi renetta panel sent. Health Concerns Section Related Observation LastModified by Organization Detai ls LastModified Time None Recorded Concern Status LastModified by Organization Details LastModified Time None Recorded Advance Directives Directive N: Payers Encounter Date Sequence Insurance Name Policy Number Policy Mcpherson Covered Member ID Mcpherson Member ID Guarantor Name 12/17/2023 1 [facility] [id number] R Brielle [place] [id number] 05 [place] 01/04/2024 1 [facility] [id number] R Brielle A [place] [id number] 05 Brielle A [place] 01/12/2024 1 [facility] [id number] R Brielle A [place] [id number] 05 Brielle A [place] 06/22/2024 1 [facility] [id number] R Brielle A [place] [id number] 05 Brielle [place] 07/27/2024 1 [facility] [id number] R Brielle A [place] [id number] 05 Brielle [place] Notes Date Note Type Note Provider Name and Address Organization Details Recorded Time 12/17/2023 text/html 53yopresents for vaginal odor/itchingtreated for BV/yeast/UTI 12/02symptoms resolved with treatment but now feels like odor and itching has returned for the past few daysneg dischargeslight pressure with urinationhas not tried boric acid capsuleshas not started using the vaginal estrogen cream prescribed yet KILO Mendoza [address], [place], [address], [facility] 12/18/2023 09:28:03 01/04/2024 text/html this patient is a 53-year-old female with vaginal irritation. she has had recurrent malodorous discharge in the past. This time it is persistent vulvar itching/ irritation. We agreed to treat. Swabs were taken. She was examined. The vulva and distal vagina appeared normal. Samples were obtained. Sebastian Donald MD [address], [place], [address], [facility] 01/04/2024 22:32:32 06/22/2024 text/html Patient here wit h c/o itching, vulvar irritation, pelvic pressure, and vaginal odor x one weeks. Patient states that she was recently tested and treated for yeast and BV at urgent care one month ago, but now states that some of the symptoms have returned.Denies dysuria, urgency, or frequency. NONA GARCIA NP [address], [place], [address], [facility] 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 Post-MenopausalRepor ap bypatient.Menopausal Symptoms:no menopausal symptoms;inadequacy of lubrication of vaginal mucosa Vaginal Bleeding:history of menopause having occurred; no history of post menopausal bleeding Urinary Symptoms:no hematuria; no nocturia; no urinary frequency Vulva:no genital lesion;atrophic vulva Vagina:no vaginal atrophy;white;vagina l itching Breast:no breast lump; no nipple discharge; no breast pain Sexual Complaints:no sexual complaints Psychological Symptoms:no depression; no anxiety Preventive Measures:encourage regular mammograms starting age 40; encourage self breast examination; encourage regular exercise; encourage no tobacco use Patient presents for annual well woman exam.Patient reports frequent yeast infections since hysterectomy last year.Patient reports vulvar itching and thick white discharge for a few days.Patient tried vaginal estradiol cream, which helped but has not been consistent about using it.Denies hx of diabetes mellitus or elevated blood sugar. Denies new soaps or detergents.Patient on estradiol 2 mg for HRT, doing well and has no hot flashes. NONA GARCIA NP [address], [place], [address], [facility] 07/27/2024 10:58:12 OBGyn Episode Ob Episode Information Episode Created Date Number of Fetuses Patient Bloodtype Patient rh Status Prepregnancy Weight lbs Domestic Partner Domestic Partner Phone Father Name Vice President Network Status 02/09/20 20 1 CLOSED Fetus Data First Name Last Name Admitted to NICU Weight (g) Sex Living Outcome Pediatric Complications Fetus ID Race Codes Race Delivery Type M 2374 Vaginal Delivery Ran Calculation Initial Ran Date Initial Exam Date Initial Exam Provider Initial Ultrasound Date Last Menstrual Period Date Ultra Sound Weeks Gestation 0 Eighteen To Twenty Week Ran Update Ultra Sound Date Fundal Height At Umbil Quickening Date Ultra Sound Latest Weeks Gestation Final Ran Confirmed By Final Ran Confirmed Date Final Ran Date Ultra Sound Latest Days Gestation 0 0 Menstrual History Last Menstrual Date Menses Monthly On Bcp Conception Prior Menses Frequency Hcg Plus Date Menarche Onset Age Delivery Information Delivery Date Delivery Type Labor Anesthesia Weeks Gestation Incision Type Labor Labor Length Hrs Delivered By Post Complications Tubal Sterilization Discharge Date Comments 0 Discharge Information Feeding Method Contraceptive Method Maternal HG B and HCT Levels Ob Episode Information Episode Created Date Number of Fetuses Patient Bloodtype Patient rh Status Prepregnancy Weight lbs Domestic Partner Domestic Partner Phone Father Name Vice President Network Status 02/09/20 20 1 CLOSED Fetus Data First Name Last Name Admitted to NICU Weight (g) Sex Living Outcome Pediatric Complications Fetus ID Race Codes Race Delivery Type M [id number] Vaginal Delivery Ran Calculation Initial Ran Date Initial Exam Date Initial Exam Provider Initial Ultrasound Date Last Menstrual Period Date Ultra Sound Weeks Gestation 0 Eighteen To Twenty Week Ran Update Ultra Sound Date Fundal Height At Umbil Quickening Date Ultra Sound Latest Weeks Gestation Final Ran Confirmed By Final Ran Confirmed Date Final Ran Date Ultra Sound Latest Days Gestation 0 0 Menstrual History Last Menstrual Date Menses Monthly On Bcp Conception Prior Menses Frequency Hcg Plus Date Menarche Onset Age Delivery Information Delivery Date Delivery Type Labor Anesthesia Weeks Gestation Incision Type Labor Labor Length Hrs Delivered By Post Complications Tubal Sterilization Discharge Date Comments 1 Discharge Information Feeding Method Contraceptive Method Maternal HG B and HCT Levels
--- OUTSIDE RECORDS SUMMARY | 2024-09-30 13:58 | XMS_ITS | Clinical Summary ---
Author Organization [facility] Address [address] [place] [address] Care Team Providers Care Nurse Quality Name Role Phone Martha Raygoza JUDICIAL REGISTRAR Primary Care Provider + Ryley Torres DO Unavailable [phone] Allergies Active Allergy Reactions Criticality Noted Date [...] Influenza, Trivalent, IM (MDV) 06/04/2016,2014,2013 Tdap 02/28/2016 Surgical History Surgery Date Site/Laterality Comments CHOLECYSTECTOMY TUBAL LIGATION TUMOR REMOVAL PANNICULECTOMY BARIATRIC SURGERY 08/24/2014 - 08/23/2015 Gastric sleeve Medical History Medical History Date Comments Anemia Hypertension Depression Asthma Osteoarthritis Morbid obesity (HCC) Panniculitis Allergic rhinitis GERD (gastroesophageal reflux disease) Family History Medical History Relation Name Comments Pernicious anemia Maternal Grandmother Anemia Mother Diabetes Mother Relation Name Status Comments Father Alive Maternal Grandmother Mother Alive Social History Tobacco Use Types Packs/Day Years [...] on file Legal Sex Female 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 Gender Identity Not on file Sexual Orientation Not on file 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 Not on file Not on file No t on file Obstetrics History Last Filed Vital Signs Vital Sign Reading Time Taken Comments Blood Pressure 121/81 11/02/2019 1:51 PM CDT Pulse 98 11/02/2019 1:51 PM CDT Temperature 36.9 C (98.4 F) 10/25/2019 2:14 PM [employer] WORKER Respiratory Rate 16 10/25/2019 2:14 PM [employer]SON WORKER Oxygen Saturation 98% 11/02/2019 1:51 PM CDT Inhaled Oxygen Concentration - - Weight 98.1 kg (216 lb 3.2 oz) 11/09/2019 1:29 P M CDT Height 162 cm (5' 3.78 ) 10/25/2019 2:14 PM [employer] WORK[employer] Body Mass Index 37.37 10/25/2019 2:14 PM [employer] WORKER Plan of Treatment Not on file Insurance [employer] [facility] Care Teams Nurse Quality Relationship Specialty Start Date End Date Martha Raygoza NP [address] [facility] [place] [address] PCP - General Nurse Practitioner 09/27/19 Ryley Torres DO [address] [place], [place] [address] [address] Medical Oncologist/Hematologis t Hematology and Oncology 11/23/19
--- OUTSIDE RECORDS SUMMARY | 2024-09-30 13:58 | XMS_ITS | Clinical Summary ---
Author Organization [facility] Address [address] [place] [address] Phone Care Team Providers Care Compound Machine Operator Name Role Phone Unavailable Primary Care Provider Unavailabl e Allergies Active Allergy Reactions Criticality Noted Date Comments Clarithromycin Rash Medium 10/25/2019 Penicillins Hives High 10/25/2019 Rabeprazole Other (See Comments) Low 09/22/2020 jittery Sertraline Rash Medium 10/25/2019 Medications busPIRone (BUSPAR) 5 mg tablet Take 5 mg by mouth daily. Active DULoxetine (CYMBALTA) 30 mg Capsule, Delayed Release(E.C.) Take 30 mg by mouth daily. Active DULoxetine (CYMBALTA) 60 mg Capsule, Delayed Release(E.C.) Take 60 mg by mouth daily. Active lisinopril-hydr oCHLOROthiazide (ZESTORETIC) 20-12.5 mg tablet Take 1 Tablet by mouth daily. 3 Active pregabalin (LYRICA) 75 mg Capsule Take 150 mg by mouth. 2 times per week. Working on stopping medication. Active levocetirizine (Xyzal) 5 mg tablet Take 5 mg by mouth late in the day. Active estradioL (ESTRACE) 2 mg tablet Take 2 mg by mouth daily. Active levothyroxine 50 mcg tablet Take 50 mcg by mouth daily. Active prazosin (MINIPRESS) 1 mg capsule Take 1 mg by mouth 2 times daily. Active tiZANidine (ZANAFLEX) 4 mg Tablet Take 4 mg by mouth daily at bedtime. 4 Active semaglutide, weight loss, (WEGOVY) 0.5 mg/0.5 mL Pen Injector Inject 0.75 mg by subcutaneous injection every 7 days. Active potassium chloride (KLOR-CON M10) 10 mEq Extended Release tablet Take 1 Tablet (10 mEq) by mouth 2 times daily. 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 Telephone Check Up [facility] and Hematology - [place] [address] [place] [address] Niall Sanchez MD Other iron deficiency anemia (Primary Dx); B12 deficiency 08/30/2024 External Device Data STL ABSTRACTION Provider, Abstract from Last 3 Months Family History Medical History Relation Name Comments No Known Problems Brother No Known Problems Child 1 No Known Problems Child 2 No Known Problems Father Diabetes Mother Relation Name Status Comments Brother Alive Child 1 Alive Child 2 Alive Father Alive Mother Alive Social History Tobacco Use Types Packs/Day Years Used Date Smoking Tobacco: Never Smokeless Tobacco: Never Tobacco Cessation:Counseling Given: Not Answered Alcohol Use Standard Drinks/Week Comments Never 0 (1 standard drink = 0.6 oz pur e alcohol) Comments Unknown Sex and Gender Information Value Date Recorded Sex Assigned at Not on file Legal Sex Female 2:49 PM HYDROGEN PLANT OPERATOR Gender Identity Not on file Sexual Orientation Not on file Last Filed Vital Signs Vital Sign Reading Time Taken Comments Blood Pressure 119/77 04/19/2024 1:06 PM CDT Pulse 88 04/19/2024 1:06 PM CDT Temperature 36.2 C (97.2 F) 04/19/2024 1:06 PM CDT Respiratory Rate 14 04/19/2024 1:06 PM CDT Oxygen Saturation 97% 04/19/2024 1:06 PM CDT Inhaled Oxygen Concentration - - Weight 90.3 kg (199 lb) 04/19/2024 1:06 PM CDT Height 160 cm (5' 3 ) 09/22/2023 10:33 AM HYDROGEN PLANT OPERATOR Body Mass Index 35.25 09/22/2023 10:33 AM HYDROGEN PLANT OPERATOR Plan of Treatment Upcoming Encounters Date Type Department Care Team (Late st Contact Info) Description 03/01/2025 3:30 PM CDT Office Visit [facility] Oncology [facility] Hematology - [place] [address] [facility] [address] [place] [address] Niall Sanchez MD [address] [place] [address] Health Maintenance Due Date Last Done Comments Pre-Diabetes and Diabetes Screening 1970 HEPATITIS B VACCINES (1 of 3 - 19+ 3-dose series) 1989 CERVICAL CANCER SCREENING 2000 BREAST CANCER SCREENING 2010 FIT-DNA Q 3 years 2015 FIT/FOBT Q 1 year 2015 Flex Sig/CT Colonography Q 5 years 2015 ZOSTER VACCINE (1 of 2) 2020 INFLUENZA VACCINE (#1) 2024 3, 05/21/2021, 06/09/2020, Additional history exists COVID-19 Vaccine (2 - 2023-2 5 season) 2024 10/28/2021 COLORECTAL SCREENING 04/08/2028 04/08/2018 Colorectal Cancer Screening 04/08/2028 DTAP/TDAP/TD VACCINES (4 - T d or Tdap) 10/26/2032 10/26/2022, 02/28/2016, 08/24/2005 PNEUMOCOCCAL VACCINE 0-64 YEARS Completed 3 Procedures Procedure Name Priority Date/Time Associated Diagnosis Comments CBC WITH DIFFERENTIAL Routine 08/25/2024 4:25 PM HYDROGEN PLANT OPERATOR BASIC METABOLIC PANEL Routine 08/25/2024 12:19 PM HYDROGEN PLANT OPERATOR from Last 3 Months Results * CBC WITH DIFFERENTIAL (08/25/2024 4:25 PM HYDROGEN PLANT OPERATOR) Blood Niall Sanchez MD HEMATOLOGY ORDERABLES Final Res ult * BASIC METABOLIC PANEL (08/25/2024 12:19 PM HYDROGEN PLANT OPERATOR) Blood Niall Sanchez MD CHEMISTRY ORDERABLES Final Resu lt from Last 3 Months Insurance [employer] ACCESS
--- OUTSIDE RECORDS SUMMARY | 2024-09-30 13:58 | XMS_ITS | Continuity of Care Document ---
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 , [address], [place], [address], [place]. tel:[phone] Family History Family Member Type Diagnosis Age At Onset No Information Payers Payer name Insurance type Covered democrat ID Authoriza tion(s) Medicaid [facility] [id number] Social History Type Description Quantity Date Captured [...]
[2024-09-30 15:41] LABS: Alanine Aminotransferase 29 U/L (14-59); Albumin Level 3.6 g/dL (3.4-5.0); Alkaline Phosphatase 60 U/L (46-116); Anion Gap 10 mmol/L (4-12); Aspartate Amino Transferase 15 U/L (15-37); Bilirubin,Total 0.2 mg/dL (0.00-1.00); Blood Urea Nitrogen 10 mg/dL (7-18); Carbon Dioxide 29 mmol/L (21-32); Chloride 102 mmol/L (98-108); Estimated CRCL calculation 88 ml/min; Estimated Glomerular Filt Rate > 60; Free T4 Free Thyroxine 0.68 ng/dL (0.76-1.46); Glucose 81 mg/dL (70-99); Osmolality Calculated 290 mOsm/kg (285-295); Phosphorus 4.6 mg/dL (2.6-4.7); Potassium 3.9 mmol/L (3.5-5.1); Sodium 141 mmol/L (136-145); Thyroid Stimulating Hormone 0.81 uIU/mL (0.36-3.74); Total Protein 6.8 g/dL (6.4-8.2)
[2024-10-02 03:37] LABS: Parathyroid Intact 96 pg/mL (16-77)
[2024-10-02 07:49] LABS: Vitamin D 25 Hydroxy 45 ng/mL (30-100)
== END 2024-09-30 13:55 | disposition home or self-care (01) ==
PROVIDERS: Internal Medicine; PCP Nurse Practitioner Adult Health; Visit Provider Nurse Practitioner Obstetrics & Gynecology
DX: R79.89 Other specified abnormal findings of blood chemistry (principal); E03.9 Hypothyroidism, unspecified; E07.9 Disorder of thyroid, unspecified; I10 Essential (primary) hypertension; E87.6 Hypokalemia; E16.2 Hypoglycemia, unspecified; Z12.31 Encounter for screening mammogram for malignant neoplasm of breast; Z78.0 Asymptomatic menopausal state
CPT/HCPCS: 36415; 77063; 77067; 77080; 80053; 82306; 83735; 83970; 84100; 84439; 84443; J0834

== ENCOUNTER 2025-02-22 12:51 | Outpatient (CLI) | payer BC, SELFPAY ==
--- OUTSIDE RECORDS SUMMARY | 2025-02-22 12:54 | XMS_ITS | Clinical Summary ---
Author Organization [facility] Address [address] [place] [address] Care Team Providers Care Supervisor Pre Wave Name Role Phone Martha Raygoza [facility] Primary Care Provider + Allergies Active [...] on file Legal Sex Female 9:40 PM HEARTH FEEDER Gender Identity Not on file Sexual Orientation Not on file Last Filed Vital Signs Vital Sign Reading Time Taken Comments Blood Pressure 123/68 07/18/2023 6:15 PM HEARTH FEEDER Pulse 92 07/18/2023 5:02 PM HEARTH FEEDER Temperature 35.9 C (96.7 F) 07/18/2023 5:02 PM HEARTH FEEDER Respiratory Rate 18 07/18/2023 5:02 PM HEARTH FEEDER Oxygen Saturation 99% 07/18/2023 5:02 PM HEARTH FEEDER Inhaled Oxygen Concentration - - Weight 98.2 kg (216 lb 9.6 oz) 07/18/2023 5:02 P M HEARTH FEEDER Height 160 cm (5' 3) 07/18/2023 5:02 PM HEARTH FEEDER Body Mass Index 38.37 07/18/2023 5:02 PM HEARTH FEEDER Plan of Treatment Health Maintenance Due Date Last Done Comments Colorectal Cancer Screening Colonoscopy (10 Years) 1970 Annual Physical 1973 Hepatitis C 1988 Hepatitis B Vaccines (1 of 3 - 19+ 3-dose series) 1989 Cervical Cancer Screening Pa p with HPV Testing (Age 30 to 64) Every 5 Years 2000 Mammogram Screening 2010 Zoster Vaccines (1 of 2) 2020 11/07/2021 COVID-19 Vaccine (2023-2 5 season) 2024 10/28/2021, 11/09/2020 Cervical Cancer Screening Pa p Smear (Age 30 to 64) Every 3 Years 01/07/2026 01/07/2023, 03/12/2021 Cervical Cancer Screening wi th HPV 01/07/2026 DTaP, Tdap and Td Vaccines ( 4 - Td or Tdap) 10/26/2032 10/26/2022, 02/28/2016, 08/24/2005 Pneumococcal Vaccine: 50+ Years Completed 10/26/2022 Meningococcal B Vaccine Aged Out No l onger eligible based on patient's age to complete this topic Meningococcal Vaccine Aged Out No shantal lc eligible based on patient's age to complete this topic RSV Immunizations Under 20 Months Aged Out No longer eligible b ased on patient's age to complete this topic Insurance Care Teams Supervisor Pre Wave Relationship Specialty Start Date End Date Martha Raygoza, SALAD MAKER- [address] [place] [id number] PCP - General NURSE PRACTITIONER 09/22/20
--- OUTSIDE RECORDS SUMMARY | 2025-02-22 12:54 | XMS_ITS | Data Portability ---
Author Organization [place] - [facility] [employer] Main Office Address [address] [place] [address] Care Team Providers Care Leaf Tier Name Role Phone MARTHA ESCOBEDO Primary Care Provider MARTHA ESCOBEDO Referring Provider [phone] Assessment Encounter Date Assessment Date Assessment LastModified [...] verbalized understanding it. F/u in 1-2 months. [email or web address] Not available 08/12/2023 12:46:29 09/10/2023 09/10/2023 This note is dictated and transcribed by [employer]. Case Sealer variances may occur. Despite proofreading, typographical errors may occur. Occasional wrong-word or '[id number]-[id number]' substitutions may have occurred due to the [...] hypothyroid ism, hx bariatric surgery [email or web address] [place] [address] - Endocrinology , [address], [address], [place], [address], 3 11:02:50 Procedures None recorded. Surgeries None recorded. Imaging US, foot 2023 024 [email or web address] [facility] ([facility]), [address] [place], [address], 4 08:14:52 XR, foot, 3 or more view - podiatry read 2023 024 [email or web address] [facility] ([facility]), [address] [place], [address], 4 08:14:28 XR, lumbar spine 2022 023 [email or web address] Not available 3 11:09:38 Medication Orders prazosin 1 mg capsule 2022 023 [facility] [address] [place], [address], 3 12:38:37 buspirone 15 mg tablet 2022 023 [facility] [address] [place], [address], 3 12:38:39 duloxetine 60 mg capsule,del ayed release 2022 023 [facility] [address] [place], [address], 3 12:47:27 duloxetine 30 mg capsule,del ayed release 2022 023 [facility] [address] [place], [address], 3 12:47:29 Lyrica 100 mg capsule [email or web address] [place] [address] Pharmacy [address] [place], [address], 3 12:36:25 metformin ER 500 mg tablet,exte nded release 24 hr 2022 023 [facility] [address] [place], [address], 3 12:01:14 Synthroid 50 mcg tablet 2022 023 [facility] [address] [place], [address], 12:02:09 Patient TargetsNo targets recorded. Patient Instructions Encounter Date Encounter Id Patient Instructions Last Modified By Organization Details Last Modified Time 05/26/2023 [id number] 3-4 mo fu dm, thyroid, lipid, weight, depression/anxiet y, RLS, leg pain [email or web address] Not available 05/28/2023 10:25:01 09/10/2023 [id number] plantar fasciiti s education Not available 09/10/2023 [...] 2016, 39(Wilburn ppl.1 ):s13 -s22 Not Available [facility] ([facility]) [address] [place], [address], 04/14/2023 12:34:08 04/14/20 23 04/14/2023 COMPR EHENS TRISTIAN METAB OLIC PANEL sodium 139 mmol/ L 137-14 5 Not Available [facility] (Lab) [address] [place], [address], 04/14/2023 12:47:06 04/14/20 23 04/14/2023 COMPR EHENS TRISTIAN METAB OLIC PANEL potassium 3.0 mmol/ L 3.5-5. 1 low Not Available [facility] (Lab) [address] [place], [address], 04/14/2023 12:47:06 04/14/20 23 04/14/2023 COMPR EHENS TRISTIAN METAB OLIC PANEL chloride 102 mmol/ L 98-107 Not Available [facility] (Lab) [address] [place], [address], 04/14/2023 12:47:06 04/14/20 23 04/14/2023 COMPR EHENS TRISTIAN METAB OLIC PANEL carbon dioxide 30 mmol/ L 22-30 Not Available [facility] (Lab) [address] [place], [address], 04/14/2023 12:47:06 04/14/20 23 04/14/2023 COMPR EHENS TRISTIAN METAB OLIC PANEL anion gap 10.0 mmol/ L 14-22 low Not Available [facility] (Lab) [address] [place], [address], 04/14/2023 12:47:06 04/14/20 23 04/14/2023 COMPR EHENS TRISTIAN METAB OLIC PANEL glucose 86 mg/dL 70-99 Not Available [facility] (Lab) [address] [facility] [place], [address], 04/14/2023 12:47:06 0804/14/2023 COMPR EHENS TRISTIAN METAB OLIC PANEL BUN 8 mg/dL 8-19 Not Available [facility] (Lab) [address] [place], [address], 04/14/2023 12:47:06 04/14/20 23 04/14/2023 COMPR EHENS TRISTIAN METAB OLIC PANEL creatinine 0.46 mg/dL 0.66-1 .25 low Not Available [facility] (Lab) [address] [place], [address], 04/14/2023 12:47:06 04/14/20 23 04/14/2023 COMPR EHENS TRISTIAN METAB OLIC PANEL GFR >60 Refer ence Range : Narberth ge GFR Healt hy Adult : >60 [...] on the F websi te: [email or web address] :[email or web address] rg/pr ofess ional s/kdo qi/gf r_cal culat or Not Available [facility] (Lab) [address] [place], [address], 04/14/2023 12:47:06 04/14/20 23 04/14/2023 COMPR EHENS TRISTIAN METAB OLIC PANEL alkaline phosphatase 61 U/L 38-126 Not Available [facility] (Lab) [address] [place], [address], 04/14/2023 12:47:06 04/14/20 23 04/14/2023 COMPR EHENS TRISTIAN METAB OLIC PANEL alanine aminotransfe rase 19 U/L 0-35 Not Available [facility] (Lab) [address] [facility] [place], [address], 04/14/2023 12:47:06 04/14/20 23 04/14/2023 COMPR EHENS TRISTIAN METAB OLIC PANEL aspartate aminotransfe rase 25 U/L 15-37 Not Available [facility] (Lab) [address] [place], [address], 04/14/2023 12:47:06 04/14/20 23 04/14/2023 COMPR EHENS TRISTIAN METAB OLIC PANEL bilirubin, total 0.30 mg/dL 0.20-1 .30 Not Available [facility] (Lab) [address] [place], [address], 04/14/2023 12:47:06 04/14/20 23 04/14/2023 COMPR EHENS TRISTIAN METAB OLIC PANEL calcium 8.3 mg/dL 8.4-10 .2 low Not Available [facility] (Lab) [address] [place], [address], 04/14/2023 12:47:06 04/14/20 23 04/14/2023 COMPR EHENS TRISTIAN METAB OLIC PANEL total protein 6.5 g/dL 6.3-8. 2 Not Available [facility] (Lab) [address] [place], [address], 04/14/2023 12:47:06 04/14/20 23 04/14/2023 COMPR EHENS TRISTIAN METAB OLIC PANEL albumin 3.7 g/dL 3.4-5. 0 Not Available [facility] (Lab) [address] [place], [address], 04/14/2023 12:47:06 04/14/20 23 04/14/2023 COMPR EHENS TRISTIAN METAB OLIC PANEL globulin 2.8 g/dL 2.6-4. 2 Not Available [facility] (Lab) [address] [place], [address], 04/14/2023 12:47:06 04/14/20 23 04/14/2023 COMPR EHENS TRISTIAN METAB OLIC PANEL A/G ratio 1.3 ratio 1.0-2. 0 Not Available [facility] (Lab) [address] [place], [address], 04/14/2023 12:47:06 04/14/20 23 04/14/2023 LIPID PANEL cholesterol 182 mg/dL 140-19 9 NIH DONNELL NSUS RECOM MENDA TION FOR SESAR STERO L: ADULT CHILD LOW RISK: <200 <170 BORDE RLINE : <200- 239 ----- HIGH RISK: >240 >200 Not Available [facility] (Lab) [address] [place], [address], 04/14/2023 12:47:11 04/14/20 23 04/14/2023 LIPID PANEL triglyceride s 187 mg/dL 0-150 high NIH DONNELL NSUS REPOR T RECOM MENDA TION FOR TRIGL YCERI LETY: ADULT CHILD LOW RISK: <150 ----- BODER LINE: 150-1 99 ----- HIGH RISK: >200 ----- Not Available [facility] (Lab) [address] [place], [address], 04/14/2023 12:47:11 04/14/20 23 04/14/2023 LIPID PANEL HDL cholesterol 48 mg/dL 40- Not Available [facility] (Lab) [address] [place], [address], 04/14/2023 12:47:11 04/14/20 23 04/14/2023 LIPID PANEL [...] WILL NOT BE REPOR KANG. Not Available [facility] (Lab) [address] [place], [address], 04/14/2023 12:47:11 04/14/20 23 04/14/2023 T4 FREE free T4 1.07 NG/dL 0.78-2 .19 Not Available [facility] (Lab) [address] [place], [address], 04/14/2023 12:57:15 04/14/20 23 04/14/2023 TSH thyroid-stim ulating hormone 0.756 uIU/m L 0.465- 4.680 Not Available [facility] (Lab) [address] [place], [address], 04/14/2023 13:07:07 04/14/20 23 04/14/2023 T3 FREE free T3 3.6 pg/mL 2.77-5 .27 Not Available [facility] (Lab) [address] [place], [address], 04/14/2023 13:23:29 04/14/20 23 04/15/2023 INSUL IN insulin 15.9 uIU/m L 2.6-24 .9 Perfo rmed at: - [facility] [address] [id number] [facility] hospital Lab Direc tor: Maxime sequeira PhD, Phone : [phone] Not Available [facility] (Lab) [address] [place], [address], 04/15/2023 10:13:03 04/14/20 23 04/15/2023 VITAM IN B12 (CHRISTIANNE JOSUE ) vb12 454 pg/mL 239-93 1 Not Available [facility] (Lab) [address] [place], [address], 04/15/2023 20:48:06 04/14/20 23 04/15/2023 FOLAT E, SERUM /PLAS MA folate 6.63 NG/mL 2.76-2 0.0 Not Available [facility] (Lab) [address] [place], [address], 04/15/2023 20:48:07 09/10/19 24 09/10/2023 IRON/ TIBC PANEL total iron binding capacity 467 mcg/d L 265-47 5 Not Available [facility] (Lab) [address] [place], [address], 09/10/2023 23:15:28 09/10/19 24 09/10/2023 IRON/ TIBC PANEL % transferrin saturation 10 % 20-55 low Not Available [facility] (Lab) [address] [place], [address], 09/10/2023 23:15:28 09/10/19 24 09/10/2023 IRON/ TIBC PANEL unsaturated iron bind capacity 418 mcg/d L 126-38 2 high Not Available [facility] (Lab) [address] [place], [address], 09/10/2023 23:15:28 09/10/19 24 09/10/2023 IRON/ TIBC PANEL iron 49 mcg/d L 42-175 Not Available [facility] (Lab) [address] [place], [address], 09/10/2023 23:15:28 09/10/19 24 09/10/2023 TSH thyroid-stim ulating hormone 0.559 uIU/m L 0.465- 4.680 Not Available [facility] (Lab) [address] [place], [address], 09/10/2023 19:38:58 09/10/19 24 09/10/2023 SIMONA TIN ferritin 5 NG/mL 11.1-2 64 low Not Available [facility] (Lab) [address] [place], [address], 09/10/2023 19:39:18 09/10/19 24 09/10/2023 VITAM IN B12 (CHRISTIANNE JOSUE ) vb12 477 pg/mL 239-93 1 Not Available [facility] (Lab) [address] [place], [address], 09/10/2023 20:13:27 09/10/19 24 09/10/2023 FOLAT E, SERUM /PLAS MA folate 10.6 NG/mL 2.76-2 0.0 Not Available [facility] (Lab) [address] [place], [address], 09/10/2023 20:13:29 09/10/19 24 09/10/2023 LIPID PANEL cholesterol 155 mg/dL 140-19 9 NIH DONNELL NSUS RECOM MENDA TION FOR SESAR STERO L: ADULT CHILD LOW RISK: <200 <170 BORDE RLINE : <200- 239 ----- HIGH RISK: >240 >200 Not Available [facility] (Lab) [address] [place], [address], 09/10/2023 22:59:02 09/10/19 24 09/10/2023 LIPID PANEL triglyceride s 173 mg/dL 0-150 high NIH DONNELL NSUS REPOR T RECOM MENDA TION FOR TRIGL YCERI LETY: ADULT CHILD LOW RISK: <150 ----- BODER LINE: 150-1 99 ----- HIGH RISK: >200 ----- Not Available [facility] (Lab) [address] [place], [address], 09/10/2023 22:59:02 09/10/19 24 09/10/2023 LIPID PANEL HDL cholesterol 72 mg/dL 40- Not Available [facility] (Lab) [address] [place], [address], 09/10/2023 22:59:02 09/10/19 24 09/10/2023 LIPID PANEL LDL cholesterol, calculated 48 mg/dL 0-130 NIH DONNELL NSUS REPOR T RECOM MENDA TIONS FOR LDL: ADULT CHILD LOW RISK <130 <110 (OPTI MAL LDL) <100 ----- ARETHA RLINE : 130-1 59 ----- HIGH RISK: >160 >130 A TRIGL YCERI DE RESUL T >400 INVAL IDATE S THE CALCU LATIO N FOR LDL FRACT IONAT ION - THE LDL RESUL T WILL NOT BE REPOR KANG. Not Available [facility] (Lab) [address] [place], [address], 09/10/2023 22:59:02 09/10/19 24 09/10/2023 COMPR EHENS TRISTIAN METAB OLIC PANEL sodium 135 mmol/ L 137-14 5 low Not Available [facility] (Lab) [address] [place], [address], 09/10/2023 22:59:14 09/10/19 24 09/10/2023 COMPR EHENS TRISTIAN METAB OLIC PANEL potassium 4.0 mmol/ L 3.5-5. 1 Not Available [facility] (Lab) [address] [place], [address], 09/10/2023 22:59:14 09/10/19 24 09/10/2023 COMPR EHENS TRISTIAN METAB OLIC PANEL chloride 98 mmol/ L 98-107 Not Available [facility] (Lab) [address] [place], [address], 09/10/2023 22:59:14 09/10/19 24 09/10/2023 COMPR EHENS TRISTIAN METAB OLIC PANEL carbon dioxide 27 mmol/ L 22-30 Not Available [facility] (Lab) [address] [place], [address], 09/10/2023 22:59:14 09/10/19 24 09/10/2023 COMPR EHENS TRISTIAN METAB OLIC PANEL anion gap 14.0 mmol/ L 14-22 Not Available [facility] (Lab) [address] [place], [address], 09/10/2023 22:59:14 09/10/19 24 09/10/2023 COMPR EHENS TRISTIAN METAB OLIC PANEL glucose 110 mg/dL 70-99 high Not Available [facility] (Lab) [address] [place], [address], 09/10/2023 22:59:14 09/10/19 24 09/10/2023 COMPR EHENS TRISTIAN METAB OLIC PANEL BUN 14 mg/dL 8-19 Not Available [facility] (Lab) [address] [place], [address], 09/10/2023 22:59:14 09/10/19 24 09/10/2023 COMPR EHENS TRISTIAN METAB OLIC PANEL creatinine 0.52 mg/dL 0.66-1 .25 low Not Available [facility] (Lab) [address] [place], [address], 09/10/2023 22:59:14 09/10/19 24 09/10/2023 COMPR EHENS TRISTIAN METAB OLIC PANEL GFR >60 Refer ence Range : Narberth ge GFR Healt hy Adult : >60 [...] or ethni c subgr oups, such as Hisjosue nics. Outsi de the valid ated josefina eters , estim ated GFR is less accur ate, requi ring clini joes judgm ent on a case- by-ca se [...] calcu lator is avail able on the [facility] websi te: https :[email or web address] rg/pr ofess ional s/kdo qi/gf r_cal culat or Not Available [facility] (Lab) [address] [place], [address], 09/10/2023 22:59:14 09/10/19 24 09/10/2023 COMPR EHENS TRISTIAN METAB OLIC PANEL alkaline phosphatase 68 U/L 38-126 Not Available [facility] (Lab) [address] [place], [address], 09/10/2023 22:59:14 09/10/19 24 09/10/2023 COMPR EHENS TRISTIAN METAB OLIC PANEL alanine aminotransfe rase 13 U/L 0-35 Not Available [facility] (Lab) [address] [place], [address], 09/10/2023 22:59:14 09/10/19 24 09/10/2023 COMPR EHENS TRISTIAN METAB OLIC PANEL aspartate aminotransfe rase 21 U/L 15-37 Not Available [facility] (Lab) [address] [place], [address], 09/10/2023 22:59:14 09/10/19 24 09/10/2023 COMPR EHENS TRISTIAN METAB OLIC PANEL bilirubin, total 0.10 mg/dL 0.20-1 .30 low Not Available [facility] (Lab) [address] [place], [address], 09/10/2023 22:59:14 09/10/19 24 09/10/2023 COMPR EHENS TRISTIAN METAB OLIC PANEL calcium 9.4 mg/dL 8.4-10 .2 Not Available [facility] (Lab) [address] [place], [address], 09/10/2023 22:59:14 09/10/19 24 09/10/2023 COMPR EHENS TRISTIAN METAB OLIC PANEL total protein 6.7 g/dL 6.3-8. 2 Not Available [facility] (Lab) [address] [place], [address], 09/10/2023 22:59:14 09/10/19 24 09/10/2023 COMPR EHENS TRISTIAN METAB OLIC PANEL albumin 3.9 g/dL 3.4-5. 0 Not Available [facility] (Lab) [address] [place], [address], 09/10/2023 22:59:14 09/10/19 24 09/10/2023 COMPR EHENS TRISTIAN METAB OLIC PANEL globulin 2.8 g/dL 2.6-4. 2 Not Available [facility] (Lab) [address] [place], [address], 09/10/2023 22:59:14 09/10/19 24 09/10/2023 COMPR EHENS TRISTIAN METAB OLIC PANEL A/G ratio 1.4 ratio 1.0-2. 0 Not Available [facility] (Lab) [address] [place], [address], 09/10/2023 22:59:14 09/10/19 24 09/10/2023 MAGNE SIUM magnesium 1.8 mg/dL 1.6-2. 3 Not Available [facility] (Lab) [address] [place], [address], 09/10/2023 22:59:17 06/09/20 XR, lumbo sacra l spine , 4 or more view [facility] [address] [facility] [place] [address] [phone] Patien t Name: BRIELLE CHILD Access ion #: [id number] Sex: F : 1969 5 Dictat [...] at 2022 15:15: 04 PM Page 1 [facility] (Imaging) [address] [place], [address], 08/12/2023 12:41:45 06/29/20 23 06/29/2023 MAMMO , scree quinten, digit al, bilat eral No observ ation record ed. [email or web address] [facility] [address] [place], [address], 08/12/2023 12:41:45 07/08/20 23 07/08/2023 CT, abdom en + pelvi s, w/ contr ast No observ ation record ed. [facility] [address], [place], [address], 08/12/2023 12:41:45 09/10/19 24 05/19/2023 XR, ankle , 3 or more view No observ ation record ed. [email or web address] Not Available 2023 14:56:49 10/04/19 25 09/30/2024 imagi ng/di agnos tic resul t No observ ation record ed. [facility] [address] [facility], [place], [address], 10/04/2024 15:17:35 Result Notes Documentation Provider Name and Address Organization Details Recorded Time Xr, Lumbosacral Spine, 4 Or More View : [facility] [address] [place] [address] Patient Name: BRIELLE EVERETT Sex: F : 1970 Dictated By: Lincoln Wilkes Attending Physician: MARTHA ESCOBEDO Ordering Physician: MARTHA ESCOBEDO Exam Date: 06/09/2023 12:58 PM Exam Name: XR L SPINE 4V+ Admitting Diagnosis(es): INDICATION: Trauma. TECHNIQUE: 5 views of the lumbar spine were obtained. COMPARISON: None. FINDINGS: . There are no fractures or subluxations. Vertebral body heights and disc spaces are well maintained. Paravertebral soft tissues are unremarkable. IMPRESSION: 1. Of the visualized spine, there is no evidence for fracture or subluxation. Page 1 Gary Larsen MD [address] [facility] [address], [place], [address], [facility] [employer] 08/12/2023 12:41:45 Problems Name Problem SNOMED Code Status Onset Date Resolution Date Notes Provider Name and Address Organization Details Recorded Time Chronic neck pain 1862324356214 Active 2021 Not Available [facility] 11/27/202 3 18:26:27 Constipati on 67057332 Active Not Available [facility] 3 18:26:27 Pain of left shoulder joint 2295397338049 9109 Active 2021 Not Available [employer] 3 18:26:27 Pain in throat 947626187 Active Not Available [facility] 3 18:26:27 Ferritin level below reference range 584180020 Active 2016 Not Available [facility] 3 18:26:27 Orbital cellulitis 651402390 Active 2018 Not Available [facility] 3 18:26:27 Asthma 332190887 Active Not Available [facility] 3 18:26:27 Abdominal pain 40748877 Active Not Available [facility] 3 18:26:27 Mixed anxiety and depressive disorder 612316137 Active 2020 Not Available [facility] 3 18:26:27 Mucopurule nt conjunctiv itis 902081873 Active 2018 Not Available [facility] 3 18:26:27 Weight decreased 838241157 Active Not Available [facility] 3 18:26:27 Perimenopa usal disorder 898264197 Active 2021 Not Available [facility] 3 18:26:27 Tenderness of head and neck region 699618890 Active Not Available [facility] 3 18:26:27 Lesion of brain 877651805 Active Not Available [facility] 3 18:26:27 Lymphadeno ruma 80103565 Active 2018 Not Available [facility] 3 18:26:27 Bronchitis 45018254 Active 2021 Not Available [facility] 3 18:26:27 Vitamin D deficiency 85259602 Active Not Available [facility] 3 18:26:27 Abscess of thigh 3453677 Active Not Available [facility] 3 18:26:27 Depressive disorder 65546481 Active Not Available [employer] 3 18:26:27 Primary hyperparat hyroidism 69828320 Active 2020 Not Available [facility] 3 18:26:27 Seasonal allergic rhinitis 917577235 Active 2017 Not Available [facility] 3 18:26:27 Sinusitis 77473433 Active Not Available [facility] 3 18:26:27 Hypertensi ve disorder 97310821 Active Not Available [facility] 3 18:26:27 Fever 019573980 Active Not Available [facility] 3 18:26:27 Cervical spondylosi s 350779165 Active 2021 Not Available [facility] 3 18:26:27 Herpes simplex type 2 infection 934887254 Active 2021 Not Available [facility] 3 18:26:27 Hypothyroi dism 68979686 Active 2021 Not Available [facility] 3 18:26:27 Acute viral disease 414176815 Active Not Available [facility] 3 18:26:27 Obese 447848479 Active 2016 Not Available [facility] 3 18:26:27 Obesity 138257696 Active Not Available [facility] 3 18:26:27 Nausea 851359303 Active Not Available [facility] 3 18:26:27 Cough 48524333 Active Not Available [facility] 3 18:26:27 Essential hypertensi on 87713753 Active Not Available [facility] 3 18:26:27 History of bariatric surgical procedure 152728545 Active 2016 Not Available [facility] 3 18:26:27 Hyperparat hyroidism 64442502 Active 2021 Not Available [facility] 3 18:26:28 Rhinitis 47233209 Active Not Available [facility] 3 18:26:28 Cholelithi asis without obstructio n 42144548 Active Not Available [facility] 3 18:26:28 Candidiasi s of vagina 71858250 Active Not Available [facility] 3 18:26:28 Hyperglyce lizeth 93883385 Active Not Available [facility] 3 18:26:28 Neck pain 61461083 Active 2021 Not Available [facility] 3 18:26:28 COVID-19 277489645 Active 2021 Not Available [facility] 3 18:26:28 Fatigue 60301261 Active Not Available [facility] 3 18:26:28 Conjunctiv itis 0572426 Active 2018 Not Available [facility] 3 18:26:28 Restless legs 33462945 Active 2022 Not Available [facility] 3 18:26:27 Prediabete s 937182744 Active 2022 Not Available [facility] 3 18:26:28 Vitamin B12 deficiency (non anemic) 97070972 Active 2022 Not Available [facility] 3 18:26:28 Vaginal vault infection 044725054 Active 2022 Not Available [facility] 3 18:26:27 Well controlled type 2 diabetes mellitus 315807629 Active 2022 Not Available [facility] 3 18:26:27 Pain in bilateral legs 7830390961557 9108 Active 2022 Not Available [facility] 3 18:26:27 Posttrauma tic stress disorder 26466652 Active 2022 Gary Larsen MD [address], [place], [address] , [employer] 3 12:34:38 Anxiety disorder 190421323 Active 2022 Gary Larsen MD [address], [place], [address] , [facility] 3 12:35:52 History of total hysterecto my 158364839 Active 2022 Gary Larsen MD [address], [place], [address] , [facility] 3 12:47:57 Anemia 263050253 Active 2023 Tanya Pavon null, [facility] 4 14:33:25 Arthritis 8949756 Active 2023 Tanya Pavon null, [facility] 4 14:33:35 Disorder of parathyroi d gland 64098344 Active 2023 Tanya Pavon null, [facility] 4 14:34:42 Disorder of thyroid gland 56380580 Active 2023 Tanya Pavon null, [facility] 4 14:35:02 Sleep disorder 73491009 Active 2023 Tanya Pavon null, [facility] 4 14:35:12 Bunion 205973370 Active 2023 Baljit Michaels DPM [address], [place], [address] , [facility] 4 14:48:42 Bilateral plantar fasciitis 3375917553906 9108 Active 2023 Baljit Michaels DPM [address], [address], [place], [address] , [facility] 4 14:48:48 Pain in both feet 8255327108347 9102 Active 2023 Baljit Michaels DPM [address], [place], [address] , [facility] 4 14:49:42 Bunion 103566945 Active 2023 Baljit Michaels DPM [address], [place], [address] , [facility] 4 14:49:58 Pain in right foot [id number] 07 Active 2023 Baljit Michaels DPM [address], [address], [place], [address] , [facility] 4 16:27:22 Problem Notes None recorded. Procedures Surgical History Date Name Laterality Status Provider Name and Address Organization Details Recorded Time 09/10/19 24 Plantar Fascia Injection Right Foot completed Baljit Michaels DPM [address], [address], [place], [address], [facility] 09/10/2023 14:52:31 06/29/20 23 Most Recent Mammogram completed Martha Escobedo NP [address], [address], [place], [address], [facility] 06/30/2023 18:37:23 01/06/20 23 Date of Last Pap Smear completed Gary Larsen MD [address], [address], [place], [address], [facility] 08/12/2023 12:41:08 08/24/19 23 Hysterectomy completed Martha Escobedo NP [address], [address], [place], [address], [facility] 07/09/2023 07:46:11 04/11/20 22 Date of Last Mammogram completed Gary Larsen MD [address], [place], [address], [facility] 08/12/2023 12:41:08 08/15/20 21 Most Recent Bone Density completed Not Available [facility] 10/22/2022 02:39:58 10/30/19 21 Gastric bypass for obesity completed Not Available [facility] 10/22/2022 02:40:06 10/11/19 19 Endoscopy completed Not Available [facility] 10/22/2022 02:40:06 04/08/20 18 Date of Last Colonoscopy completed Not Available [facility] 10/22/2022 02:39:58 01/09/20 15 Colonoscopy completed Not Available [facility] 10/22/2022 02:40:06 08/31/19 15 laparoscopic sleeve gastrectomy completed Not Available [facility] 10/22/2022 02:40:06 06/28/20 13 Cholecystectomy completed Not Available [facility] 10/22/2022 02:40:06 Hernia Repair completed Not Available [facility] 10/22/2022 02:40:06 Orthopedic surgery ss completed Not Available [facility] 10/22/2022 02:40:06 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 Procedure Notes None recorded. Medical Equipment None Reported. Allergies Allergen ID Allergen Name Allergen Category Reaction Reaction Severity Criticality Documentation Date Start Date Code Code System Note Provider Name and Address Organization Details Recorded Time 4986 Zoloft medicatio n rash Not available Not available 10/22/2022 23907 RxNorm Not Available [facility] 3 03:06:00 4987 Product containin g penicilli n (product) medicatio n hives Not available Not available 10/22/2022 92936 8001 SNOMED Not Available [facility] 3 03:06:00 4988 clarithro mycin medicatio n rash Not available Not available 10/22/2022 42935 RxNorm Z-Pac k Not Available [facility] 3 03:06:00 4989 Adipex-P medicatio n other Not available Not available 10/22/20222020 332 RxNorm tremo rs, anxie ty, nervo usnes s Not Available [facility] 3 03:06:01 Medications Name Sig Start Date [...] Luer-Philip Syringe 3 mL 25 x 1 1/2 11/13 completed Not Available Not Available Not [...] administe red by the provider 11/27 completed [facility]: [id number] [phone] Not Available Not Available Not [...] t Available Prevalite 4 gram powder for suspension in a packet DISSOLVE TWO PACKETS INTO [...] Available Not Available No t Available Fluzone 0860-5025 45 mcg (15 mcg x 3)/0.5 mL [...] Not Available No t Available Fluzone Quad (PF) 60 mcg (15 [...] Updated DateTime 09/10/2023 160.02 cm 38.1 kg/m2 44276.36 g Tanya VICTOR - [employer] 09/10/2023 14:28:28 Date Recorded Heart rate Respiratory rate Oxygen saturation Oxygen saturation in Arterial blood by Pulse oximetry Systolic blood pressure Diastolic blood pressure Provider Name and Address Organization Details Last Updated DateTime 86 /min 14 /min 99 % 99 % 118 mm[Hg] 68 mm[Hg] Ani Amaya [facility] [employer] 4 14:30:19 Date Recorded Body height Body mass index (BMI) Body weight Heart rate Respiratory rate Oxygen saturation Oxygen saturation in Arterial blood by Pulse oximetry Systolic blood pressure Diastolic blood pressure Provider Name and Address Organization Details Last Updated DateTime 4 160.02 cm 38.1 kg/m2 55779.3 6 g 99 /min 14 /min 99 % 99 % 117 mm[Hg] 76 mm[Hg] Ani Amaya [facility] [employer] 4 15:02:53 Date Recorded Body height Body mass index (BMI) Body weight Provider Name and Address Organization Details Last Updated DateTime 04/22/2023 160.02 cm 37.8 kg/m2 55253.61 g Marbella Anita [facility] [employer] 04/22/2023 11:53:44 Date Recorded Body height Body mass index (BMI) Body weight Body temperature Heart rate Respiratory rate Oxygen saturation Oxygen saturation in Arterial blood by Pulse oximetry Systolic blood pressure Diastolic blood pressure Provider Name and Address Organization Details Last Updated DateTime 3 160.02 cm 37.2 kg/m2 70590.1 g 96.3 [degF] 80 /min 16 /min 97 % 97 % 130 mm[Hg] 90 mm[Hg] Martha Thakkar RN [facility] [employer] 3 08:57:08 Date Recorded Body height Body mass index (BMI) Body weight Body temperature Heart rate Respiratory rate Oxygen saturation Oxygen saturation in Arterial blood by Pulse oximetry Systolic blood pressure Diastolic blood pressure Provider Name and Address Organization Details Last Updated DateTime 3 160.02 cm 36.9 kg/m2 13531.9 1 g 97.5 [degF] 78 /min 20 /min 98 % 98 % 126 mm[Hg] 86 mm[Hg] Rusty Combs [facility] [employer] 3 12:26:47 Social History Question Answer Notes LastModified by Organizat ion Details LastModified Time Tobacco Smoking Status Never Smoker mila matta [facility] 04/22/2023 11:34:55 Do You Have An Advance Directive? No [id number] Information not available 10/22/2022 Do You Wear A Helmet When Biking? No [email or web address] Information not available 04/22/2023 Is Blood Transfusion Acceptable In An Emergency? Yes [email or web address] Information not available 04/22/2023 What Is Your Level Of Caffeine Consumption? Moderate Coffee Tea Information not available 05/26/2023 How Much Tobacco Do You Chew? None [id number] Information not available 10/22/2022 What Is Your Code Status? Full Code [email or web address] Information not available 04/22/2023 In The 14 Days Before Symptom Onset, Have You Had Close Contact With A Laboratory-confi rmed COVID-19 While That Case Was Ill? No [email or web address] Information not available 04/22/2023 In The 14 Days Before Symptom Onset, Have You Had Close Contact With A Person Who Is Under Investigation For COVID-19 While That Person Was Ill? No [email or web address] Information not available 04/22/2023 What Type Of Diet Are You Following? REGULAR [id number] Information not available 10/22/2022 How Many Days Of Moderate To Strenuous Exercise, Like A Brisk Walk, Did You Do In The Last 7 Days? 4 [email or web address] Information not available 04/22/2023 On Those Days That You Engage In Moderate To Strenuous Exercise, How Many Minutes, On Average, Do You Exercise? 30 [email or web address] Information not available 04/22/2023 Have There Been Any Changes To Your Family Or Social Situation? No [email or web address] Information not available 04/22/2023 Are There Any Guns Present In Your Home? No [email or web address] Information not available 04/22/2023 Do You Use Insect Repellent Routinely? No [email or web address] Information not available 04/22/2023 Where Do You Live? SingleLevelHouse [email or web address] Information not available 04/22/2023 Do You Have A Medical Power Of Badger Distiller Operator? No [email or web address] Information not available 04/22/2023 What Was The Date Of Your Most Recent Tobacco Screening? 09/10/2022 [email or web address] Information not available 04/22/2023 How Many Children Do You Have? 0 [email or web address] Information not available 04/22/2023 Do You Have Any Pets? Yes [email or web address] Information not available 04/22/2023 What Is Your Relationship Status? [id number] Information not available 10/22/2022 Do You Use Your Seat Belt Or Car Seat Routinely? Yes [email or web address] Information not available 04/22/2023 Do You Have Smoke And Carbon Monoxide Detectors In Your Home? Yes [email or web address] Information not available 04/22/2023 Are You Passively Exposed To Smoke? No [email or web address] Information not available 04/22/2023 Are There Any Smokers In Your House? No [email or web address] Information not available 04/22/2023 How Much Tobacco Do You Smoke? No MIGRATION.[id number] Information not available 10/22/2022 Do You Participate In Social Media? No [email or web address] Information not available 04/22/2023 What Types Of Sporting Activities Do You Participate In? Walking Information not available 04/22/2023 Do You Use Sunscreen Routinely? No [email or web address] Information not available 04/22/2023 Has Tobacco Cessation Counseling Been Provided? No Information not available 04/22/2023 Have You Recently Traveled Abroad? No [email or web address] Information not available 04/22/2023 Are You Currently In School? No Information not available 04/22/2023 Do You Have Any Dietary Restrictions? No [email or web address] Information not available 04/22/2023 Sex: Female Functional Status Question Answer Note LastModified by Organizat ion Details LastModified Time Do you use any illicit or recreational drugs? No [email or web address] Information not available 04/22/2023 Do you or have you ever used any other forms of tobacco or nicotine? No [email or web address] Information not available 04/22/2023 What is your level of alcohol consumption? None [id number] Information not available 10/22/2022 Do you or have you ever used smokeless tobacco? Never used smokeless tobacco MIGRATION.[id number] 026 Information not available 10/22/2022 Are you currently employed? 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 Moderate Information not available 11/27/2022 Mental Status Question Answer Note LastModified by Organization D etails LastModified Time Do you feel stressed (tense, restless, nervous, or anxious, or unable to sleep at night)? [id number] Information not available 05/26/2023 Family History Relationship Description Onset Age of this Age Resolved Age Notes LastModified by Organization Details LastModified Time Mother Diabetes mellitus [id number].124 [id number] Not available 10/22/2022 02:40:10 Mother Depressive disorder MIGRATION.951 [id number] Not available 10/22/2022 02:40:10 Mother Asthma MIGRATION.285 [id number] Not available 10/22/2022 02:40:10 Mother Hypertensive disorder MIGRATION.774 [id number] Not available 10/22/2022 02:40:10 Mother Blood pressure finding [email or web address] Not available 04/22 11:34:54 Mother Anemia Not available 04/22/2023 11:34:54 Mother Arthritis [email or web address] Not available 09/10/2023 14:35:34 Unspecified Relation Complication of anesthesia [email or web address] Not available 03/26 11:34:54 Father Hyperlipidem ia [email or web address] Not available 04/22 11:34:54 Father Cerebrovascu lar accident [email or web address] Not available 11:34:54 Father Hypertensive disorder MIGRATION.956 [id number] Not available 10/22/2022 02:40:11 Maternal Grandfather Heart disease MIGRATION.383 [id number] Not available 10/22/2022 02:40:11 Maternal Grandmother Hypertensive disorder MIGRATION.039 [id number] Not available 10/22/2022 02:40:11 Maternal Grandmother Depressive disorder MIGRATION.998 [id number] Not available 10/22/2022 02:40:11 Maternal Grandmother Diabetes mellitus MIGRATION.036 [id number] Not available 10/22/2022 02:40:11 Medical History Condition Response BLINDNESS N RHEUMATIC FEVER N KIDNEY STONES N BLADDER PROBLEMS N MRSA N OTHER # 1 N POLIO N LUNG DISEASE/DISORDER Y HISTORY OF DRUG ABUSE N RADIATION / CHEMOTHERAPY N COPD N Other # 2 N BLOOD DISEASES N SURGERY N EAR OR HEARING PROBLEMS N MUMPS N SHINGLES Y FEMALE PROBLEMS / INFECTIONS Y BOWEL PROBLEMS N DEPRESSION (INCLUDING POST ) Y STROKE/TIA N THYROID DISEASE Y ULCERS N BENIGN PROSTATIC HYPERPLASIA N MEASLES N CERVICALGIA N TB SKIN TEST N HYPOTENSION N MYOCARDIAL INFARCTION N PARAPELGIA N OBESITY Y GERD/NAUSEA N ANEURYSM N URINARY/BLADDER/KIDNEY PROBLEMS N [...] N EDEMA N CHRONIC PAIN SYNDROME N CONSTIPATION N CAROTID BLOCKAGE N BACK / NECK PROBLEMS N HAVE YOU BEEN HOSPITALIZED OR SEEN IN [facility] IN THE PAST YEAR ? N ATHEROSCLEROSIS [...] Recorded Time Tdap 3 completed Not Available [facility] 07/20/2023 18:26:28 Pneumococcal conjugate PCV20, polysaccharide [id number] conjugate, adjuvant, PF 3 completed Not Available [facility] 07/20/2023 18:26:28 influenza nasal, unspecified formulation 3 completed Not Available [facility] 07/20/2023 18:26:28 COVID-19, mRNA, LNP-S, PF, 100 mcg/0.5mL dose or 50 mcg/0.25mL dose 2 completed Not Available [facility] 07/20/2023 18:26:28 zoster, unspecified formulation 2 completed Not Available [facility] 07/20/2023 18:26:28 COVID-19 Non-US Vaccine, Product Unknown 1 completed Not Available [facility] 07/20/2023 18:26:28 SARS-COV-2 (COVID-19) vaccine, UNSPECIFIED 1 completed Not Available [facility] 07/20/2023 18:26:28 Influenza, split virus, quadrivalent, preservative 0 completed Not Available [facility] 07/20/2023 18:26:28 Influenza, split virus, trivalent, preservative 6 completed Not Available [facility] 07/20/2023 18:26:28 Influenza, split virus, trivalent, preservative 5 completed Not Available [facility] 07/20/2023 18:26:28 Influenza, high-dose, trivalent, PF 4 completed Not Available [facility] 07/20/2023 18:26:28 Influenza, split virus, trivalent, preservative 3 completed Not Available [facility] 07/20/2023 18:26:28 DTaP 6 completed Not Available [facility] 07/20/2023 18:26:28 Tdap 6 completed Not Available [facility] 07/20/2023 18:26:28 Influenza, split virus, quadrivalent, PF 1 completed Not Available [facility] 07/20/2023 18:26:28 Past Encounters Encounter ID Performer Location Encounter Start Date Encounter Closed Date Diagnosis/Indication Diagnosis SNOMED-CT Code Diagnosis ICD10 Code Diagnosis Note [id number] Gary Larsen MD [facility] [address] [facility] [place] [address] 11/13/2020 00:00:00 11/13/2020 15:24:24 [id number] [facility] MD [facility] [address] [place] [address] 04/18/2021 00:00:00 04/18/2021 08:26:19 [id number] Gary Larsen MD [facility] [address] [place] [place] [address] 05/21/2021 00:00:00 05/21/2021 11:56:19 [id number] [facility] [address] [place] [address] 05/29/2021 00:00:00 05/29/2021 12:39:18 [id number] Gary Larsen MD [facility] [address] [place] [place] [address] 08/13/2021 00:00:00 08/13/2021 12:58:48 [id number] Gary Larsen MD [facility] [address] [place] [address] 09/19/2021 00:00:00 09/19/2021 16:22:01 [id number] Ailyn Olmstead MD [facility] [address] [place] [address] 09/20/2021 00:00:00 09/20/2021 10:55:48 [id number] [facility] [address] [place] [address] 09/27/2021 00:00:00 09/27/2021 11:08:58 [id number] Gary Larsen MD [facility] [address] [place] [address] 10/14/2021 00:00:00 10/14/2021 15:44:10 [id number] Bk Treadwell MD [facility] [address] [place] [address] 11/04/2021 00:00:00 11/04/2021 10:47:23 [id number] [facility] [place] [address] [place] [address] 11/12/2021 00:00:00 11/12/2021 10:22:41 [id number] [facility] [place] [address] [place] [address] 01/28/2022 00:00:00 01/28/2022 10:01:21 [id number] Gary Larsen MD [facility] [address] [place] [address] 02/04/2022 00:00:00 02/04/2022 11:41:25 [id number] Martha Escobedo NP [facility] [address] [address] 05/15/2022 00:00:00 05/15/2022 12:49:20 [id number] Gary Larsen MD [facility] [address] [address] 07/24/2022 00:00:00 07/24/2022 11:57:32 [id number] Ang Melissa MD [facility] [address] [place] [address] 09/10/2022 00:00:00 09/10/2022 14:30:37 [id number] Ailyn Olmstead MD [facility] [place] [address] [place] [address] 09/11/2022 00:00:00 09/11/2022 12:14:06 [id number] Martha Escobedo NP [facility] [address] 11/27/2022 13:55:35 11/27/2022 14:33:31 Restless legs 00550493 G25.81 Lyrica 75 mg bidRopinir ole at night. Hypothyroidism 43077508 E03.9 Synthroid [id number] Gary Larsen MD [address] [address] 12/29/2022 11:50:08 12/29/2022 13:55:41 COVID-19 345460387 U07.1 Asthma 596293982 J45.90 9 Cough 69150668 R05.9 Fatigue 88156809 R53.83 [id number] Ailyn Olmstead MD [facility] [place] [address] [place] [address] 04/22/2023 11:31:48 04/22/2023 12:29:38 Prediabetes 943350247 R73.03 a1c of 5.2% in ideal range- encouraged proper macronutri ent intake as patient is eating low protein intake. Continue on metformin with largest meal and she can take a protein shake if she is not able to get her 110-120 grams of protein in through meals. Recommende d she incorporat e natural insulin director of land s such as pears, apples, cinnamon, yandy and sweet potatoes to help mobilize her endogenous insulin. Recommende d up to 150 minutes of moderate level activity/e xercise weekly. Hypothyroidism 37511601 E03.9 FT4 /TSH in range- continue on [...] minerals and reduce inflammati on. Restless legs 62121202 G 25.81 WIll uptitrate lyrica to 100 [...] answered and refills necessary at visit today. [id number] Martha Escobedo NP [address] [address] 05/26/2023 08:41:44 05/26/2023 18:01:40 Hyperparathyroidism 23199738 E21.[address] Olmstead leaving [place]. Vitamin B1 2 deficiency (non anemic) 78255482 E53.8 on supplement . History of bariatric surgical procedure 128035988 Z98.84 B12 injection weekly per endo. Essential hypertension 32247105 I10 Stable.Lis inopril 20 mg-hctz 12.5 mg po daily. Obese 751110091 E66.9 Diet and exercise encouraged . Hypothyroidism 79141679 E03.9 Synthroid 50 mcg po daily.Endo referralLa b 03/2023 ok. 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 [id number] Gary Larsen MD [address] [address] 08/12/2023 12:21:42 08/12/2023 12:54:21 Posttraumatic stress disorder 74585231 F43.10 Depressive disorder 3548 9007 F32.A Anxiety disorder 0410260 06 F41.9 Obesity 050721572 E66.9 History of total hysterectomy 381367205 Z90.710 06/15 Hypothyroidism 99580816 E03.9 [id number] Baljit Michaels DPM [facility] [place] [address] [place] [address] 0 09/10/2023 14:23:42 09/10/2023 15:25:26 Pain in both feet 3217614504 2110758 M79.671 M79.672 obtain bilateral foot x-rays secondary to painfollow -up x-rays Bunion 612252809 M21.61 1 M21.612 educated on conditiont reatment options briefly reviewedOb tain standing x-rays to review treatment options surgically follow-up to review x-rays Bilateral plantar fasciitis 0099001255 2986939 M72.2 right heel injection 09-10-23pos sible left injection to heel, at next visitcont supportive shoe gearStretc warner and icing instructio ns reviewedFo llow-up in 1 month [id number] Baljit Michaels DPM [facility] [place] [address] [place] [address] 10/08/2023 14:56:52 10/12/2023 09:51:59 Bilateral plantar fasciitis 0023303968 8257859 M72.2 right heel injection 09-10-23rx pt therapypos sible left injection to heel, at next visitcont supportive shoe gearStretc warner and icing instructio ns reviewedFo llow-up in 1 month Pain in both feet 979853 1059 3027967 M79.671 M79.672 obtain bilateral foot x-rays secondary to painfollow -up x-rays Pain in right foot 53443 13669 56345 M79.671 Health Concerns Section Related Observation LastModified by Organization Detai ls LastModified Time None Recorded Concern Status LastModified by Organization Details LastModified Time None Recorded Advance Directives Directive N: Payers Insurance Date Sequence Insurance Name Policy Number Policy Mcpherson Covered Member ID Mcpherson Member ID Guarantor Name 10/12/2023 1 [place] (PP[place]) [id number] R Brielle Everett [id number] Brielle Everett Notes Date Note Type Note Provider Name [...] of 3.7 pg/mL182/187/48/97gl ucose 86 mg/dLCr normalLFT rpmcuvu9i of 5.2% Ailyn Olmstead MD [address] [facility], [facility] [address], [place], [address], [place] [employer] 04/22/2023 12:31:21 05/26/2023 text/html Here for discuss [...] on progesterone. Will have Procedure done at [place]. Dr. 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 Martha Escobedo NP [address], [place], [address], [facility] 05/28/2023 10:25:38 08/12/2023 text/html ACV: C/o PTSD [...] Pt is still f/u with [facility] at [place] for this Pt is on Cymbalta and Buspirone for her depression and anxiety. Denies any mood swings/SI/HI. Gary Larsen MD [address], [place], [address], [facility] 08/12/2023 12:49:13 09/10/2023 text/html . Patient is [...] Michaels DPM [address], [place], [address], [facility] 09/10/2023 15:02:09 10/08/2023 text/html Patient is a [...] any other complaints. Baljit Michaels DPM [address] [facility], [facility] [address], [place], [address], [place] [facility] 10/12/2023 08:28:10 OBGyn Episode No OBEpisode recorded.
--- OUTSIDE RECORDS SUMMARY | 2025-02-22 12:55 | XMS_ITS | Continuity of Care Document ---
Author Name [facility] Address [address] [place] [address] Organization [facility] Care Team Providers Care Drop Hammer Pile Driver Operator Name Role Phone [facility] Unavailable Unavailable Problems Problem Status Onset [...] Date Status Source POC POC NO TECHBILL [id number] 3-8 NURSE PHONE CALL [facility] [id number] 1 [place] SLEEVE-R YGB 10/29/20 [facility]AMP[facility] [id number] TEXT-1 [place] SLEEVE-R YGB 10/29/20 CAMPOS [place] [facility] Procedures Procedure Code Date Perfomer Comments Source lipoma left [facility]
--- OUTSIDE RECORDS SUMMARY | 2025-02-22 12:55 | XMS_ITS | Referral Summary ---
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 Not on file Not on file No t on file Last Filed Vital Signs Vital Sign Reading Time Taken Comments Blood Pressure 121/81 11/02/2019 1:51 PM CDT Pulse 98 11/02/2019 1:51 PM CDT Temperature 36.9 C (98.4 F) 10/25/2019 2:14 PM INK PRINTER Respiratory Rate 16 10/25/2019 2:14 PM INK PRINTER Oxygen Saturation 98% 11/02/2019 1:51 PM CDT Inhaled Oxygen Concentration - - Weight 98.1 kg (216 lb 3.2 oz) 11/09/2019 1:29 P M CDT Height 162 cm (5' 3.78) 10/25/2019 2:14 PM INK PRINTER Body Mass Index 37.37 10/25/2019 2:14 PM INK PRINTER Plan of Treatment Not on file Insurance [facility] Care Teams Bar Staff Relationship Specialty Start Date End Date Martha Raygoza NP PCP - General Nurse Practitioner 09/27/19 Ryley Torres DO Medical Oncologist/Maintenance Painter Hematology and Oncology 11/23/19
--- OUTSIDE RECORDS SUMMARY | 2025-02-22 12:55 | XMS_ITS | Clinical Summary ---
Author Organization [facility] Address [address] [place] [address] Phone Care Team Providers Care Healthcare Market Consultant Name Role Phone Unavailable Primary Care Provider [...] Take 60 mg by mouth daily. Active lisinopril-hyd roCHLOROthiazi de (ZESTORETIC) 20-12.5 mg tablet Take 1 Tablet by mouth daily. 10/25/19 23 Active pregabalin (LYRICA) 75 mg Capsule Take [...] 4 mg by mouth daily at bedtime. 04/01/20 24 Active semaglutide, weight loss, (WEGOVY) 0.5 mg/0.5 mL Pen Injector Inject 0.75 mg by subcutaneous injection every 7 days. Active potassium CHLORIDE (KLOR-CON M10) 10 mEq Extended Release tablet Take 1 tablet by mouth once daily 30 Tablet 02/07/20 25 Active potassium CHLORIDE (KLOR-CON M10) 10 mEq Extended Release tablet Take 1 Tablet (10 mEq) by mouth daily. 30 Tablet 01/10/20 25 025 Discontinued Active Problems No known active problems Encounters Date Type Department Care Team Description 02/07/2025 External Device Data [facility] ABSTRACTION Provider, Abstract [facility] Oncology and Hematology [address] [address] [place] [address] Niall Sanchez MD 01/12/2025 External Device Data [facility] ABSTRACTION Provider, Abstract 01/10/2025 External Device Data [facility] ABSTRACTION Provider, Abstract 01/09/2025 [facility] Oncology and Hematology [address] [place] [address] Niall Sanchez MD 12/27/2024 External Device Data STL ABSTRACTION Provider, Abstract [...] on file Legal Sex Female 2:49 PM VENETIAN BL[employer] T[employer]TER Gender Identity Not on file Sexual Orientation [...] 1:06 PM CDT Height 160 cm (5' 3) 09/22/2023 10:33 AM VENETIAN BL[employer] T[employer] C[employer]TER Body Mass Index 35.25 09/22/2023 10:33 AM VENETIAN BLIND TAPE CUTTER Plan of Treatment Upcoming Encounters Date Type Department Care Team (Late st Contact Info) Description 03/01/2025 3:30 PM CDT Office Visit [facility] Oncology and Hematology - [place] [address] [facility] [address] [place] [address] Niall Sanchez MD [address] [facility] [address] [place] [address] Health Maintenance Due Date Last Done Comments Pre-Diabetes and Diabetes Screening 1970 HEPATITIS B VACCINES (1 of 3 - 19+ 3-dose series) 1989 BREAST CANCER SCREENING 2010 FIT-DNA Q 3 years 2015 FIT/FOBT Q 1 year 2015 Flex Sig/CT Colonography Q 5 years 2015 ZOSTER VACCINE (1 of 2) 2020 COVID-19 Vaccine (2 - 2023-2 5 season) 2024 10/28/2021 Preventative Visit- Commercial 08/24/2024 INFLUENZA VACCINE (#1) 2025 3, 05/21/2021, 06/09/2020, Additional history exists COLORECTAL SCREENING 04/08/2028 04/08/2018 Colorectal Cancer Screening 04/08/2028 DTAP/TDAP/TD VACCINES (4 - T d or Tdap) 10/26/2032 10/26/2022, 02/28/2016, 08/24/2005 Insurance [facility] [employer]
--- OUTSIDE RECORDS SUMMARY | 2025-02-22 12:55 | XMS_ITS | Data Portability ---
Author Organization [facility] Address [address] [place] [address] [place] [address] Care Team Providers Care Winter Intern Name Role Phone CALDERON ALEJO Primary Care Provider [phone] Assessment Encounter Date Assessment Date Assessment LastModified by Organization Details LastModified Time 07/27/2024 07/27/2024 Annual gynecological exam performed. Patient will come back in a year unless there are new symptoms. [email or web address] Not available 07/27/2024 09:49:00 Plan of Treatment Reminders Order Date Submit Date Provider Last Modified By Organization Details Last Modified Time Details Appointments None recorded. Lab unlisted lab - women's health swab, ARTHUR 2023 [facility] (Lab), [address], [place], [address], 20:50:50 unlisted lab - women's health swab plus, ARTHUR 2023 024 [facility] (Lab), [address], [place], [address], 03:59:05 urinalysis, dipstick 2023 [email or web address] [place], [address], [address], [place], [address], 15:43:55 culture, urine 2023 024 [facility] (Lab), [address], [place], [address], 4 03:59:05 culture, urine 2023 024 [facility] (Lab), [address], [place], [address], 4 06:32:24 urinalysis, dipstick [address], [facility] [address], [place], [address], 4 16:42:21 Referral None recorded. Procedures None recorded. Surgeries None recorded. Imaging MAMMO, screening, digital, bilateral 2023 024 [facility], [address] [place] [address] , [place], [address], 5 05:01:04 Medication Orders fluconazole 150 mg tablet 2023 024 [facility] [address] [place], [address], 4 10:19:06 estradiol 0.01% (0.1 mg/gram) vaginal cream 2023 024 [facility] [address] [place], [address], 4 10:18:00 estradiol 2 mg tablet 2023 024 [facility] [address] [place], [address], 4 10:17:59 fluconazole 150 mg tablet [email or web address] [place] [address] Pharm[address] [place], [address], 4 09:58:13 Diflucan 150 mg tablet 2023 024 [email or web address] [facility] [address] [place], [address], 09:58:13 estradiol 0.01% (0.1 mg/gram) vaginal cream 2023 024 [facility] [address] [place], [address], 15:25:00 Patient TargetsNo targets recorded. Patient InstructionsNo instructions recorded. Reason for Referral None Reported. Results Created Date Observation Date Name Description Value Unit Range Abnormal Flag Note LastModifiedBy Organization Detail LastModifiedTime 11/17/1911/17/2023 VAGIN ITIS/ VAGIN OSIS, DNA PROBE boyd sp. detection, direct probe Negati ve negati ve Not Available [facility] (Lab) [address] [place], [address], 11/18/2023 13:02:09 11/17/19 24 11/17/2023 VAGIN ITIS/ VAGIN OSIS, DNA PROBE gardnerella vag. detection, direct probe Positi ve negati ve abnormal Not Available [facility] (Lab) [address] [place], [address], 11/18/2023 13:02:09 11/17/19 24 11/17/2023 VAGIN ITIS/ VAGIN OSIS, DNA PROBE trichomonas vag. detection, direct probe Negati ve negati ve Not Available [facility] (Lab) [address] [place], [address], 11/18/2023 13:02:09 12/01/19 24 12/01/2023 VAGIN ITIS/ VAGIN OSIS, DNA PROBE boyd sp. detection, direct probe Positi ve negati ve abnormal Not Available [facility] (Lab) [address] [place], [address], 12/02/2023 12:21:22 12/01/19 24 12/01/2023 VAGIN ITIS/ VAGIN OSIS, DNA PROBE gardnerella vag. detection, direct probe Positi ve negati ve abnormal Not Available [facility] (Lab) [address], [place], [address], 12/02/2023 12:21:22 12/01/19 24 12/01/2023 VAGIN ITIS/ VAGIN OSIS, DNA PROBE trichomonas vag. detection, direct probe Negati ve negati ve Not Available [facility] (Lab) [address], [place], [address], 12/02/2023 12:21:22 12/17/19 24 12/17/2023 urina lysis , dipst ick Blood trace Not Available [place] [address], [place], [address], 12/17/2023 16:42:10 01/04/20 24 01/04/2024 VAGIN ITIS/ VAGIN OSIS, DNA PROBE boyd sp. detection, direct probe Positi ve negati ve abnormal Not Available [facility] (Lab) [address], [place], [address], 01/05/2024 10:58:42 01/04/20 24 01/04/2024 VAGIN ITIS/ VAGIN OSIS, DNA PROBE gardnerella vag. detection, direct probe Positi ve negati ve abnormal Not Available [facility] (Lab) [address], [place], [address], 01/05/2024 10:58:42 01/04/20 24 01/04/2024 VAGIN ITIS/ VAGIN OSIS, DNA PROBE trichomonas vag. detection, direct probe Negati ve negati ve Not Available [facility] (Lab) [address], [place], [address], 01/05/2024 10:58:42 01/12/20 24 01/12/2024 CULTU RE: URINE result report SEE RESULT S BELOW Test: Cultu re: Urine Speci men Sourc e: Urine - Clean Catch Speci men Type: Urine Speci men Date: 2023 1:18 PM Resul t Date: 2023 5:27 AM Resul t Statu s: Final resul t Abnor mal: No Natalie lozada Lab: [facility] [address] [facility] [address] Tel: CULTU RE ----- ----- ----- --- No growt h in 1 day (dete ction level of 10,00 0 colon ies / ml.) Not Available [facility] (Lab) [address] [place], [address], 01/14/2024 06:32:24 06/22/20 24 06/22/2024 WOMEN 'S HEALT H SWAB PLUS, ARTHUR bacterial vaginosis (bv), tma Negati ve negati ve Not Available [facility] (Lab) [address] [place], [address], 06/24/2024 03:59:05 06/22/20 24 06/22/2024 WOMEN 'S HEALT H SWAB PLUS, ARTHUR boyd species, tma Negati ve negati ve Not Available [facility] (Lab) [address] [place], [address], 06/24/2024 03:59:05 06/22/20 24 06/22/2024 WOMEN 'S HEALT H SWAB PLUS, ARTHUR boyd glabrata, tma Negati ve negati ve Not Available [facility] (Lab) [address] [place], [address], 06/24/2024 03:59:05 06/22/20 24 06/22/2024 WOMEN 'S HEALT H SWAB PLUS, ARTHUR trichomonas vaginalis, tma Negati ve negati ve Not Available [facility] (Lab) [address] [place], [address], 06/24/2024 03:59:05 06/22/20 24 06/22/2024 WOMEN 'S HEALT H SWAB PLUS, ARTHUR chlamydia trachomatis, PCR Negati ve negati ve Not Available [facility] (Lab) [address], [place], [address], 06/24/2024 03:59:05 06/22/20 24 06/22/2024 WOMEN 'S [...] ded in this panel . Not Available [facility] (Lab) [address], [place], [address], 06/24/2024 03:59:05 06/22/20 24 06/22/2024 CULTU RE: URINE result report SEE RESULT S BELOW Test: Cultu re: Urine Speci men Sourc e: Urine - Clean Catch Speci men Type: Urine Speci men Date: 06/22 1511 Resul t Date: 2023 0255 Resul t Statu s: Final resul t Abnor mal: No Resul ting Lab: [facility] [address] [facility] [address] Tel: CULTU RE ----- ----- ----- --- No growt h in 1 day (dete ction level of 10,00 0 colon ies / ml.) Not Available [facility] (Lab) [address], [place], [address], 06/24/2024 03:59:05 06/22/20 24 06/22/2024 urina lysis , dipst ick Leukocytes - Not Available [facility] [address], [place], [address], 06/22/2024 15:30:31 06/22/20 24 06/22/2024 urina lysis , dipst ick Nitrite - Not Available [place] [address], [place], [address], 06/22/2024 15:30:31 06/22/20 24 06/22/2024 urina lysis , dipst ick Urobilinogen - Not Available [facility] ariel [address], [place], [address], 06/22/2024 15:30:31 06/22/20 24 06/22/2024 urina lysis , dipst ick Protein Trace Not Available [place] [address], [place], [address], 06/22/2024 15:30:31 06/22/20 24 06/22/2024 urina lysis , dipst ick pH 5 Not Available [place] [address], [place], [address], 06/22/2024 15:30:31 06/22/20 24 06/22/2024 urina lysis , dipst ick Blood trace Not Available [facility] [address], [place], [address], 06/22/2024 15:30:31 06/22/20 24 06/22/2024 urina lysis , dipst ick Specific Kimberly 1.000 Not Available [facility] [address], [place], [address], 06/22/2024 15:30:31 06/22/20 24 06/22/2024 urina lysis , dipst ick Ketone - Not Available [facility] [address], [place], [address], 06/22/2024 15:30:31 06/22/20 24 06/22/2024 urina lysis , dipst ick Bilirubin - Not Available [facility] [address], [place], [address], 06/22/2024 15:30:31 06/22/20 24 06/22/2024 urina lysis , dipst ick Glucose - Not Available [facility] [address], [place], [address], 06/22/2024 15:30:31 06/22/20 24 06/22/2024 urina lysis , dipst ick Appearance clear Not Available [facility] [address], [place], [address], 06/22/2024 15:30:31 06/22/20 24 06/22/2024 urina lysis , dipst ick Color light yellow Not Available [place] [address], [place], [address], 06/22/2024 15:30:31 07/27/20 24 07/27/2024 WOMEN 'S [...] or negat katlin statu s. Not Available [facility] (Lab) [address] [place], [address], 07/28/2024 20:50:50 07/27/20 24 07/27/2024 WOMEN 'S HEALT H SWAB, ARTHUR boyd species, tma Negati ve negati ve Not Available [facility] (Lab) [address] [place], [address], 07/28/2024 20:50:50 07/27/20 24 07/27/2024 WOMEN 'S HEALT H SWAB, ARTHUR boyd glabrata, tma Negati ve negati ve Not Available [facility] (Lab) [address] [place], [address], 07/28/2024 20:50:50 07/27/20 24 07/27/2024 WOMEN 'S HEALT H SWAB, ARTHUR trichomonas vaginalis, tma Negati ve negati ve This assay tests for and diffe renti ates sandiwe en Neelima da glabr estuardo, the Neelima da speci es group (C. albic ans, C. tropi calis , C. parap melvina is, C. dubli niens is), and Trich omona s vagin piedad by Trans cript ion-M ediat ed Ampli ficat ion (TMA) . Not Available [facility] (Lab) [address] [place], [address], 07/28/2024 20:50:50 10/03/19 25 09/30/2024 imagi ng/di agnos tic resul t No observ ation record ed. [facility] [address] [place], [address], 10/03/2024 10:03:15 10/04/19 25 09/30/2024 imagi ng/di agnos tic resul t No observ ation record ed. [facility] [address] [place], [address], 10/04/2024 14:43:19 Result Notes None recorded. Problems Name Problem SNOMED Code Status Onset Date Resolution Date Notes Provider Name and Address Organization Details Recorded Time Screenin g for malignan t neoplasm of rectum Completed 201803/11/2021 Encounter for screening for malignant neoplasm of rectum;Pr actice ID: [id number] Judith David [facility] 10:27:21 Finding of abdomen [id number] Completed 201703/11/2021 Right lower quadrant abdominal swelling, mass and lump;Prac jennifer ID: 0001 Judith David [facility] 10:27:[address] Concept Completed 201803/11/2021 Encntr for dredge pipeman exam (general) (routine) w/o abn findings; Practice ID: [id number] Judith David [facility] 10:27:25 Removal of intraute rine device Completed 201503/11/2021 Encounter for removal of intrauter ine contracep tive device;Pr actice ID: [id number] Judith David [facility] 10:27:17 Insertio n of intraute rine contrace ptive device Completed 201503/11/2021 Encounter for insertion of intrauter ine contracep tive device;Pr actice ID: 0001 Judith David [facility] 10:27:12 Pregnanc y test negative [id number] Completed 201503/11/2021 Encounter for test, result negative; Practice ID: 0001 Judith matta [facility] 10:27:15 Clinical finding Completed 201503/11/2021 Presence of (intraute rine) contracep tive device;Pr actice ID: 0001 Judith David [facility] 1 10:27:03 Contrace ptive sheath status [id number] Completed 201503/11/2021 Encounter for routine checking of intrauter ine contracep dev;Pract ice ID: 0001 Judith Dvaid [facility] 1 10:27:05 Finding of menstrua l bleeding Completed 201503/11/2021 Excessive and frequent menstruat ion with regular cycle;Pra ctice ID: [id number] Judith David [facility] 1 10:27:10 Screenin g for malignan t neoplasm of cervix Completed 201403/11/2021 Pap Smear;Pra ctice ID: 0001 Judith David [facility] 1 10:27:18 Speciali zed medical examinat ion Completed 201403/11/2021 Routine gynecolog ical examinati on;Practi ce ID: 0001 Judith David [facility] 1 10:27:28 Adult health examinat ion Completed 201403/11/2021 Routine general medical examinati on at a health care facility; Practice ID: 0001 Judith David [facility] 1 10:26:58 Feces contents abnormal [id number] Completed 201403/11/2021 Nonspecif ic abnormal findings in stool contents; Practice ID: 0001 Judith David [facility] [address] 10:27:[address] Concept Completed 201703/11/2021 Encntr for general adult medical exam w/o abnormal findings; Recorded Elsewhere : No Locati on: [facility] So urce: EHR Chron ic: N Practic e ID: [id number] Bill able Time: 08:45:00 AM Judith David [facility] 10:27:23 Cyst of ovary Completed 201703/11/2021 Unspecifi ed ovarian cyst, unspecifi ed side;James rded Elsewhere : No Locati on: [facility] So urce: EHR Chron ic: N Practic e ID: 0001 Bill able Time: 11:45:00 AM Judith David [facility] 10:27:07 Menopaus e present [id number] Completed 201603/11/2021 Symptoms such as flushing, sleepless ness, headache, lack of concentra tion, associate d with natural (age-rela ap) menopause ;Recorded Elsewhere : No Locati on: [facility] So urce: EHR Chron ic: N Practic e ID: 0001 Bill able Time: 11:00:00 AM Judith David [facility] 10:27:14 Problem Notes None recorded. Procedures Surgical History Date Name Laterality Status Provider Name and Address Organization Details Recorded Time 024 Date of Last Colonoscopy completed NONA GARCIA, [address], [place], [address], [place] [facility] 07/27/2024 10:10:54 023 ROBOTIC ASSISTED HYSTERECTOMY W/BILATERAL SALPINGO-OOPHORECT LANDRY (SURG) completed Tanya Muse [facility] 09/22/2023 16:31:35 023 Date of Last Mammogram completed Tessy Ramirez [facility] 09/01/2023 09:49:04 023 completed Tanya Muse [facility] 09/21/2023 16:41:44 023 Total Hysterectomy completed Tanya Muse [facility] 09/21/2023 16:41:44 023 ROBOTIC ASSISTED HYSTERECTOMY W/BILATERAL SALPINGO-OOPHORECT LANDRY (SURG) completed Elise Marti [facility] 09/08/2023 17:53:24 023 Endometrial Biopsy completed Ami Zuniga [facility] [address], [place], [address], [facility] 01/27/2023 18:19:23 023 IUD Removal completed Ami Zuniga [facility] [address], [place], [address], [facility] 01/07/2023 11:51:44 023 Date of Last Pap Smear completed Tessy Ramirez [facility] 01/27/2023 17:38:53 021 Most Recent Bone Density completed Tessy Ramirez [facility] 01/07/2023 11:32:04 021 Bariatric Surgery completed Tanya Muse [facility] 09/22/2023 16:33:23 021 hernia repair completed Tanya Muse [facility] 09/22/2023 16:33:33 018 Colonoscopy completed Judith David [facility] 03/11/2021 10:34:20 015 laparoscopic sleeve gastrectomy completed [facility] 03/11/2021 10:32:34 015 manual reduction of internal abdominal hernia completed Judith David [facility] 03/11/2021 10:33:48 013 repair of umbilical hernia completed Judith David [facility] 03/11/2021 10:33:34 013 [facility] 03/11/2021 10:32:41 013 Colonoscopy completed [facility] 09/22/2023 16:32:06 001 Tubal Ligation completed [facility] 09/21/2023 16:41:44 001 panniculectomy completed [facility] 09/22/2023 16:31:47 001 Carpal tunnel surgery completed [facility] 09/22/2023 16:32:54 000 Carpal tunnel surgery completed [facility] 09/22/2023 16:32:17 Imaging Results None recorded. Procedure Notes None recorded. Medical Equipment None Reported. Allergies Allergen ID Allergen Name Allergen Category Reaction Reaction Severity Criticality Documentation Date Start Date Code Code System Note Provider Name and Address Organization Details Recorded Time 1044 Product containin g penicilli n (product) medicatio n Not available Not available Not available 02/09/2020 60512 8001 SNOMED Ani Amaya [facility] 0 12:46:07 1045 phentermi ne medicatio n Not available Not available Not available 02/09/2020 8152 RxNorm Ani Amaya [facility] 0 12:46:19 1046 sertralin e medicatio n Not available Not available Not available 02/09/2020 86888 RxNorm Ani Amaya [facility] 0 12:46:25 Medications Name Sig Start [...] intrauter ine device 01/07 completed Prescrib ed Elsewher e: Yes Loca tion: [facility] odify By: [email or web address] E ncounter DateTime : 02/08/20 19 10:30:00 AM Not Available Not Available Not [...] Prescrib ed Elsewher e: Yes [facility] By: ligia saleh DateTime : 11/27/19 [...] Prescrib ed Elsewher e: Yes Loca tion: [facility] odify By: ligia saleh DateTime [...] Prescrib ed Elsewher e: Yes Loca tion: [facility] odify By: [email or web address] Pedro ncountjustine DateTime : 02/08/20 10:30:00 AM Not Available [...] Prescrib ed Elsewher e: Yes Loca tion: [facility] M odify By: ligia saleh DateTime : 11/27/19 [...] Prescrib ed Elsewher e: Yes Loca tion: [facility] M odify By: ligia saleh DateTime : 11/27/19 13 02:32:56 PM Not Available Not Available Not Available pramipexo le 0.125 mg tablet TAKE ONE TABLET BY MOUTH 2-3 HOURS BEFORE SLEEP ONSET FOR 14 DAYS, THEN INCREASE TO TWO TABLETS BY MOUTH 2-3 HOURS BEFORE SLEEP ONSET 01/03 completed Not Available Not Available Not Available Prevalite 4 gram powder for suspensio n in a packet DISSOLVE TWO PACKETS INTO [...] Prescrib ed Elsewher e: Yes [facility] By: ligia saleh DateTime : [...] Prescrib ed Elsewher e: Yes Loca [facility]ion: [facility] M odify By: ligia saleh DateTime : 01/04/20 15 09:00:00 AM Not Available Not Available Not Available metformin ER 500 mg tablet,ex tended release 24 hr TAKE 1 TABLET BY MOUTH AT BEDTIME 06/22 completed Not Available Not Available Not Available lisinopri l 2.5 mg tablet take 1 tablet by oral route every day 11/19 completed Prescrib ed Elsewher e: Yes Loca tion: [facility] odify By: yuridia kim DateTime [...] Prescrib ed Elsewher e: Yes Loca tion: [facility] odify By: ligia saleh DateTime : 12/01/19 13 11:30:00 AM Not Available Not Available Not Available Restasis 0.05 % eye drops in a dropperet te INSTILL 1 DROP INTO EACH EYE TWICE DAILY 10/23 completed Not Available Not Available Not Available Singulair 4 mg oral granules in packet 11/19 completed Prescrib ed Elsewher e: Yes Loca tion: [facility] odify By: clyde kim DateTime : 01/04/20 15 09:00:00 AM Not Available Not Available Not Available nitrofura ntoin monohydra te/macroc rystals 100 mg capsule TAKE 1 CAPSULE BY MOUTH EVERY 12 HOURS FOR 7 DAYS 05/13 /2024 completed Not Available Not Available Not Available [...] Prescrib ed Elsewher e: Yes Loca tion: [facility] odify By: clyde kuoer DateTime : 11/20/19 17 11:00:00 AM Not [...] Prescrib ed Elsewher e: Yes Loca tion: [facility] odify By: ligia saleh DateTime : 11/27/19 13 02:32:56 PM Not Available Not Available Not Available peg 3350-elec trolytes 236 gram-22.7 4 gram-6.74 gram-5.86 gram solution USE DIRECTED 06/22 completed Not Available Not Available Not Available Pristiq 50 mg tablet,ex tended release take 1 tablet by oral route every day 11/19 completed Prescrib ed Elsewher e: Yes Loca tion: [facility] odify By: clyde kim DateTime : 01/04/20 15 09:00:00 AM Not Available Not Available Not Available calcium 760 mg (as citrate)/ 3.5 gram oral granules 11/19 completed Prescrib ed Elsewher e: Yes Loca tion: [facility] Caty leslee By: clyde kim DateTime : 01/04/20 09:00:00 [...] Updated DateTime 12/17/2023 160.02 cm 36.5 kg/m2 81759.03 g 102 mm[Hg] 72 mm[Hg] Marsha Shell [facility] 16:14:03 Date Recorded Body height Body mass index (BMI) Body weight Systolic blood pressure Diastolic blood pressure Provider Name and Address Organization Details Last Updated DateTime 01/04/2024 160.02 cm 37.2 kg/m2 15491.4 g 130 mm[Hg] 81 mm[Hg] Britt Landin [facility] 4 16:35:36 Date Recorded Body height Systolic blood pressure Diastolic blood pressure Provider Name and Address Organization Details Last Updated DateTime 06/22/2024 160.02 cm 100 mm[Hg] 68 mm[Hg] Philly Ramires [facility] 06/22/2024 15:24:14 Date Recorded Body height Body mass index (BMI) Body weight Systolic blood pressure Diastolic blood pressure Provider Name and Address Organization Details Last Updated DateTime 07/27/2024 160.02 cm 31.4 kg/m2 06877.85 g 142 mm[Hg] 86 mm[Hg] Philly Ramires [facility] 09:57:32 Social History Question Answer Notes LastModified by Organizat ion Details LastModified Time Tobacco Smoking Status Never Smoker Codie Orozco sigrid, [facility] 07/07/2023 15:05:08 Do You Have An Advance Directive? No Information n ot available 03/12/2021 How Many Years Have You [...] No Information not available 03/12/2021 Are You Deaf Or Do You Have Serious Difficulty Hearing? No Information not available 03/11/2021 What Type Of Diet Are You Following? SPECIFIC Information n ot available 03/12/2021 What Is The Highest Grade Or Level Of School You Have Completed Or The Highest Degree You Have Received? [id number] Information not available 03/12/2021 Are There Any [...] Information not available 03/12/2021 Do You Use Sunscreen Routinely? Yes Information not available 03/11/2021 How Many Years Have You Smoked Tobacco? 0 Information not available 01/07/2023 Have You Used IV Drugs? No Information not available 03/12/2021 Do You Have Difficulty Walking Or Climbing Stairs? No [email or web address] Information not available 07/07/2023 Sex: Unknown Functional Status Question Answer Note LastModified by Organizat ion Details LastModified Time Do you use any illicit or recreational drugs? No Information not available 03/11/2021 What is your level of alcohol consumption? None Information not available 03/12/2021 Are you currently employed? Yes [email or web address] Information not available 01/04/2024 Are you able to walk? YESWOREST Information not available 03/11/2021 Are you able to care for yourself? 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 No [email or web address] Information not available 07/07/2023 What is your exercise level? Moderate Information not available 03/11/2021 Mental Status Question Answer Note LastModified by Organization D etails LastModified Time Do you feel stressed (tense, restless, nervous, or anxious, or unable to sleep at night)? [id number] Information not available 03/12/2021 Family History Relationship Description Onset Age of this Age Resolved Age Notes LastModified by Organization Details LastModified Time Mother Hypertensive disorder [email or web address] Not available 09/21 16:41:42 Mother Anemia [email or web address] Not available 09/21/2023 16:41:42 Mother Diabetes mellitus [email or web address] Not available 09/21 16:41:42 Maternal Grandmother Hypertensive disorder Not available 09/21 16:41:42 Maternal Grandmother Anemia [email or web address] Not available 16:41:42 Maternal Grandfather Hypertensive disorder [email or web address] Not available 09/21 16:41:42 Paternal Grandmother Hypertensive disorder [email or web address] Not available 09/21 16:41:42 Paternal Grandfather Hypertensive disorder [email or web address] Not available 09/21 16:41:42 Medical History Condition Response Allergies (Food, seasonal, environmental ) Y Other Y Breast Cancer N Drug/Latex Allergies/Reactions Y Blood Transfusion N Dermatologic Disorders N Lung Disease N Defects or Inherited Disease N Breast Problem N Gestational Diabetes N Hematologic disorders N Anesthesia Complications N History of STI N Deep Vein Thrombosis N Polycystic ovary syndrome N Anxiety Disorder Y Autoimmune disease N Arthritis N Infertility N Polyps N Acid Reflux (GERD) N History of abnormal pap N Cancer N Stroke N Varicosities N Neurologic/Epilepsy Y Endometriosis N High Cholesterol N Headaches N Fibromyalgia N Kidney Disease N Heart Problems N Kidney or Bladder Problems N Thyroid Problems Y GI Problems Y Eating Disorder N Anemia [...] ICD10 Code Diagnosis Note [id number] [facility] [address] [address] 02/09/2020 12:37:00 02/09/2020 13:33:17 Gynecologic examination [id number] Z01.419 Suggested Calcium with Vitamin D 1200-1500m g daily. Patient advised to get an annual flu shot in the fall and she could obtain at [facility] or [facility] take care clinic. Also to obtain TDap vaccinatio n [...] to this email. Mirena IUD placed 10/30/2015 [id number] Ami Zuniga [facility] [address],[facility] [place] [address] 03/12/2021 09:39:20 03/12/2021 10:22:35 Gynecologic examination [id number] Z01.419 Suggested Calcium with Vitamin D 1200-1500m g daily. Patient advised to get an annual flu shot in the fall and she could obtain at [facility] or [facility] care clinic. Also to obtain TDap vaccinatio n [...] call or respond to this email. Pap/hpv [facility] std screenMire na IUD placed 10/30/2015 (Due to be removed or replaced 2021). Menopausal symptom 40049 002 N95.1 Having occassiona l hot flashes.no t disturbing quality of life.No menses on IUD.Wants to see where she falls on perimenopa use/menopa use spectrum. [id number] Ami Zuniga , [facility] [address] [address] 04/11/2021 14:02:59 04/11/2021 14:45:43 Herpes zoster [id number] B02.9 Area of concerns Resembles shingles.W e [...] this patient s visit, including available hand district branch manager upon arrive, temperatur e check and being asked a series of screening questions. All staff wore face coverings during this encounter, as well as provided additional cleaning and sanitizing of all surfaces, including countertop s, pens, chairs, door handles, light switches, etc, prior to and following the patient s visit. [id number] Ami Zuniga , [facility] [address] [address] 10/23/2021 16:27:11 10/23/2021 17:28:27 Gynecologic examination 42235093 Z01.419 Z11.51 Suggested Calcium with Vitamin D 1200-1500m g daily. Patient advised to get an annual flu shot in the fall and she could obtain at [facility] or [facility] take care clinic. Also to obtain TDap vaccinatio n [...] be removed or replaced 2022). Menopausal symptom 28097 002 N95.1 Having occasional hot flashes.Kristopher miller had a few light menses on IUD.Wants to see where she falls on perimenopa use/menopa use spectrum.I f numbers not significan tly higher we will leave her IUD in another year for total of 7yrs & reassess need in 2022. [id number] Ami Zuniga , [facility] [address] [address] 01/07/2023 10:58:39 01/07/2023 14:45:12 Gynecologic examination [id number] Z01.419 Z11.51 Suggested Calcium with Vitamin D 1200-1500m g daily. Patient advised to get an annual flu shot in the fall and she could obtain at [facility] or [facility] care clinic. Also to obtain TDap vaccinatio n [...] Routine Labs PCPMammo ordered Screening mammography 24 505870 Z12.31 Abnormal u terine bleeding [id number] 9100 N93.9 Having some random AUB with IUD which we removed today.Her previous FSH/LH was in menopausal ranges.We will repeat labs & update US.Might need embx Menopausal symptom 78417 002 N95.1 We discussed Menopausal Hormone therapy [...] migraine w/ visual changes, breast cancer dx, HI/stroke, DVT/PE, Endometria l cancer. Please contact office [...] 3mos med check. Removal of intrauterine device 57980494 Z30.432 It was explained that she may have bleeding or spotting after the removal of the device today as well. If cannot see the strings of this device we will need to get an US image to make that the device is still in place and not in an unobtainab le position. She expressed understand ing of all the above instructio ns. [id number] Sebastian Donald MD [facility] [address] [address] 01/08/2023 14:15:02 01/08/2023 16:33:21 Abnormal uterine bleeding [id number] 9100 D25.9 [id number] Ami Zuniga [facility] [address] [address] 01/27/2023 17:28:26 01/28/2023 10:14:35 Abnormal uterine bleeding [id number] 9100 N93.9 EMBx completedP ost-proced ure instructio paul reviewedWi ll reach out with results and next steps in POC. [id number] Ami Zuniga , [facility] [address] [address] 03/27/2023 13:20:05 03/27/2023 14:46:45 Menopausal symptom 82402462 N95.1 . Menopause vasomotor sx's & mood irritabili ty resolved.L OVES the combi-patc h and feels More like myself.Th e only side effect is the occassiona [...] review of plan of care. Uterine leiomyoma 605615 05 D25.9 Requests MD consult to discuss.Lo ves her HRT but feels the fibroids present do cause some spotting at times.We recently completed US which does show fibroids & her EMBx was benign.FSH /LH post-menop ause levels.Wou ld like to discuss hysterecto my [id number] Sebastian Donald MD [facility] [address] [address] 04/15/2023 15:14:21 04/15/2023 16:15:27 Abnormal uterine bleeding 4140396800 9100 D25.9 Menorrhagia 749088149 N9 2.0 This patient is a 52-year-ol [...] detail. We reviewed medical options again and adilson childers. Talked about surgical options. Patient would like definitive surgical treatment. We made a decision to perform surgery. We spent 40 minutes face-to-fa ce. More than 50% was counseling . We agreed to perform a laparoscop ic or robotic assisted hysterecto my with bilateral salpingo-o ophorectom y. [id number] Sebastian Donald MD [facility] [address],[facility] [place] [address] 06/10/2023 15:14:47 06/11/2023 21:09:44 Menorrhagia 900674009 N92.0 this patient is a 52-year-ol d female with menorrhagi a. We have agreed to perform total robotic hysterecto my bilateral salpingo-o ophorectom y. She understand s the risks, benefits, and alternativ es. She is completed the informed consent process and is ready to proceed. [id number] Sebastian Donald MD [facility] [address],[place] [address] 06/19/2023 15:19:38 06/19/2023 15:20:29 [id number] Sebastian Donald MD [facility] [address],[place] [address] 06/24/2023 14:00:39 06/24/2023 15:06:26 Menopausal symptom 99169923 N95.1 female Patient presents for postop follow-up. She is 1 week postop from a total laparoscop ic hysterecto my bilateral salpingect landry yoana. ovaries. She has no complaints . Her incisions are clean dry and intact. She is recovering normally. She will follow-up as needed. Postoperative care 12610 9007 Z48.89 [id number] Sebastian Donald MD [facility] [address],[place] [address] 07/07/2023 15:04:47 07/07/2023 18:36:45 Bacterial vaginosis 812384204 N76.0 This patient is a 53-year-ol d [...] separate concerns. Acute urin sarah tract infection 958594480 N39.0 Abnormal v aginal bleeding 249480272 N93.9 Hormone re placement therapy 081066191 Z79.890 [id number] Sebastian Donald MD [facility] [address] [address] 07/20/2023 16:54:07 07/21/2023 10:04:00 Postoperative care 223432614 Z48.89 3-year-old female who presents for follow-up [...] hurt some of her ribs. Possible fracture. [id number] Sebastian Donald MD [facility] [address] [address] 08/07/2023 15:26:46 08/07/2023 16:14:26 Yeast detected 658115226 R89.5 53-year-ol d female with vulvar irritation and vaginal discharge. She has some irritation and some inflammati on of the skin of the vulva. She has vaginal itching. She was examined. The vulva appears inflamed. The distal vagina appears normal. Swabs were taken. We agreed to treat with oral fluconazol e and steroid/an tifungal cream. Vulvovaginitis 51499585 N76.0 [id number] [facility] [address],[place] [address] 09/01/2023 09:37:38 09/01/2023 10:31:19 Urinary symptoms 524012150 R39.9 Blood in urineIf <3 RBC's no further f/u at this timeIF > 3 RBC's f/u is required via urogynecol ogyNo sx's exacept pelvic fullness Counseled on Hematuria blood in urine Vaginitis 81963299 N76.0 Today suspect BV on examWe discussed oral BV treatment. Rx sent Counseled on medication R/B's, Most common side effects, & use. All questions were answered to patient satisfacti on. Time spent in visit is a total of 26 mins with at least 50% of visit consisting of counseling and review of plan of care. [id number] KILO Mendoza [facility] [address],[place] [address] 09/21/2023 15:50:53 09/21/2023 17:33:19 Vaginal irritation 708033446 N89.8 vaginitis/ STI panel sentno abnormal d/c [...] counseling and review of plan of care. [id number] KILO Mendoza [facility] [address],[place] [address] 11/05/2023 14:26:58 11/05/2023 15:44:17 Vaginitis 55850735 N76.0 vaginitis panel sentUA/cx sentdeclin ed STI screenrx sent for BV, r/b/a reviewedvu lvar care guidelines discussed Time spent in visit is a total of 20 mins with at least 50% of visit consisting of counseling and review of plan of care. [id number] KILO Mendoza [facility] [address],[place] [address] 11/17/2023 17:15:17 11/18/2023 04:12:40 Vaginal odor 013601037 N89.8 vaginitis panel sentexam today wnldecline d STI screendisc ussed vulvar care guidelines encouraged to complete entire antibiotic course for recent (+) UTIdiscuss ed boric acid capsuleswi ll update pt with results when available Time spent in visit is a total of 20mins with at least 50% of visit consisting of counseling and review of plan of care. [id number] KILO Mendoza [facility] [address],[place] [address] 12/01/2023 12:30:09 12/01/2023 14:38:24 Vaginal odor 468192086 N89.8 exam today wnlvaginit is panel sentvulvar care guidelines discussedc an use boric acid capsules twice per week if neededrepe at UA/cx sent per pt request Time spent in visit is a total of 22 mins with at least 50% of visit consisting of counseling and review of plan of care. [id number] KILO Mendoza [facility] [address],[place] [address] 12/17/2023 15:54:20 12/18/2023 10:50:45 Urinary symptoms 065289018 R39.9 Vaginal odor 550666494 N 89.8 exam today wnlvaginit is panel [...] review of plan of care. Vulval irritation 237127 003 N90.89 [id number] Sebastian Donald MD [facility] [address],[place] [address] 01/04/2024 16:00:56 01/05/2024 01:58:47 Vaginitis 63507121 N76.0 this patient is a 53-year-ol d female with vaginal irritation . she has had recurrent malodorous discharge in the past. This time it is persistent vulvar itching/ irritation . We agreed to treat. Swabs were taken. She was examined. The vulva and distal vagina appeared normal. Samples were obtained. [id number] Sebastian Donald MD [facility] [address],[place] [address] 01/12/2024 13:58:46 01/12/2024 14:10:05 Urinary symptoms 443090805 R39.9 [id number] Sebastian Donald MD [facility] [address],[place] [address] 06/22/2024 15:17:58 06/22/2024 15:46:47 Urinary symptoms 787243067 R39.9 Will send urine for culture d/t sx of pelvic pressure. Vaginitis 04456665 N76.0 Discussed empirical treatment with fluconazol e for suspected yeast infection based on reported symptoms and physical exam findings.D iscussed vulvar care guidelines in addition to laundry/sk in irritants to avoid.Test ing for BV/yeast sent. Venereal d isease screening 844102848 Z11.3 Pt requested STI testing for GC/CT/tric h.Discusse d the various types of STDs, related symptoms and the potential consequenc es (including effects on fertility) of STD infections . Reviewed ways to limit exposure and prevention techniques . [id number] Sebastian Donald MD [facility] [address],[facility] [place] [address] 07/27/2024 09:43:37 07/27/2024 11:00:57 Gynecologic examination 49738545 Z01.419 Annual gynecologi jose exam performed. Patient [...] DEXA scan- UTD PCP Pap smear- UTD (2022 - WN) laboratory evaluation - PCP STI testing - declined Screening mammography 24 201536 Z12.31 Menopausal symptom 36688 002 N95.1 Patient doing well on HRT [...] for females >10yrs past menopause. 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 Resources: https://1o1Media w.GoodGuideorg/docs /default-s ource/for- women/mn-v aginal-dry ness.pdf Vaginal discharge 579802 006 N89.8 Discussed empirical treatment with fluconazol e for suspected yeast infection based on reported symptoms and physical exam findings.D iscussed vulvar care guidelines in addition to laundry/sk in irritants to avoid.Vagi nitis panel sent. Health Concerns Section Related Observation LastModified by Organization Detai ls LastModified Time None Recorded Concern Status LastModified by Organization Details LastModified Time None Recorded Advance Directives Directive N: Payers Insurance Date Sequence Insurance Name Policy Number Policy Mcpherson Covered Member ID Mcpherson Member ID Guarantor Name 07/31/2024 1 [facility] [id number] R Brielle Walker [id number] Brielle Walker 07/06/2023 1 [facility] [id number] Brielle Walker [id number] Brielle Ahsan Walker 09/17/2023 1 [facility] [id number] R Brielle Walker [id number] Brielle Walker Notes Date Note Type Note Provider Name and Address Organization Details Recorded Time 12/17/2023 text/html 53yopresents for vaginal odor/itchingtreated for BV/yeast/UTI 12/02symptoms resolved with treatment but now feels like odor and itching has returned for the past few daysneg dischargeslight pressure with urinationhas not tried boric acid capsuleshas not started using the vaginal estrogen cream prescribed yet KILO Mendoza [address], [place], [address], [facility] 12/18/2023 09:28:03 01/04/2024 text/html this patient is a 53-year-old female with vaginal irritation. she has had recurrent malodorous discharge in the past. This time it is persistent vulvar itching/ irritation. We agreed to treat. Swabs were taken. She was examined. The vulva and distal vagina appeared normal. Samples were obtained. Sebastian Donald MD [address], [place], [address], [facility] 01/04/2024 22:32:32 06/22/2024 text/html Patient here wit h c/o itching, vulvar irritation, pelvic pressure, and vaginal odor x one weeks. Patient states that she was recently tested and treated for yeast and BV at urgent care one month ago, but now states that some of the symptoms have returned.Denies dysuria, urgency, or frequency. NONA GARCIA NP [address], [place], [address], [facility] 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 [employer]mer Post-MenopausalRepor ap bypatient.Menopausal Symptoms:no menopausal symptoms;inadequacy of [...] flashes. NONA GARCIA NP [address], [place], [address], [facility] 07/27/2024 10:58:12 OBGyn Episode Ob Episode Information Episode Created Date Number of Fetuses Patient Bloodtype Patient rh Status Prepregnancy Weight lbs Domestic Partner Domestic Partner Phone Father Name Process Environmental Technician Status 02/09/20 20 1 CLOSED Fetus Data [...] Domestic Partner Domestic Partner Phone Father Name Process Environmental Technician Status 02/09/20 20 1 CLOSED Fetus Data [...]
--- OUTSIDE RECORDS SUMMARY | 2025-02-22 12:55 | XMS_ITS | Clinical Summary ---
Author Organization [facility] Address [address] [place] [address] Care Team Providers Care Exercise Manager Name Role Phone Martha Raygoza WAXING MACHINE OPERATOR Primary Care Provider + Ryley Torres DO Unavailable Allergies Active Allergy Reactions Criticality Noted Date [...] on file Legal Sex Female 6:50 AM INSULATION BOARD HEAD SAW OPERATOR Gender Identity Not on file Sexual [...] 36.9 C (98.4 F) 10/25/2019 2:14 PM INSULATION BOARD HEAD SAW OPERATOR Respiratory Rate 16 10/25/2019 2:14 PM INSULATION BOARD HEAD SAW OPERATOR Oxygen Saturation 98% 11/02/2019 1:51 PM CDT Inhaled Oxygen Concentration - - Weight 98.1 kg (216 lb 3.2 oz) 11/09/2019 1:29 P M CDT Height 162 cm (5' 3.78) 10/25/2019 2:14 PM INSULATION BOARD HEAD SAW OPERATOR Body Mass Index 37.37 10/25/2019 2:14 PM INSULATION BOARD HEAD SAW OPERATOR Plan of Treatment Not on file Insurance [employer] [facility] Care Teams Exercise Manager Relationship Specialty Start Date End Date Martha Raygoza NP PCP - General Nurse Practitioner 09/27/19 Ryley Torres DO Medical Oncologist/Internal Combustion Engine Inspector Hematology and Oncology 11/23/19
[2025-02-22 13:13] LABS: Hematocrit 39.8 % (37.0-47.0); Hemoglobin 13.3 g/dL (12.0-15.0); Mean Corpuscular HGB Conc 33.4 g/dl (32-36); Mean Corpuscular Hemoglobin 29.6 pg (26-34); Mean Corpuscular Volume 88.6 fl (80-100); Platelet Count Result 305 k/mm3 (150-375); Red Blood Count 4.49 M/mm3 (4.2-5.4); White Blood Count 9.1 K/mm3 (4.5-10.0)
[2025-02-22 14:25] LABS: Iron 80 ug/dL (37-170)
[2025-02-22 14:30] LABS: Anion Gap 6 mmol/L (4-12); Blood Urea Nitrogen 11 mg/dL (7-17); Calcium 9.1 mg/dL (8.4-10.2); Carbon Dioxide 32 mmol/L (22-30); Chloride 100 mmol/L (98-107); Estimated Glomerular Filt Rate > 60; Glucose 70 mg/dL (65-110); Potassium 3.5 mmol/L (3.4-5.0); Sodium 138 mmol/L (137-145)
[2025-02-22 14:34] LABS: Percent Iron Saturation 24 % (20-50)
[2025-02-22 15:00] LABS: Ferritin 43.40 ng/mL (11.1-264)
[2025-02-22 15:31] LABS: Vitamin B12. 317.0 pg/mL (239-931)
== END 2025-02-22 12:52 | disposition home or self-care (01) ==
PROVIDERS: PCP Nurse Practitioner Adult Health; Visit Provider Internal Medicine Hematology & Oncology
DX: D50.8 Other iron deficiency anemias (principal); E53.8 Deficiency of other specified B group vitamins
CPT/HCPCS: 36415; 80048; 82607; 82728; 82746; 83540; 83550; 85027

== ENCOUNTER 2025-03-15 15:32 | Outpatient (CLI) | payer BC, SELFPAY ==
--- NOTE | ~2025-03-15 | XR_ITS ---
XR lumbar spine 2-3V 03/15/2025 15:50 Indication: Back pain Procedure: 3 views lumbar spine Comparison: No prior studies for comparison. Findings: Vertebral body heights are maintained. There are 6 lumbar-type vertebra with lumbarization of S1. No acute fracture, subluxation or dislocation. There is mild multilevel disc narrowing. There is mild multilevel facet hypertrophy. No evidence for spondylolisthesis. No acute fracture or traumat ic malalignment. There are cholecystectomy clips. Sacral foramen are symmetric. Impression: 1: Mild lumbar spondylosis. Reviewed, dictated and finalized at location A. Impression: 1: Mild lumbar spondylosis.
--- NOTE | ~2025-03-15 | XR_ITS ---
XR_CERV2-3V_CR 03/15/2025 15:50 Indication: Mid back pain radiating to the neck for 3 months Procedure: 5 views cervical spine Comparison: No prior studies for comparison. Findings: There is mild disc narrowing at C6-7 with small ventral osteophytes. Vertebral body heights are maintained. No fracture, subluxation or dislocation. Odontoid process within normal limits. No p revertebral soft tissue swelling. Impression: 1: Mild spondylosis at C6-7. Reviewed, dictated and finalized at location A. Impression: 1: Mild spondylosis at C6-7.
--- NOTE | ~2025-03-15 | XR_ITS ---
XR thoracic spine 3V 03/15/2025 15:50 Indication: Back pain Procedure: 2 views thoracic spine Comparison: No prior studies for comparison. Findings: There is dextroscoliosis. Vertebral body heights are maintained. No fracture, subluxation o r dislocation. Normal thoracic kyphosis. There is mild multilevel disc narrowing. No paraspinal soft tissue abnormality. No acute fracture or traumatic malalignment. Impression: 1: Mild thoracic spondylosis with dextroscoliosis. Reviewed, dictated and finalized at location A. Impression: 1: Mild thoracic spondylosis with dextroscoliosis.
--- OUTSIDE RECORDS SUMMARY | 2025-03-15 15:36 | XMS_ITS | Continuity of Care Document ---
Author Name [facility] Address [address] [place] [address] Organization [facility] Care Team Providers Care Manager Of Hospital Name Role Phone [facility] Unavailable Unavailable Problems Problem Status Onset Date [...] Date Status Source POC POC NO TECHBILL [id number] 3-8 NURSE PHONE CALL [facility] [id number] 1 [place] SLEEVE-R YGB 10/29/20 CAMPOS [facility]IENT [id number] TEXT-1 [place] SLEEVE-R YGB 10/29/20 CAMPOS [place] Thalia [facility] Procedures Procedure Code Date Perfomer Comments Source lipoma left [facility]
--- OUTSIDE RECORDS SUMMARY | 2025-03-15 15:36 | XMS_ITS | Clinical Summary ---
Author Organization [facility] Address [address] [place] [address] Care Team Providers Care Pattern Drum Maker Name Role Phone Martha Raygoza [place] [...] on file Legal Sex Female 9:40 PM SPRING FITTER HELPER Gender Identity Not on file Sexual Orientation Not on file Last Filed Vital Signs Vital Sign Reading Time Taken Comments Blood Pressure 123/68 07/18/2023 6:15 PM SPRING FITTER HELPER Pulse 92 07/18/2023 5:02 PM SPRING FITTER HELPER Temperature 35.9 C (96.7 F) 07/18/2023 5:02 PM SPRING FITTER HELPER Respiratory Rate 18 07/18/2023 5:02 PM SPRING FITTER HELPER Oxygen Saturation 99% 07/18/2023 5:02 PM SPRING FITTER HELPER Inhaled Oxygen Concentration - - Weight 98.2 kg (216 lb 9.6 oz) 07/18/2023 5:02 P M SPRING FITTER HELPER Height 160 cm (5' 3) 07/18/2023 5:02 PM SPRING FITTER HELPER Body Mass Index 38.37 07/18/2023 5:02 PM SPRING FITTER HELPER Plan of Treatment Health Maintenance Due Date [...] to complete this topic Insurance Care Teams Pattern Drum Maker Relationship Specialty Start Date End Date Martha Raygoza, CLEANING MANAGER- [address] [place] [id number] PCP - General NURSE PRACTITIONER 09/22/20
--- OUTSIDE RECORDS SUMMARY | 2025-03-15 15:36 | XMS_ITS | Clinical Summary ---
Author Organization [facility] Address [address] [place] [address] Phone Care Team Providers Care House Shorer Name Role Phone Unavailable Primary Care Provider [...] by subcutaneous injection every 7 days. Active hydrOXYzine HCL (ATARAX) 25 mg tablet take 1 tablet by mouth every day at bedtime as needed for insomnia 02/09/20 25 Active potassium CHLORIDE (KLOR-CON M10) 10 mEq Extended Release tablet Take 1 tablet by mouth once daily 30 Tablet 03/13/20 25 Active potassium CHLORIDE (KLOR-CON M10) 10 mEq Extended Release tablet Take 1 tablet by mouth once daily 30 Tablet 02/07/20 25 025 Discontinued Active Problems No known active problems Encounters Date Type Department Care Team Description 03/13/2025 Refill [facility] Oncology and Hematology [facility] [address] [place] [address] Niall Sanchez MD 03/08/2025 External Device Data STL ABSTRACTION Provider, Abstract 03/07/2025 External Device Data STL ABSTRACTION Provider, Abstract 03/01/2025 3:30 PM CDT Office Visit [facility] Oncology [facility] [address] [place] [address] Niall Sanchez MD Other iron deficiency anemia (Primary Dx); B12 deficiency 02/07/2025 External Device Data STL ABSTRACTION Provider, Abstract 02/06/2025 Refill [facility] Oncology and Hematology [facility] [address] [place] [address] Niall Sanchez MD 01/12/2025 External Device Data STL ABSTRACTION Provider, Abstract 01/10/2025 External Device Data STL ABSTRACTION Provider, Abstract 01/09/2025 Refill [facility] Oncology [facility] Hematology [facility] [address] [place] [address] Niall Sanchez MD 12/27/2024 External Device Data [...] on file Legal Sex Female 2:49 PM ACCESS CONTROL SPECIALIST Gender Identity Not on file Sexual Orientation Not on file Last Filed Vital Signs Vital Sign Reading Time Taken Comments Blood Pressure 123/68 03/01/2025 2:45 PM CDT Pulse 99 03/01/2025 2:45 PM CDT Temperature 36.2 C (97.1 F) 03/01/2025 2:45 PM CDT Respiratory Rate 16 03/01/2025 2:45 PM CDT Oxygen Saturation 98% 03/01/2025 2:4 5 PM CDT Inhaled Oxygen Concentration - - Weight 71.7 kg (158 lb) 03/01/2025 2:45 PM CDT pt stated that this is the correct weight Height 160 cm (5' 3) 09/22/2023 10:33 AM ACCESS CONTROL SPECIALIST Body Mass Index 27.99 09/22/2023 10:33 AM ACCESS CONTROL SPECIALIST Plan of Treatment Upcoming Encounters Date Type Department Care Team (Late st Contact Info) Description 09/06/2025 11:45 AM ACCESS CONTROL SPECIALIST Office Visit [facility] Oncology and Hematology - [place] [address] [facility] [address] [place] [address] Niall Sanchez MD [address] [facility] [address] [place] [address] Health Maintenance Due Date Last Done Comments DIABETES ANNUAL FOOT EXAM 1988 DIABETES ANNUAL RETINAL EXAM 1988 DIABETES MICROALBUMIN ANNUAL SCREEN 1988 LDL CHOLESTEROL ANNUAL 1988 HEPATITIS B VACCINES (1 of 3 - 19+ 3-dose series) 1989 BREAST CANCER SCREENING 2010 FIT-DNA Q 3 years 2015 FIT/FOBT Q 1 year 2015 Flex Sig/CT Colonography Q 5 years 2015 ZOSTER VACCINE (1 of 2) 2020 DIABETES HBA1C Q 6 MONTHS 10/15/2023 04/14/2023 COVID-19 Vaccine (2 - 2023-2 5 season) 2024 10/28/2021 INFLUENZA VACCINE (#1) 2025 3, 05/21/2021, 06/09/2020, Additional history exists COLORECTAL SCREENING 04/08/2028 04/08/2018 Colorectal Cancer Screening 04/08/2028 DTAP/TDAP/TD VACCINES (4 - T d or Tdap) 10/26/2032 10/26/2022, 02/28/2016, 08/24/2005 Insurance [employer]
--- OUTSIDE RECORDS SUMMARY | 2025-03-15 15:36 | XMS_ITS | Referral Summary ---
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 file Not on file No t on file Last Filed Vital Signs Vital Sign Reading Time Taken Comments Blood Pressure 121/81 11/02/2019 1:51 PM CDT Pulse 98 11/02/2019 1:51 PM CDT Temperature 36.9 C (98.4 F) 10/25/2019 2:14 PM BOX CAR LOADER Respiratory Rate 16 10/25/2019 2:14 PM BOX CAR LOADER Oxygen Saturation 98% 11/02/2019 1:51 PM CDT Inhaled Oxygen Concentration - - Weight 98.1 kg (216 lb 3.2 oz) 11/09/2019 1:29 P M CDT Height 162 cm (5' 3.78) 10/25/2019 2:14 PM BOX CAR LOADER Body Mass Index 37.37 10/25/2019 2:14 PM BOX CAR LOADER Plan of Treatment Not on file Insurance [facility] Care Teams Guidance Counselor Relationship Specialty Start Date End Date Martha Raygoza NP PCP - General Nurse Practitioner 09/27/19 Ryley Torres DO Medical Oncologist/Engineering Consultant Hematology and Oncology 11/23/19
--- OUTSIDE RECORDS SUMMARY | 2025-03-15 15:36 | XMS_ITS | Data Portability ---
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 Patient will come back in a year unless there are new symptoms. [email or web address] Not available 07/27/2024 09:49:00 Plan of Treatment Reminders Order Date Submit Date Provider Last Modified By Organization Details Last Modified Time Details Appointments None recorded. Lab unlisted lab - women's health swab, ARTHUR 2023 [facility] (Lab), [address], [place], [address], 20:50:50 unlisted lab - women's health swab plus, ARTHUR 2023 024 [facility] (Lab), [address], [place], [address], 03:59:05 urinalysis, dipstick 2023 [email or web address] [place], [address], [address], [place], [address], 15:43:55 culture, urine 2023 024 [facility] (Lab), [address], [place], [address], 4 03:59:05 culture, urine 2023 024 [facility] (Lab), [address], [place], [address], 4 06:32:24 urinalysis, dipstick [address], [facility] [address], [place], [address], 4 16:42:21 Referral None recorded. Procedures None recorded. Surgeries None recorded. Imaging MAMMO, screening, digital, bilateral 2023 024 [facility], [address] [place] [address] , [place], [address], 5 05:01:04 Medication Orders fluconazole 150 mg tablet 2023 024 [facility] [place], [address], 4 10:19:06 estradiol 0.01% (0.1 mg/gram) vaginal cream 2023 024 [facility] [address] [place], [address], 4 10:18:00 estradiol 2 mg tablet 2023 024 [facility] [address] [place], [address], 4 10:17:59 fluconazole 150 mg tablet [email or web address] [place] [address] [address] [place], [address], 4 09:58:13 Diflucan 150 mg tablet 2023 024 [facility] [address] [place], [address], 09:58:13 estradiol 0.01% (0.1 mg/gram) vaginal cream 2023 024 [facility] [address] [place], [address], 15:25:00 Patient TargetsNo targets recorded. Patient InstructionsNo instructions recorded. Reason for Referral None Reported. Results Created Date Observation Date Name Description Value Unit Range Abnormal Flag Note LastModifiedBy Organization Detail LastModifiedTime 11/17/1911/17/2023 VAGIN ITIS/ VAGIN OSIS, DNA PROBE boyd sp. detection, direct probe Negati ve negati ve Not Available [facility] (Lab) [address] [place], [address], 11/18/2023 13:02:09 11/17/19 24 11/17/2023 VAGIN ITIS/ VAGIN OSIS, DNA PROBE gardnerella vag. detection, direct probe Positi ve negati ve abnormal Not Available [facility] (Lab) [address] [place], [address], 11/18/2023 13:02:09 11/17/19 24 11/17/2023 VAGIN ITIS/ VAGIN OSIS, DNA PROBE trichomonas vag. detection, direct probe Negati ve negati ve Not Available [facility] (Lab) [address] [place], [address], 11/18/2023 13:02:09 12/01/19 24 12/01/2023 VAGIN ITIS/ VAGIN OSIS, DNA PROBE boyd sp. detection, direct probe Positi ve negati ve abnormal Not Available [facility] (Lab) [address] [place], [address], 12/02/2023 12:21:22 12/01/19 24 12/01/2023 VAGIN ITIS/ VAGIN OSIS, DNA PROBE gardnerella vag. detection, direct probe Positi ve negati ve abnormal Not Available [facility] (Lab) [address], [place], [address], 12/02/2023 12:21:22 12/01/19 24 12/01/2023 VAGIN ITIS/ VAGIN OSIS, DNA PROBE trichomonas vag. detection, direct probe Negati ve negati ve Not Available [facility] (Lab) [address], [place], [address], 12/02/2023 12:21:22 12/17/19 24 12/17/2023 urina lysis , dipst ick Blood trace Not Available [place] [address], [place], [address], 12/17/2023 16:42:10 01/04/20 24 01/04/2024 VAGIN ITIS/ VAGIN OSIS, DNA PROBE boyd sp. detection, direct probe Positi ve negati ve abnormal Not Available [facility] (Lab) [address], [place], [address], 01/05/2024 10:58:42 01/04/20 24 01/04/2024 VAGIN ITIS/ VAGIN OSIS, DNA PROBE gardnerella vag. detection, direct probe Positi ve negati ve abnormal Not Available [facility] (Lab) [address], [place], [address], 01/05/2024 10:58:42 01/04/20 24 01/04/2024 VAGIN ITIS/ VAGIN OSIS, DNA PROBE trichomonas vag. detection, direct probe Negati ve negati ve Not Available [facility] (Lab) [address], [place], [address], 01/05/2024 10:58:42 01/12/20 24 01/12/2024 CULTU RE: URINE result report SEE RESULT S BELOW Test: Cultu re: Urine Speci men Sourc e: Urine - Clean Catch Speci men Type: Urine Speci men Date: 2023 1:18 PM Resul t Date: 2023 5:27 AM Resul t Statu s: Final resul t Abnor mal: No Natalie lozada Lab: [facility] [address] [facility] [address] [facility] [address] Tel: CULTU RE ----- ----- ----- --- No growt h in 1 day (dete ction level of 10,00 0 colon ies / ml.) Not Available [facility] (Lab) [address] [place], [address], 01/14/2024 06:32:24 06/22/20 24 06/22/2024 WOMEN 'S HEALT H SWAB PLUS, ARTHUR bacterial vaginosis (bv), tma Negati ve negati ve Not Available [facility] (Lab) [address] [place], [address], 06/24/2024 03:59:05 06/22/20 24 06/22/2024 WOMEN 'S HEALT H SWAB PLUS, ARTHUR boyd species, tma Negati ve negati ve Not Available [facility] (Lab) [address] [place], [address], 06/24/2024 03:59:05 06/22/20 24 06/22/2024 WOMEN 'S HEALT H SWAB PLUS, ARTHUR boyd glabrata, tma Negati ve negati ve Not Available [facility] (Lab) [address] [place], [address], 06/24/2024 03:59:05 06/22/20 24 06/22/2024 WOMEN 'S HEALT H SWAB PLUS, ARTHUR trichomonas vaginalis, tma Negati ve negati ve Not Available [facility] (Lab) [address] [place], [address], 06/24/2024 03:59:05 06/22/20 24 06/22/2024 WOMEN 'S HEALT H SWAB PLUS, ARTHUR chlamydia trachomatis, PCR Negati ve negati ve Not Available [facility] (Lab) [address], [place], [address], 06/24/2024 03:59:05 06/22/20 24 06/22/2024 WOMEN 'S [...] ded in this panel . Not Available [facility] (Lab) [address], [place], [address], 06/24/2024 03:59:05 06/22/20 24 06/22/2024 CULTU RE: URINE result report SEE RESULT S BELOW Test: Cultu re: Urine Speci men Sourc e: Urine - Clean Catch Speci men Type: Urine Speci men Date: 06/22 1511 Resul t Date: 2023 0255 Resul t Statu s: Final resul t Abnor mal: No Resul ting Lab: [facility] [address] [facility] [address] Tel: CULTU RE ----- ----- ----- --- No growt h in 1 day (dete ction level of 10,00 0 colon ies / ml.) Not Available [facility] (Lab) [address], [place], [address], 06/24/2024 03:59:05 06/22/20 24 06/22/2024 urina lysis , dipst ick Leukocytes - Not Available [facility] [address], [place], [address], 06/22/2024 15:30:31 06/22/20 24 06/22/2024 urina lysis , dipst ick Nitrite - Not Available [facility] [address], [place], [address], 06/22/2024 15:30:31 06/22/20 24 06/22/2024 urina lysis , dipst ick Urobilinogen - Not Available [facility] ariel [address], [place], [address], 06/22/2024 15:30:31 06/22/20 24 06/22/2024 urina lysis , dipst ick Protein Trace Not Available [place] [address], [place], [address], 06/22/2024 15:30:31 06/22/20 24 06/22/2024 urina lysis , dipst ick pH 5 Not Available [place] [address], [place], [address], 06/22/2024 15:30:31 06/22/20 24 06/22/2024 urina lysis , dipst ick Blood trace Not Available [facility] [address], [place], [address], 06/22/2024 15:30:31 06/22/20 24 06/22/2024 urina lysis , dipst ick Specific [place] 1.000 Not Available [facility] [address], [place], [address], 06/22/2024 15:30:31 06/22/20 24 06/22/2024 urina lysis , dipst ick Ketone - Not Available [facility] [address], [place], [address], 06/22/2024 15:30:31 06/22/20 24 06/22/2024 urina lysis , dipst ick Bilirubin - Not Available [facility] [address], [place], [address], 06/22/2024 15:30:31 06/22/20 24 06/22/2024 urina lysis , dipst ick Glucose - Not Available [facility] [address], [place], [address], 06/22/2024 15:30:31 06/22/20 24 06/22/2024 urina lysis , dipst ick Appearance clear Not Available [facility] [address], [place], [address], 06/22/2024 15:30:31 06/22/20 24 06/22/2024 urina lysis , dipst ick Color light yellow Not Available [facility] [address], [place], [address], 06/22/2024 15:30:31 07/27/20 24 07/27/2024 WOMEN 'S [...] or negat katlin statu s. Not Available [facility] (Lab) [address] [place], [address], 07/28/2024 20:50:50 07/27/20 24 07/27/2024 WOMEN 'S HEALT H SWAB, ARTHUR boyd species, tma Negati ve negati ve Not Available [facility] (Lab) [address] [place], [address], 07/28/2024 20:50:50 07/27/20 24 07/27/2024 WOMEN 'S HEALT H SWAB, ARTHUR boyd glabrata, tma Negati ve negati ve Not Available [facility] (Lab) [address] [place], [address], 07/28/2024 20:50:50 07/27/20 24 07/27/2024 WOMEN 'S [...] Ampli ficat ion (TMA) . Not Available [facility] (Lab) [address] [place], [address], 07/28/2024 20:50:50 10/03/19 25 09/30/2024 imagi ng/di agnos tic resul t No observ ation record ed. [facility] [address] [place], [address], 10/03/2024 10:03:15 10/04/19 25 09/30/2024 imagi ng/di agnos tic resul t No observ ation record ed. [facility] [address] [place], [address], 10/04/2024 14:43:19 Result Notes None recorded. Problems Name Problem SNOMED Code Status Onset Date Resolution Date Notes Provider Name and Address Organization Details Recorded Time Screenin g for malignan t neoplasm of cervix Completed 201403/11/2021 Pap Smear;Pra ctice ID: [id number] Judith David [facility] 10:27:18 Speciali zed medical examinat ion Completed 201403/11/2021 Routine gynecolog ical examinati on;Practi ce ID: 0001 Judith David [facility] 10:27:28 Adult health examinat ion Completed 201403/11/2021 Routine general medical examinati on at a health care facility; Practice ID: 0001 Judith David [facility] 10:26:58 Feces contents abnormal [id number] Completed 201403/11/2021 Nonspecif ic abnormal findings in stool contents; Practice ID: 0001 Judith David [facility] 10:27:09 Finding of menstrua l bleeding Completed 201503/11/2021 Excessive and frequent menstruat ion with regular cycle;Pra ctice ID: [id number] Judith David [facility] 10:27:10 Removal of intraute rine device Completed 201503/11/2021 Encounter for removal of intrauter ine contracep tive device;Pr actice ID: 0001 Judith David [facility] 10:27:17 Insertio n of intraute rine contrace ptive device Completed 201503/11/2021 Encounter for insertion of intrauter ine contracep tive device;Pr actice ID: 0001 Judith David [facility] 10:27:12 Pregnanc y test negative [id number] Completed 201503/11/2021 Encounter for test, result negative; [facility]:27:15 Clinical finding Completed 201503/11/2021 Presence of (intraute rine) contracep tive device;Pr actice ID: 0001 Judith David [facility] 10:27:03 Contrace ptive sheath status [id number] Completed 201503/11/2021 Encounter for routine checking of intrauter ine contracep dev;Pract ice ID: 0001 Judith David [facility] 10:27:05 Menopaus e present [id number] Completed 201603/11/2021 Symptoms such as flushing, sleepless ness, headache, lack of concentra tion, associate d with natural (age-rela ap) menopause ;Recorded Elsewhere : No Locati on: [facility] So urce: EHR Chron ic: N Practic e ID: 0001 Bill able Time: 11:00:00 AM Judith David [facility] 10:27:[address] Concept Completed 201703/11/2021 Encntr for general adult medical exam w/o abnormal findings; Recorded Elsewhere : No Locati on: [facility] So urce: EHR Chron ic: N Practic e ID: 0001 Bill able Time: 08:45:00 AM Judith David [facility] 10:27:23 Finding of abdomen [id number] Completed 201703/11/2021 Right lower quadrant abdominal swelling, mass and lump;Prac jennifer ID: 0001 Judith David [facility] 10:27:01 Cyst of ovary Completed 201703/11/2021 Unspecifi ed ovarian cyst, unspecifi ed side;James rded Elsewhere : No Locati on: [facility] So urce: EHR Chron ic: N Practic e ID: 0001 Bill able Time: 11:45:00 AM [facility] 10:27:07 Screenin g for malignan t neoplasm of rectum Completed 201803/11/2021 Encounter for screening for malignant neoplasm of rectum;Pr actice ID: 0001 Judith David [facility] 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 10:27:25 Problem Notes None recorded. Procedures Surgical History Date Name Laterality Status Provider Name and Address Organization Details Recorded Time 024 Date of Last Colonoscopy completed NONA GARCIA NP [address], [place], [address], [place] [facility] 07/27/2024 10:10:54 023 ROBOTIC ASSISTED HYSTERECTOMY W/BILATERAL SALPINGO-OOPHORECT LANDRY (SURG) completed Tanya Muse [facility] 09/22/2023 16:31:35 023 Date of Last Mammogram completed Tessy Ramirez [facility] 09/01/2023 09:49:04 023 completed Tanya Muse [facility] 09/21/2023 16:41:44 023 Total Hysterectomy completed Tanya Muse [facility] 09/21/2023 16:41:44 023 ROBOTIC ASSISTED HYSTERECTOMY W/BILATERAL SALPINGO-OOPHORECT LANDRY (SURG) completed Elise Marti [facility] 09/08/2023 17:53:24 023 Endometrial Biopsy completed Ami Zuniga [facility] [address], [place], [address], [facility] 01/27/2023 18:19:23 023 IUD Removal completed Ami Zuniga [facility] [address], [place], [address], [facility] 01/07/2023 11:51:44 023 Date of Last Pap Smear completed Tessy Ramirez [facility] 01/27/2023 17:38:53 021 Most Recent Bone Density completed Tessy Ramirez [facility] 01/07/2023 11:32:04 021 Bariatric Surgery completed Tanya Muse [facility] 09/22/2023 16:33:23 021 hernia repair completed Tanya Muse [facility] 09/22/2023 16:33:33 018 Colonoscopy completed Judith David [facility] 03/11/2021 10:34:20 015 laparoscopic sleeve gastrectomy completed Judith [facility] 03/11/2021 10:32:34 015 manual reduction of internal abdominal hernia completed Judith David [facility] 03/11/2021 10:33:48 013 repair of umbilical hernia completed Judith David [facility] 03/11/2021 10:33:34 013 [facility] 03/11/2021 10:32:41 013 Colonoscopy completed [facility] 09/22/2023 16:32:06 001 Tubal Ligation completed [facility] 09/21/2023 16:41:44 001 panniculectomy completed [facility] 09/22/2023 16:31:47 001 Carpal tunnel surgery completed [facility] 09/22/2023 16:32:54 000 Carpal tunnel surgery completed [facility] 09/22/2023 16:32:17 Imaging Results None recorded. Procedure Notes None recorded. Medical Equipment None Reported. Allergies Allergen ID Allergen Name Allergen Category Reaction Reaction Severity Criticality Documentation Date Start Date Code Code System Note Provider Name and Address Organization Details Recorded Time 1044 Product containin g penicilli n (product) medicatio n Not available Not available Not available 02/09/2020 34537 8001 SNOMED Ani Amaya [facility] 0 12:46:07 1045 phentermi ne medicatio n Not available Not available Not available 02/09/2020 8152 RxNorm Ani Amaya [facility] 0 12:46:19 1046 sertralin e medicatio n Not available Not available Not available 02/09/2020 58778 RxNorm Ani Amaya [facility] 0 12:46:25 Medications Name Sig Start [...] Prescrib ed Elsewher e: Yes Loca tion: [facility] odify By: [email or web address] E ncounter DateTime : [...] Prescrib ed Elsewher e: Yes [facility] By: ligia saleh DateTime : 11/27/19 [...] Prescrib ed Elsewher e: Yes Loca tion: [facility] odify By: ligia saleh DateTime : 12/28/19 [...] Prescrib ed Elsewher e: Yes Loca tion: [facility] odify By: [email or web address] Pedro [email or web address] DateTime : [...] Prescrib ed Elsewher e: Yes Loca tion: [facility] M odify By: ligia saleh DateTime : [...] Prescrib ed Elsewher e: Yes Loca tion: [facility] M odify By: ligia saleh DateTime : [...] Prescrib ed Elsewher e: Yes [facility]ify By: ligia saleh [...] ed Elsewher e: Yes Loca tion: [facility] M odify By: ligia saleh DateTime : 01/04/20 15 09:00:00 AM Not Available Not Available Not Available metformin ER 500 mg tablet,ex tended release 24 hr TAKE 1 TABLET BY MOUTH AT BEDTIME 06/22 completed Not Available Not Available Not Available lisinopri l 2.5 mg tablet take 1 tablet by oral route every day 11/19 completed Prescrib ed Elsewher e: Yes Loca tion: [facility] odify By: yuridia kim DateTime : 11/27/19 [...] Prescrib ed Elsewher e: Yes Loca tion: [facility] odify By: ligia saleh DateTime : 12/01/19 13 11:30:00 AM Not Available Not Available Not Available Restasis 0.05 % eye drops in a dropperet te INSTILL 1 DROP INTO EACH EYE TWICE DAILY 10/23 completed Not Available Not Available Not Available Singulair 4 mg oral granules in packet 11/19 completed Prescrib ed Elsewher e: Yes Loca tion: [facility] odify By: clyde kim DateTime : 01/04/20 [...] Prescrib ed Elsewher e: Yes Loca tion: [facility] odify By: clyde kuoer DateTime : 11/20/19 [...] Prescrib ed Elsewher e: Yes Loca tion: [facility] odify By: ligia saleh DateTime : 11/27/19 13 02:32:56 PM Not Available Not Available Not Available peg 3350-elec trolytes 236 gram-22.7 4 gram-6.74 gram-5.86 gram solution USE DIRECTED 06/22 completed Not Available Not Available Not Available Pristiq 50 mg tablet,ex tended release take 1 tablet by oral route every day 11/19 completed Prescrib ed Elsewher e: Yes Loca tion: [facility] odify By: clyde kim DateTime : 01/04/20 15 09:00:00 AM Not Available Not Available Not Available calcium 760 mg (as citrate)/ 3.5 gram oral granules 11/19 completed Prescrib ed Elsewher e: Yes Loca tion: [facility] Caty camilo By: clyde kim DateTime : 01/04/20 09:00:00 [...] Body mass index (BMI) Body weight Systolic And Diastolic Provider Name and Address Organization Details Last Updated DateTime 12/17/2023 160.02 cm 36.5 kg/m2 62426.03 g 102/72 mm[Hg] Marsha Shell [facility] 12/17/2023 16:14:03 Date Recorded Body height Body mass index (BMI) Body weight Systolic And Diastolic Provider Name and Address Organization Details Last Updated DateTime 01/04/2024 160.02 cm 37.2 kg/m2 64962.4 g 130/81 mm[Hg] Britt Landin [facility] 01/04/2024 16:35:36 Date Recorded Body height Systolic And Diastolic Provider Name and Address Organization Details Last Updated DateTime 06/22/2024 160.02 cm 100/68 mm[Hg] Philly Ramires [facility] 06/22/2024 15:24:14 Date Recorded Body height Body mass index (BMI) Body weight Systolic And Diastolic Provider Name and Address Organization Details Last Updated DateTime 07/27/2024 160.02 cm 31.4 kg/m2 15526.85 g 142/86 mm[Hg] Philly Ramires [facility] 07/27/2024 09:57:32 Social History Question Answer Notes LastModified by Organizat ion Details LastModified Time Tobacco Smoking Status Never Smoker Codie Orozco sigrid, [facility] 07/07/2023 15:05:08 Do You Have An [...] Or The Highest Degree You Have Received? [id number] Information not available 03/12/2021 Are There Any [...] Have Difficulty Walking Or Climbing Stairs? No [email or web address] Information not available 07/07/2023 Sex: Unknown Functional Status Question Answer Note LastModified by Organizat ion Details LastModified Time Do you use any illicit or recreational drugs? No Information not available 03/11/2021 What is your level of alcohol consumption? None Information not available 03/12/2021 Are you currently employed? Yes [email or web address] Information not available 01/04/2024 Are you able to walk? YESWOREST Information not available 03/11/2021 Are you able to care for yourself? 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 No [email or web address] Information not available 07/07/2023 What is your exercise level? Moderate Information not available 03/11/2021 Mental Status Question Answer Note LastModified by Organization D etails LastModified Time Do you feel stressed (tense, restless, nervous, or anxious, or unable to sleep at night)? [id number] Information not available 03/12/2021 Family History Relationship Description Onset Age of this Age Resolved Age Notes LastModified by Organization Details LastModified Time Mother Hypertensive disorder [email or web address] Not available 09/21 16:41:42 Mother Anemia [email or web address] Not available 09/21/2023 16:41:42 Mother Diabetes mellitus [email or web address] Not available 09/21 16:41:42 Maternal Grandmother Hypertensive disorder [email or web address] Not available 09/21 16:41:42 Maternal Grandmother Anemia [email or web address] Not available 16:41:42 Maternal Grandfather Hypertensive disorder [email or web address] Not available 09/21 16:41:42 Paternal Grandmother Hypertensive disorder [email or web address] Not available 09/21 16:41:42 Paternal Grandfather Hypertensive disorder [email or web address] Not available 09/21 16:41:42 Medical History Condition [...] Code Diagnosis ICD10 Code Diagnosis Note 8508 KIL[address] [facility] [address] [address] 02/09/2020 12:37:00 02/09/2020 13:33:17 Gynecologic examination [id number] Z01.419 Suggested Calcium with Vitamin D 1200-1500m g daily. Patient advised to get an annual flu shot in the fall and she could obtain at [facility] or [facility]. Also to obtain TDap vaccinatio [...] to this email. Mirena IUD placed 10/30/2015 [id number] Ami Zuniga , [facility] [address] [address] 03/12/2021 09:39:20 03/12/2021 10:22:35 Gynecologic examination [id number] Z01.419 Suggested Calcium with Vitamin D 1200-1500m g daily. Patient advised to get an annual flu shot in the fall and she could obtain at [facility] or [facility]. Also to obtain TDap vaccinatio [...] call or respond to this email. [facility] na [facility] placed 10/30/2015 (Due to be removed or replaced 2021). Menopausal symptom 11979 002 N95.1 Having occassiona l hot flashes.no t disturbing quality of life.No menses on IUD.Wants to see where she falls on perimenopa use/menopa use spectrum. 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 All staff wore face coverings during this encounter, as well as provided additional cleaning and sanitizing of all surfaces, including countertop s, pens, chairs, door handles, light switches, etc, prior to and following the patient s visit. [id number] Ami Zuniga [facility] [address],[facility] [place] [address] 10/23/2021 16:27:11 10/23/2021 17:28:27 Gynecologic examination 22705204 Z01.419 Z11.51 Suggested Calcium with Vitamin D 1200-1500m g daily. Patient advised to get an annual flu shot in the fall and she could obtain at [facility] or [facility]. Also to obtain TDap vaccinatio [...] be removed or replaced 2022). Menopausal symptom 08552 002 N95.1 Having occasional hot flashes.Kristopher miller had a few light menses on IUD.Wants to see where she falls on perimenopa use/menopa use spectrum.I f numbers not significan tly higher we will leave her IUD in another year for total of 7yrs & reassess need in 2022. [id number] Ami Zuniga , [facility] [address],[place] [address] 01/07/2023 10:58:39 01/07/2023 14:45:12 Gynecologic examination [id number] Z01.419 Z11.51 Suggested Calcium with Vitamin D 1200-1500m g daily. Patient advised to get an annual flu shot in the fall and she could obtain at [facility] or [facility]. Also to obtain TDap vaccinatio [...] Routine Labs PCPMammo ordered Screening mammography 24 319939 Z12.31 Abnormal u terine bleeding [id number] 9100 N93.9 Having some random AUB with IUD which we removed today.Her previous FSH/LH was in menopausal ranges.We will repeat labs & update US.Might need embx Menopausal symptom 55323 002 N95.1 We discussed Menopausal Hormone therapy [...] migraine w/ visual changes, breast cancer dx, TN/stroke, DVT/PE, Endometria l cancer. Please contact office [...] 3mos med check. Removal of intrauterine device 24261641 Z30.432 It was explained that she may have bleeding or spotting after the removal of the device today as well. If cannot see the strings of this device we will need to get an US image to make that the device is still in place and not in an unobtainab le position. She expressed understand ing of all the above instructio ns. [id number] Sebastian Donald MD [facility] [address] [address] 01/08/2023 14:15:02 01/08/2023 16:33:21 Abnormal uterine bleeding 1827404603 9100 D25.9 [id number] [facility] [address] [address] 01/27/2023 17:28:26 01/28/2023 10:14:35 Abnormal uterine bleeding 5135284656 9100 N93.9 EMBx completedP ost-proced ure instructio paul reviewedWi ll reach out with results and next steps in POC. [id number] Ami uZniga [facility] [address],[place] [address] 03/27/2023 13:20:05 03/27/2023 14:46:45 Menopausal symptom 47665644 N95.1 . Menopause vasomotor sx's & mood [...] review of plan of care. Uterine leiomyoma 410784 05 D25.9 Requests MD consult to discuss.Lo ves her HRT but feels the fibroids present do cause some spotting at times.We recently completed US which does show fibroids & her EMBx was benign.FSH /LH post-menop ause levels.Wou ld like to discuss hysterecto my [id number] Sebastian Donald MD [facility] [address],[place] [address] 04/15/2023 15:14:21 04/15/2023 16:15:27 Abnormal uterine bleeding 4274636051 9100 D25.9 Menorrhagia 100245863 N9 2.0 This patient is a 52-year-ol [...] We reviewed medical options again and adilson chliders. Talked about surgical options. Patient would like definitive surgical treatment. We made a decision to perform surgery. We spent 40 minutes face-to-fa ce. More than 50% was counseling . We agreed to perform a laparoscop ic or robotic assisted hysterecto my with bilateral salpingo-o ophorectom y. [id number] Sebastian Donald MD [facility] [address] [address] 06/10/2023 15:14:47 06/11/2023 21:09:44 Menorrhagia 894555625 N92.0 this patient is a 52-year-ol d female with menorrhagi a. We have agreed to perform total robotic hysterecto my bilateral salpingo-o ophorectom y. She understand s the risks, benefits, and alternativ es. She is completed the informed consent process and is ready to proceed. [id number] Sebastian Donald MD [facility] [address],[place] [address] 06/19/2023 15:19:38 06/19/2023 15:20:29 [id number] Sebastian Donald MD [facility] [address] [address] 06/24/2023 14:00:39 06/24/2023 15:06:26 Menopausal symptom 90694071 N95.1 female Patient presents for postop follow-up. She is 1 week postop from a total laparoscop ic hysterecto my bilateral salpingect landry yoana. ovaries. She has no complaints . Her incisions are clean dry and intact. She is recovering normally. She will follow-up as needed. Postoperative care 32503 9007 Z48.89 [id number] Sebastian Donald MD [facility] [address] [address] 07/07/2023 15:04:47 07/07/2023 18:36:45 Bacterial vaginosis 526461171 N76.0 This patient is a 53-year-ol d [...] separate concerns. Acute urin sarah tract infection 006862841 N39.0 Abnormal v aginal bleeding 273437372 N93.9 Hormone re placement therapy 615390145 Z79.890 [id number] Sebastian Donald MD [facility] [address] [address] 07/20/2023 16:54:07 07/21/2023 10:04:00 Postoperative care 490199449 Z48.89 3-year-old female who presents for follow-up [...] hurt some of her ribs. Possible fracture. [id number] Sebastian Donald MD [facility] [address] [address] 08/07/2023 15:26:46 08/07/2023 16:14:26 Yeast detected 058274475 R89.5 53-year-ol d female with vulvar irritation and vaginal discharge. She has some irritation and some inflammati on of the skin of the vulva. She has vaginal itching. She was examined. The vulva appears inflamed. The distal vagina appears normal. Swabs were taken. We agreed to treat with oral fluconazol e and steroid/an tifungal cream. Vulvovaginitis 58091822 N76.0 [id number] [facility] [address],[place] [address] 09/01/2023 09:37:38 09/01/2023 10:31:19 Urinary symptoms 319542663 R39.9 Blood in urineIf <3 RBC's no further f/u at this timeIF > 3 RBC's f/u is required via urogynecol ogyNo sx's exacept pelvic fullness Counseled on Hematuria blood in urine Vaginitis 37045509 N76.0 Today suspect BV on examWe discussed oral BV treatment. Rx sent Counseled on medication R/B's, Most common side effects, & use. All questions were answered to patient satisfacti on. Time spent in visit is a total of 26 mins with at least 50% of visit consisting of counseling and review of plan of care. [id number] KILO Mendoza [facility] [address] [address] 09/21/2023 15:50:53 09/21/2023 17:33:19 Vaginal irritation 753254437 N89.8 vaginitis/ STI panel sentno abnormal d/c [...] counseling and review of plan of care. [id number] KILO Mendoza [facility] [address] [address] 11/05/2023 14:26:58 11/05/2023 15:44:17 Vaginitis 96474862 N76.0 vaginitis panel sentUA/cx sentdeclin ed STI screenrx sent for BV, r/b/a reviewedvu lvar care guidelines discussed Time spent in visit is a total of 20 mins with at least 50% of visit consisting of counseling and review of plan of care. [id number] KILO Mendoza [facility] [address],[place] [address] 11/17/2023 17:15:17 11/18/2023 04:12:40 Vaginal odor 111969809 N89.8 vaginitis panel sentexam today wnldecline d STI screendisc ussed vulvar care guidelines encouraged to complete entire antibiotic course for recent (+) UTIdiscuss ed boric acid capsuleswi ll update pt with results when available Time spent in visit is a total of 20mins with at least 50% of visit consisting of counseling and review of plan of care. [id number] Gabbie Terry CB [facility] [address],[place] [address] 12/01/2023 12:30:09 12/01/2023 14:38:24 Vaginal odor 874369605 N89.8 exam today wnlvaginit is panel sentvulvar care guidelines discussedc an use boric acid capsules twice per week if neededrepe at UA/cx sent per pt request Time spent in visit is a total of 22 mins with at least 50% of visit consisting of counseling and review of plan of care. [id number] KILO Mendoza [facility] [address],[place] [address] 12/17/2023 15:54:20 12/18/2023 10:50:45 Urinary symptoms 910081128 R39.9 Vaginal odor 777055993 N 89.8 exam today wnlvaginit is panel [...] review of plan of care. Vulval irritation 781908 003 N90.89 [id number] Sebastian Donald MD [facility] [address],[place] [address] 01/04/2024 16:00:56 01/05/2024 01:58:47 Vaginitis 98060260 N76.0 this patient is a 53-year-ol d female with vaginal irritation . she has had recurrent malodorous discharge in the past. This time it is persistent vulvar itching/ irritation . We agreed to treat. Swabs were taken. She was examined. The vulva and distal vagina appeared normal. Samples were obtained. [id number] Sebastian Donald MD [facility] [address],[place] [address] 01/12/2024 13:58:46 01/12/2024 14:10:05 Urinary symptoms 901335096 R39.9 [id number] Sebastian Donald MD [facility] [address],[place] [address] 06/22/2024 15:17:58 06/22/2024 15:46:47 Urinary symptoms 992751418 R39.9 Will send urine for culture d/t sx of pelvic pressure. Vaginitis 32159469 N76.0 Discussed empirical treatment with fluconazol e for suspected yeast infection based on reported symptoms and physical exam findings.D iscussed vulvar care guidelines in addition to laundry/sk in irritants to avoid.Test ing for BV/yeast sent. Venereal d isease screening 080686805 Z11.3 Pt requested STI testing for GC/CT/tric h.Discusse d the various types of STDs, related symptoms and the potential consequenc es (including effects on fertility) of STD infections . Reviewed ways to limit exposure and prevention techniques . [id number] Sebastian Donald MD [facility] [address],[place] [address] 07/27/2024 09:43:37 07/27/2024 11:00:57 Gynecologic examination 36052364 Z01.419 Annual gynecologi jose exam performed. Patient [...] scan- UTD PCP Pap smear- UTD (2022 WNL) laboratory evaluation - PCP STI testing - declined Screening mammography 24 088918 Z12.31 Menopausal symptom 81900 002 N95.1 Patient doing well on HRT [...] for females >10yrs past menopause. Atrophic vulva 160027362 N90.5 Patient elects to try the estradiol [...] to the vagina are recommende d. Resources: [email or web address]/docs /default-[email or web address] ource/for- women/mn-v aginal-dry ness.pdf Vaginal discharge 374366 006 N89.8 Discussed empirical treatment with fluconazol [...] Member ID Guarantor Name 07/31/2024 1 [facility] [id number] R Brielle Ahsan OcampoAaron [id number] 05 Brielle A Aaron 07/06/2023 1 [facility] [id number] Brielle Ahsan OcampoAaron [id number] Brielle A [place] 09/17/2023 1 [facility] [id number] R Brielle A Aaron [id number] 05 Brielle A Aaron Notes Date Note Type Note Provider Name and Address Organization Details Recorded Time 12/17/2023 text/html 53yopresents for vaginal odor/itchingtreated for BV/yeast/UTI 12/02symptoms resolved with treatment but now feels like odor and itching has returned for the past few daysneg dischargeslight pressure with urinationhas not tried boric acid capsuleshas not started using the vaginal estrogen cream prescribed yet KILO Mendoza [address], [place], [address], [place] [facility] 12/18/2023 09:28:03 01/04/2024 text/html this patient is a 53-year-old female with vaginal irritation. she has had recurrent malodorous discharge in the past. This time it is persistent vulvar itching/ irritation. We agreed to treat. Swabs were taken. She was examined. The vulva and distal vagina appeared normal. Samples were obtained. Sebastian Donald MD [address], [place], [address], [facility] 01/04/2024 22:32:32 06/22/2024 text/html Patient here wit h c/o itching, vulvar irritation, pelvic pressure, and vaginal odor x one weeks. Patient states that she was recently tested and treated for yeast and BV at urgent care one month ago, but now states that some of the symptoms have returned.Denies dysuria, urgency, or frequency. NONA GARCIA NP [address], [place], [address], [facility] 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 NONA GARCIA NP [address], [place], [address], [facility] 07/27/2024 10:58:12 OBGyn Episode Ob Episode Information Episode Created Date Number of Fetuses Patient Bloodtype Patient rh Status Prepregnancy Weight lbs Domestic Partner Domestic Partner Phone Father Name Supervisor Plastic Sheets Status 02/09/20 20 1 CLOSED Fetus Data [...] Domestic Partner Domestic Partner Phone Father Name Supervisor Plastic Sheets Status 02/09/20 20 1 CLOSED Fetus Data [...]
--- OUTSIDE RECORDS SUMMARY | 2025-03-15 15:36 | XMS_ITS | Data Portability ---
Author Organization [place] [facility], Main Office Address [address] [place] [address] Care Team Providers Care Beta Tester Name Role Phone MARTHA ESCOBEDO Primary Care Provider MARTHA ESCOBEDO Referring Provider [phone] Assessment Encounter Date Assessment Date Assessment LastModified [...] verbalized understanding it. F/u in 1-2 months. Not available 08/12/2023 12:46:29 09/10/2023 09/10/2023 This note is dictated and transcribed by [employer] Software. Brakes Inspector variances may occur. Despite proofreading, typographical errors may occur. Occasional wrong-word or '[id number]' substitutions may have occurred due to the [...] hypothyroid ism, hx bariatric surgery [email or web address] [place] [address] - Endocrinology , [address], [place], [address], 3 11:02:50 Procedures None recorded. Surgeries None recorded. Imaging US, foot 2023 024 [email or web address] [facility] ([facility]), [address] [place], [address], 4 08:14:52 XR, foot, 3 or more view - podiatry read 2023 024 [email or web address] [facility] ([facility]), [address] [place], [address], 4 08:14:28 XR, lumbar spine 2022 023 [email or web address] Not available 3 11:09:38 Medication Orders prazosin 1 mg capsule 2022 023 [facility] [address] [place], [address], 3 12:38:37 buspirone 15 mg tablet 2022 023 [facility] [address] [place], [address], 3 12:38:39 duloxetine 60 mg capsule,del ayed release 2022 023 [facility] [address] [place], [address], 3 12:47:27 duloxetine 30 mg capsule,del ayed release 2022 023 [facility] [address] [place], [address], 3 12:47:29 Lyrica 100 mg capsule [email or web address] [place] [address] Pharmacy [address] [place], [address], 3 12:36:25 metformin ER 500 mg tablet,exte nded release 24 hr 2022 023 [facility] [address] [place], [address], 3 12:01:14 Synthroid 50 mcg tablet 2022 023 [facility] [address] [place], [address], 12:02:09 Patient TargetsNo targets recorded. Patient Instructions Encounter Date Encounter Id Patient Instructions Last Modified By Organization Details Last Modified Time 05/26/2023 [id number] 3-4 mo fu dm, thyroid, lipid, weight, depression/anxiet y, RLS, leg pain [email or web address] Not available 05/28/2023 10:25:01 09/10/2023 [id number] plantar fasciiti s education Not available 09/10/2023 [...] ):s13 -s22 Not Available [facility] ([facility]) [address] [facility], [address], 04/14/2023 12:34:08 04/14/20 23 04/14/2023 COMPR EHENS TRISTIAN METAB OLIC PANEL sodium 139 mmol/ L 137-14 5 Not Available [facility] (Lab) [address] [place], [address], 04/14/2023 12:47:06 04/14/20 23 04/14/2023 COMPR EHENS TRISTIAN METAB OLIC PANEL potassium 3.0 mmol/ L 3.5-5. 1 low Not Available [facility] (Lab) [address] [place], [address], 04/14/2023 12:47:06 04/14/20 23 04/14/2023 COMPR EHENS TRISTIAN METAB OLIC PANEL chloride 102 mmol/ L 98-107 Not Available [facility] (Lab) [address] [place], [address], 04/14/2023 12:47:06 04/14/20 23 04/14/2023 COMPR EHENS TRISTIAN METAB OLIC PANEL carbon dioxide 30 mmol/ L 22-30 Not Available [facility] (Lab) [address] [place], [address], 04/14/2023 12:47:06 04/14/20 23 04/14/2023 COMPR EHENS TRISTIAN METAB OLIC PANEL anion gap 10.0 mmol/ L 14-22 low Not Available [facility] (Lab) [address] [place], [address], 04/14/2023 12:47:06 04/14/20 23 04/14/2023 COMPR EHENS TRISTIAN METAB OLIC PANEL glucose 86 mg/dL 70-99 Not Available [facility] (Lab) [address] [facility] [place], [address], 04/14/2023 12:47:06 0804/14/2023 COMPR EHENS TRISTIAN METAB OLIC PANEL BUN 8 mg/dL 8-19 Not Available [facility] (Lab) [address] [place], [address], 04/14/2023 12:47:06 04/14/20 23 04/14/2023 COMPR EHENS TRISTIAN METAB OLIC PANEL creatinine 0.46 mg/dL 0.66-1 .25 low Not Available [facility] (Lab) [address] [place], [address], 04/14/2023 12:47:06 04/14/20 23 04/14/2023 COMPR EHENS TRISTIAN METAB OLIC PANEL GFR >60 Refer ence Range : [place] GFR Healt hy Adult : >60 [...] culat or Not Available [facility] (Lab) [address] [place], [address], 04/14/2023 12:47:06 04/14/20 23 04/14/2023 COMPR EHENS TRISTIAN METAB OLIC PANEL alkaline phosphatase 61 U/L 38-126 Not Available [facility] (Lab) [address] [place], [address], 04/14/2023 12:47:06 04/14/20 23 04/14/2023 COMPR EHENS TRISTIAN METAB OLIC PANEL alanine aminotransfe rase 19 U/L 0-35 Not Available [facility] (Lab) [address] [facility] [place], [address], 04/14/2023 12:47:06 04/14/20 23 04/14/2023 COMPR EHENS TRISTIAN METAB OLIC PANEL aspartate aminotransfe rase 25 U/L 15-37 Not Available [facility] (Lab) [address] [place], [address], 04/14/2023 12:47:06 04/14/20 23 04/14/2023 COMPR EHENS TRISTIAN METAB OLIC PANEL bilirubin, total 0.30 mg/dL 0.20-1 .30 Not Available [facility] (Lab) [address] [place], [address], 04/14/2023 12:47:06 04/14/20 23 04/14/2023 COMPR EHENS TRISTIAN METAB OLIC PANEL calcium 8.3 mg/dL 8.4-10 .2 low Not Available [facility] (Lab) [address] [place], [address], 04/14/2023 12:47:06 04/14/20 23 04/14/2023 COMPR EHENS TRISTIAN METAB OLIC PANEL total protein 6.5 g/dL 6.3-8. 2 Not Available [facility] (Lab) [address] [place], [address], 04/14/2023 12:47:06 04/14/20 23 04/14/2023 COMPR EHENS TRISTIAN METAB OLIC PANEL albumin 3.7 g/dL 3.4-5. 0 Not Available [facility] (Lab) [address] [place], [address], 04/14/2023 12:47:06 04/14/20 23 04/14/2023 COMPR EHENS TRISTIAN METAB OLIC PANEL globulin 2.8 g/dL 2.6-4. 2 Not Available [facility] (Lab) [address] [place], [address], 04/14/2023 12:47:06 04/14/20 23 04/14/2023 COMPR EHENS TRISTIAN METAB OLIC PANEL A/G ratio 1.3 ratio 1.0-2. 0 Not Available [facility] (Lab) [address] [place], [address], 04/14/2023 12:47:06 04/14/20 23 04/14/2023 LIPID PANEL cholesterol 182 mg/dL 140-19 9 NIH DONNELL NSUS RECOM MENDA TION FOR SESAR STERO L: ADULT CHILD LOW RISK: <200 <170 BORDE RLINE : <200- 239 ----- HIGH RISK: >240 >200 Not Available [facility] (Lab) [address] [place], [address], 04/14/2023 12:47:11 04/14/20 23 04/14/2023 LIPID PANEL triglyceride s 187 mg/dL 0-150 high NIH DONNELL NSUS REPOR T RECOM MENDA TION FOR TRIGL YCERI LETY: ADULT CHILD LOW RISK: <150 ----- BODER LINE: 150-1 99 ----- HIGH RISK: >200 ----- Not Available [facility] (Lab) [address] [place], [address], 04/14/2023 12:47:11 04/14/20 23 04/14/2023 LIPID PANEL HDL cholesterol 48 mg/dL 40- Not Available [facility] (Lab) [address] [place], [address], 04/14/2023 12:47:11 04/14/20 23 04/14/2023 LIPID PANEL [...] REPOR KANG. Not Available [facility] (Lab) [address] [place], [address], 04/14/2023 12:47:11 04/14/20 23 04/14/2023 T4 FREE free T4 1.07 NG/dL 0.78-2 .19 Not Available [facility] (Lab) [address] [place], [address], 04/14/2023 12:57:15 04/14/20 23 04/14/2023 TSH thyroid-stim ulating hormone 0.756 uIU/m L 0.465- 4.680 Not Available [facility] (Lab) [address] [place], [address], 04/14/2023 13:07:07 04/14/20 23 04/14/2023 T3 FREE free T3 3.6 pg/mL 2.77-5 .27 Not Available [facility] (Lab) [address] [place], [address], 04/14/2023 13:23:29 04/14/20 23 04/15/2023 INSUL IN insulin 15.9 uIU/m L 2.6-24 .9 Perfo rmed at: - [facility] [address] [id number] Critical access hospital Lab Direc tor: Maxime sequeira PhD, Phone : [phone] Not Available [facility] (Lab) [address] [place], [address], 04/15/2023 10:13:03 04/14/20 23 04/15/2023 VITAM IN B12 (CHRISTIANNE JOSUE ) vb12 454 pg/mL 239-93 1 Not Available [facility] (Lab) [address] [place], [address], 04/15/2023 20:48:06 04/14/20 23 04/15/2023 FOLAT E, SERUM /PLAS MA folate 6.63 NG/mL 2.76-2 0.0 Not Available [facility] (Lab) [address] [place], [address], 04/15/2023 20:48:07 09/10/19 24 09/10/2023 IRON/ TIBC PANEL total iron binding capacity 467 mcg/d L 265-47 5 Not Available [facility] (Lab) [address] [place], [address], 09/10/2023 23:15:28 09/10/19 24 09/10/2023 IRON/ TIBC PANEL % transferrin saturation 10 % 20-55 low Not Available [facility] (Lab) [address] [place], [address], 09/10/2023 23:15:28 09/10/19 24 09/10/2023 IRON/ TIBC PANEL unsaturated iron bind capacity 418 mcg/d L 126-38 2 high Not Available [facility] (Lab) [address] [place], [address], 09/10/2023 23:15:28 09/10/19 24 09/10/2023 IRON/ TIBC PANEL iron 49 mcg/d L 42-175 Not Available [facility] (Lab) [address] [place], [address], 09/10/2023 23:15:28 09/10/19 24 09/10/2023 TSH thyroid-stim ulating hormone 0.559 uIU/m L 0.465- 4.680 Not Available [facility] (Lab) [address] [place], [address], 09/10/2023 19:38:58 09/10/19 24 09/10/2023 SIMONA TIN ferritin 5 NG/mL 11.1-2 64 low Not Available [facility] (Lab) [address] [place], [address], 09/10/2023 19:39:18 09/10/19 24 09/10/2023 VITAM IN B12 (CHRISTIANNE JOSUE ) vb12 477 pg/mL 239-93 1 Not Available [facility] (Lab) [address] [place], [address], 09/10/2023 20:13:27 09/10/19 24 09/10/2023 FOLAT E, SERUM /PLAS MA folate 10.6 NG/mL 2.76-2 0.0 Not Available [facility] (Lab) [address] [place], [address], 09/10/2023 20:13:29 09/10/19 24 09/10/2023 LIPID PANEL cholesterol 155 mg/dL 140-19 9 NIH DONNELL NSUS RECOM MENDA TION FOR SESAR STERO L: ADULT CHILD LOW RISK: <200 <170 BORDE RLINE : <200- 239 ----- HIGH RISK: >240 >200 Not Available [facility] (Lab) [address] [place], [address], 09/10/2023 22:59:02 09/10/19 24 09/10/2023 LIPID PANEL triglyceride s 173 mg/dL 0-150 high NIH DONNELL NSUS REPOR T RECOM MENDA TION FOR TRIGL YCERI LETY: ADULT CHILD LOW RISK: <150 ----- BODER LINE: 150-1 99 ----- HIGH RISK: >200 ----- Not Available [facility] (Lab) [address] [place], [address], 09/10/2023 22:59:02 09/10/19 24 09/10/2023 LIPID PANEL HDL cholesterol 72 mg/dL 40- Not Available [facility] (Lab) [address] [place], [address], 09/10/2023 22:59:02 09/10/19 24 09/10/2023 LIPID PANEL [...] WILL NOT BE REPOR KANG. Not Available [facility] (Lab) [address] [place], [address], 09/10/2023 22:59:02 09/10/19 24 09/10/2023 COMPR EHENS TRISTIAN METAB OLIC PANEL sodium 135 mmol/ L 137-14 5 low Not Available [facility] (Lab) [address] [place], [address], 09/10/2023 22:59:14 09/10/19 24 09/10/2023 COMPR EHENS TRISTIAN METAB OLIC PANEL potassium 4.0 mmol/ L 3.5-5. 1 Not Available [facility] (Lab) [address] [place], [address], 09/10/2023 22:59:14 09/10/19 24 09/10/2023 COMPR EHENS TRISTIAN METAB OLIC PANEL chloride 98 mmol/ L 98-107 Not Available [facility] (Lab) [address] [place], [address], 09/10/2023 22:59:14 09/10/19 24 09/10/2023 COMPR EHENS TRISTIAN METAB OLIC PANEL carbon dioxide 27 mmol/ L 22-30 Not Available [facility] (Lab) [address] [place], [address], 09/10/2023 22:59:14 09/10/19 24 09/10/2023 COMPR EHENS TRISTIAN METAB OLIC PANEL anion gap 14.0 mmol/ L 14-22 Not Available [facility] (Lab) [address] [place], [address], 09/10/2023 22:59:14 09/10/19 24 09/10/2023 COMPR EHENS TRISTIAN METAB OLIC PANEL glucose 110 mg/dL 70-99 high Not Available [facility] (Lab) [address] [place], [address], 09/10/2023 22:59:14 09/10/19 24 09/10/2023 COMPR EHENS TRISTIAN METAB OLIC PANEL BUN 14 mg/dL 8-19 Not Available [facility] (Lab) [address] [place], [address], 09/10/2023 22:59:14 09/10/19 24 09/10/2023 COMPR EHENS TRISTIAN METAB OLIC PANEL creatinine 0.52 mg/dL 0.66-1 .25 low Not Available [facility] (Lab) [address] [place], [address], 09/10/2023 22:59:14 09/10/19 24 09/10/2023 COMPR EHENS TRISTIAN METAB OLIC PANEL GFR >60 Refer ence Range : [place] ge GFR Healt hy Adult : >60 [...] calcu lator is avail able on the [facility] websi te: [email or web address] :[email or web address] rg/pr ofess ional s/kdo qi/gf r_cal culat or Not Available [facility] (Lab) [address] [place], [address], 09/10/2023 22:59:14 09/10/19 24 09/10/2023 COMPR EHENS TRISTIAN METAB OLIC PANEL alkaline phosphatase 68 U/L 38-126 Not Available [facility] (Lab) [address] [place], [address], 09/10/2023 22:59:14 09/10/19 24 09/10/2023 COMPR EHENS TRISTIAN METAB OLIC PANEL alanine aminotransfe rase 13 U/L 0-35 Not Available [facility] (Lab) [address] [place], [address], 09/10/2023 22:59:14 09/10/19 24 09/10/2023 COMPR EHENS TRISTIAN METAB OLIC PANEL aspartate aminotransfe rase 21 U/L 15-37 Not Available [facility] (Lab) [address] [place], [address], 09/10/2023 22:59:14 09/10/19 24 09/10/2023 COMPR EHENS TRISTIAN METAB OLIC PANEL bilirubin, total 0.10 mg/dL 0.20-1 .30 low Not Available [facility] (Lab) [address] [place], [address], 09/10/2023 22:59:14 09/10/19 24 09/10/2023 COMPR EHENS TRISTIAN METAB OLIC PANEL calcium 9.4 mg/dL 8.4-10 .2 Not Available [facility] (Lab) [address] [place], [address], 09/10/2023 22:59:14 09/10/19 24 09/10/2023 COMPR EHENS TRISTIAN METAB OLIC PANEL total protein 6.7 g/dL 6.3-8. 2 Not Available [facility] (Lab) [address] [place], [address], 09/10/2023 22:59:14 09/10/19 24 09/10/2023 COMPR EHENS TRISTIAN METAB OLIC PANEL albumin 3.9 g/dL 3.4-5. 0 Not Available [facility] (Lab) [address] [place], [address], 09/10/2023 22:59:14 09/10/19 24 09/10/2023 COMPR EHENS TRISTIAN METAB OLIC PANEL globulin 2.8 g/dL 2.6-4. 2 Not Available [facility] (Lab) [address] [place], [address], 09/10/2023 22:59:14 09/10/19 24 09/10/2023 COMPR EHENS TRISTIAN METAB OLIC PANEL A/G ratio 1.4 ratio 1.0-2. 0 Not Available [facility] (Lab) [address] [place], [address], 09/10/2023 22:59:14 09/10/19 24 09/10/2023 MAGNE SIUM magnesium 1.8 mg/dL 1.6-2. 3 Not Available [facility] (Lab) [address] [place], [address], 09/10/2023 22:59:17 06/09/20 XR, lumbo sacra l spine , 4 or more view [facility] [address] [place] [address] [phone] Patien t Name: BRIELLE CHILD Access ion #: [id number] Sex: F : 1969 5 Dictat [...] at 2022 15:15: 04 PM Page [email or web address] [facility] (Imaging) [address] [place], [address], 08/12/2023 12:41:45 06/29/20 23 06/29/2023 MAMMO , scree quinten, digit al, bilat eral No observ ation record ed. [email or web address] [facility] [address] [place], [address], 08/12/2023 12:41:45 07/08/20 23 07/08/2023 CT, abdom en + pelvi s, w/ contr ast No observ ation record ed. [facility] [address], [place], [address], 08/12/2023 12:41:45 09/10/19 24 05/19/2023 XR, ankle , 3 or more view No observ ation record ed. [email or web address] Not Available 2023 14:56:49 10/04/19 25 09/30/2024 imagi ng/di agnos tic resul t No observ ation record ed. [facility] [address] [facility], [place], [address], 10/04/2024 15:17:35 Result Notes Documentation Provider Name and Address Organization Details Recorded Time Xr, Lumbosacral Spine, 4 Or More View : [facility] [address] [place] [address] Patient Name: BRIELLE EVERETT Sex: F : [...] subluxation. Page 1 Gary Larsen MD [address] [facility] [address], [address], [facility] 08/12/2023 12:41:45 Problems Name Problem SNOMED Code Status Onset Date Resolution Date Notes Provider Name and Address Organization Details Recorded Time Constipati on 08561104 Active Not Available [facility] 3 18:26:27 Pain in throat 436763029 Active Not Available [facility] 3 18:26:27 Asthma 817643161 Active Not Available [facility] 3 18:26:27 Abdominal pain 91890638 Active Not Available [facility] 3 18:26:27 Weight decreased 142914893 Active Not Available [facility] 3 18:26:27 Tenderness of head and neck region 917340186 Active Not Available [facility] 3 18:26:27 Lesion of brain 900453394 Active Not Available [facility] 3 18:26:27 Vitamin D deficiency 32736283 Active Not Available [facility] 3 18:26:27 Abscess of thigh 3663781 Active Not Available [facility] 3 18:26:27 Depressive disorder 80080793 Active Not Available [facility] 3 18:26:27 Sinusitis 32506230 Active Not Available [facility] 3 18:26:27 Hypertensi ve disorder 36492030 Active Not Available [facility] 3 18:26:27 Fever 788565026 Active Not Available [facility] 3 18:26:27 Acute viral disease 406920849 Active Not Available [facility] 3 18:26:27 Obesity 315866379 Active Not Available [facility] 3 18:26:27 Nausea 130823968 Active Not Available [facility] 3 18:26:27 Cough 13824468 Active Not Available [facility] 3 18:26:27 Essential hypertensi on 81363795 Active Not Available [facility] 3 18:26:27 Rhinitis 64823672 Active Not Available [facility] 3 18:26:28 Cholelithi asis without obstructio n 63594152 Active Not Available [facility] 3 18:26:28 Candidiasi s of vagina 82302675 Active Not Available [facility] 3 18:26:28 Hyperglyce lizeth 68656524 Active Not Available [facility] 3 18:26:28 Fatigue 66050138 Active Not Available [facility] 3 18:26:28 Obese 161360029 Active 2016 Not Available [facility] 3 18:26:27 History of bariatric surgical procedure 965710337 Active 2016 Not Available [facility] 3 18:26:27 Ferritin level below reference range 808902182 Active 2016 Not Available [facility] 3 18:26:27 Seasonal allergic rhinitis 119618352 Active 2017 Not Available [facility] 3 18:26:27 Orbital cellulitis 214170389 Active 2018 Not Available [facility] 3 18:26:27 Mucopurule nt conjunctiv itis 588954015 Active 2018 Not Available [facility] 3 18:26:27 Lymphadeno ruma 72550340 Active 2018 Not Available [facility] 3 18:26:27 Conjunctiv itis 0277948 Active 2018 Not Available [facility] 3 18:26:28 Mixed anxiety and depressive disorder 615242352 Active 2020 Not Available [facility] 3 18:26:27 Primary hyperparat hyroidism 82472791 Active 2020 Not Available [facility] 3 18:26:27 Bronchitis 46067968 Active 2021 Not Available [facility] 3 18:26:27 COVID-19 305495199 Active 2021 Not Available [facility] 3 18:26:28 Chronic neck pain 1141337305037 Active 2021 Not Available [facility] 3 18:26:27 Pain of left shoulder joint 6324942554917 9109 Active 2021 Not Available [facility] 3 18:26:27 Cervical spondylosi s 118389693 Active 2021 Not Available [facility] 3 18:26:27 Neck pain 18165632 Active 2021 Not Available [facility] 3 18:26:28 Perimenopa usal disorder 413266298 Active 2021 Not Available [facility] 3 18:26:27 Hypothyroi dism 75475766 Active 2021 Not Available [facility] 3 18:26:27 Hyperparat hyroidism 10500265 Active 2021 Not Available [facility] 3 18:26:28 Herpes simplex type 2 infection 081030098 Active 2021 Not Available [facility] 3 18:26:27 Restless legs 94916737 Active 2022 Not Available [facility] 3 18:26:27 Prediabete s 666830106 Active 2022 Not Available [facility] 3 18:26:28 Vitamin B12 deficiency (non anemic) 35471454 Active 2022 Not Available [facility] 3 18:26:28 Vaginal vault infection 251040324 Active 2022 Not Available [facility] 3 18:26:27 Well controlled type 2 diabetes mellitus 651772040 Active 2022 Not Available [facility] 3 18:26:27 Pain in bilateral legs 0769126656346 9108 Active 2022 Not Available [facility] 3 18:26:27 Posttrauma tic stress disorder 31482475 Active 2022 Gary Larsen MD [address], [place], [address] , [facility] 3 12:34:38 Anxiety disorder 250721855 Active 2022 Gary Larsen MD [address], [place], [address] , [facility] 3 12:35:52 History of total hysterecto my 967078601 Active 2022 Gary Larsen MD [address], [place], [address] , [facility] 3 12:47:57 Anemia 530814050 Active 2023 Tanya Pavon null, [facility] 4 14:33:25 Arthritis 7687725 Active 2023 Tanya Pavon null, [facility] 4 14:33:35 Disorder of parathyroi d gland 74023981 Active 2023 Tanya Pavon null, [facility] 4 14:34:42 Disorder of thyroid gland 80996247 Active 2023 Tanya Pavon null, [facility] 4 14:35:02 Sleep disorder 02268082 Active 2023 Tanya Pavon null, [facility] 4 14:35:12 Bunion 857192822 Active 2023 Baljit Michaels DPM [address], [place], [address] , [facility] 4 14:48:42 Bilateral plantar fasciitis 7702514242198 9108 Active 2023 Baljit Michaels DPM [address], [address], [place], [address] , [facility] 4 14:48:48 Pain in both feet 7881706908583 9102 Active 2023 Baljit Michaels DPM [address], [address], [place], [address] , [facility] 4 14:49:42 Bunion 723161482 Active 2023 Baljit Michaels DPM [address], [place], [address] , [facility] 4 14:49:58 Pain in right foot 7123752674009 07 Active 2023 Baljit Michaels DPM [address], [place], [address] , [facility] 4 16:27:22 Problem Notes None recorded. Procedures Surgical History Date Name Laterality Status Provider Name and Address Organization Details Recorded Time 09/10/19 24 Plantar Fascia Injection Right Foot completed Baljit Michaels DPM [address], [address], [place], [address], [employer] 09/10/2023 14:52:31 06/29/20 23 Most Recent Mammogram completed Martha Escobedo NP [address], [address], [place], [address], [employer] 06/30/2023 18:37:23 01/06/20 23 Date of Last Pap Smear completed Gary Larsen MD [address], [address], [place], [address], [employer] 08/12/2023 12:41:08 08/24/19 23 Hysterectomy completed Martha Escobedo NP [address], [place], [address], [employer] 07/09/2023 07:46:11 04/11/20 22 Date of Last Mammogram completed Gary Larsen MD [address], [place], [address], [employer] 08/12/2023 12:41:08 08/15/20 21 Most Recent Bone Density completed Not Available [facility] 10/22/2022 02:39:58 10/30/19 21 Gastric bypass for obesity completed Not Available [facility] 10/22/2022 02:40:06 10/11/19 19 Endoscopy completed Not Available [facility] 10/22/2022 02:40:06 04/08/20 18 Date of Last Colonoscopy completed Not Available [facility] 10/22/2022 02:39:58 01/09/20 15 Colonoscopy completed Not Available [facility] 10/22/2022 02:40:06 08/31/19 15 laparoscopic sleeve gastrectomy completed Not Available [facility] 10/22/2022 02:40:06 06/28/20 13 Cholecystectomy completed Not Available [facility] 10/22/2022 02:40:06 Hernia Repair completed Not Available [facility] 10/22/2022 02:40:06 Orthopedic surgery ss completed Not Available [facility] 10/22/2022 02:40:06 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 Procedure Notes None recorded. Medical Equipment None Reported. Allergies Allergen ID Allergen Name Allergen Category Reaction Reaction Severity Criticality Documentation Date Start Date Code Code System Note Provider Name and Address Organization Details Recorded Time 4986 Zoloft medicatio n rash Not available Not available 10/22/2022 52221 RxNorm Not Available [facility] 3 03:06:00 4987 Product containin g penicilli n (product) medicatio n hives Not available Not available 10/22/2022 83332 8001 SNOMED Not Available [facility] 3 03:06:00 4988 clarithro mycin medicatio n rash Not available Not available 10/22/2022 16115 RxNorm Z-Pac k Not Available [facility] 3 03:06:00 4989 Adipex-P medicatio n other Not available Not available 10/22/20222020 332 RxNorm tremo rs, anxie ty, nervo usnes s Not Available [facility] 3 03:06:01 Medications Name Sig Start Date [...] administe red by the provider 11/27 completed [facility]: [phone] Not Available Not Available Not [...] Available Not Available No t Available Fluzone 0688-7570 45 mcg (15 mcg x 3)/0.5 mL [...] Updated DateTime 09/10/2023 160.02 cm 38.1 kg/m2 75318.36 g Tanya VICTOR - S [place] [employer] [facility] 09/10/2023 14:28:28 Date Recorded Heart rate Respiratory rate Oxygen saturation Oxygen saturation in Arterial blood by Pulse oximetry Systolic And Diastolic Provider Name and Address Organization Details Last Updated DateTime 86 /min 14 /min 99 % 99 % 118/68 mm[Hg] Ani Amaya [facility] 4 14:30:19 Date Recorded Body height Body mass index (BMI) Body weight Heart rate Respiratory rate Oxygen saturation Oxygen saturation in Arterial blood by Pulse oximetry Systolic And Diastolic Provider Name and Address Organization Details Last Updated DateTime 4 160.02 cm 38.1 kg/m2 96958.3 6 g 99 /min 14 /min 99 % 99 % 117/76 mm[Hg] Ani Amaya [facility] 4 15:02:53 Date Recorded Body height Body mass index (BMI) Body weight Provider Name and Address Organization Details Last Updated DateTime 04/22/2023 160.02 cm 37.8 kg/m2 40846.61 g Marbella Anita [facility] 04/22/2023 11:53:44 Date Recorded Body height Body mass index (BMI) Body weight Body temperature Heart rate Respiratory rate Oxygen saturation Oxygen saturation in Arterial blood by Pulse oximetry Pain severity - 0-10 verbal numeric rating [Score] - Reported Systolic And Diastolic Provider Name and Address Organization Details Last Updated DateTime 3 160.02 cm 37.2 kg/m2 68834.1 g 96.3 [degF] 80 /min 16 /min 97 % 97 % 0 130/90 mm[Hg] Martha Thakkar RN [facility] 3 08:57:08 Date Recorded Body height Body mass index (BMI) Body weight Body temperature Heart rate Respiratory rate Oxygen saturation Oxygen saturation in Arterial blood by Pulse oximetry Systolic And Diastolic Provider Name and Address Organization Details Last Updated DateTime 3 160.02 cm 36.9 kg/m2 04895.9 1 g 97.5 [degF] 78 /min 20 /min 98 % 98 % 126/86 mm[Hg] Rusty Combs [facility] 3 12:26:47 Social History Question Answer Notes LastModified by Organizat ion Details LastModified Time Tobacco Smoking Status Never Smoker mila matta [facility] 04/22/2023 11:34:55 Do You Have An Advance Directive? No [id number] Information not available 10/22/2022 Do You Wear A Helmet When Biking? No [email or web address] Information not available 04/22/2023 Is Blood Transfusion Acceptable In An Emergency? Yes [email or web address] Information not available 04/22/2023 What Is Your Level Of Caffeine Consumption? Moderate Coffee Tea Information not available 05/26/2023 How Much Tobacco Do You Chew? None MIGRATION.[id number] Information not available 10/22/2022 What Is Your Code Status? Full Code [email or web address] Information not available 04/22/2023 In The 14 Days Before Symptom Onset, Have You Had Close Contact With A Laboratory-confi rmed COVID-19 While That Case Was Ill? No [email or web address] Information not available 04/22/2023 In The 14 Days Before Symptom Onset, Have You Had Close Contact With A Person Who Is Under Investigation For COVID-19 While That Person Was Ill? No [email or web address] Information not available 04/22/2023 What Type Of Diet Are You Following? REGULAR [id number] Information not available 10/22/2022 How Many Days Of Moderate To Strenuous Exercise, Like A Brisk Walk, Did You Do In The Last 7 Days? 4 [email or web address] Information not available 04/22/2023 On Those Days That You Engage In Moderate To Strenuous Exercise, How Many Minutes, On Average, Do You Exercise? 30 [email or web address] Information not available 04/22/2023 Have There Been Any Changes To Your Family Or Social Situation? No [email or web address] Information not available 04/22/2023 Are There Any Guns Present In Your Home? No [email or web address] Information not available 04/22/2023 Do You Use Insect Repellent Routinely? No [email or web address] Information not available 04/22/2023 Where Do You Live? SingleLevelHouse Information not available 04/22/2023 Do You Have A Medical Power Of Barber Instructor? No [email or web address] Information not available 04/22/2023 What Was The Date Of Your Most Recent Tobacco Screening? 09/10/2022 Information not available 04/22/2023 How Many Children Do You Have? 0 [email or web address] Information not available 04/22/2023 Do You Have Any Pets? Yes [email or web address] Information not available 04/22/2023 What Is Your Relationship Status? [id number] [id number] Information not available 10/22/2022 Do You Use Your Seat Belt Or Car Seat Routinely? Yes [email or web address] Information not available 04/22/2023 Do You Have Smoke And Carbon Monoxide Detectors In Your Home? Yes [email or web address] Information not available 04/22/2023 Are You Passively Exposed To Smoke? No [email or web address] Information not available 04/22/2023 Are There Any Smokers In Your House? No Information not available 04/22/2023 How Much Tobacco Do You Smoke? No MIGRATION.28176 [id number] Information not available 10/22/2022 Do You Participate In Social Media? No [email or web address] Information not available 04/22/2023 What Types Of Sporting Activities Do You Participate In? Walking [email or web address] Information not available 04/22/2023 Do You Use Sunscreen Routinely? No Information not available 04/22/2023 Has Tobacco Cessation Counseling Been Provided? No [email or web address] Information not available 04/22/2023 Have You Recently Traveled Abroad? No [email or web address] Information not available 04/22/2023 Are You Currently In School? No [email or web address] Information not available 04/22/2023 Do You Have Any Dietary Restrictions? No [email or web address] Information not available 04/22/2023 Sex: Female Functional Status Question Answer Note LastModified by Organizat ion Details LastModified Time Do you use any illicit or recreational drugs? No [email or web address] Information not available 04/22/2023 Do you or have you ever used any other forms of tobacco or nicotine? No [email or web address] Information not available 04/22/2023 What is your level of alcohol consumption? None [id number] Information not available 10/22/2022 Do you or have you ever used smokeless tobacco? Never used smokeless tobacco MIGRATION.[id number] 026 Information not available 10/22/2022 Are you currently employed? 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 Moderate Information not available 11/27/2022 Mental Status Question Answer Note LastModified by Organization D etails LastModified Time Do you feel stressed (tense, restless, nervous, or anxious, or unable to sleep at night)? [id number] Information not available 05/26/2023 Family History Relationship Description Onset Age of this Age Resolved Age Notes LastModified by Organization Details LastModified Time Mother Diabetes mellitus MIGRATION.550 [id number] Not available 10/22/2022 02:40:10 Mother Depressive disorder MIGRATION.600 [id number] Not available 10/22/2022 02:40:10 Mother Asthma MIGRATION.701 [id number] Not available 10/22/2022 02:40:10 Mother Hypertensive disorder MIGRATION.412 [id number] Not available 10/22/2022 02:40:10 Mother Blood pressure finding [email or web address] Not available 04/22 11:34:54 Mother Anemia [email or web address] Not available 04/22/2023 11:34:54 Mother Arthritis [email or web address] Not available 09/10/2023 14:35:34 Unspecified Relation Complication of anesthesia [email or web address] Not available 03/26 11:34:54 Father Hyperlipidem ia Not available 04/22 11:34:54 Father Cerebrovascu lar accident Not available 11:34:54 Father Hypertensive disorder MIGRATION.805 [id number] Not available 10/22/2022 02:40:11 Maternal Grandfather Heart disease MIGRATION.122 [id number] Not available 10/22/2022 02:40:11 Maternal Grandmother Hypertensive disorder MIGRATION.369 [id number] Not available 10/22/2022 02:40:11 Maternal Grandmother Depressive disorder MIGRATION.520 [id number] Not available 10/22/2022 02:40:11 Maternal Grandmother Diabetes mellitus MIGRATION.771 [id number] Not available 10/22/2022 02:40:11 Medical History Condition Response BLINDNESS N RHEUMATIC FEVER N KIDNEY STONES N BLADDER PROBLEMS N MRSA N OTHER # 1 N POLIO N LUNG DISEASE/DISORDER Y HISTORY OF DRUG ABUSE N COPD N RADIATION / CHEMOTHERAPY N Other # 2 N BLOOD DISEASES N SURGERY N EAR OR HEARING PROBLEMS N MUMPS N SHINGLES Y BOWEL PROBLEMS N FEMALE PROBLEMS / INFECTIONS Y DEPRESSION (INCLUDING POST ) Y STROKE/TIA N THYROID DISEASE Y ULCERS N BENIGN PROSTATIC HYPERPLASIA N MEASLES N CERVICALGIA N HYPOTENSION N TB SKIN TEST N MYOCARDIAL INFARCTION N PARAPELGIA N OBESITY [...] GLAUCOMA N FOOT PROBLEM N DIVERTICULITIS N CHICKENPOX N SLEEP APNEA N ALLERGIES/HAYFEVER Y INFECTIOUS DISEASE N HEART ARRHYTHMIA N PROSTATE N INSOMNIA N HIGH CHOLESTEROL / HYPERLIPIDEMIA N HYPERTHYROIDISM N EYE PROBLEMS N EATING DISORDER N EDEMA N CHRONIC PAIN SYNDROME N CONSTIPATION N CAROTID BLOCKAGE N BACK / NECK PROBLEMS N HAVE YOU BEEN HOSPITALIZED OR SEEN IN [facility] IN THE PAST YEAR ? N ATHEROSCLEROSIS [...] DISORDER Y ALZHEIMER'S DISEASE N PAIN N HERPES Y DEMENTIA N HEADACHES/MIGRAINES N SEIZURES/EPILEPSY N VASCULAR DISEASE N PACEMAKER N DIZZINESS N HEART DISEASE/HEART PROBLEMS N KIDNEY DISEASE N DEVELOPMENTAL OR BEHAVIORAL DISORDERS N MULTIPLE SCLEROSIS N SCARLET FEVER N MENTAL DISORDER/ILLNESS N CARDIAC ARRHYTHMIA N CANCER: SPECIFY N PNEUMONIA N ATRIAL FIBRILLATION N Gall [...] Recorded Time Tdap 3 completed Not Available [facility] 07/20/2023 18:26:28 Pneumococcal conjugate PCV20, polysaccharide NAS008 conjugate, adjuvant, PF 3 completed Not Available [facility] 07/20/2023 18:26:28 influenza nasal, unspecified formulation 3 completed Not Available [facility] 07/20/2023 18:26:28 COVID-19, mRNA, LNP-S, PF, 100 mcg/0.5mL dose or 50 mcg/0.25mL dose 2 completed Not Available [facility] 07/20/2023 18:26:28 zoster, unspecified formulation 2 completed Not Available [facility] 07/20/2023 18:26:28 COVID-19 Non-US Vaccine, Product Unknown 1 completed Not Available [facility] 07/20/2023 18:26:28 SARS-COV-2 (COVID-19) vaccine, UNSPECIFIED 1 completed Not Available [facility] 07/20/2023 18:26:28 Influenza, split virus, quadrivalent, preservative 0 completed Not Available [facility] 07/20/2023 18:26:28 Influenza, split virus, trivalent, preservative 6 completed Not Available [facility] 07/20/2023 18:26:28 Influenza, split virus, trivalent, preservative 5 completed Not Available [facility] 07/20/2023 18:26:28 Influenza, high-dose, trivalent, PF 4 completed Not Available [facility] 07/20/2023 18:26:28 Influenza, split virus, trivalent, preservative 3 completed Not Available [facility] 07/20/2023 18:26:28 DTaP 6 completed Not Available [facility] 07/20/2023 18:26:28 Tdap 6 completed Not Available [facility] 07/20/2023 18:26:28 Influenza, split virus, quadrivalent, PF 1 completed Not Available [facility] 07/20/2023 18:26:28 Past Encounters Encounter ID Performer Location Encounter Start Date Encounter Closed Date Diagnosis/Indication Diagnosis SNOMED-CT Code Diagnosis ICD10 Code Diagnosis Note [id number] Gary Larsen MD [facility] [place] [address] [place] [address] 11/13/2020 00:00:00 11/13/2020 15:24:24 [id number] Gary Larsen MD [facility] [place] [address] [place] [address] 04/18/2021 00:00:00 04/18/2021 08:26:19 [id number] Gary Larsen MD [facility] [place] [address] [place] [address] 05/21/2021 00:00:00 05/21/2021 11:56:19 [id number] Gary Larsen MD [facility] [place] [address] [place] [address] 05/29/2021 00:00:00 05/29/2021 12:39:18 [id number] Gary Larsen MD [facility] [place] [address] [place] [address] 08/13/2021 00:00:00 08/13/2021 12:58:48 [id number] Gary Larsen MD [facility] [place] [address] [place] [address] 09/19/2021 00:00:00 09/19/2021 16:22:01 [id number] Ailyn Olmstead MD [facility] [place] [address] [place] [address] 09/20/2021 00:00:00 09/20/2021 10:55:48 [id number] Larsen MD [facility] [place] [address] [place] [address] 09/27/2021 00:00:00 09/27/2021 11:08:58 [id number] Gary Larsen MD [facility] [place] [address] [place] [address] 10/14/2021 00:00:00 10/14/2021 15:44:10 [id number] Bk Treadwell MD [facility] [place] [address] [place] [address] 11/04/2021 00:00:00 11/04/2021 10:47:23 [id number] [facility] [place] [address] [place] [address] 11/12/2021 00:00:00 11/12/2021 10:22:41 [id number] [facility] [place] [address] [place] [address] 01/28/2022 00:00:00 01/28/2022 10:01:21 [id number] Gary Larsen MD [facility] [address] [address] 02/04/2022 00:00:00 02/04/2022 11:41:25 [id number] Martha Escobedo NP [facility] [address] [address] 05/15/2022 00:00:00 05/15/2022 12:49:20 [id number] Gary Larsen MD [facility] [address] [address] 07/24/2022 00:00:00 07/24/2022 11:57:32 [id number] Ang Mleissa MD [facility] [place] [address] [place] [address] 09/10/2022 00:00:00 09/10/2022 14:30:37 [id number] Ailyn Olmstead MD [facility] [place] [address] [place] [address] 09/11/2022 00:00:00 09/11/2022 12:14:06 [id number] Martha Escobedo NP [facility] [address] [place] [address] 11/27/2022 13:55:35 11/27/2022 14:33:31 Restless legs 78494745 G25.81 Lyrica 75 mg bidRopinir ole at night. Hypothyroidism 09630311 E03.9 Synthroid [id number] Gary Larsen MD [address] [address] 12/29/2022 11:50:08 12/29/2022 13:55:41 COVID-19 868497777 U07.1 Asthma 770738980 J45.90 9 Cough 63652421 R05.9 Fatigue 89331778 R53.83 [id number] Ailyn Olmstead MD [facility] End[facility] [place] [place] [address] [place] [address] 04/22/2023 11:31:48 04/22/2023 12:29:38 Prediabetes 750815778 R73.03 a1c of 5.2% in ideal range- encouraged proper macronutri ent intake as patient is eating low protein intake. Continue on metformin with largest meal and she can take a protein shake if she is not able to get her 110-120 grams of protein in through meals. Recommende d she incorporat e natural insulin field care manager s such as pears, apples, cinnamon, yandy and sweet potatoes to help mobilize her endogenous insulin. Recommende d up to 150 minutes of moderate level activity/e xercise weekly. Hypothyroidism 90627927 E03.9 FT4 /TSH in range- continue on [...] minerals and reduce inflammati on. Restless legs 70727365 G 25.81 WIll uptitrate lyrica to 100 [...] answered and refills necessary at visit today. [id number] Martha Escobedo NP [place] [address] 05/26/2023 08:41:44 05/26/2023 18:01:40 Hyperparathyroidism 87681438 E21.[address] Olmstead leaving [place]. Vitamin B1 2 deficiency (non anemic) 34752752 E53.8 on supplement . History of bariatric surgical procedure 904928847 Z98.84 B12 injection weekly per endo. Essential hypertension 41536867 I10 Stable.Lis inopril 20 mg-hctz 12.5 mg po daily. Obese 671222793 E66.9 Diet and exercise encouraged . Hypothyroidism 86643538 E03.9 Synthroid 50 mcg po daily.Endo referralLa b 03/2023 ok. 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 [id number] Gary Larsen MD [address] [address] 08/12/2023 12:21:42 08/12/2023 12:54:21 Posttraumatic stress disorder 37371900 F43.10 Depressive disorder 3548 9007 F32.A Anxiety disorder 2251375 06 F41.9 Obesity 178175639 E66.9 History of total hysterectomy 429518187 Z90.710 06/15 Hypothyroidism 97952178 E03.9 [id number] Baljit Michaels DPM [facility] [place] [address] [place] [address] 0 09/10/2023 14:23:42 09/10/2023 15:25:26 Pain in both feet 1492295625 2880146 M79.671 M79.672 obtain bilateral foot x-rays secondary to painfollow -up x-rays Bunion 523314118 M21.61 1 M21.612 educated on conditiont reatment options briefly reviewedOb tain standing x-rays to review treatment options surgically follow-up to review x-rays Bilateral plantar fasciitis 4150374685 6807530 M72.2 right heel injection 24pos sible left injection to heel, at next visitcont supportive shoe gearStretc warner and icing instructio ns reviewedFo llow-up in 1 month [id number] Baljit Michaels DPM [facility] [place] [address] [place] [address] 0 10/08/2023 14:56:52 10/12/2023 09:51:59 Bilateral plantar fasciitis 5544095808 4591570 M72.2 right heel injection 24rx pt therapypos sible left injection to heel, at next visitcont supportive shoe gearStretc warner and icing instructio ns reviewedFo llow-up in 1 month Pain in both feet 854526 5077 2533866 M79.671 M79.672 obtain bilateral foot x-rays secondary to painfollow -up x-rays Pain in right foot 46724 38219 38324 M79.671 Health Concerns Section Related Observation LastModified by Organization Detai ls LastModified Time None Recorded Concern Status LastModified by Organization Details LastModified Time None Recorded Advance Directives Directive N: Payers Insurance Date Sequence Insurance Name Policy Number Policy Mcpherson Covered Member ID Mcpherson Member ID Guarantor Name 10/12/2023 1 [place] [id number] R Brielle Everett [id number] Brielle Everett Notes Date Note Type [...] of 3.7 pg/mL182/187/48/97gl ucose 86 mg/dLCr normalLFT zostzdm6h of 5.2% Ailyn Olmstead MD [address] [facility] [address], [place], [address], [place] [employer] 04/22/2023 12:31:21 05/26/2023 text/html Here for discuss [...] on progesterone. Will have Procedure done at [place]. Dr. Donald TELEPHOTO INSTALLER. Martha Escobedo NP [address], [facility] [address], [place], [address], [employer] 05/28/2023 10:25:38 08/12/2023 text/html ACV: C/o PTSD [...] Pt is still f/u with [facility] at [place] for this Pt is on Cymbalta and Buspirone for her depression and anxiety. Denies any mood swings/SI/HI. Gary Larsen MD [address], [facility] [address], [place], [address], [employer] 08/12/2023 12:49:13 09/10/2023 text/html . Patient is [...] condition. Baljit Michaels DPM [address], [facility] [address], [place], [address], [employer] 09/10/2023 15:02:10/08/2023 text/html Patient is a 53-year-old female, who [...] any other complaints. Baljit Michaels DPM [address] [address], [place], [address], [facility] [employer] [facility] 10/12/2023 08:28:10 OBGyn Episode No OBEpisode recorded.
--- OUTSIDE RECORDS SUMMARY | 2025-03-15 15:36 | XMS_ITS | Clinical Summary ---
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 Gender Identity Not on file Sexual [...] 36.9 C (98.4 F) 10/25/2019 2:14 PM FRAMING MILL OPERATOR HELPER Respiratory Rate 16 10/25/2019 2:14 PM FRAMING MILL OPERATOR HELPER Oxygen Saturation 98% 11/02/2019 1:51 PM CDT Inhaled Oxygen Concentration - - Weight 98.1 kg (216 lb 3.2 oz) 11/09/2019 1:29 P M CDT Height 162 cm (5' 3.78) 10/25/2019 2:14 PM FRAMING MILL OPERATOR HELPER Body Mass Index 37.37 10/25/2019 2:14 PM FRAMING MILL OPERATOR HELPER Plan of Treatment Not on file Insurance BLUE Giving Assistant [facility] Care Teams Water Commissioner Relationship Specialty Start Date End Date Martha Raygoza NP PCP - General Nurse Practitioner 09/27/19 Ryley Torres DO Medical Oncologist/Site Inspector Hematology and Oncology 11/23/19
== END 2025-03-15 15:33 | disposition home or self-care (01) ==
LOC: ANHBWCIMG 15:33
PROVIDERS: PCP Nurse Practitioner Adult Health; Visit Provider Nurse Practitioner Adult Health
DX: M47.814 Spondylosis without myelopathy or radiculopathy, thoracic region (principal); M41.84 Other forms of scoliosis, thoracic region
CPT/HCPCS: 72040; 72072; 72100

== ENCOUNTER 2025-04-29 12:01 | Emergency (ER) | payer BC, SELFPAY ==
--- OUTSIDE RECORDS SUMMARY | 2003-08-23 19:00 | XMS_ITS | Continuity of Care Document ---
Author Name [facility] Address [address] [place] [address] Organization [facility] Care Team Providers Care Automatic Edger Name Role Phone [facility] Unavailable Unavailable Problems Problem Status Onset Date Problem Type Date of Resolution Comments Source Body mass index 30+ - obesity (finding) Active Condition Added by Discern Rule PROB_ADD_BMI Obesity (disorder) Active Condition A dded by Discern Rule PROB_ADD_BMI Gastroesophageal reflux disease without esophagitis (disorder) Diagnosis Diaphragmatic hernia (disorder) Diagnosis Peritoneal adhesion (disorder) Diagnosis Obesity (disorder) Diagnosis Asthma (disorder) Diagnosis Obstructive sleep apnea syndrome (disorder) Diagnosis Essential hypertension (disorder) Diagnosis Anxiety disorder (disorder) Diagnosis Major depression, single episode (disorder) Diagnosis History of partial gastrectomy (situation) Diagnosis Obese class II (finding) Diagnosis Foreign body accidentally left during a procedure (disorder) Diagnosis Complication of surgical procedure (disorder) Diagnosis Place of occurrence of accident or poisoning (environment) Diagnosis Epigastric pain Active Diagnosis Gastro-esophageal reflux disease without esophagitis Active Diagnosis Allergies, Adverse Reactions, Alerts Substance Category Reaction Severity Reaction type Status Date Reported Comments Source Adipex-P Assertion jittery Severe Drug allergy Active [facility] PCN Assertion hives Severe Drug allergy Active [facility] Zoloft Assertion rash Severe Drug allergy Active [facility] Encounters Location Location Details Encounter Type Encounter Number Reason For Visit Attending Provider ADM Date DC Date Status Source POC POC NO TECHBILL [id number] [id number] NURSE PHONE CALL [facility]ancel [facility] [id number] 1 [place] [facility] 10/29/20 [facility] [id number] TEXT-1 [place] SLEEVE-R Y[facility] 10/29/20 [facility] [place] [facility] Procedures Procedure Code Date Perfomer Comments Source lipoma left [facility]
--- NOTE | ~2025-04-29 | XR_ITS ---
EXAMINATION: XR chest 1V portable DATE: 04/29/2025 12:27 INDICATION: Shortness of breath. TECHNIQUE: frontal view of the chest was obtained. COMPARISON: None FINDINGS: Mild elevation the right hemidiaphragm with colonic interposition. No focal airspace opacities, pulmonary edema, pleural effusion or pneumothorax. The cardiomediastinal silhouette is normal. Cholecystectomy clips in right upper quadrant. IMPRESSION: 1. Elevation of the right hemidiaphragm. No acute cardiopulmonary disease. Reviewed, dictated and finalized at location A.
[2025-04-29 12:01] VITALS: BP 134/103; PULSE 100; RESP 18; TEMP 36.2; O2SAT 99
[2025-04-29 12:05] VITALS: O2SAT 99
--- NOTE | 2025-04-29 12:08 | ED_ITS ---
HPI - SOB/Dyspnea General Chief Complaint: Upper Respiratory Infection Stated Complaint: covid positive and wheezing Time Seen by Provider: 04/29/25 12:08 Source: patient Mode of arrival: ambulatory Limitations: no limitations History of Present Illness HPI Narrative: 54-year-old female with a history of bariatric surgery, anxiety, kidney stones, diabetes mellitus, hypothyroidism, hypertension, asthma presents to the ED with -- fever- One episode of fever last night -- cough which is nonproductive -- wheezing -- not feeling well for the past 4 days she was diagnosed with COVID 4 days ago. no chest pain or shortness of breath no nausea/ vomiting /abdominal pain/diarrhea MD elicited complaint: cough Pertinent past history: asthma Onset (ago): day(s) ( 4 days) Timing: constant Severity: mild Exacerbating factors: nothing Relieving factors: nothing Known history of: asthma Associated symptoms: denies other symptoms Treatment prior to arrival: none Related Data Home oxygen amount: none Home Medications ?Medication ?Instructions ?Recorded ?Confirmed ?Last Taken ?Type estradiol 2 mg tablet 2 mg PO DAILY 06/02/2304/1106/07/23 History levocetirizine 5 mg tablet (Xyzal) 5 mg PO DAILY 09/0704/11/25 Unknown History potassium chloride 10 mEq 10 meq PO BID 10/13/2404/11 Unknown History tablet,extended release(part/cryst) cyanocobalamin (vitamin B-12) 1,000 mcg subcut MONTHLY 12/15/24 04/11/25 Unknown History 1,000 mcg/mL injection solution lisinopril 20 0.5 tablet PO DAILY 12/15/24 04/11/25 Unknown History mg-hydrochlorothiazide 12.5 mg tablet semaglutide 0.25 mg or 0.5 mg (2 0.5 mg subcut WEEKLY 04/25/25 Unknown History mg/1.5 mL) subcutaneous pen injector (Ozempic) Allergies Allergy/AdvReac Type Severity Reaction Status Date / Time sertraline Allergy Intermediate RASH Verified 04/29/25 12:07 Penicillins Allergy Mild HIVES Verified 04/29/25 12:07 phentermine AdvReac Unknown BECAME Verified 04/29/25 12:07 VERY JITTERY Review of Systems Review of Systems: All systems reviewed & are unremarkable except as noted in HPI and below Constitutional: Constitutional: Reports as per HPI and Reports no additional constitutional complaints Eyes: Eyes: Reports as per HPI and Reports no additional eye complaints ENT: Reports system reviewed and no additional complaints, except as documented and Reports as per HPI Cardiovascular: Cardiovascular: Reports as per HPI and Reports no additional cardiovascular complaints Respiratory: Respiratory: Reports as per HPI, Reports no additional respiratory complaints, Reports cough and Reports wheezing Gastrointestinal: Gastrointestinal: Reports as per HPI and Reports no additional gastrointestinal complaints Genitourinary: Genitourinary: Reports no additional female genitourinary complaints and Reports as per HPI Musculoskeletal: Musculoskeletal: Reports no additional musculoskeletal complaints and Reports as per HPI Integumentary/Breasts: Skin/Breast: Reports system reviewed and no additional complaints, except as docu and Reports as per HPI Neurologic: Reports system reviewed and no additional complaints, except as documented and Reports as per HPI Psychiatric: Psychiatric: Reports no additional psychiatric complaints and Reports as per HPI Endocrine: Endocrine: Reports no additional endocrine complaints and Reports as per HPI Hematologic/Lymphatic: Hematologic/Lymphatic: Reports no additional hematologic/lymphatic complaints and Reports as per HPI Allergic/Immunologic: Allergic/Immunologic: Reports no additional allergic/immunologic complaints and Reports as per HPI PMFSH Past Medical History Medical History Cervicalgia Myofascial pain Thoracic back pain Peripheral neuropathy FH: cholecystectomy Bariatric surg stat-del Disorder of thyroid HTN (hypertension) Allergies Anemia, unspecified Anxiety Asthma Diabetes Hypothyroidism Surgical History Surgical History History of hysterectomy Family History Family History Mother Depression Asthma Diabetes mellitus Hypertension Disorder of thyroid Sibling Asthma Grandparent Depression Disorder of thyroid Grandparent Depression Cerebrovascular accident Social History Social History Smoking status: Never smoker Alcohol intake: never Substance use: never Substance use type: does not use Do You Feel Safe in your Home?: Yes Lack of Transportation: No Lack of Food: Never True Current Housing: I Have Housing Concerned About Future Housing: No Difficulty Paying Gas/Electric Bills: No Difficulty Paying for Meds: No Currently Unemployed: No Education: Associate Degree Difficulty w/ Childcare or Family Care: No Living arrangements: alone Spiritual care concerns: No Exam Narrative: vitals are stable oxygen saturation of 99% on room air with a respiratory rate of 18. Const: General: no acute distress Orientation/consciousness: patient oriented x3 Limitations: no limitations HENMT: Head: normal to inspection Ears: external ears normal Face/Nose/Sinus: Normal external nose present Face and sinus: normal facial exam Mouth: Yes Normal oral and palatal mucosa present Throat: posterior oropharynx normal Eyes: Conjunctivae: conjunctivae normal Pupils: Equal, round and reactive pupils present EOM: EOMs intact bilaterally Direct Ophthalmoscopy: no photophobia Neck: Neck: normal visual inspection, no lymphadenopathy and no meningeal signs Chest: Chest palpation & inspection: normal inspection of the chest Resp: Effort & Inspection: normal respiratory effort Auscultation: clear to auscultation bilaterally Cardio: Rate: regular rate Rhythm: regular rhythm GI: GI Palp: Yes Soft to palpation Auscultation: normal bowel sounds : General: Yes no CVA tenderness Back/Spine/Pelvis: Back: no CVA tenderness Skin: General skin exam: normal color Rashes: no rashes Wounds: no woun ds Neuro: General: patient oriented x3, moves all extremities, no meningeal signs, no focal motor deficits and CN's II-XI intact bilaterally Cranial nerves: Yes Nystagmus not present Speech: normal speech Gait exam (Neuro): Normal gait present Extrem: General: normal to inspection and no clubbing, cyanosis or edema Psych: Mental Status: mental status grossly normal Affect: normal affect Attitude: cooperative Course Course Emergency Course: Upper respiratory tract infection- Patient tested positive for COVID. Offered Paxlovid-- patient has had symptoms for the past 5 days. Patient refused. patient complains of wheezing without any bronchospasm on exam. Oxygen saturation is 99% on room air. Vital Signs Vital signs: Vital Signs Temperature 36.2 C L 04/29/25 12:01 Pulse Rate 100 04/29/25 12:01 Respiratory Rate 18 04/29/25 12:01 Blood Pressure 134/103 H 04/29/25 12:01 Pulse Oximetry 99 04/29/25 12:01 Oxygen Delivery Room Air 04/29/25 12:01 Temperature 36.2 C L 04/29/25 12:01 Pulse Rate 100 04/29/25 12:01 Respiratory Rate 18 04/29/25 12:01 Blood Pressure 134/103 H 04/29/25 12:01 Pulse Oximetry 99 04/29/25 12:05 Oxygen Delivery Room Air 04/29/25 12:05 MDM - SOB/Dyspnea MDM Narrative Medical decision making narrative: COVID-19 upper respiratory tract infection Differential Diagnosis Differential diagnosis: Likely asthma with exacerbation Medical Records Attestation: I reviewed the patient's medical records. Lab Data Attestation: I reviewed the patient's lab results. Labs: Lab Results 04/29/25 Range/Units 12:30 Influenza A (RT-PCR) Negative (Negative) Influenza B (RT-PCR) Negative (Negative) RSV (RT-PCR) Negative (Negative) SARS-CoV-2 RNA (RT-PCR) Positive A (Negative) Discharge Plan Discharge Clinical Impression: COVID-19 Patient Disposition: Home Condition: Stable Instructions: Antibiotic Form, COVID-19 (Coronavirus Disease 2019) (ED) Patient Language: [place] Prescriptions: No Action levocetirizine [Xyzal] 5 mg tablet 5 mg PO DAILY lisinopril-hydrochlorothiazide 20-12.5 mg tablet 0.5 tablet PO DAILY Rx Instructions: EVERY OTHER DAY potassium chloride 10 mEq tablet,ER particles/crystals 10 meq PO BID Ozempic 0.25 mg or 0.5 mg(2 mg/1.5 mL) pen injector 0.5 mg subcut WEEKLY cyanocobalamin (vitamin B-12) 1,000 mcg/mL solution 1,000 mcg subcut MONTHLY estradiol 2 mg Tablet 2 mg PO DAILY duloxetine 60 mg capsule,delayed release(DR/EC) 60 mg PO DAILY Qty: 90 3RF Rx Instructions: Take with 30mg to = 90mg Gvoke HypoPen 2-Pack 1 mg/0.2 mL auto-injector 1 mg subcut ONCE Qty: 0.4 0RF Rx Instructions: as a single dose; may repeat once after 15 minutes if no response glucose 4 gram tablet,chewable 16 g PO Q15M PRN (Reason: hypoglycemia) Qty: 360 0RF Rx Instructions: until symptoms of low blood sugar are controlled duloxetine 30 mg capsule,delayed release(DR/EC) See Rx Instructions .ROUTE .COMPLEX Qty: 90 3RF Dose Instruction: TAKE 1 CAPSULE BY MOUTH ONCE DAILY TAKE WITH 60MG TO EQUAL 90MG Rx Instructions: TAKE 1 CAPSULE BY MOUTH ONCE DAILY TAKE WITH 60MG TO EQUAL 90MG hydroxyzine HCl 25 mg tablet See Rx Instructions .ROUTE .COMPLEX Qty: 30 3RF Dose Instruction: TAKE 1 TABLET BY MOUTH EVERY DAY AT BEDTIME NEEDED FOR INSOMNIA Rx Instructions: TAKE 1 TABLET BY MOUTH EVERY DAY AT BEDTIME NEEDED FOR INSOMNIA levothyroxine 50 mcg tablet See Rx Instructions .ROUTE .COMPLEX Qty: 90 0RF Dose Instruction: Take 1 tablet by mouth once daily Rx Instructions: Take 1 tablet by mouth once daily tizanidine [Zanaflex] 4 mg capsule 4 mg PO QHS PRN (Reason: muscle spasticity) Qty: 90 1RF Follow-up/Referrals: Nelly Roman APRN [Primary Care Provider, Family Practice] Time of Disposition: 13:22
--- OUTSIDE RECORDS SUMMARY | 2025-04-29 12:29 | XMS_ITS | Clinical Summary ---
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 Not on file Not on file No t on file Obstetrics History Last Filed Vital Signs Vital Sign Reading Time Taken Comments Blood Pressure 121/81 11/02/2019 1:51 PM CDT Pulse 98 11/02/2019 1:51 PM CDT Temperature 36.9 C (98.4 F) 10/25/2019 2:14 PM BOOT MAKER Respiratory Rate 16 10/25/2019 2:14 PM BOOT MAKER Oxygen Saturation 98% 11/02/2019 1:51 PM CDT Inhaled Oxygen Concentration - - Weight 98.1 kg (216 lb 3.2 oz) 11/09/2019 1:29 P M CDT Height 162 cm (5' 3.78) 10/25/2019 2:14 PM BOOT MAKER Body Mass Index 37.37 10/25/2019 2:14 PM BOOT MAKER Plan of Treatment Not on file Insurance BLUE [employer] [facility] Care Teams Quarter Seamer Relationship Specialty Start Date End Date Martha Raygoza NP PCP - General Nurse Practitioner 09/27/19 Ryley Torres DO Medical Oncologist/[facility] 11/23/19
--- OUTSIDE RECORDS SUMMARY | 2025-04-29 12:29 | XMS_ITS | Clinical Summary ---
Author Organization [facility] Address [address] [place] [address] Phone Care Team Providers Care Student Success Advisor Name Role Phone Unavailable Primary Care Provider [...] Take 1 tablet by mouth once daily 90 Tablet 04/25/20 25 Active potassium CHLORIDE (KLOR-CON M10) 10 mEq Extended Release tablet Take 1 tablet by mouth once daily 30 Tablet 03/13/20 25 025 Discontinued Active Problems No known active problems Encounters Date Type Department Care Team Description 04/25/2025 Refill [facility] [address] [place] [address] Niall Sanchez MD 03/28/2025 External Device Data ST[facility] ABSTRACTION Provider, Abstract 03/13/2025 Refill [facility] [address] [place] [address] Niall Sanchez MD 03/08/2025 External Device Data [facility] ABSTRACTION Provider, Abstract 03/07/2025 External Device Data [facility] ABSTRACTION Provider, Abstract 03/01/2025 3:30 PM CDT Office Visit [facility] [address] [place] [address] Niall Sanchez MD Other iron deficiency anemia (Primary Dx); B12 deficiency 02/07/2025 External Device Data STL ABSTRACTION Provider, Abstract 02/06/2025 Refill [facility] [address] [place] [address] Niall Sanchez MD from Last 3 Months Family History Medical [...] on file Legal Sex Female 2:49 PM 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 VICE PRESIDENT Gender Identity Not on file Sexual Orientation [...] 160 cm (5' 3) 09/22/2023 10:33 AM COMPLIANCE VICE PRESIDENT Body Mass Index 27.99 09/22/2023 10:33 AM COMPLIANCE VICE PRESIDENT Plan of Treatment Upcoming Encounters Date Type Department Care Team (Late st Contact Info) Description 09/06/2025 11:45 AM COMPLIANCE VICE PRESIDENT Office Visit [facility] [address] [facility] [address] [place] [address] Niall Sanchez MD [address] [facility] [address] [place] [address] Health Maintenance Due Date Last [...] DIABETES HBA1C Q 6 MONTHS 10/15/2023 04/14/2023 INFLUENZA VACCINE (#1) 2025 3, 05/21/2021, 06/09/2020, Additional history exists COVID-19 Vaccine (2 - 2024-2 6 season) 2025 10/28/2021 COLORECTAL SCREENING 04/08/2028 04/08/2018 Colorectal Cancer Screening 04/08/2028 DTAP/TDAP/TD VACCINES (4 - T d or Tdap) 10/26/2032 10/26/2022, 02/28/2016, 08/24/2005 Insurance [employer]
[2025-04-29 13:11] LABS: Influenza A QL RT-PCR Negative (Negative); Influenza B QL RT-PCR Negative (Negative); RSV RNA, RT-PCR Negative (Negative); SARS-CoV-2 RNA PCR Positive (Negative)
[2025-04-29 13:25] VITALS: BP 113/90; PULSE 86; RESP 18; TEMP 36.2; O2SAT 100
== END 2025-04-29 13:30 | disposition home or self-care (01) ==
PROVIDERS: Emergency Provider Internal Medicine Critical Care Medicine; PCP Nurse Practitioner Adult Health
DX: U07.1 COVID-19 (principal); E11.9 Type 2 diabetes mellitus without complications; E03.9 Hypothyroidism, unspecified; I10 Essential (primary) hypertension; J45.909 Unspecified asthma, uncomplicated
CPT/HCPCS: 71045; 87637; 99283